=== PATIENT | male | born 1940 | race Caucasian/White ===

== ENCOUNTER 2024-10-28 14:29 | Emergency (ER) | payer MEDICAID, SELFPAY ==
[2024-10-28 14:42] VITALS: BP 154/72; PULSE 58; RESP 18; TEMP 36.4; O2SAT 96; BMI 30.7
--- NOTE | 2024-10-28 14:53 | CRLHL7_ITS ---
For Patients: As a result of the Century Cures Act, medical imaging exams and procedure reports are released immediately into your electronic medical record. You may view this report before your referring provider. If you have questions, please contact your health care provider. Indication: Fall. On Xarelto. Technique: Routine protocol without IV contrast. Comparison: None. Findings: Extra-axial spaces: [id number] diffuse cerebral volume loss. Brain: No intracranial hemorrhage, mass lesion or changes for acute cortical ischemia. Foci of encephalomalacia right parietal lobe and left temporal lobe anteriorly. Multifocal confluent patchy white-matter changes are nonspecific but consistent with small vessel ischemic/degenerative changes. Ventricles: No hydrocephalus. Commensurate with the sulci. Midline: No shift. Normal structures. Posterior fossa: Normal. Orbits: Pseudophakia. Paranasal sinuses: Minor bilateral maxillary sinus mucosal thickening. Mastoid sinuses: Normal. Skull base and calvarium: Normal. Soft tissues: 1.5 millimeter radiopaque soft tissue foreign body right forehead Impression: No acute intracranial abnormalities or hemorrhage. Extensive chronic changes as above. Please note that all CT scans at this facility use dose modulation, iterative reconstruction, and/or weight-based dosing when appropriate to reduce radiation dose to as low as reasonably achievable. Dictated by Kirill Gillis MD @ 10/28/2024 3:32:38 PM (Electronically Signed)
--- NOTE | 2024-10-28 14:57 | CRLHL7_ITS ---
For Patients: As a result of the Century Cures Act, medical imaging exams and procedure reports are released immediately into your electronic medical record. You may view this report before your referring provider. If you have questions, please contact your health care provider. Indication: Fall. On Xarelto. Technique: Routine cervical protocol with sagittal and coronal reformatted images Comparison: None. Findings: Bones: No fractures or lesions. Solidly united C6-7 vertebral bodies and facet joints Disc spaces: Mild multilevel cervical spondylosis. Soft tissues: No significant paravertebral soft tissue swelling. Two right thyroid nodules measuring up to 1.0 centimeter. Lung apices: No acute abnormalities. Visualized skull base: No acute abnormalities. Impression: 1. No acute cervical abnormalities. Please note that all CT scans at this facility use dose modulation, iterative reconstruction, and/or weight-based dosing when appropriate to reduce radiation dose to as low as reasonably achievable. Dictated by Kirill Gillis MD @ 10/28/2024 3:36:56 PM (Electronically Signed)
--- NOTE | 2024-10-28 14:58 | ED_ITS ---
HPI - Fall General Chief Complaint: Fall/Minor Trauma Stated Complaint: Fell and hit his head, on Blood Thinner Time Seen by Provider: 10/28/24 14:39 History of Present Illness HPI Narrative: Patient is a E 84-year-old gentleman who is visiting from [facility]. Patient gets her own with a walker and his was putting his slippers on today when the patient fell landing on the left posterior occiput. He did not lose consciousness. He fell from a standing height onto carpet. He is on Xarelto for history of DVT. He is having no new neurologic symptoms. His ambulation is unchanged. He has no bruising or bleeding. No other issues. Patient is otherwise been feeling fine with no signs of acute infection. No palpitations. The fall was due to a mechanical tripping. Related Data Home Medications ?Medication ?Instructions ?Recorded ?Confirmed rivaroxaban PO DAILY 10/28/24 rivastigmine 4.6 mg/24 hour 4.6 mg transdermal DAILY 10/28/24 10/28/24 transdermal patch (Exelon Patch) Allergies Allergy/AdvReac Type Severity Reaction Status Date / Time No Known Drug Allergies Allergy Verified 10/28/24 14:45 Review of Systems Status of ROS: Reports: 10 or more systems reviewed and unremarkable except as noted in History and below Exam Narrative: Exam Narrative: EXAM GENERAL: Patient appears comfortable and well. EYES: No scleral icterus. LYMPH: No supraclavicular or cervical lymphadenopathy. SKIN: Visible skin seen during exam normal or with benign process only. EXT: No dependent lower extremity pedal edema. HEART: Regular rate and rhythm with no murmurs, rubs, or gallops. LUNGS: Clear to auscultation bilaterally with no crackles or wheezes. ABD: Soft, non tender, non distended. PSYCH: Good eye contact, speech is not pressured. Cranial nerves 2-12 grossly intact no focal defects GCS 15. No obvious signs of trauma. Const: Vital Signs, click to edit/add: Vital Signs - 24 hr 10/28/24 14:42 Temperature 97.6 F Pulse Rate [Pulse Oximeter] 58 L Respiratory Rate 18 Blood Pressure [Ri ght Upper Arm] 154/72 H Pulse Oximetry 96 Oxygen Delivery Me thod Room Air Course Course ED Course: Patient seen and examined. Due to his anticoagulation I did obtain CT head and neck. Vital Signs Vital signs: Initial Vital Signs Temperature 97.6 F 10/28/24 14:42 Temperature Source Temporal Artery Scan 10/28/24 14:42 Pulse Rate 58 L 10/28/24 14:42 Respiratory Rate 18 10/28/24 14:42 Blood Pressure 154/72 H 10/28/24 14:42 Blood Pressure Mean 99 10/28/24 14:42 Blood Pressure Position Sitting 10/28/24 14:42 Pulse Oximetry 96 10/28/24 14:42 Oxygen Delivery Method Room Air 10/28/24 14:42 Vital Signs Temperature 97.6 F 10/28/24 14:42 Pulse Rate 58 L 10/28/24 14:42 Respiratory Rate 18 10/28/24 14:42 Blood Pressure 154/72 H 10/28/24 14:42 Pulse Oximetry 96 10/28/24 14:42 Oxygen Delivery Method Room Air 10/28/24 14:42 Temperature 97.6 F 10/28/24 14:42 Pulse Rate 58 L 10/28/24 14:42 Respiratory Rate 18 10/28/24 14:42 Blood Pressure 154/72 H 10/28/24 14:42 Pulse Oximetry 96 10/28/24 14:42 Oxygen Delivery Method Room Air 10/28/24 14:42 MDM - Fall MDM Narrative Medical decision making narrative: Patient is a 84-year-old gentleman who stumbled putting on his slippers today. He has dementia gets around with a walker. Patient had CT head neck with no acute abnormalities. He is otherwise neurologically intact given his chronic dementia. He has had no fevers no chills no night sweats he move all his extremities and there is no concern about discharged home as his and daughter are present. He is discharged home to continue his current care follow-up with his primary physician as needed. Discharge Plan Discharge Clinical Impression: Contusion Patient Disposition: Home w/ Parent or Adult Condition: Stable Additional Instructions: Continue current care Follow-up with your doctor as scheduled. Activity Level: No Restrictions Discharge Diet: Regular Prescriptions: No Action rivaroxaban [Xarelto] PO DAILY rivastigmine [Exelon Patch] 4.6 mg/24 hour patch 24 hour 4.6 mg transdermal DAILY Follow Up/Referrals: Provider,Not a Local [Primary Care Provider] - Stand Alone Forms: [employer] Info Instructions
--- OUTSIDE RECORDS SUMMARY | 2024-10-28 15:23 | XMS_ITS | Referral Summary ---
Author Organization [facility] Address [address] [place] [id number] Care Team Providers Care Social Media Designer Name Role Phone Iggy Branch MD Primary Care Provider [phone] Allergies Active Allergy Reactions Criticality Noted Date Comments Nafcillin Rash 07/10/2017 Rash reaction covering torso Medications acetaminophen (TYLENOL) 325 mg oral tablet Take 325 mg by mouth every 4 (four) hours as needed. Active ibuprofen (ADVIL;MOTRIN) 200 mg oral tablet Take 200 mg by mouth every 4 (four) hours as needed. Active Clobetasol 0.05 % Top Lotion Apply 1 Application to skin Twice a Day. Active ATORVASTATIN CALCIUM (ATORVASTATIN ORAL) Take by mouth once daily. Dose unknown Active betamethasone, augmented (DIPROLENE AF) 0.05 % Top cream cream Apply to affected area body bid for 1-2 weeks, alternate with mometasone q 1-2 weeks 7 Active triamcinolone acetonide (KENALOG) 0.1% cream APPLY ONE APPLICATION TO AFFECTED AREA TWICE DAILY FOR 14 DAYS 2 7 Active HYDROcodone-ruth taminophen (NORCO) 5-325 mg oral tablet Take 1 tablet by mouth every 12 (twelve) hours as needed for Pain. 45 tablet 7 Active Lisinopril-Hydr ochlorothiazide 20-12.5 mg oral tablet 7 Active Active Problems Problem Noted Date Diagnosed Date Essential hypertension 06/06/2017 Right arm weakness 06/06/2017 Bullous pemphigoid 06/06/2017 Subacute osteomyelitis of lumbar spine 7 Asymptomatic varicose veins 09/14/1996 Hyperlipidemia 09/14/1996 Staphylococcal arthritis of right shoulder Staphylococcus aureus bacteremia without sepsis Immunizations Name Administration Dates Next Due Influenza recombinant (FluBl ok Quadrivalent PF) 08/25/2005,09/06/2004 Influenza split virus quadrivalent 07/19,08/05/2012,08/25/2005,2003 Pneumococcal PCV13 04/04/2016 Td adult absorbed PF (2 Lf) 07/27/1998 Tdap 04/27/2017 Social History Tobacco Use Types Packs/Day Years Used Date Smoking Tobacco: Former Smokeless Tobacco: Former Alcohol Use Standard Drinks/Week Comments No 0 (1 standard drink = 0.6 oz pur e alcohol) Sex and Gender Information Value Date Recorded Sex Assigned at Not on file Legal Sex Male 5:19 AM CDT Gender Identity Not on file Sexual Orientation Not on file Last Filed Vital Signs Vital Sign Reading Time Taken Comments Blood Pressure 160/75 08/08/2020 4:15 AM CDT Pulse 70 08/08/2020 4:15 AM CDT Temperature 36.8 C (98.2 F) 08/08/2020 1:19 AM CDT Respiratory Rate 21 08/08/2020 4:15 AM CDT Oxygen Saturation 98% 08/08/2020 4:15 AM CDT Inhaled Oxygen Concentration - - Weight 80.3 kg (177 lb) 10/27/2017 10:31 AM DEADENER Height 177.8 cm (5' 10) 11/09/2017 9:04 AM DEADENER Body Mass Index 25.4 10/22/2017 1:10 PM DEADENER Plan of Treatment Not on file Procedures Procedure Name Priority Date/Time Associated Diagnosis Comments COLONOSCOPY 06/07/2008 12:00 AM CDT from Last 3 Months or Most Recently Relevant to Health Maintenance Results * COLONOSCOPY (06/07/2008 12:00 AM CDT) Narrative Procedure Note Riley Moya MD - 06/07/2008 12:00 AM CDTDictating Physician:Riley Moya M.D. Primary Care Physician:Iggy Branch M.D. Date of Procedure/Consult: 06/07/2008 SURGEON:Riley Moya M.D. REPORT OF PROCEDURE: PREPROCEDURE DIAGNOSIS: Screening. POSTPROCEDURE DIAGNOSIS: Normal colonoscopy. PROCEDURE PERFORMED: Colonoscopy. Mr. Andre is a pleasant 67-year-old here for screening examination. Heis asymptomatic. Denies constipation, diarrhea, blood or melena perrectum. His weight is stable, his appetite is good. No history for anemia.No family history for inflammatory bowel disease or colon cancerreported. CONSENT: We discussed benefits and risks including bleeding, perforation,infection, allergic reaction to medication, heart or pulmonary problems orrisk of incomplete examination, abdominal discomfort with exam. Discussedalternatives to this procedure with him and answered him questions to hissatisfaction. Written consent was obtained. His will drive him homeafterwards. PREPROCEDURE VITAL SIGNS AND EXAM: Blood pressure 128/79, heart rate 62,respiratory rate 20, O2 sat 97% on room air. NECK:Full range of motion. HEART:Regular rate and rhythm. LUNGS:Clear. ABDOMEN:Bowel sounds present, soft and nontender. MEDICATIONS: 1.Fentanyl 100 mcg IV x one. 2.Versed 2 mg. 3.O2 2 liters per nasal cannula. PROCEDURE: The patient was on his left side. Visual inspection, noexternal hemorrhoids. Digital exam, sphincter tone is present, smooth, nomass. Prostate 1+ without nodularity. After initial IV sedation, the Olympus PCF 160AL video colonoscope wasintroduced into the anus, advanced into the rectum and sigmoid colon. Itwas slowly and carefully advanced to the more proximal portion of thecolon. With repositioning the patient, using external compression andverbal reassurance, the scope reached the cecum. The ileocecal valve andappendiceal orifice were identified. The prep for this examination wasgood. On withdrawal, the entire colon mucosa was normal. There is noevidence for overt colitis, masses, strictures, polyps or telangiectaticdisease. Retroflexed view within the rectum was unremarkable. The colonwas deflated, scope was removed from the patient. Tolerated the procedurewell without complications. ASSESSMENT: Normal exam. RECOMMENDATIONS: Reassurance. Follow up with Dr. Branch as needed. Thanks very much, Iggy. If I can be of further assistance with 's care, please do not hesitate to contact me at any time. RILEY MOYA M.D. 36 - SB Riley Moya MD PROCEDURE ORDERABLE Final Result from Last 3 Months or Most Recently Relevant to Health Maintenance Insurance [facility] MEDICARE ADVANTAGE Member Subscriber Plan / Payer (Ef fective 2007-Present) Name:Jean-Paul Andre Relation to Subscriber:Self Name:Jean-Paul Andre Payer ID:[id number] (NAIC) [id number] Type:Medicare Advantage Address: [address] [address] Advance Directives For more information, please contact: [phone] * Full Code (Latest Code Status on File) Date Activated Date Inactivated Comments 06/05/2017 10:56 PM 06/11/2017 6:06 PM Question Answer Comments How was code status determined? Patient Care Teams Social Media Designer Relationship Specialty [place] [id number] [facility] [address] [place] [address] PCP - General 06/02/08
--- OUTSIDE RECORDS SUMMARY | 2024-10-28 15:23 | XMS_ITS | Clinical Summary ---
Author Organization [facility] Address [address] [place] [address] Care Team Providers Care Residency Program Coordinator Name Role Phone Iggy Branch MD Primary Care Provider [phone] Allergies Active Allergy Reactions Criticality Noted Date [...] absorbed PF (2 Lf) 07/27/1998 Tdap 04/27/2017 Family History Medical History Relation Comments No Known Problems Father No Known Problems Mother Relation Status Comments Father Mother Social History Tobacco Use Types Packs/Day Years [...] 80.3 kg (177 lb) 10/27/2017 10:31 AM FOREST SUPERVISOR Height 177.8 cm (5' 10) 11/09/2017 9:04 AM FOREST SUPERVISOR Body Mass Index 25.4 10/22/2017 1:10 PM FOREST SUPERVISOR Plan of Treatment Health Maintenance Due Date Last Done Comments Depression Assessment (PHQ-2) 1940 Zoster Vaccine (1 of 2) 1989 RSV Vaccines (1 - 1-dose 75+ series) 2014 Yearly Review of HCD 08/11/2018 08/11/2017, 06/05/20 17 Colonoscopy 09/02/2023 09/02/2013, 06/07/2008 COVID-19 Vaccine (3 - 2023-2 5 season) 2024 12/27/2020, 12/07/2020 Influenza Vaccine (#1) 2024 9, 07/16/2018, 08/15/2014, Additional history exists Adult Tetanus Booster 04/27/2027 04/27/2017 , 09/13/2004, 07/27/1998 Pneumococcal 50+ Completed 04/04/2016, , 01/03/2005 Procedures Procedure Name Priority Date/Time Associated Diagnosis [...] Most Recently Relevant to Health Maintenance Insurance [facility] MEDICARE ADVANTAGE Advance Directives For more information, please contact: [phone] * Full Code (Latest Code Status on File) Date Activated Date Inactivated Comments 06/05/2017 10:56 PM 06/11/2017 6:06 PM Question Answer Comments How was code status determined? Patient Care Teams Residency Program Coordinator Relationship Specialty Start [place] [address] [facility] [address] [place] [address] PCP - General 06/02/08
--- OUTSIDE RECORDS SUMMARY | 2024-10-28 15:23 | XMS_ITS | Clinical Summary ---
Author Organization [facility] Address [place], [place] [address] Care Team Providers Care Applied Research Director Name Role Phone Martha Sanchez Primary Care Prov ider Allergies Active Allergy Reactions Criticality Noted Date Comments Nafcillin Rash 07/10/2017 Rash reaction covering torso Medications atorvastatin (LIPITOR) 10 mg tablet atorvastatin 10 mg tablet Active dorzolamide-ti moloL (COSOPT) 2-0.5 % ophthalmic solution INSTILL 1 DROP INTO LEFT EYE TWICE A DAY 0 Active memantine (NAMENDA) 5 mg tablet Take 5 mg by mouth once daily. 9 Active acetaminophen (TYLENOL) 325 mg tablet Take 325 mg by mouth. Active citalopram (CELEXA) 20 mg tablet Take 20 mg by mouth. 2 Active citalopram (CELEXA) 10 mg tablet TAKE 1 TABLET DAILY FOR 1 WEEK THEN 2 TABLETS DAILY THEREAFTER 2 Active Clobetasol Propionate 0.05 % lotion Apply topically to affected area(s). Active dapsone 25 mg tablet dapsone 25 mg tablet Active escitalopram oxalate (LEXAPRO) 10 mg tablet Take 1 tablet daily for 1 week then every other day for 1 week 2 Active ibuprofen (ADVIL; MOTRIN) 200 mg tablet Take 200 mg by mouth. Active lisinopriL (PRINIVIL; ZESTRIL) 5 mg tablet 2 Active OLANzapine (ZYPREXA) 2.5 mg tablet Take 0.5 Tablets by mouth at bedtime. 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 Anxiety 11/27/2021 Hypercholesteremia 11/27/2021 Memory loss 10/31/2021 Osteomyelitis 10/08/2017 Bullous pemphigoid 06/06/2017 Essential hypertension 06/06/2017 Right arm weakness 06/06/2017 Subacute osteomyelitis of lumbar spine 7 Osteoarthritis 03/18/2003 Overview (05/12/2022): DJD Asymptomatic varicose veins 09/14/1996 Social History Tobacco Use Types Packs/Day Years Used Date Smoking Tobacco: Never Smokeless Tobacco: Never Alcohol Use Standard Drinks/Week Comments No 0 (1 standard drink = 0.6 oz pur e alcohol) Sex and Gender Information Value Date Recorded Sex Assigned at Not on file Legal Sex Male 7:04 AM LIBRARY PAGE Gender Identity Not on file Sexual Orientation Not on file Obstetrics History Last Filed Vital Signs Vital Sign Reading Time Taken Comments Blood Pressure 182/84 05/12/2022 4:47 PM CDT Pulse 56 05/12/2022 2:35 PM CDT Temperature 37.2 C (98.9 F) 05/12/2022 2:35 PM CDT Respiratory Rate 18 05/12/2022 4:47 PM CDT Oxygen Saturation 98% 05/12/2022 4:47 PM CDT Inhaled Oxygen Concentration - - Weight 86.2 kg (190 lb) 05/12/2022 2:35 PM CDT Height 177.8 cm (5' 10) 05/12/2022 2:35 PM CDT Body Mass Index 27.26 05/12/2022 2:35 PM CDT Plan of Treatment Health Maintenance Due Date Last Done Comments Tdap 1950 Depression screening for age 12+ 1951 BMI (ht and wt on same day) for age 18+ 1957 Tetanus booster 1959 Pneumococcal series for age 50+ (1 of 1 - PCV) 1989 Zoster (shingles) series for age 50+ (1 of 2) 1989 RSV vaccine for adults or pr egnancy (1 - 1-dose 75+ series) 2014 COVID-19 vaccine series ( season) 2024 10/31/2021, 12/27/2020, 12/07/2020 Influenza for age 65+ 06/12/2024 Insurance [facility] MEDICARE ADVANTAGE MR Advance Directives * Full Code (Latest Code Status on File) Date Activated Date Inactivated Comments 09/02/2013 10:15 AM 09/02/2013 12:59 PM Care Teams Applied Research Director Relationship Specialty Start Date End Date Martha Sanchez Family [address] [place] [address] PCP - General Nurse Practitioner - Family 05/12/22
--- OUTSIDE RECORDS SUMMARY | 2024-10-28 15:24 | XMS_ITS | Encounter Summary ---
Author Organization Formerly [facility] Address [address] [place] [address] Care Team Providers Care Hoop Machine Operator Name Role Phone Balaji Gallegos DO Primary Care Provider Encounter Details Date Type Department Care Team (Latest Contact Info) Description 10/21/2024 1:15 PM REAL ESTATE MANAGER Telemedicine Neurology at [facility] [address] [facility] [place], [place] [id number] Evangelist Wne MD [address] [place], [place] [phone] Alzheimer's disease (HRC) (Primary Dx) Social History Tobacco Use Types Packs/Day Years Used Date Smoking Tobacco: Former Passive Smoke Exposure: Never Smokeless Tobacco: Never Alcohol Use Standard Drinks/Week Comments Not Currently 0 (1 standard drink = 0.6 oz pur e alcohol) [facility] Utilities Answer Date Recorded In the past 12 months has [employer] electric, gas, oil, or water company threatened to shut off services in your home? No 09/09/2024 Humiliation, Afraid, Rape, and Kick questionnair e Answer Date Recorded Within the last year, have y ou been afraid of your partner or ex-partner? No 09/09/2024 Within the last year, have y ou been humiliated or emotionally abused in other ways by your partner or ex-partner? No Within the last year, have y ou been kicked, hit, slapped, or otherwise physically hurt by your partner or ex-partner? No 09/09/2024 Within the last year, have y ou been raped or forced to have any kind of sexual activity by your partner or ex-partner? No 09/09/2024 PHQ-2 Answer Date Recorded PHQ-2 Score 2 04/20/2024 Hunger Vital Sign Answer Date Recorded Within the past 12 months, y ou worried that your food would run out before you got the money to buy more. Never true 09/09/20 24 Within the past 12 months, t he food you bought just didn't last and you didn't have money to get more. Never true 09/09/2024 PRAPARE - Transportation Answer Date Re corded In the past 12 months, has l ack of transportation kept you from medical appointments or from getting medications? No 08/13 In the past 12 months, has l ack of transportation kept you from meetings, work, or from getting things needed for daily living? No 09/09/2024 Housing Stability Vital Sign Answer Sonido e Recorded In the last 12 months, was t here a time when you were not able to pay the mortgage or rent on time? No 09/09/2024 Number of Times Moved in the Last Year Not on fi le 09/09/2024 At any time in the past 12 m [facility], were you homeless or living in a mcc (including now)? No 09/09/2024 Sex and Gender Information Value Date Recorded Sex Assigned at Not on file Gender Identity Not on file Sexual Orientation Not on file documented as of this encounter Progress Notes * Evangelist Wen MD - 10/21/2024 1:15 PM CST DIAGNOSES: 1. 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 3. 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 Other medical problems as noted below RECOMMENDATIONS/PLANS: 1. Continue present therapies 2. Follow up in the office in 6 weeks 3. Care eco systems referral SUMMARY: This 84-year-old male on presentation 01/29/2024 reported a multiyear history of gradually advancing changes in cognition and later function initially manifesting with impairment in episodic memory. Gradually progressive over time, these difficulties were complicated by behavioral changes consistent with a mood disorder with psychosis. On 01/29/2024, at the time of intake assessment, it was felt that initiating therapy with donepezil may be significantly beneficial to his attentional ability and possibly behaviors. At that time the following was recommended: 1. Check 1st tier screening blood tests: Comprehensive metabolic profile remarkable for mildly low total protein and albumin. TSH within normal limits. Vitamin B12 level low at 194 with methylmalonicacid level normal at 0.3 and complete blood count within normal limits 2. Noncontrast head CT: Not performed 3. Occupational therapy assessment : Not performed 4. Begin donepezil 5 mg p.o. q.day times 30 days then increase to 10 mg p.o. q.day thereafter. Givewith breakfast Addendum 02/08/2024: Apparently the patient developed agitated behavior following initiation of donepezil so this medicine was discontinued after several days of use. On 03/16/2024 I spoke with the patient and daughter Amparo regarding options for managing depression beginning with the question as to whether the patient truly is suffering from such a syndrome. Afterdiscussion the following was recommended: 1. 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 OT evaluation : ACL 3.8 3. Return to clinic in 1 month at which time we will consider adjustment in antidepressant therapy and consider the role of environmental support On 04/13/2024 we discussed results of cognitive performance test and treatments moving forward. At that time I believed institution of transdermal rivastigmine would be a good 1st start along with consideration for placement 1. begin transdermal rivastigmine 4.6 mg per 24 hour patch 2. Care Ecosystems consult 3. Continue current therapies with citalopram and olanzapine 4. Follow up by video 1 month On 05/18/2024 I discussed Jean-Paul's case with his Shama and daughters Ricarda and Amparo. As best as could be determined, there was some modest improvement in the patient's agitated behavior following initiation of therapy with transdermal rivastigmine. He did, however, remain somewhat difficult to manage particularly in the evening with more levels of confusion and activation. He continued to en albertina in behavior where he would to pack and impact bags and express the desire to leave the home requiring the spouse to frequently redirect him. Again agitation appeared to be a bit better. Of interest, the spouse notes that the patient has not left home after packing a bag since beginning transdermal rivastigmine. At this time family believes that further pharmacotherapy is warranted and I outlined a number of options including increasing transdermal rivastigmine as well as switching out atypical antipsychotic therapy. The following was recommended: 1. Discontinue therapy with olanzapine 2. Tomorrow begin therapy with risperidone 0.5 mg p.o. b.i.d. 3. Spouse is to discontinue therapy and contact me with any concerns otherwise will follow up by video in 1 month Today the patient was seen on video with his Shama and granddaughter Jayla. Since initiation of therapy with risperidone agitated behavior has for the most part resolved. The patient has attila bit more motorically slow and I do note that he was hospitalized briefly for a fall in August resulting in a fractured left 5th metatarsal. He was also hospitalized for an episode of urosepsis. Currently at home he has been doing well again with less agitation. His mobility is good although family note that he is slowing down to some extent. Today the patient appears to be alert and interactive although he responds only when spoken to. We agreed to continue present therapies and follow up in 6 weeks for in person evaluation. HISTORY OF PRESENT ILLNESS : Jean-Paul Andre is a 84 y.o. male who presents to clinic in follow-up of Behavioral disturbance associated with dementia of the Alzheimer type. Since last seen the patient was hospitalized On 2 occasions once for a foot fracture and on a 2nd occasion for urosepsis. Now at home is doing quite well. Agitated behavior has diminished considerably. The patient is also not as motorically active but he continues to use his walker and cane without difficulty. Today Jean-Paul is alert and I note him to respond promptly to questions that I posed to him by video. He offers no complaints at this time. Past Medical History: Diagnosis Date Alzheimer's dementia with behavioral disturbance ([facility]) 01/29/2024 Anxiety (HR) 11/27/2021 Benign neoplasm of colon 05/12/2022 Bullous pemphigoid 06/06/2017 Closed displaced fracture of fifth metatarsal bone of left foot 08/30/2024 Essential hypertension ([facility]) 06/06/2017 Exudative age-related macular degeneration ([facility]) 05/12/2022 History of malignant melanoma of skin 05/12/2022 Hyperlipidemia ([facility]) 09/14/1996 Melanoma of skin ([facility]) 01/03/2005 LW Onset: 1974 ; Melanoma Skin NOS Osteoarthritis 03/18/2003 DJD Osteomyelitis ([facility]) 10/07/2017 Prediabetes 05/12/2022 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 atorvastatin (LIPITOR) 10 MG tablet Take 1 Tablet (10 mg) by mouth daily. citalopram (CELEXA) 20 MG tablet Take 1 Tablet (20 mg) by mouth daily. Multiple Vitamins-Minerals (PRESERVISION AREDS 2) CAPS Take 1 Capsule by mouth two times a day. risperiDONE (RISPERDAL) 0.5 MG tablet Take 1 Tablet (0.5 mg) by mouth two times a day. rivaroxaban (XARELTO) 20 MG tablet Take 1 Tablet (20 mg) by mouth daily with meal. Take with food. Indications: Venous Thromboembolism Do not start before October 01, 2024. rivastigmine (EXELON) 4.6 MG/24HR patch Apply 1 Patch to skin daily. torsemide (DEMADEX) 10 MG tablet Take 1 Tablet (10 mg) by mouth daily. Indications: Cardiac Failure No facility-administered medications prior to visit. REVIEW OF SYSTEMS : Pertinent items are noted in HPI. OBJECTIVE : eatly groomed casually dressed the patient is seated for evaluation. He is alert and generally interactive. His responses to questions or socially appropriate but devoid of content. No evidence of agitation or irritability noted. No evidence of delusional ideation identified. Laboratory: Imaging: Follow up: Return to clinic in 6 weeks, sooner if problems arise. Total time 30 minutes, counseling time 25 minutes regarding above. ESTATE MANAGER documented in this encounter Plan of Treatment Upcoming Encounters Date Type Department Care Team (Late st Contact Info) Description 12/07/2024 11:15 AM REAL ESTATE MANAGER Appointment Neurology at [facility] [address] [place] [address] Evangelist Wen MD [address] [place], [place] [phone] 12/14/2024 11:00 AM REAL ESTATE MANAGER Appointment [place] [id number] Thrombosis [address] [place] [phone] Maria Ines Caldera, COIN PURSE FRAMER, RVDA MASTER CERTIFIED RV TECHNICIAN [address] [place] [address] documented as of this encounter Visit Diagnoses Diagnosis Alzheimer's disease (HRC)- Primary Alzheimer's disease documented in this encounter Care Teams Hoop Machine Operator Relationship Specialty Start Date End Date Balaji Gallegos DO [address] [place], [place] [phone] PCP - General Family Practice 10/31/21 documented as of this encounter
--- OUTSIDE RECORDS SUMMARY | 2024-10-28 15:24 | XMS_ITS | Clinical Summary ---
Author Organization [facility] Address [address] [place] [address] Care Team Providers Care Clinical Dietetic Technician Name Role Phone Balaji Gallegos DO Primary Care Provider Source Comments You are receiving this document as you are listed as the primary care provider,follow-up provider, or the patient has been referred to you for consultation.This is in compliance with the Medicare and[facility] EHR Incentive Program,which states Providers who transition their patient to another setting of careor provider of care or refers their patient to another provider of care shouldprovide summary care record for each transition of care or referral. [facility] Allergies No known active allergies Medications Medication Sig Dispensed Refills Start Date End Date Status Multiple Vitamins-Minerals (PRESERVISION AREDS 2) CAPS Take 1 Capsule by mouth two times a day. 04/21/20 23 Active rivastigmine (EXELON) 4.6 MG/24HR patchIndications:Al zheimer's dementia with behavioral disturbance (HRC) Apply 1 Patch to skin daily. 90 Patch 3 04/13/20 24 025 Active atorvastatin (LIPITOR) 10 MG tabletIndications:H ypercholesteremia Take 1 Tablet (10 mg) by mouth daily. 90 Tablet 3 04/20/20 24 Active citalopram (CELEXA) 20 MG tabletIndications:A nxiety (HRC) Take 1 Tablet (20 mg) by mouth daily. 90 Tablet 3 04/20/20 24 Active acetaminophen (TYLENOL) 325 MG tablet Take 2 Tablets (650 mg) by mouth every 6 hours. 100 Tablet 11 09/02/20 24 Active risperiDONE (RISPERDAL) 0.5 MG tabletIndications:A lzheimer's dementia with behavioral disturbance (HRC) Take 1 Tablet (0.5 mg) by mouth two times a day. 30 Tablet 09/11/20 24 Active rivaroxaban (XARELTO) 20 MG tabletIndications:V enous Thromboembolism Take 1 Tablet (20 mg) by mouth daily with meal. Take with food. Indications: Venous Thromboembolism Do not start before October 01, 2024. 30 Tablet 10/01/20 24 025 Active torsemide (DEMADEX) 10 MG tabletIndications:H eart Failure Take 1 Tablet (10 mg) by mouth daily. Indications: Cardiac Failure 30 Tablet 09/28/20 24 025 Active rivaroxaban (XARELTO) 15 MG tabletIndications:V enous Thromboembolism Take 1 Tablet (15 mg) by mouth two times a day with meals for 2 days. Take with food. Last dose on 09/30/24. Indications: Venous Thromboembolism 09/28/20 24 024 Discontinued Active Problems Problem Noted Date Diagnosed Date Acute pulmonary embolism 09/09/2024 Closed displaced fracture of fifth metatarsal bone of left foot 08/30/2024 Alzheimer's disease 01/29/2024 Low serum vitamin B12 01/29/2024 Exudative age-related macular degeneration 05/12 Anxiety 11/27/2021 Essential hypertension 06/06/2017 Overweight (BMI 25.0-29.9) 01/03/2005 Overview (05/14/2016): LW Onset: [id number] Melanoma of skin 01/03/2005 Overview (06/03/2017): LW Onset: 1974 ; Melanoma Skin NOS Hyperlipidemia 09/14/1996 Heart failure, unspecified Resolved Problems Problem Noted Date Diagnosed Date Resolved Date Sepsis secondary to UTI 09/09/2024 12/0 12/2023 Acute respiratory distress 09/09/2024 1 11/14/2023 Acute pain of left knee 08/31/202408/13 Fall 08/30/2024 09/05/2024 Cellulitis 05/15/2023 03/20/2024 Chronic renal failure syndrome 05/12/2022 04/20/2024 Benign neoplasm of colon 05/12/2022 History of malignant melanoma of skin 05/12/2022 09/05/2024 Prediabetes 05/12/2022 09/05/2024 Staphylococcal arthritis of right shoulder 05/12/2022 09/05/2024 Memory loss 10/31/2021 04/20/2024 Osteomyelitis 10/07/2017 09/05/2024 Bullous pemphigoid 06/06/2017 Subacute osteomyelitis of lumbar spine 06/05/2017 09/05/2024 Hypertrophy of prostate with out urinary obstruction 01/03/2005 03/24/2006 Overview (06/03/2017): LW Onset: ; BPH w/o Obstruction Osteoarthritis 03/18/2003 09/05/2024 Overview (06/03/2017): DJD Encounters Date Type Department Care Team Description 10/21/2024 1:15 PM SIDE TRIMMER Telemedicine [facility]rology at [facility] [address] [facility] [place] [address] Evangelist Wen MD Alzheimer's disease (HRC) (Primary Dx) 10/21/2024 Telephone [facility] 3850 Internal Medicine [address] [facility] [place] [address] Balaji Gallegos, DO Anticoagulation 10/18/2024 [facility] [address] [facility] [place] [address] Mychart, Generic Provider 10/13/2024 Telephone Home Based Medicine [facility] [address] [place] [address] Unassigned, Provider FYI; Referral (HBM) 10/10/2024 Telephone [facility] 3850 Thrombosis 3850 [place] [address] Maria Ines Caldera APRN, JASMYNE Appt. Needed 10/03/2024 8:40 AM SIDE TRIMMER Telemedicine [place] [address] [place] [address] Maria Ines Caldera APRN, YACHT CAPTAIN Acute pulmonary embolism, unspecified pulmonary embolism type, unspecified whether acute cor pulmonale present (HRC) (Primary Dx); On continuous oral anticoagulation; Heart failure, unspecified HF chronicity, unspecified heart failure type (HRC) 10/03/2024 Notes/Orders [place] [address] [place] [address]. [place] [address] Balaji Gallegos DO Alzheimer's disease, unspecified (HRC) (Primary Dx) 10/01/2024 Lab Requisition [facility] [address] [facility] [place] [address] Rubia Villanueva APRN, JASMYNE Acute kidney failure, unspecified (HRC) 09/28/[address] [place] [address] Rubia Villanueva APRN, YACHT CAPTAIN Discharge From External Facility 09/28/[address] [place] [address] Elise Gaytan MBBS ERRONEOUS ENTRY; ERRONEOUS ENTRY 09/27/2024 Lab Requisition [facility] [address] [facility] [place] [address] Rubia Villanueva APRN, YACHT CAPTAIN Acute kidney failure, unspecified (HRC) 09/26/[address] [place] [address] Rubia Villanueva APRN, YACHT CAPTAIN Follow-up 09/24/2024 [facility] [employer] Consultant [address] [place] [address] Rayne Stewart APRN, DNP COVID Test Results 09/21/2024 [facility] Transitional [address] [place] [address] Elise Gaytan MBBS Initial Assessment 09/20/[address] [place] [address] Rubia Villanueva STOPBOARD ASSEMBLER, YACHT CAPTAIN Follow-up 09/19/2024 8:00 AM SIDE TRIMMER [facility] 3931 Orthopedics [facility] [address] [place] [address] Dk Sands, STOPBOARD ASSEMBLER, YACHT CAPTAIN FOLLOW-UP,FRACTURE 09/19/[address] [place] [address] Rubia Villanueva APRN, YACHT CAPTAIN RESULTS, TEST 09/17/2024 Lab Requisition [facility] [address] [facility] [place] [address] Rubia Villanueva, STOPBOARD ASSEMBLER, YACHT CAPTAIN Chronic kidney disease, stage 3 unspecified (HRC) 09/16/[address] [place] [address] Rubia Villanueva STOPBOARD ASSEMBLER, YACHT CAPTAIN Follow-up 09/15/2024 Lab Requisition [facility] [address] [facility] [place] [address] Rubia Villanueva STOPBOARD ASSEMBLER, YACHT CAPTAIN Urinary tract infection, site not specified 09/15/[address] [place] [address] Rubia Villanueva APRN, YACHT CAPTAIN Initial Assessment 09/08/2024 10:16 PM SIDE TRIMMER - 09/14/2024 2:27 PM SIDE TRIMMER Hospital Encounter [facility] 8W General Med [address] [place] [address] Katiuska Brothers MD Md, Hospital Medicine GjevreJack MD Doda, Lauren B, Phu Barrios MD Acute pulmonary embolism, unspecified pulmonary embolism type, unspecified whether acute cor pulmonale present (HRC) (Primary Dx); Sepsis, due to unspecified organism, unspecified whether acute organ dysfunction present (HRC); Pyelonephritis; Pulmonary embolism, unspecified chronicity, unspecified pulmonary embolism type, unspecified whether acute cor pulmonale present (HRC); Alzheimer's dementia with behavioral disturbance (HRC); Sepsis secondary to UTI (HRC) Discharge Disposition: Transitional Care Unit 09/08/[address] [place] [address] Jennie Lieberman APRN, YACHT CAPTAIN UPDATE 09/07/[address] [place] [address] Elise Gaytan MBBS Initial Assessment 09/05/[address] [place] [address] Rubia Villanueva APRN, YACHT CAPTAIN Initial Assessment 09/03/2024 [facility] [address] [place] [address]. [place] [address] Mychart, Generic Provider 09/02/2024 [facility] [address] [place], [place] [address] [address] 08/30/2024 5:52 PM SIDE TRIMMER - 09/02/2024 4:00 PM SIDE TRIMMER Hospital Encounter [facility] 6E Ortho Med Surg [address] [facility] [place] [address] Zohaib Mcadams DO Gonzalez Bolanos, Maria T, MD Ray, Jonathan R, MD Counters, Jeff T, DO Closed displaced fracture of fifth metatarsal bone of left foot, initial encounter (Primary Dx); Inability to walk Discharge Disposition: Transitional Care Unit 08/07/2024 11:50 AM CDT E-Visit [place] [address] [place] [address]. [place] [address] Balaji Gallegos DO Chief Comp: QUESTIONS, GENERAL 08/04/2024 7:05 PM CDT Ancillary Procedure [facility] [address] [facility] [address] [place] [phone] Edna Rhodes MD Cough, unspecified type 08/04/2024 6:40 PM CDT Office Visit [facility] [address] [facility] [address] [place] [phone] Edna Rhodes MD Cough, unspecified type 08/04/2024 5:30 PM CDT Telemedicine [facility] [address] [facility] [place] [address] Joaquin Montemayor, STOPBOARD ASSEMBLER, YACHT CAPTAIN Acute URI (Primary Dx) 08/04/2024 4:20 PM CDT Lab Visit [facility] [address] [facility] [address] [place] [phone] Cough, unspecified type from Last 3 Months Immunizations Name Administration Dates Next Due Flu Vac (3+ yrs) 07/19/2013,08/05/2012 Flu Vac Preserv Free (3+yrs) 08/25/2005,09/06/20 04 Influenza ([place] Only) (Flul aval Quad 0.5, 3+ yrs) 07/19/2013,08/05/2012,08/25/2005,2003 Influenza IIV3 (Trivalent) F lugilma Highdose, 65+ Yrs (32093) 09/05/2019,07/16/2018 Influenza IIV4 (Quadrivalent ) 0.5mL (86997) 10/31/2021,08/25/2005,09/06/2004 Influenza, Unspecified Formulation 08/25/2005, PCV13 (Prevnar) 04/04/2016 PPSV23 (Pneumovax) 01/03/2005 Pfizer Monovalent 12+ Purple Top 10/31/2021,12/10,12/07/2020 Td 09/13/2004,07/27/1998 Tdap 04/27/2017 Social History Tobacco Use Types Packs/Day Years Used Date Smoking Tobacco: Former Passive Smoke Exposure: Never Smokeless Tobacco: Never Tobacco Cessation:Counseling Given: Not Answered Alcohol Use Standard Drinks/Week Comments Not Currently 0 (1 standard drink = 0.6 oz pur e alcohol) [facility] Utilities Answer Date Recorded In the past 12 months has th e electric, gas, oil, or water company threatened [...] any time in the past 12 m [facility], were you homeless or living in a custodial (including now)? No 09/09/2024 Sex and Gender Information Value Date Recorded Sex Assigned at Not on file Gender Identity Not on file Sexual Orientation Not on file Last Filed Vital Signs Vital Sign Reading Time Taken Comments Blood Pressure 118/61 09/27/2024 4:05 PM SIDE TRIMMER Pulse 76 09/27/2024 4:05 PM SIDE TRIMMER Temperature 36.6 C (97.9 F) 09/27/2024 4:05 PM SIDE TRIMMER Respiratory Rate 17 09/27/2024 4:05 PM SIDE TRIMMER Oxygen Saturation 94% 09/27/2024 4:05 PM SIDE TRIMMER Inhaled Oxygen Concentration - - Weight 97.1 kg (214 lb) 10/03/2024 8:35 AM SIDE TRIMMER p t reported Height 177.8 cm (5' 10) 09/09/2024 4:15 AM SIDE TRIMMER Body Mass Index 30.71 09/09/2024 4:15 AM SIDE TRIMMER Plan of Treatment Upcoming Encounters Date Type Department Care Team (Late st Contact Info) Description 12/07/2024 11:15 AM SIDE TRIMMER Appointment Neurology at [address] [place] [address] Evangelist Wen MD [address] [place], [place] [id number] 12/14/2024 11:00 AM SIDE TRIMMER Appointment [place] [id number] [id number] Maria Ines Caldera, STOPBOARD ASSEMBLER, YACHT CAPTAIN [address] [place], [place] [phone] Health Maintenance Due Date Last Done Comments HepB (1) 1959 Zoster/Shingles (1 of 2) 1989 Colonoscopy 06/14/2005 06/13/2005, 01/30/2005 RSV (1 - 1-dose 75+ series) 2014 COVID-19 Vaccine ( season) 2024 10/31/2021, 12/27/2020, 12/07/2020 Influenza (#1) 2024 10/31/2021, 11/2 02/2019, 07/16/2018, Additional history exists Medicare Annual Wellness Visit 10/12/2024 04/20/2024, 04/15/2023, 06/05/2022 Prediabetes: HGBA1C 04/20/2025 04/20/2024 DTaP/Tdap/Td (2 - Tdap) 04/27/2027 04/27/20 17, 09/13/2004, 07/27/1998 Pneumococcal 65+ Yrs Completed 04/04/2016, 01/04/20 05 HepA Aged Out No longer eligi ble based on patient's age to complete this topic Hib Aged Out No longer eligi ble based on patient's age to complete this topic IPV (Polio) Aged Out No longer eligi ble based on patient's age to complete this topic MCV4 Aged Out No longer eligi ble based on patient's age to complete this topic Procedures Procedure Name Priority Date/Time Associated Diagnosis Comments BASIC METABOLIC PANEL Routine 09/27/2024 9:29 AM SIDE TRIMMER Acute kidney failure, unspecified (HRC) BASIC METABOLIC PANEL Routine 09/19/2024 6:12 AM SIDE TRIMMER Chronic kidney disease, stage 3 unspecified (HRC) COMPLETE BLOOD COUNT-W/DIFF Routine 09/16/2024 8:31 AM SIDE TRIMMER Urinary tract infection, site not specified CBC AND DIFFERENTIAL PANEL Routine 09/16/2024 8:31 AM SIDE TRIMMER Urinary tract infection, site not specified BASIC METABOLIC PANEL Routine 09/16/2024 8:31 AM SIDE TRIMMER Urinary tract infection, site not specified MAGNESIUM Routine 09/13/2024 8:09 AM SIDE TRIMMER COMPLETE BLOOD COUNT-NO DIFF Routine 09/13/2024 8:09 AM SIDE TRIMMER BASIC METABOLIC PANEL Routine 09/13/2024 8:09 AM SIDE TRIMMER BASIC METABOLIC PANEL Routine 09/11/2024 9:08 AM SIDE TRIMMER FREE T4 Add-On 09/10/2024 8:11 AM SIDE TRIMMER TSH, SENSITIVE Routine 09/10/2024 8:11 AM SIDE TRIMMER BASIC METABOLIC PANEL Routine 09/10/2024 8:11 AM SIDE TRIMMER APTT (ACTIVATED PARTIAL THROMBOPLASTIN TIME Routine 09/09/2024 4:21 PM SIDE TRIMMER INR/PROTIME Add-On 09/09/2024 4:21 PM SIDE TRIMMER COMPLETE BLOOD COUNT-NO DIFF Routine 09/09/2024 4:21 PM SIDE TRIMMER ECHOCARDIOGRAM Routine 09/09/2024 8:17 AM SIDE TRIMMER TSH, SENSITIVE Add-On 09/09/2024 5:43 AM SIDE TRIMMER LIVER PANEL(HEPATIC FUNCTION PANEL) Add-On 09/09/2024 5:43 AM SIDE TRIMMER COMPLETE BLOOD COUNT-NO DIFF Routine 09/09/2024 5:43 AM SIDE TRIMMER BASIC METABOLIC PANEL Routine 09/09/2024 5:43 AM SIDE TRIMMER TROPONIN I STAT 09/09/2024 5:43 AM SIDE TRIMMER CREATININE / GFR Add-On 09/09/2024 3:01 AM SIDE TRIMMER TROPONIN I Specified Time 09/09/2024 3:[address] ANGIO CHEST W IV CONT PE STUDY STAT 09/09/2024 2:19 AM SIDE TRIMMER URINE CULTURE STAT 09/09/2024 1:03 AM SIDE TRIMMER UA CONDITIONAL UC STAT 09/09/2024 1:0 3 AM SIDE TRIMMER BLOOD CULTURE Routine 09/09/2024 12:36 AM SIDE TRIMMER BLOOD CULTURE Routine 09/09/2024 12:36 AM SIDE TRIMMER TROPONIN I STAT Add-On 09/09/2024 12:36 AM SIDE TRIMMER LACTATE 2 HOUR Specified Time 09/09/2024 12:36 AM SIDE TRIMMER BLOOD CULTURE Routine 09/08/2024 11:32 PM SIDE TRIMMER BLOOD CULTURE Routine 09/08/2024 11:32 PM SIDE TRIMMER XR CHEST 2 VIEWS STAT 09/08/2024 11:2 6 PM SIDE TRIMMER ECG 12 LEAD INPATIENT STAT 09/08/2024 10:55 PM SIDE TRIMMER RSV, MOLECULAR DETECTION STAT 09/08/2024 10:46 PM SIDE TRIMMER INFLUENZA VIRUS A AND B, MOLECULAR DETECTION STAT 09/08/2024 10:46 PM SIDE TRIMMER 2019 NOVEL CORONAVIRUS STAT 09/08/2024 10:46 PM SIDE TRIMMER COVID/INFLUENZA A&B/RSV STAT 09/08/2024 10:46 PM SIDE TRIMMER BRAIN NATRIURETIC PEPTIDE (BNP) STAT Add-On 09/08/2024 10:43 PM SIDE TRIMMER COMPLETE BLOOD COUNT-W/DIFF STAT Add-On 09/08/2024 10:43 PM SIDE TRIMMER BRAIN NATRIURETIC PEPTIDE (BNP) STAT Add-On 09/08/2024 10:43 PM SIDE TRIMMER PROCALCITONIN STAT Add-On 09/08/2024 10:43 PM SIDE TRIMMER LACTATE REFLEX PANEL STAT Add-On 09/08/2024 10:43 PM SIDE TRIMMER BASIC METABOLIC PANEL STAT Add-On 09/08/2024 10:43 PM SIDE TRIMMER CBC AND DIFFERENTIAL PANEL STAT Add-On 09/08/2024 10:43 PM SIDE TRIMMER EXTRA LIGHT GREEN TOP ON ICE TUBE Routine 09/08/2024 10:43 PM SIDE TRIMMER EXTRA BLUE TOP TUBE STAT 09/08/2024 1 0:43 PM SIDE TRIMMER EXTRA LIGHT GREEN TUBE STAT 09/08/2024 10:43 PM SIDE TRIMMER EXTRA LAVENDER TOP TUBE STAT 09/08/2024 10:43 PM SIDE TRIMMER EXTRA LAVENDER TOP TUBE Routine 09/08/2024 10:43 PM SIDE TRIMMER RAINBOW DRAW AND HOLD STAT 09/08/2024 10:43 PM SIDE TRIMMER XR KNEE LT 2 VIEWS Routine 08/31/2024 5: 05 PM SIDE TRIMMER COMPLETE BLOOD COUNT-NO DIFF Routine 08/31/2024 8:50 AM SIDE TRIMMER BASIC METABOLIC PANEL Routine 08/31/2024 8:50 AM SIDE TRIMMER XR ANKLE LT 3 VIEWS STAT 08/30/2024 6 :47 PM SIDE TRIMMER XR FOOT LT 3+ VIEWS STAT 08/30/2024 6 :46 PM SIDE TRIMMER COMPLETE BLOOD COUNT-W/DIFF STAT 08/30/2024 5:33 PM SIDE TRIMMER CBC AND DIFFERENTIAL PANEL STAT 08/30/2024 5:33 PM SIDE TRIMMER BASIC METABOLIC PANEL STAT 08/30/2024 5:33 PM SIDE TRIMMER 2019 NOVEL CORONAVIRUS Routine 08/04/2024 7:17 PM CDT Cough, unspecified type XR CHEST 2 VIEWS STAT 08/04/2024 7:13 PM CDT Cough, unspecified type COMPLETE BLOOD COUNT-W/DIFF STAT 08/04/2024 7:01 PM CDT Cough, unspecified type CREATININE/GFR, WB POC STAT 08/04/2024 7:01 PM CDT Cough, unspecified type CHEM 4 PANEL POCT STAT 08/04/2024 7:0 1 PM CDT Cough, unspecified type CBC AND DIFFERENTIAL PANEL STAT 08/04/2024 7:01 PM CDT Cough, unspecified type HGB A1C Routine 04/20/2024 1:26 PM CDT Screening for diabetes mellitus ENDOSCOPY, COLON, SCREENING/DIAGNOSTIC Routine 06/13/2005 5:49 PM CDT from Last 3 Months or Most Recently Relevant to Health Maintenance Results * (ABNORMAL) Basic Metabolic Panel (09/27/2024 9:29 AM SIDE TRIMMER) Only the most recent of10 resultswithin the time period is included. Sodium 143 136 - 145 mmol/L 09/27/2024 4:15 PM SIDE TRIMMER [facility] Potassium 4.2 3.5 - 5.1 mmol/L 09/27/2024 4:15 PM SIDE TRIMMER [facility] Chloride 114(H) 98 - 109 mmol/L 09/27/2024 4:15 PM SIDE TRIMMER [facility] CO2 22 20 - 29 mmol/L 09/27/2024 4:15 PM SIDE TRIMMER [facility] Anion Gap 7 6 - 16 mmol/L 09/27/2024 4:15 PM SIDE TRIMMER [facility] Calcium 8.5 8.4 - 10.4 mg/dL 09/27/2024 4:15 PM SIDE TRIMMER [facility] BUN 19 7 - 26 mg/dL 09/27/2024 4:15 PM SIDE TRIMMER [facility] Creatinine 1.06 0.73 - 1.18 mg/dL 09/27/2024 4:15 PM SIDE TRIMMER [facility] Glucose 99 70 - 100 mg/dL 09/27/2024 4:15 PM SIDE TRIMMER [facility] Comment:The given reference range is for the fasting state. Non-fasting reference range for glucose is 70 - 180 mg/dL. GFR, Estimated >60 >60 mL/min/1.7 3m2 09/27/2024 4:15 PM SIDE TRIMMER [facility] Hours Fasting 0.1 8 - 12 Hours 09/27/2024 4:15 PM SIDE TRIMMER [facility] Comment:Lab unable to obtain patient's fasting status at time of specimen collection. Blood Venipuncture / Unknown 09/27/2024 9:29 AM SIDE TRIMMER 09/27/2024 3:11 PM SIDE TRIMMER Rubia Villanueva APRN, CNP LAB_1 [facility] [address] [employer] [address] * (ABNORMAL) Complete Blood Count-W/Diff (09/16/2024 8:31 AM SIDE TRIMMER) Only the most recent of4 resultswithin the time period is included. WBC 10.0 3.5 - 10.5 x10(9)/L 09/16/2024 3:12 PM SIDE TRIMMER [facility] RBC 4.21(L) 4.32 - 5.72 x10(12)/L 09/16/2024 3:12 PM SIDE TRIMMER [facility] Hemoglobin 13.3(L) 13.5 - 17.5 g/dL 09/16/2024 3:12 PM SIDE TRIMMER [facility] HCT 41.4 38.8 - 50.0 % 09/16/2024 3:12 PM SIDE TRIMMER [facility] MCV 98.3 80.0 - 100.0 fL 09/16/2024 3:12 PM SIDE TRIMMER [facility] MCH 31.6 27.6 - 33.3 pg 09/16/2024 3:12 PM SIDE TRIMMER [facility] MCHC 32.1 31.5 - 35.2 g/dL 09/16/2024 3:12 PM SIDE TRIMMER [facility] RDW 12.8 11.9 - 15.5 % 09/16/2024 3:12 PM SIDE TRIMMER [facility] Platelets 271 150 - 450 x10(9)/L 09/16/2024 3:12 PM SIDE TRIMMER [facility] Automated NRBC 0 <=0 /100 WBC 09/16/2024 3:12 PM SIDE TRIMMER [facility] Neutrophil Absolute 7.8(H) 1.7 - 7.0 10(9)/L 09/16/2024 3:12 PM SIDE TRIMMER [facility] Lymphocyte Absolute 1.0 1.0 - 4.8 10(9)/L 09/16/2024 3:12 PM SIDE TRIMMER [facility] Monocyte Absolute 0.7 0.2 - 0.9 10(9)/L 09/16/2024 3:12 PM SIDE TRIMMER [facility] Eosinophil Absolute 0.4 0.0 - 0.5 10(9)/L 09/16/2024 3:12 PM SIDE TRIMMER [facility] Basophil Absolute 0.1 0.0 - 0.3 10(9)/L 09/16/2024 3:12 PM SIDE TRIMMER [facility] Immature Granulocyte % 1.0(H) 0.0 - 0.5 % 09/16/2024 3:12 PM SIDE TRIMMER [facility] Blood Venipuncture / Unknown 09/16/2024 8:31 AM SIDE TRIMMER 09/16/2024 2:34 PM SIDE TRIMMER Rubia Villanueva APRN, CNP LAB_1 Performing Organization Address City/State/[facility] Co de Phone Number [facility] [address] * (ABNORMAL) Complete Blood Count-No Diff (IN AM) (09/13/2024 8:09 AM SIDE TRIMMER) Only the most recent of4 resultswithin the time period is included. WBC 7.9 3.5 - 10.5 x10(9)/L 09/13/2024 8:32 AM SIDE TRIMMER [facility] RBC 3.78(L) 4.32 - 5.72 x10(12)/L 09/13/2024 8:32 AM SIDE TRIMMER [facility] Hemoglobin 11.8(L) 13.5 - 17.5 g/dL 09/13/2024 8:32 AM SIDE TRIMMER [facility] HCT 36.4(L) 38.8 - 50.0 % 09/13/2024 8:32 AM SIDE TRIMMER [facility] MCV 96.3 80.0 - 100.0 fL 09/13/2024 8:32 AM SIDE TRIMMER [facility] MCH 31.2 27.6 - 33.3 pg 09/13/2024 8:32 AM SIDE TRIMMER [facility] MCHC 32.4 31.5 - 35.2 g/dL 09/13/2024 8:32 AM SIDE TRIMMER [facility] RDW 12.2 11.9 - 15.5 % 09/13/2024 8:32 AM SIDE TRIMMER [facility] Platelets 212 150 - 450 x10(9)/L 09/13/2024 8:32 AM SIDE TRIMMER [facility] Automated NRBC 0 <=0 /100 WBC 09/13/2024 8:32 AM SIDE TRIMMER [facility] Blood Venipuncture / Unknown 09/13/2024 8:09 AM SIDE TRIMMER 09/13/2024 8:23 AM SIDE TRIMMER Stephanie Naik DO LAB_1 Performing Organization Address City/[facility] de Phone Number [facility] [address] [place] [address] * Magnesium (IN AM) (09/13/2024 8:09 AM SIDE TRIMMER) Magnesium 2.0 1.6 - 2.6 mg/dL 09/13/2024 9:09 AM SIDE TRIMMER [facility] Blood Venipuncture / Unknown 09/13/2024 8:09 AM SIDE TRIMMER 09/13/2024 8:23 AM SIDE TRIMMER Stephanie Duval Heena ARNOLD LAB_1 Performing Organization Address City/[facility] Co de Phone Number [facility] [address] [place] [address] * (ABNORMAL) TSH (09/10/2024 8:11 AM SIDE TRIMMER) Only the most recent of2 resultswithin the time period is included. TSH, Sensitive 4.57(H) 0.30 - 4.50 uIU/mL 09/10/2024 9:05 AM SIDE TRIMMER [facility] Blood Venipuncture / Unknown 09/10/2024 8:11 AM SIDE TRIMMER 09/10/2024 8:21 AM SIDE TRIMMER Geovanna Corbett MD LAB_1 Performing Organization Address [facility] Phone Number [facility] [address] [place] [address] * Free T4 (09/10/2024 8:11 AM SIDE TRIMMER) T4, Free 0.9 0.7 - 1.5 ng/dL 09/10/2024 12:38 PM SIDE TRIMMER [facility] Blood Venipuncture / Unknown 09/10/2024 8:11 AM SIDE TRIMMER 09/10/2024 8:21 AM SIDE TRIMMER Geovanna Corbett MD LAB_1 Performing Organization Address [facility] Phone Number [facility] [address] [place] [address] * APTT (ACTIVATED PARTIAL THROMBOPLASTIN TIME) (09/09/2024 4:21 PM SIDE TRIMMER) APTT 34.8 22.5 - 36.5 Seconds 09/09/2024 4:39 PM SIDE TRIMMER [facility] Blood Venipuncture / Unknown 09/09/2024 4:21 PM SIDE TRIMMER 09/09/2024 4:25 PM SIDE TRIMMER Jack Vee MD [email or web address] Performing Organization Address [facility] Phone Number [facility] [address] [place] [address] * (ABNORMAL) INR/Protime (09/09/2024 4:21 PM SIDE TRIMMER) Protime 15.0(H) 11.8 - 14.6 Seconds 09/09/2024 4:39 PM SIDE TRIMMER [facility] INR 1.2(H) 0.9 - 1.1 09/09/2024 4:39 PM SIDE TRIMMER [facility] Blood Venipuncture / Unknown 09/09/2024 4:21 PM SIDE TRIMMER 09/09/2024 4:25 PM SIDE TRIMMER Narrative [facility] - 09/09/2024 4:39 PM SIDE TRIMMER If you take an anticoagulant medicine called warfarin, your doctor or clinician may establish a normal range for you that is different from the baseline range shown. Jack Vee MD LAB_1 [facility] [address] * Echocardiogram (09/09/2024 8:17 AM SIDE TRIMMER) 09/09/2024 8:17 AM SIDE TRIMMER Narrative PN ECHO - 09/09/2024 10:20 AM SIDE TRIMMER Procedure type: ECHOCARDIOGRAM Procedure 09/09/2024 8:17 AM date/time: [facility] SUMMARY: Left ventricular ejection fraction is visually estimated at 50%. Normal right ventricle size; hypokinetic RV apex. Normal function of all valves. Compared with the previous study dated 05/2023, RV hypokinesis is new, LV EF slightly reduced. FINDINGS LEFT VENTRICLE: Left ventricular ejection fraction is visually estimated at 50%. Normal left ventricular size and regional function. Mild (1.1-1.3 cm) concentric wall thickening consistent with left ventricular hypertrophy is present. Indeterminate left ventricular diastolic function. RIGHT VENTRICLE: Normal right ventricle size; hypokinetic RV apex. LEFT ATRIUM: Left atrial volume index is 39 mL/m^2. (Mildly abnormal 35- 41mL/m^2). RIGHT ATRIUM: Normal right atrium. MITRAL VALVE: Normal mitral valve structure and function. TRICUSPID VALVE: Normal tricuspid valve structure and function. Trace to mild tricuspid insufficiency noted. (Physiologic) Estimated pulmonary artery systolic pressure is 25 mm Hg plus right atrial pressure. (normal) AORTIC VALVE: The aortic valve is tricuspid. Trace aortic regurgitation. No aortic stenosis. AORTA/GREAT VESSELS: The visualized segments of the thoracic aorta are normal in diameter. The ascending aorta measures 3.4 cm ( <= 4.0 cm is generally considered normal for adults over the age of 40). The inferior vena cava is not well visualized. PULMONARY VALVE: The pulmonic valve is not well visualized, but trace pulmonic regurgitation is noted. PERICARDIUM & PLEURA: There is no pericardial effusion. LVOT LVOT diameter: 2 cm LVOT Area: 3.1 cm^2 AORTA Sinus of Valsalva: 3.82 cm Sinus of Valsalva Index: 2.15 cm/m Ascending Ao (prox): 3.4 cm Aortic Arch: 3.4 cm Asc Ao (prox) Index: 1.91 cm/m MITRAL VALVE Peak E-wave: 78.4 cm/s Peak A-wave: 74.1 cm/s E/A ratio: 1.06 Deceleration time: 250 ms TRICUSPID VALVE TR velocity: 2.5 m/s TR gradient: 25 mmHg LEFT ATRIUM LA dimension (2D): 4.3 cm LA Area (A4C): 26.1 cm^2 LA Volume (BP): 84.9 ml LA Volume (BP) Index: 39.4 ml/m^2 LA Volume (A2C): 81 ml LA Volume (A4C): 85.8 ml LA Volume (A2C) Index: 37.5 ml/m^2 LA Volume (A4C) Index: 39.7 ml/m^2 LEFT VENTRICLE LVIDd (2D): 3.9 cm LVIDs (2D): 2.8 cm Septum diastolic (2D): 1.3 cm Post wall diastolic (2D): 1.3 cm Rel wall thickness: 0.7 LV mass (ASE): 176.4 g LV mass (ASE) Index: 81.8 g/m^2 FS: 27 % LV length: 8.8 cm LV Ejection Fraction - Yan LVEDV (A4C): 128 ml LVESV (A4C): 70 ml LVEDVI (A4C): 59.3 ml/m^2 LVESVI (A4C): 32.5 ml/m^2 LVEDV (A2C): 118 ml LVESV (A2C): 60.3 ml LVEDVI (A2C): 54.7 ml/m^2 LVESVI (A2C): 28 ml/m^2 EF (A4C): 45.3 % EF (A2C): 48.9 % LVEDV (Biplane): 125 ml LVESV (Biplane): 65.4 ml EF (Biplane): 47.7 % LV DIASTOLIC FUNCTION E' septal velocity: 4.8 cm/s E' lateral velocity: 7.2 cm/s A' septal velocity: 8.5 cm/s A' lateral velocity: 10.2 cm/s E/E' Septal: 16.4 E/E' Lateral: 10.9 E/E' Average: 13.6 LEFT VENTRICLE: M-MODE LVEDV (Teich): 63.9 ml LVESV (Teich): 29.6 ml EF (Teichholz): 54 % EF Estimated: 45 % RIGHT VENTRICLE RVOT (PLAx): 4.1 cm RV/LV Diast ratio: 1.05 TAPSE: 1.4 cm RV S' velocity: 9.3 cm/s IVC IVC inspiration: 1.5 cm IVC expiration: 2.6 cm INDICATIONS Pulmonary embolus. PROCEDURE 2-D Quality: Good quality 2-dimensional echo was performed and interpreted. Doppler Quality: Good quality pulse, continuous wave, and color Doppler was performed and interpreted. Contrast medium: Lumason Amount (ml): 4 Height: 70 in. Weight: 216 lb. Blood pressure: 124 / 64 mmHg BSA: 2.2 m^2 BMI: 31 kg/m^2 Rhythm: Sinus Procedure notes: *IV: Previously placed by ER. *Suboptimal study; Echo dropout of the anterior, lateral, apical, septal and inferior wall/s. 6 of 6 segments in standard apical 4, 3 and 2 chamber view/s are not visualized on study. An image enhancer was used due to suboptimal endocardial definition. With the use of an image enhancer, the segments of the left ventricle were reasonably visualized. DEMOGRAPHICS Patient name: BENJIE Moraes Date of : 1940 Age: 84 year(s) Gender: Male Procedure Staff Interpreting Geovanna Narayan MD Radial Saw Operator: Rail Setter: AMY MOREAU Ordering Provider: PHU HOANG MD Attending Physician: Katiuska Brothers MD Procedure Note Geovanna Narayan MD - 09/09/2024 Procedure type: ECHOCARDIOGRAM Procedure 09/09/2024 8:17 AM date/time: [facility] SUMMARY: Left ventricular ejection fraction is visually estimated at 50%. Normal right ventricle size; hypokinetic RV apex. Normal function of all valves. Compared with the previous study dated 05/2023, RV hypokinesis is new, LV EF slightly reduced. FINDINGS LEFT VENTRICLE: Left ventricular ejection fraction is visually estimated at 50%. Normal left ventricular size and regional function. Mild (1.1-1.3 cm) concentric wall thickening consistent with left ventricular hypertrophy is present. Indeterminate left ventricular diastolic function. RIGHT VENTRICLE: Normal right ventricle size; hypokinetic RV apex. LEFT ATRIUM: Left atrial volume index is 39 mL/m^2. (Mildly abnormal 35- 41mL/m^2). RIGHT ATRIUM: Normal right atrium. MITRAL VALVE: Normal mitral valve structure and function. TRICUSPID VALVE: Normal tricuspid valve structure and function. Trace to mild tricuspid insufficiency noted. (Physiologic) Estimated pulmonary artery systolic pressure is 25 mm Hg plus right atrial pressure. (normal) AORTIC VALVE: The aortic valve is tricuspid. Trace aortic regurgitation. No aortic stenosis. AORTA/GREAT VESSELS: The visualized segments of the thoracic aorta are normal in diameter. The ascending aorta measures 3.4 cm ( <= 4.0 cm is generally considered normal for adults over the age of 40). The inferior vena cava is not well visualized. PULMONARY VALVE: The pulmonic valve is not well visualized, but trace pulmonic regurgitation is noted. PERICARDIUM & PLEURA: There is no pericardial effusion. LVOT LVOT diameter: 2 cm LVOT Area: 3.1 cm^2 AORTA Sinus of Valsalva: 3.82 cm Sinus of Valsalva Index: 2.15 cm/m Ascending Ao (prox): 3.4 cm Aortic Arch: 3.4 cm Asc Ao (prox) Index: 1.91 cm/m MITRAL VALVE Peak E-wave: 78.4 cm/s Peak A-wave: 74.1 cm/s E/A ratio: 1.06 Deceleration time: 250 ms TRICUSPID VALVE TR velocity: 2.5 m/s TR gradient: 25 mmHg LEFT ATRIUM LA dimension (2D): 4.3 cm LA Area (A4C): 26.1 cm^2 LA Volume (BP): 84.9 ml LA Volume (BP) Index: 39.4 ml/m^2 LA Volume (A2C): 81 ml LA Volume (A4C): 85.8 ml LA Volume (A2C) Index: 37.5 ml/m^2 LA Volume (A4C) Index: 39.7 ml/m^2 LEFT VENTRICLE LVIDd (2D): 3.9 cm LVIDs (2D): 2.8 cm Septum diastolic (2D): 1.3 cm Post wall diastolic (2D): 1.3 cm Rel wall thickness: 0.7 LV mass (ASE): 176.4 g LV mass (ASE) Index: 81.8 g/m^2 FS: 27 % LV length: 8.8 cm LV Ejection Fraction - Yan LVEDV (A4C): 128 ml LVESV (A4C): 70 ml LVEDVI (A4C): 59.3 ml/m^2 LVESVI (A4C): 32.5 ml/m^2 LVEDV (A2C): 118 ml LVESV (A2C): 60.3 ml LVEDVI (A2C): 54.7 ml/m^2 LVESVI (A2C): 28 ml/m^2 EF (A4C): 45.3 % EF (A2C): 48.9 % LVEDV (Biplane): 125 ml LVESV (Biplane): 65.4 ml EF (Biplane): 47.7 % LV DIASTOLIC FUNCTION E' septal velocity: 4.8 cm/s E' lateral velocity: 7.2 cm/s A' septal velocity: 8.5 cm/s A' lateral velocity: 10.2 cm/s E/E' Septal: 16.4 E/E' Lateral: 10.9 E/E' Average: 13.6 LEFT VENTRICLE: M-MODE LVEDV (Teich): 63.9 ml LVESV (Teich): 29.6 ml EF (Teichholz): 54 % EF Estimated: 45 % RIGHT VENTRICLE RVOT (PLAx): 4.1 cm RV/LV Diast ratio: 1.05 TAPSE: 1.4 cm RV S' velocity: 9.3 cm/s IVC IVC inspiration: 1.5 cm IVC expiration: 2.6 cm INDICATIONS Pulmonary embolus. PROCEDURE 2-D Quality: Good quality 2-dimensional echo was performed and interpreted. Doppler Quality: Good quality pulse, continuous wave, and color Doppler was performed and interpreted. Contrast medium: Lumason Amount (ml): 4 Height: 70 in. Weight: 216 lb. Blood pressure: 124 / 64 mmHg BSA: 2.2 m^2 BMI: 31 kg/m^2 Rhythm: Sinus Procedure notes: *IV: Previously placed by ER. *Suboptimal study; Echo dropout of the anterior, lateral, apical, septal and inferior wall/s. 6 of 6 segments in standard apical 4, 3 and 2 chamber view/s are not visualized on study. An image enhancer was used due to suboptimal endocardial definition. With the use of an image enhancer, the segments of the left ventricle were reasonably visualized. DEMOGRAPHICS Patient name: BENJIE Moraes Date of : 1940 Age: 84 year(s) Gender: Male Procedure Staff Interpreting Geovanna Narayan MD Radial Saw Operator: Rail Setter: AMY MOREAU Ordering Provider: PHU HOANG MD Attending Physician: Katiuska Brothers MD Phu Hoang MD ET ECHO ORDERABLES PN ECHO * (ABNORMAL) Hepatic Function Panel (09/09/2024 5:43 AM SIDE TRIMMER) Alkaline Phosphatase 126 40 - 150 U/L 09/09/2024 4:31 PM SIDE TRIMMER [facility] Bilirubin, Total 0.3 0.2 - 1.2 mg/dL 09/09/2024 4:31 PM SIDE TRIMMER [facility] Bilirubin, Direct 0.1 0.0 - 0.5 mg/dL 09/09/2024 4:31 PM SIDE TRIMMER [facility] AST (SGOT) 29 10 - 40 U/L 09/09/2024 4:31 PM SIDE TRIMMER [facility] ALT (SGPT) 28 <=55 U/L 09/09/2024 4:31 PM SIDE TRIMMER [facility] Protein, Total 5.1(L) 6.4 - 8.3 g/dL 09/09/2024 4:31 PM SIDE TRIMMER [facility] Albumin 2.2(L) 3.5 - 5.0 g/dL 09/09/2024 4:31 PM SIDE TRIMMER [facility] Blood Venipuncture / Unknown 09/09/2024 5:43 AM SIDE TRIMMER 09/09/2024 5:50 AM SIDE TRIMMER Jack Vee MD LAB_1 Performing Organization Address [facility] Phone Number [facility] [address] * (ABNORMAL) Troponin I (09/09/2024 5:43 AM SIDE TRIMMER) Only the most recent of3 resultswithin the time period is included. Troponin I 0.27(H) 0.00 - 0.03 ng/mL 09/09/2024 6:18 AM SIDE TRIMMER [facility] Blood Venipuncture / Unknown 09/09/2024 5:43 AM SIDE TRIMMER 09/09/2024 5:50 AM SIDE TRIMMER Phu Hoang MD LAB_1 Performing Organization Address [facility] Phone Number [facility] [address] * (ABNORMAL) CREATININE / GFR (09/09/2024 3:01 AM SIDE TRIMMER) Creatinine 1.20(H) 0.73 - 1.18 mg/dL 09/09/2024 4:30 PM SIDE TRIMMER [facility] GFR, Estimated 59(L) >60 mL/min/1.7 3m2 09/09/2024 4:30 PM SIDE TRIMMER [facility] Blood Venipuncture / Unknown 09/09/2024 3:01 AM SIDE TRIMMER 09/09/2024 3:06 AM SIDE TRIMMER Narrative [facility] - 09/09/2024 4:30 PM SIDE TRIMMER The National Kidney Disease Education Program suggests measuring Cystatin C in patients with eGFRcrea of 45 to 59 ml/min/1.73^2 who do not have other markers of kidney damage (i.e. elevated urine Albumin/Creatinine Ratio or a prior Cystatin C confirming the presence of chronic kidney disease). Jack Vee MD LAB_1 Performing Organization Address [facility] de Phone Number [facility] [address] [place], [place] [address] * CT Angio Chest W IV Cont PE Study (09/09/2024 2:19 AM SIDE TRIMMER) Anatomical Region Laterality Modality Chest, Lung, Vascular Computed T omography 09/09/2024 2:19 AM SIDE TRIMMER Narrative 09/09/2024 2:56 AM SIDE TRIMMER EXAM: CT ANGIO CHEST W IV CONT PE STUDY LOCATION: [facility] DATE: 09/09/2024 INDICATION: Fever, tachypnea, foot in boot. Eval for clot, PNA. COMPARISON: None. TECHNIQUE: CT chest pulmonary angiogram during arterial phase injection of IV contrast. Multiplanar reformats and MIP reconstructions were performed. Dose reduction techniques were used. CONTRAST: IOHEXOL-350 MG/ML IV SOLN 70 mL. FINDINGS: ANGIOGRAM CHEST: Pulmonary arteries are normal caliber. Moderate amount of thrombus distal left main pulmonary artery with extension into segmental branches of the upper and lower lobe. Respiratory motion. Difficult to exclude thrombus in distal segmental or subsegmental branches on the right. Particularly in the lung base. Thoracic aorta is not well opacified and is indeterminate for dissection. Elevated RV-LV ratio suggesting right heart strain. LUNGS AND PLEURA: Respiratory motion. No infiltrate or pleural effusion. MEDIASTINUM/AXILLAE: Atherosclerotic aorta. No adenopathy or significant pericardial effusion. CORONARY ARTERY CALCIFICATION: Mild to moderate. UPPER ABDOMEN: Sludge and cholelithiasis within gallbladder. MUSCULOSKELETAL: Degenerative change osseous structures. IMPRESSION: 1. Left pulmonary emboli. Respiratory motion reduces evaluation for peripheral emboli on the right. 2. Elevated RV-LV ratio suggesting right heart strain. 3. Cholelithiasis. Critical Result: Finding was identified on 09/09/2024 2:30 AM SIDE TRIMMER. 1. Dr Brothers was contacted by me on 09/09/2024 2:37 AM SIDE TRIMMER and verbalized understanding of the critical result. Procedure Note Ca Erwin MD - 09/09/2024 EXAM: CT ANGIO CHEST W IV CONT PE STUDY LOCATION: [facility] DATE: 09/09/2024 INDICATION: Fever, tachypnea, foot in boot. Eval for clot, PNA. COMPARISON: None. TECHNIQUE: CT chest pulmonary angiogram during arterial phase injection ofIV contrast. Multiplanar reformats and MIP reconstructions were performed.Dose reduction techniques were used. CONTRAST: IOHEXOL-350 MG/ML IV SOLN 70 mL. FINDINGS: ANGIOGRAM CHEST: Pulmonary arteries are normal caliber. Moderate amount ofthrombus distal left main pulmonary artery with extension into segmentalbranches of the upper and lower lobe. Respiratory motion. Difficult toexclude thrombus in distal segmental or subsegmental branches on theright. Particularly in the lung base. Thoracic aorta is not well opacifiedand is indeterminate for dissection. Elevated RV-LV ratio suggestingright heart strain. LUNGS AND PLEURA: Respiratory motion. No infiltrate or pleural effusion. MEDIASTINUM/AXILLAE: Atherosclerotic aorta. No adenopathy or significantpericardial effusion. CORONARY ARTERY CALCIFICATION: Mild to moderate. UPPER ABDOMEN: Sludge and cholelithiasis within gallbladder. MUSCULOSKELETAL: Degenerative change osseous structures. IMPRESSION: 1. Left pulmonary emboli. Respiratory motion reduces evaluation forperipheral emboli on the right. 2. Elevated RV-LV ratio suggesting right heart strain. 3. Cholelithiasis. Critical Result: Finding was identified on 09/09/2024 2:30 AM SIDE TRIMMER. 1. Dr Brothers was contacted by me on 09/09/2024 2:37 AM SIDE TRIMMER and verbalizedunderstanding of the critical result. Phu Hoang MD RAD CT * (ABNORMAL) Urine Culture (09/09/2024 1:03 AM SIDE TRIMMER) Urine Culture Growth(A) 09/11/2024 7:25 AM SIDE TRIMMER [facility] Urine Culture >100,000 CFU/mL Escherichia coli 09/11/2024 7:25 AM SIDE TRIMMER [facility] Comment:This is an edited re sult. Previous organism was Gram Negative Bacilli on 09/09/2024 at 2216 SIDE TRIMMER. Urine URINE SPECIMEN COLLECTION, CLEAN CATCH / Unknown Non-blood Collection / Unknown 09/09/2024 1:03 AM SIDE TRIMMER 09/09/2024 1:18 AM SIDE TRIMMER Narrative Organism Antibiotic Method Susceptibility Escherichia coli Ampicillin/Sulbactam 2 mcg/mL: Susceptible Escherichia coli Piperacillin/Tazobactam <=2 mcg/mL: Susceptible Escherichia coli Cefazolin <=1 mcg/mL: Susceptible Escherichia coli Cefazolin (Urine) Susceptible Comment:Predicts stephanie eptibility to most oral cephalosporins for treatment of infections from a urine source. Escherichia coli Ceftriaxone <=1 mcg/mL: Susceptible Escherichia coli Cefepime <=1 mcg/mL: Susceptible Escherichia coli Ciprofloxacin <=0.25 mcg/mL: Susceptible Escherichia coli Levofloxacin <=0.5 mcg/mL: Susceptible Escherichia coli Ertapenem <=0.25 mcg/mL: Susceptible Escherichia coli Meropenem <=0.5 mcg/mL: Susceptible Escherichia coli Tobramycin <=2 mcg/mL: Susceptible Escherichia coli Trimethoprim/Sulfamethoxazole <=0.5 mcg/mL: Susceptible Escherichia coli Nitrofurantoin <=16 mcg/mL: Susceptible Escherichia coli Cefoxitin <=4 mcg/mL: Susceptible Escherichia coli Gentamicin <=2 mcg/mL: Susceptible Escherichia coli Cefotetan Escherichia coli Cefuroxime <=4 mcg/mL: Susceptible Escherichia coli Minocycline Katiuska Brothers MD LAB_1 Performing Organization Address [facility] Co de Phone Number [address] * (ABNORMAL) UA Conditional UC: Clean Catch (09/09/2024 1:03 AM SIDE TRIMMER) Urine Culture Comment 09/09/2024 1:18 AM SIDE TRIMMER [facility] Urine Color Yellow 09/09/2024 1:18 AM SIDE TRIMMER [facility] Urine Clarity Turbid(A) Clear 09/09/2024 1:18 AM SIDE TRIMMER [facility] Specific [place], Urine 1.021 <1.030 09/09/2024 1:18 AM SIDE TRIMMER [facility] PH Urine 5.5 5.0 - 8.0 09/09/2024 1:18 AM SIDE TRIMMER [facility] Protein, Urine Qual (mg/dL) 30(A) Negative, 10 , 20 09/09/2024 1:18 AM SIDE TRIMMER [facility] Glucose Urine Qual (mg/dL) Normal (Negative) Normal (Negative), 30 , 50 09/09/2024 1:18 AM SIDE TRIMMER [facility] Ketones, Urine (mg/dL) Negative Negative, Trace 09/09/2024 1:18 AM SIDE TRIMMER [facility] Urobilinogen, Urine (EU/dL) Normal (Negative) Normal (Negative) 09/09/2024 1:18 AM SIDE TRIMMER [facility] Bilirubin Urine (mg/dL) Negative Negative 09/09/2024 1:18 AM SIDE TRIMMER [facility] Blood, Urine (mg/dL) 1.0 (Large)(A) Negative, 0.03 (Trace) 09/09/2024 1:18 AM SIDE TRIMMER [facility] Nitrite Urine 2+ (Positive)(A ) Negative 09/09/2024 1:18 AM SIDE TRIMMER [facility] Leukocyte Esterase, Urine (Oracio/uL) 500 (Large)(A) Negative, 25 (Trace) 09/09/2024 1:18 AM SIDE TRIMMER [facility] Red Blood Cells >180(H) 0 - 3 /HPF 09/09/2024 1:18 AM SIDE TRIMMER [facility] White Blood Cells 158(H) 0 - 5 /HPF 09/09/2024 1:18 AM SIDE TRIMMER [facility] Bacteria Many(A) None Seen /HPF 09/09/2024 1:18 AM SIDE TRIMMER [facility] White Blood Cell Clumps Present(A) None Seen /HPF 09/09/2024 1:18 AM SIDE TRIMMER [facility] Source Clean Catch 09/09/2024 1:18 AM SIDE TRIMMER [facility] Urine URINE SPECIMEN COLLECTION, CLEAN CATCH / Unknown Non-blood Collection / Unknown 09/09/2024 1:03 AM SIDE TRIMMER 09/09/2024 1:05 AM SIDE TRIMMER Narrative [facility] - 09/09/2024 1:18 AM SIDE TRIMMER The qualitative interpretive guidance provided (e.g., small, moderate, large) is intended to aid in quantitative result interpretation. It is not itself an FDA-cleared test result. Katiuska Brothers MD LAB_1 [facility] [address] [place] [address], [facility] * Lactate 2 Hour (09/09/2024 12:36 AM SIDE TRIMMER) Lactate, 2 Hour 1.3 0.5 - 2.0 mmol/L 09/09/2024 1:00 AM SIDE TRIMMER [facility] Blood Venipuncture / Unknown 09/09/2024 12:36 AM SIDE TRIMMER 09/09/2024 12:39 AM SIDE TRIMMER Narrative [facility] - 09/09/2024 1:00 AM SIDE TRIMMER Reference range for healthy individuals when sepsis is not suspected is 0.5-2.2 mmol/L Katiuska Brothers MD LAB_1 Performing Organization Address [facility]/ZIP Co de Phone Number [facility] [address] [place] [id number] * Blood Culture (09/09/2024 12:36 AM SIDE TRIMMER) Only the most recent of2 resultswithin the time period is included. Blood Culture No Growth at 5 Days RH LAB ETEST METHOD 09/14/2024 5:00 AM SIDE TRIMMER [facility] Blood (Arm, left) Venipuncture / Unknown 09/09/2024 12:36 AM SIDE TRIMMER 09/09/2024 12:39 AM SIDE TRIMMER Katiuska Brothers MD LAB_1 Performing Organization Address [facility] Co de Phone Number [address] * XR Chest 2 Views (09/08/2024 11:26 PM SIDE TRIMMER) Only the most recent of2 resultswithin the time period is included. Anatomical Region Laterality Modality Chest, Lung Digital Radiogra phy 09/08/2024 11:2 6 PM SIDE TRIMMER Narrative 09/09/2024 12:42 AM SIDE TRIMMER EXAM: XR CHEST 2 VIEWS LOCATION: [facility] DATE: 09/08/2024 INDICATION: Shortness of breath. COMPARISON: 08/04/2024. IMPRESSION: Shallow inspiration. Stable cardiomediastinal silhouette. Basilar atelectasis. Atherosclerotic aorta. Degenerative change osseous structures. Procedure Note Ca Erwin MD - 09/09/2024 EXAM: XR CHEST 2 VIEWS LOCATION: [facility] DATE: 09/08/2024 INDICATION: Shortness of breath. COMPARISON: 08/04/2024. IMPRESSION: Shallow inspiration. Stable cardiomediastinal silhouette.Basilar atelectasis. Atherosclerotic aorta. Degenerative change osseousstructures. Cy Perez MD RAD [facility] * ECG 12 Lead Inpatient (09/08/2024 10:55 PM SIDE TRIMMER) Ventricular Rate 107 BPM [facility] Atrial Rate 107 BPM [facility] P-R Interval 256 ms [facility] QRS Duration 90 ms [facility] QT 334 ms [facility] QTC 445 ms [facility] P [place] 39 degrees [facility]USE [facility] R [place] -27 degrees [facility] T [place] 30 degrees [facility] 09/08/2024 10:5 5 PM SIDE TRIMMER Narrative [facility] - 10/25/2024 1:19 AM SIDE TRIMMER Sinus tachycardia with 1st degree A-V block Otherwise normal ECG No previous ECGs available Confirmed by Katiuska Brothers ([id number]) on 10/25/2024 1:19:02 AM Procedure Note Katiuska Brothers MD - 10/25/2024 Sinus tachycardia with 1st degree A-V block Otherwise normal ECG No previous ECGs available Confirmed by Katiuska Brothers ([id number]) on 10/25/2024 1:19:02 AM Cy Perez MD PN ECG ORDERABLES Performing Organization Address City/[facility]/ZIP Co de Phone Number [facility] [address] [place] [address] * RSV RNA, Molecular Detection (09/08/2024 10:46 PM SIDE TRIMMER) Pathologist [facility] RSV by PCR Not Detected Not Detected 09/08/2024 11:28 PM SIDE TRIMMER [facility] Swab (Source Required) (Nasopharyngeal swab) Non-blood Collection / Unknown 09/08/2024 10:46 PM SIDE TRIMMER 09/08/2024 10:48 PM SIDE TRIMMER Narrative [facility] - 09/08/2024 11:28 PM SIDE TRIMMER Method: Qualitative real-time PCR assay to detect RSV Viral RNA. Cy Perez MD LAB_1 [facility] [address] [place], [place] [address] * Influenza A and B by PCR (09/08/2024 10:46 PM SIDE TRIMMER) [facility] INFLUENZA A MOLECULAR Not Detected Not Detected 09/08/2024 11:28 PM SIDE TRIMMER [facility] INFLUENZA B MOLECULAR Not Detected Not Detected 09/08/2024 11:28 PM SIDE TRIMMER [facility] Swab (Source Required) (Nasopharyngeal swab) Non-blood Collection / Unknown 09/08/2024 10:46 PM SIDE TRIMMER 09/08/2024 10:48 PM SIDE TRIMMER Narrative [facility] - 09/08/2024 11:28 PM SIDE TRIMMER Methodology: Qualitative real-time PCR assay to detect the Influenza type A and type B viral RNA Cy Perez MD LAB_1 Performing Organization Address [facility] Phone Number [facility] [address] [place] [address] * 2019 Novel Coronavirus (COVID-19) (09/08/2024 10:46 PM SIDE TRIMMER) Only the most recent of2 resultswithin the time period is included. [facility] COVID-19 Interpretation Not Detected Not Detected 09/08/2024 11:28 PM SIDE TRIMMER [facility] Source Nasopharyngeal swab 09/08/2024 11:28 PM SIDE TRIMMER [facility] Swab (Source Required) (Nasopharyngeal swab) Non-blood Collection / Unknown 09/08/2024 10:46 PM SIDE TRIMMER 09/08/2024 10:48 PM SIDE TRIMMER [facility] - 09/08/2024 11:28 PM SIDE TRIMMER Test performed by real-time PCR. This test has been authorized by the FDA under an Emergency Use Authorization (EUA) for use by authorized laboratories. Cy Perez MD LAB_1 Performing Organization Address [facility] Phone Number [facility] [address] [place] [address] * Extra Lavender top tube (09/08/2024 10:43 PM SIDE TRIMMER) Only the most recent of2 resultswithin the time period is included. [facility] Extra Lavender Top Drawn Specimen will be held for 3 days 09/09/2024 12:00 AM SIDE TRIMMER [facility] Blood Venipuncture / Unknown 09/08/2024 10:43 PM SIDE TRIMMER 09/08/2024 10:48 PM SIDE TRIMMER Cy Perez MD LAB_1 Performing Organization Address [facility] Co de Phone Number [facility] [address] * Extra Blue top tube (09/08/2024 10:43 PM SIDE TRIMMER) Extra Blue Top Drawn Specimen will be held for 24 hours 09/09/2024 12:00 AM SIDE TRIMMER [facility] Blood Venipuncture / Unknown 09/08/2024 10:43 PM SIDE TRIMMER 09/08/2024 10:48 PM SIDE TRIMMER Cy Perez MD LAB_1 Performing Organization Address [facility] Phone Number [facility] [address] * (ABNORMAL) Lactate Reflex Panel (09/08/2024 10:43 PM SIDE TRIMMER) Pathologist [facility] Lactate 2.1(H) 0.5 - 2.0 mmol/L 09/08/2024 11:32 PM SIDE TRIMMER [facility] Blood Venipuncture / Unknown 09/08/2024 10:43 PM SIDE TRIMMER 09/08/2024 10:48 PM SIDE TRIMMER Narrative [facility] - 09/08/2024 11:32 PM SIDE TRIMMER Reference range for healthy individuals when sepsis is not suspected is 0.5-2.2 mmol/L Katiuska Brothers MD LAB_1 Performing Organization Address [facility] Co de Phone Number [facility] [address] * Extra Light Green Tube (09/08/2024 10:43 PM SIDE TRIMMER) Extra Light Green Tube Drawn Specimen will be held for 5 days 09/09/2024 12:00 AM SIDE TRIMMER [facility] Blood Venipuncture / Unknown 09/08/2024 10:43 PM SIDE TRIMMER 09/08/2024 10:48 PM SIDE TRIMMER Cy Perez MD LAB_1 Performing Organization Address [facility] Phone Number [facility] [address] * Extra Light Green On Ice Tube (09/08/2024 10:43 PM SIDE TRIMMER) Extra Light Green On Ice Tube Drawn Specimen will be held for 5 days 09/09/2024 12:00 AM SIDE TRIMMER [facility] Blood Venipuncture / Unknown 09/08/2024 10:43 PM SIDE TRIMMER 09/08/2024 10:47 PM SIDE TRIMMER Cy Perez MD LAB_1 Performing Organization Address [facility] Phone Number [facility] [address] [place] [address] * (ABNORMAL) Procalcitonin (09/08/2024 10:43 PM SIDE TRIMMER) Procalcitonin 17.10(H) <=0.24 ng/mL 09/08/2024 11:47 PM SIDE TRIMMER [facility] Blood Venipuncture / Unknown 09/08/2024 10:43 PM SIDE TRIMMER 09/08/2024 10:48 PM SIDE TRIMMER Narrative [facility] - 09/08/2024 11:47 PM SIDE TRIMMER Suspected Lower Respiratory Tract Infection (Positive imaging and respiratory symptoms present): < 0.24: Suggests non-bacterial infection. 0.25-0.49: Bacterial infection possible. Consider causes of false elevations such as CKD. >= 0.50: Suggestive of bacterial infection. Consider causes of false elevations. Clinicians should use these results in conjunction with other laboratory findings and clinical signs. Katiuska Brothers MD LAB_1 Performing Organization Address [facility] Phone Number [facility] [address] [place] [address] * B-Type Natriuretic Peptide (09/08/2024 10:43 PM SIDE TRIMMER) Only the most recent of2 resultswithin the time period is included. B Type Natr. Peptide 39 <=99 pg/mL 09/09/2024 3:14 AM SIDE TRIMMER [facility] Blood Venipuncture / Unknown 09/08/2024 10:43 PM SIDE TRIMMER 09/08/2024 10:48 PM SIDE TRIMMER Phu Hoang MD LAB_1 [facility] [address] [address] * XR Knee Lt 2 Views (08/31/2024 5:05 PM SIDE TRIMMER) Anatomical Region Laterality Modality Lower Extremity, Knee Digital Ra diography 08/31/2024 4:45 PM SIDE TRIMMER Narrative 08/31/2024 5:11 PM SIDE TRIMMER COMPARISON: None. FINDINGS: Bony demineralization. There is an effusion. Severe loss of the medial joint space with near [id number] apposition. Mild spurring of the medial tibial plateau and medial femoral condyle. Dorsal patellar spurring. No fracture appreciated. Procedure Note Shad Velazco MD - 08/31/2024 COMPARISON: None. FINDINGS: Bony demineralization. There is an effusion. Severe loss of themedial joint space with near [id number]-ydnp apposition. Mild spurring of themedial tibial plateau and medial femoral condyle. Dorsal patellarspurring. No fracture appreciated. Haydee Conway STOPBOARD ASSEMBLER, YACHT CAPTAIN RAD [facility] * XR Ankle Lt 3 Views (08/30/2024 6:47 PM SIDE TRIMMER) Anatomical Region Laterality Modality Lower Extremity, Ankle, Foot & Ankle Computed Radiography 08/30/2024 6:41 PM SIDE TRIMMER Narrative 08/30/2024 6:51 PM SIDE TRIMMER COMPARISON: None. FINDINGS: 3 views left ankle. Bones are demineralized. There is a transverse oblique fracture at the fifth metatarsal base with a 2 mm gap between the proximal and distal fracture fragments. No other potential acute osseous abnormality. Moderate plantar calcaneal enthesophyte. Diffuse soft tissue swelling. Scattered atherosclerotic calcification. Procedure Note Yossi Knowles MD - 08/30/2024 COMPARISON: None. FINDINGS: 3 views left ankle. Bones are demineralized. There is atransverse oblique fracture at the fifth metatarsal base with a 2 mm gapbetween the proximal and distal fracture fragments. No other potentialacute osseous abnormality. Moderate plantar calcaneal enthesophyte.Diffuse soft tissue swelling. Scattered atherosclerotic calcification. Zohaib Mcadams DO RAD GD * XR Foot Lt 3+ Views (08/30/2024 6:46 PM SIDE TRIMMER) Anatomical Region Laterality Modality Lower Extremity, Foot Computed R adiography 08/30/2024 6:34 PM SIDE TRIMMER Narrative 08/30/2024 6:50 PM SIDE TRIMMER COMPARISON: None. FINDINGS: 3 views of the left foot. Bones are demineralized. There is a transverse oblique fracture at the fifth metatarsal base with a 2 mm gap between the proximal and distal fracture fragments. Moderate plantar calcaneal enthesophyte. Suboptimal visualization of the subtalar joint likely related to projection, less likely reflecting a coalition. Procedure Note Yossi Knowles MD - 08/30/2024 COMPARISON: None. FINDINGS: 3 views of the left foot. Bones are demineralized. There is atransverse oblique fracture at the fifth metatarsal base with a 2 mm gapbetween the proximal and distal fracture fragments. Moderate plantarcalcaneal enthesophyte. Suboptimal visualization of the subtalar jointlikely related to projection, less likely reflecting a coalition. Zohaib MAYS GD * POC Chem 4 Panel, Urgent Care Only (08/04/2024 7:01 PM CDT) Sodium, WB 140 136 - 145 mmol/L 08/04/2024 7:11 PM T [facility] Potassium, Whole Blood 3.9 3.5 - 5.1 mmol/L 08/04/2024 7:11 PM T [facility] Chloride, Whole Blood 104 98 - 109 mmol/L 08/04/2024 7:11 PM CDT [facility] Carbon Dioxide, Whole Blood 23 22 - 31 mmol/L 08/04/2024 7:11 PM CDT [facility] Anion Gap 13 6 - 16 mmol/L 08/04/2024 7:11 PM CDT [facility] Performing Location LAB PY 08/04/2024 7:11 PM CDT [facility] Blood Venipuncture / Unknown 08/04/2024 7:01 PM CDT 08/04/2024 7:01 PM CDT Edna Rhodes MD LAB_1 Performing Organization Address City/[facility]/ZIP Co de Phone Number [address] * Creatinine/GFR, WB POC (08/04/2024 7:01 PM CDT) Creatinine, Whole Blood 1.0 0.7 - 1.2 mg/dL 08/04/2024 7:11 PM CDT [facility] Performing Location LAB PY 08/04/2024 7:11 PM CDT [facility] GFR, Estimated >60 >60 mL/min/1.7 3m2 08/04/2024 7:11 PM CDT [facility] Blood Venipuncture / Unknown 08/04/2024 7:01 PM CDT 08/04/2024 7:01 PM CDT Edna Rhodes MD LAB_1 Performing Organization Address [facility]/ZIP Co de Phone Number [address] * (ABNORMAL) Hgb A1C (04/20/2024 1:26 PM CDT) Hemoglobin A1C 6.5(H) <=5.6 % 04/20/2024 5:12 PM CDT [facility] Estimated Average Glucose (Calc) 140 < 117 mg/dL 04/20/2024 5:12 PM CDT [facility] Comment:Estimated average gl ucose (eAG) converts A1c into glucose units (mg/dL) and estimates average glucose over the past approximately 3 months. The eAG reference interval (<117 mg/dL) corresponds to an A1c of <5.7%. Blood Venipuncture / Unknown 04/20/2024 1:26 PM CDT 04/20/2024 1:26 PM CDT Narrative [facility] - 04/20/2024 5:12 PM CDT For patients not previously diagnosed with diabetes: 5.7-6.4%: Increased risk for diabetes 6.5% and greater: Diagnostic for diabetes For patients diagnosed with diabetes: <8.0%: Goal of therapy for ages 18-75 Clinicians may recommend a higher or lower goal for specific individuals. Balaji Gallegos DO LAB_1 [facility] [address] [address], [facility] * Endoscopy, colon, diagnostic (06/13/2005 5:49 PM CDT) Anatomical Region Laterality Modality Other User Conversion ET GI PROCEDURE ERNA INMAN from Last 3 Months or Most Recently Relevant to Health Maintenance Advance Directives Documents on File Type Date Recorded Patient Curing Room Worker Lexi ROBERSON 09/05/2024 09/05/2024 * Full Code (Latest Code Status on File) Date Activated Date Inactivated Comments 09/09/2024 2:42 AM 09/14/2024 4:33 PM * Full Code Date Activated Date Inactivated Comments 08/30/2024 9:10 PM 09/02/2024 6:54 PM * Full Code Date Activated Date Inactivated Comments 05/15/2023 8:27 PM 05/17/2023 4:29 PM Care Teams Clinical Dietetic Technician Relationship Specialty Start Date End Date Balaji Gallegos DO [address] [place] [address] PCP - General Family Practice 10/31/21
--- OUTSIDE RECORDS SUMMARY | 2024-10-28 15:24 | XMS_ITS | Encounter Summary ---
Author Organization [facility] Address [address] [place] [address] Care Team Providers Care Market Research Executive Name Role Phone Balaji Gallegos DO Primary Care Provider Encounter Details Date Type Department Care Team (Late st Contact Info) Description 10/18/2024 [facility] [address] [facility]. [place], [place] [phone] [place] [address] Social History Tobacco Use Types Packs/Day Years Used Date Smoking Tobacco: Former Passive Smoke Exposure: Never Smokeless Tobacco: Never Alcohol Use Standard Drinks/Week Comments Not Currently 0 (1 standard drink = 0.6 oz pur e alcohol) [facility] Utilities Answer Date Recorded In the past 12 months has e [employer], gas, oil, or water [employer] threatened to shut off services in your [...] any time in the past 12 m [facility], were you homeless or living in a group home (including now)? No 09/09/2024 Sex and Gender Information Value Date Recorded Sex Assigned at Not on file Gender Identity Not on file Sexual Orientation Not on file documented as of this encounter Plan of Treatment Upcoming Encounters Date Type Department Care Team (Late st Contact Info) Description 12/07/2024 11:15 AM PRE ALGEBRA TEACHER Appointment Neurology at [address] [place], [place] [id number] Evangelist Wen MD [address] [place], [place] [phone] 12/14/2024 11:00 AM PRE ALGEBRA TEACHER Appointment [facility] 38[address] [facility] [address] [place], [place] [phone] Maria Ines Caldera, PARTNERSHIP MARKETING MANAGER, BOAT FINISHER [address] [place] [address] documented as of this encounter Visit Diagnoses Not on filedocumented in this encounter Care Teams Market Research Executive Relationship Specialty Start Date End Date Balaji Gallegos DO [address] [place] [address] PCP - General Family Practice 10/31/21 documented as of this encounter
--- OUTSIDE RECORDS SUMMARY | 2024-10-28 15:25 | XMS_ITS | Encounter Summary ---
Author Organization [facility] Address [address] [place] [address] Care Team Providers Care Baccarat Manager Name Role Phone Balaji Gallegos DO Primary Care Provider Encounter Details Date Type Department Care Team (Late st Contact Info) Description 10/03/2024 Notes/Orders [facility] 385 Family Medicine [address] [facility] [place] [address] Balaji Gallegso DO [address] [place], [place] [id number] Alzheimer's disease, unspecified (HRC) (Primary Dx) Social History Tobacco Use Types Packs/Day Years Used Date Smoking Tobacco: Former Passive Smoke Exposure: Never Smokeless Tobacco: Never Alcohol Use Standard Drinks/Week Comments Not Currently 0 (1 standard drink = 0.6 oz pur e alcohol) [facility] Utilities Answer Date Recorded In the past 12 months has e electric, gas, oil, or water company [...] money to buy more. Never true 09/09/20 Within the past 12 months, t he [...] any time in the past 12 m [facility], were you homeless or living in a alf (including now)? No 09/09/2024 Sex and Gender Information Value Date Recorded Sex Assigned at Not on file Gender Identity Not on file Sexual Orientation Not on file documented as of this encounter Progress Notes * Kandis Galvin - 10/03/2024 11:59 PM CST Home Health Care or Hospice Certification Covering dates of service from 10/03/24 to 12/01/24. Date of Video or Office Visit: 10/19/24 Frontline Action: Pend Home Health Certification (G0180) order* and associate to diagnosis listed on [facility] form. *If this is for Hospice, do not pend an order. Route encounter to clinician and place paper form in inbox. Clinician Action: Review patient status, careplan, and Home Health Certification and Plan of Care Form ([facility] 485). Locate and sign paper form and place in outbox (for scanning). Sign pended order in Epic. (If hospice certification, there will not be an order to sign) Leave encounter open. STED LIVING HOUSEKEEPER * Garima Castillo - 10/03/2024 11:59 PM CST Balaji Gallegos DO reviewed patient status, careplan, and completed the Home Health Certificationand Plan of Care Form ([facility] 485). Form faxed to [phone] on 10/14/2024. A copy of the form has also been scanned into this patient's record. Garima Castillo STED LIVING HOUSEKEEPER documented in this encounter Plan of Treatment Upcoming Encounters Date Type Department Care Team (Late st Contact Info) Description 12/07/2024 11:15 AM ASSISTED LIVING HOUSEKEEPER Appointment Neurology at [facility] [address] [facility] [place], [place] [phone] Evangelist Wen MD [address] [place], [place] [phone] 12/14/2024 11:00 AM ASSISTED LIVING HOUSEKEEPER Appointment [place] [phone] Thrombosis [address] [place] [address] Maria Ines Caldera, SUPPORT TEAM ASSOC, MEAT STRINGER [address] [place] [address] documented as of this encounter Visit Diagnoses Diagnosis Alzheimer's disease, unspecified (HRC)- Primary documented in this encounter Care Teams Baccarat Manager Relationship Specialty Start Date End Date Balaji Gallegos DO [address] [place] [address] PCP - General Family Practice 10/31/21 documented as of this encounter
--- OUTSIDE RECORDS SUMMARY | 2024-10-28 15:25 | XMS_ITS | Encounter Summary ---
Author Organization [employer] Address [address] [place] [address] Care Team Providers Care Egg Packer Name Role Phone Balaji Gallegos DO Primary Care Provider Reason for Visit * Reason Comments Appt. Needed Encounter Details Date Type Department Care Team (Late st Contact Info) Description 10/10/2024 Telephone [facility] 3850 [facility] [address] [place] [address] Maria Ines Caldera, APPLICATIONS ANALYST, THERMAL SURFACING MACHINE OPERATOR [address] [place] [address] Appt. Needed Social History Tobacco Use Types Packs/Day Years Used Date Smoking Tobacco: Former Passive Smoke Exposure: Never Smokeless Tobacco: Never Alcohol Use Standard Drinks/Week Comments Not Currently 0 (1 standard drink = 0.6 oz pur e alcohol) [facility] Utilities Answer Date Recorded In the [...] any time in the past [address] [facility], were you homeless or living in a halfway (including now)? No 09/09/2024 Sex and Gender Information Value Date Recorded Sex Assigned at Not on file Gender Identity Not on file Sexual Orientation Not on file documented as of this encounter Nursing Notes * Esthela Meehan - 10/10/2024 11:59 AM CST Lvm x2 and mailed letter to schedule follow up appointment with Maria Ines jiang December 2024. YLENE GAS COMPRESSOR * Esthela Meehan - 10/10/2024 11:59 AM CST ----- Message from Kenna Fatima sent at 10/03/2024 9:28 AM ACETYLENE GAS COMPRESSOR ----- Please call patient and schedule F/U with Maria Ines in early December 2024. Thank you. YLENE GAS COMPRESSOR documented in this encounter Plan of Treatment Upcoming Encounters Date Type Department Care Team (Late st Contact Info) Description 12/07/2024 11:15 AM ACETYLENE GAS COMPRESSOR Appointment Neurology at [address] [place] [address] Evangelist Wen MD [address] [place], [place] [phone] 12/14/2024 11:00 AM ACETYLENE GAS COMPRESSOR Appointment [place] [phone] [place] [address] Maria Ines Caldera, APPLICATIONS ANALYST, THERMAL SURFACING MACHINE OPERATOR [address] [place], [place] [address] documented as of this encounter Visit Diagnoses Not on filedocumented in this encounter Care Teams Egg Packer Relationship Specialty [place] [address] [place] [id number] PCP - General Family Practice 10/31/21 documented as of this encounter
--- OUTSIDE RECORDS SUMMARY | 2024-10-28 15:25 | XMS_ITS | Encounter Summary ---
Author Organization [employer] Address [address] [place] [address] Care Team Providers Care Stock Preparation Supervisor Name Role Phone Balaji Gallegos DO Primary Care Provider Encounter Details Date Type Department Care Team (Late st Contact Info) Description 10/01/2024 Lab Requisition [facility] [address] [facility] [place] [address] Rubia Villanueva, PROGRESSIVE CARE UNIT REGISTERED NURSE, METER REPAIR SHOP SUPERVISOR [address] [place] [address] Acute kidney failure, unspecified (HRC) Social History Tobacco Use Types Packs/Day Years Used Date Smoking Tobacco: Former Passive Smoke Exposure: Never Smokeless Tobacco: Never Alcohol Use Standard Drinks/Week Comments Not Currently 0 (1 standard drink = 0.6 oz pur e alcohol) [facility] Utilities Answer Date Recorded In the past 12 months has [employer] electric, gas, oil, or water company threatened [...] any time in the past 12 m [facility], were you homeless or living in a [place] [facility] [place] facility (including now)? No 09/09/2024 Sex and Gender Information Value Date Recorded Sex Assigned at Not on file Gender Identity Not on file Sexual Orientation Not on file documented as of this encounter Plan of Treatment Upcoming Encounters Date Type Department Care Team (Late st Contact Info) Description 12/07/2024 11:15 AM SWING MANAGER Appointment Neurology at [address] [place] [address] Evangelist Wen MD [address] [place] [address] 12/14/2024 11:00 AM SWING MANAGER Appointment [place] [address] [place] [address] Maria Ines Caldera, PROGRESSIVE CARE UNIT REGISTERED NURSE, METER REPAIR SHOP SUPERVISOR [address] [place] [address] Scheduled Orders Name Type Priority Associated Diagnoses Orde r Schedule Basic Metabolic Panel Lab Routine Acute kidney failure, unspecified (HRC) Ordered: 10/01/2024 documented as of this encounter Visit Diagnoses Diagnosis Acute kidney failure, unspecified (HRC) Acute kidney failure, unspecified documented in this encounter Care Teams Stock Preparation Supervisor Relationship Specialty Start Date End Date Balaji Gallegos DO [address] [place] [address] PCP - General Family Practice 10/31/21 documented as of this encounter
--- OUTSIDE RECORDS SUMMARY | 2024-10-28 15:26 | XMS_ITS | Encounter Summary ---
Author Organization [facility] Address [address] [place] [address] Care Team Providers Care Fbi Profiler Name Role Phone Balaji Gallegos DO Primary Care Provider Reason for Referral * Consult/Transfer Care (Routine) - Closed Specialty Diagnoses / Procedures Referred By Contac t Referred To Contact Alf Diagnoses Acute on chronic diastolic HF (heart failure) (HRC) Acute pulmonary embolism, unspecified pulmonary embolism type, unspecified whether acute cor pulmonale present (HRC) COVID-19 Acute kidney injury (HRC) Closed displaced fracture of fifth metatarsal bone of left foot with routine healing, subsequent encounter E. coli UTI Alzheimer's dementia with behavioral disturbance (HRC) Impaired mobility and activities of daily living Rubia Villanueva, DUPLICATING MACHINE OPERATOR, ULTRASOUND SPEC [address] [place] [address] [place] [address] Referral ID Status Reason Start Date Expiration Date Visits Re quested Visits Authorized [id number] Closed 09/28/2024 12/28/2025 1 1 Scheduling Instructions Your clinician has recommended a home visit with a nurse practitioner or physician from our [facility] team. You may call [phone] ([facility]) to arrange your visit. To prepare for your first visit, we ask that you do the following: If there are any pets in your home/location, please ensure they are put away and secured when the staff arrive. Please have all your current medications out and available for the team to review. Please ensure that any weapons in the home are secured in a locked weapon storage container or with a gun safety lock attached and kept out of site during the visit. If you have a home care nurse, please let them know when your appointment is scheduled. If you have to cancel for any reason, please call [phone]. Question Answer Appointment Urgency? Non-Urgent Reason for home based care (Be Specific) Transitioning to relative's house in [facility]. Discharge from [facility] on 10/01 with new PE/CHF/left foot fracture/COVID-19 on 09/24 and underlying dementia. Person to Contact: Spouse Name of person to contact (family member, guardian, POA,etc) M SERVICE TECHNICIAN * Home Health (Routine) - New Request Specialty Diagnoses / Procedures Referred By Logan t Referred To Contact Diagnoses Acute on chronic diastolic HF (heart failure) (HRC) Acute pulmonary embolism, unspecified pulmonary embolism type, unspecified whether acute cor pulmonale present (HRC) COVID-19 Acute kidney injury (HRC) Closed displaced fracture of fifth metatarsal bone of left foot with routine healing, subsequent encounter E. coli UTI Alzheimer's dementia with behavioral disturbance (HRC) Impaired mobility and activities of daily living Rubia Villanueva APRN, ULTRASOUND SPEC [address] [place] [address] Referral ID Status Reason Start Date Expiration Date V isits Requested Visits Authorized [id number] New Request 09/28/2024 03/27/2025 999 999 Scheduling Instructions This order is your clinician's recommendation for a service and is not an insurance referral which authorizes payment. The recommended service and/or location may not be covered by your insurance plan. Please call the number on your insurance card to find out your specific benefits and coverage for the recommended services and/or location. If you need help scheduling the recommended services, please ask your clinician's staff to assist you. Question Answer Appointment Urgency? 1-2 DAYS Order Type? Start of Care Primary Services Needed Home Care Nurse, Physical Therapy Eval & Treat Additional Services Needed (can only be ordered with one of the primary services above) Home Health Aide, Occupational Therapy Eval & Treat Comments Face to Face Attestation Encounter for Home Health Care Patient name: Jean-Paul Andre MR#: [id number] I certify that this patient is under my care. A physician, nurse practitioner, certified nurse-retail field representative, clinical nurse specialist or physician outpatient physical therapist assistant had a [id number] encounter that meets the requirements with this patient on: 09/28/2024 The encounter with the patient was in whole, or in part, for the following medical condition(s), which is the primary reason for home health care: See attached order diagnosis. My clinical findings support the need for the above services because: - observation and assessment for changes in condition - symptom management - weakness and debilitation, falls risk - inability to self manage care - educate regarding new medications and/or medication changes - home safety assessment - lab draws with medication management; BMP on 10/06 for CHF with PAMELLA - multiple co-morbidities including PE, CHF, left foot fracture, and dementia - cognitive deficits - therapy related to safety and DME, fall prevention - assistance with bathing Further, I certify that my clinical findings support that this patient is homebound (i.e. absences from home require considerable and taxing effort and are for medical reasons or church services OR infrequently or of short duration when for other reasons) because: -Leaving home is a considerable effort requiring an assistive device, a walker with assistance or a wheelchair, because of impaired mobility with left foot fracture. -Assistance of another person is required to safely leave home due to severe cognitive impairment due to underlying dementia. -Physician has advised patient not to leave the home because of confirmed COVID- 19 diagnosis. Name of community Physician who will continue orders and certifications: Balaji Gallegos DO M SERVICE TECHNICIAN Reason for Visit * Reason Comments Discharge From External Facility Encounter Details Date Type Department Care Team (Late st Contact Info) Description 09/28/2024 Geriatrics [facility] Transitional Care [address] [place] [address] Rubia Villanueva APRN, ULTRASOUND SPEC [address] [place] [address] Discharge From External Facility Social History Tobacco Use Types Packs/Day Years Used Date Smoking Tobacco: Former Passive Smoke Exposure: Never Smokeless Tobacco: Never Alcohol Use Standard Drinks/Week Comments Not Currently 0 (1 standard drink = 0.6 oz pur e alcohol) [facility] Utilities Answer Date Recorded In the [...] time in the past 12 m [facility], were you homeless or living in a half-way (including now)? No 09/09/2024 Sex and Gender Information Value Date Recorded Sex Assigned at Not on file Gender Identity Not on file Sexual Orientation Not on file documented as of this encounter Last Filed Vital Signs Vital Sign Reading Time Taken Comments Blood Pressure 118/61 09/27/2024 4:05 PM ALARM SERVICE TECHNICIAN Pulse 76 09/27/2024 4:05 PM ALARM SERVICE TECHNICIAN Temperature 36.6 C (97.9 F) 09/27/2024 4:05 PM ALARM SERVICE TECHNICIAN Respiratory Rate 17 09/27/2024 4:05 PM ALARM SERVICE TECHNICIAN Oxygen Saturation 94% 09/27/2024 4:05 PM ALARM SERVICE TECHNICIAN Inhaled Oxygen Concentration - - Weight 97.1 kg (214 lb) 09/27/2024 4:05 PM ALARM SERVICE TECHNICIAN Height - - Body Mass Index 30.71 09/09/2024 4:15 AM ALARM SERVICE TECHNICIAN documented in this encounter Patient Instructions * Patient Instructions* Rubia Villanueva APRN, JASMYNE - 09/28/2024 11:59 PM ALARM SERVICE TECHNICIAN DISCHARGE ORDERS Name: Jean-Paul Andre : 1940 Planned Discharge Date: 10/01/24 Discharge To: Home Discharge Diagnosis: PE, CHF, Left foot fracture, COVID-19, and dementia Allergies: has No Known Allergies. DISCHARGE MEDICATIONS: An order for a 30-day supply of medications, Xarelto 20 mg tablets and torsemide has been sent electronically to the patient's pharmacy, [facility] in [facility] at [address] [id number] . Current Outpatient Medications Medication Sig Dispense Refill acetaminophen (TYLENOL) 325 MG tablet Take 2 Tablets (650 mg) by mouth every 6 hours. 100 Tablet 11 atorvastatin (LIPITOR) 10 MG tablet Take 1 Tablet (10 mg) by mouth daily. 90 Tablet 3 citalopram (CELEXA) 20 MG tablet Take 1 Tablet (20 mg) by mouth daily. 90 Tablet 3 Multiple Vitamins-Minerals (PRESERVISION AREDS 2) CAPS Take 1 Capsule by mouth two times a day. risperiDONE (RISPERDAL) 0.5 MG tablet Take 1 Tablet (0.5 mg) by mouth two times a day. 30 Tablet 0 rivaroxaban (XARELTO) 15 MG tablet Take 1 Tablet (15 mg) by mouth two times a day with meals for 2 days. Take with food. Last dose on 09/30/24. Indications: Venous Thromboembolism [START ON 10/01/2024] rivaroxaban (XARELTO) 20 MG tablet Take 1 Tablet (20 mg) by mouth daily with meal. Take with food. Indications: Venous Thromboembolism Do not start before October 01, 2024. 30 Tablet 0 rivastigmine (EXELON) 4.6 MG/24HR patch Apply 1 Patch to skin daily. 90 Patch 3 torsemide (DEMADEX) 10 MG tablet Take 1 Tablet (10 mg) by mouth daily. Indications: Cardiac [id number] Tablet 0 No current facility-administered medications for this visit. MEDICAL FOLLOW UP AND SERVICES: Future Appointments Provider Department Center 10/03/2024 8:40 AM Maria Ines Caldera APRN, ULTRASOUND SPEC [place] [address] [place] [id number] 10/19/2024 11:00 AM Balaji Gallegos DO [place] [address] Family Medicine PN [id number] 10/21/2024 1:15 PM Evangelist Wen MD Neurology at [facility] [address] Make an appointment to see your primary provider, Balaji Gallegos DO, in 1-2 weeks. Equipment: Manual wheelchair Home care services have been arranged for you through this agency: [facility] Services include: nursing, home health aide, physical therapy, and occupational therapy ADDITIONAL INSTRUCTIONS: Weight bearing restriction: Weight bearing as tolerated in hard soled shoe to left leg Continue to follow your diet: No added salt Weigh yourself daily in the morning and keep a record. Call your primary clinic: a) if you are moreshort of breath, or b) if your weight changes more than 3 pounds in one day or more than 5 pounds in one week. 24-hour supervision is recommended for safety. Labs recommended: BMP on 10/06/24. Your clinician has recommended a home visit with a nurse practitioner or physician from our [facility] team. You may call [phone] ([facility]) to arrange your visit. To prepare for your first visit, we ask that you do the following: If there are any pets in your home/location, please ensure they are put away and secured when the staff arrive. Please have all your current medications out and available for the team to review. Please ensure that any weapons in the home are secured in a locked weapon storage container or witha gun safety lock attached and kept out of site during the visit. If you have a home care nurse, please let them know when your appointment is scheduled. If you have to cancel for any reason, please call [phone]. Signed by: Rubia Villanueva APRN, CNP This document was electronically signed on 09/28/2024 [facility] M SERVICE TECHNICIAN documented in this encounter Progress Notes * Rubia Villanueva APRN, CNP - 09/28/2024 11:59 PM CST [facility] Face to face for DME visit Transitional Care Discharge Summary Patient's Name: Jean-Paul Andre, date of 1940 Transitional Care Facility: [facility] Date of Service: 09/28/2024 Date of Admission: 09/14/2024 Date of Discharge: 10/01/2024 Discharged to: Grand daughters home in [facility] Transitional Care Physician: Elise Gaytan MD Transitional Care Nurse Practitioner: Rubia Villanueva CNP Primary Care Provider: Balaji Gallegos DO Social History Social History Narrative Not on file Discharge Diagnoses: 1. Acute on chronic diastolic HF (heart failure) (HRC) 2. Acute pulmonary embolism, unspecified pulmonary embolism type, unspecified whether acute cor pulmonale present (HRC) 3. COVID-19 4. Acute kidney injury (HRC) 5. Closed displaced fracture of fifth metatarsal bone of left foot with routine healing, subsequentencounter 6. E. coli UTI 7. Alzheimer's dementia with behavioral disturbance (HRC) 8. Impaired mobility and activities of daily living History of Present Illness: 84 y.o. old male with past medical history of essential hypertension, anxiety, Alzheimer's dementialiving with his at home, obesity with BMI 31, and lumbar osteomyelitis in [address] [facility] on 08/30/2024 for a fall with subsequent 5th metatarsal fracture base of left foot. Per [facility] discharge summary on 09/02/2024: Fall Closed displaced fracture of fifth metatarsal bone of left foot Acute pain of left knee Ortho consulted. In boot. Activity currently weight bearing as tolerated. Stable for discharge to TCU with outpatient ortho follow-up. Essential hypertension Not currently on medications. Some intermittent high readings. Saw mention of heart failure but last echo normal LVEF and normal diastolic function. Will not plan to schedule antihypertensives. Should follow-up outpatient with primary care. Hyperlipidemia On lipid lowering therapy with atorvastatin 10 mg daily. Depression / Anxiety On citalopram 20 mg daily and risperidone. Alzheimer's dementia with behavioral disturbance On rivastigmine patch daily. He subsequently developed shortness of breath, increased lower extremity edema, and confusion on 09/08/24 at [facility] TCU and was transferred to [facility] and subsequently found to have a pulmonary embolism and urinary tract infection. Per [facility] discharge summary on 09/14/2024: # Sepsis secondary to UTI (HRC)-resolved #UTI-completed treatment -Met criteria for sepsis with fever to 100.6?? F, tachycardia, elevated procalcitonin, elevated lactate, urinary source w/abnormal UA. Ucx + for E.coli susceptible to Rocephin. -was initiated on Rocephin on 09/08. Completed 4 days of IV therapy; plan to complete course with cefuroxime PO for additional 3 days at ri. - white blood cell count: 7.9 down from 15.5 (09/09/24) - completed: azithromycin 500 mg po (09/09/24 - 09/10/24) s/p 1 L of fluid in the ED. vital signs stabilized. Lactate normalized. NGTD # Acute respiratory distress-resolved # Acute pulmonary embolism (HRC) respiratory distress secondary to acute PE; presented with risk from recent L foot fracture in boot, decreased mobility. -CT angiogram + for PE w/RV strain. - sPESI score: 3 (09/12/24) -seen and evaluated by Cards; Echo reviewed; EF 50%, RV hypokinesis, LVEF slightly reduced. -trop also mildly elevated, thought to be due to PE. -placed on lovenox, transitioned to Xarelto 09/09. -is stable on room air, not requiring supplemental oxygen as prior on admit. - currently on: rivaroxaban 15 mg po BID; start rivaroxaban 20 mg po daily (due 10/01/24) anticipate patient to continue for at least 3 months. - Patient now on oral Lasix 20 mg daily -Cardiology also added losartan to support LV and RV function. T4 returned normal. - No anginal symptoms, no regionality to reduced ejection fraction follow metabolic panel while on oral Lasix # Alzheimer's dementia with behavioral disturbance (HRC)-stable - continue home rivastigmine 4.6 mg patch transdermal daily -Continue risperidone, celexa # Closed displaced fracture of fifth metatarsal bone of left foot-stable Continue walking boot. Will need ongoing physical and occupational therapy. -follow up with ortho as directed in the outpatient setting. -pain controlled. # Anemia: acute on chronic no evidence for bleeding; monitor. - hemoglobin: 11.8 up from 10.6 (09/09/24) - mean corpuscular volume: 98 (09/09/24) normocytic. - est. baseline hemoglobin: 13.1 g/dL #Deconditioning Continue PT OT # Congestive heart failure: acute on chronic, diastolic - currently on: furosemide 20 mg po daily-continue - currently on: losartan 25 mg po daily-continue - BNP: 39 down from 48 (09/08/24); anticipate falsely low in setting of his obesity. -echo reviewed as above; EF 50%; consider changes in setting of PE. # Thrombocytopenia-resolved -anticipate low in setting of acute illness, uti and PE. - currently on: rivaroxaban 15 mg po BID - platelets: 212 up from 126 (09/12/24) -continue to monitor. # Hypertension-stable -started on losartan 25mg 09/10 to support his mild LV systolic dysfunction per cards. -BP stable. # Obesity, class I - complicated by heart failure and hypertension ::: Stable/Chronic/Resolved ::: # History of CVA # Depression and Anxiety # Subclinical Hypothyroidism Primary care/TCU recommendations for follow up, including significant medication changes, medications being held, or recommended imaging or labs: Patient initiated on blood thinner in the setting of PE, follow up outpatient thrombosis clinic. Continue PT OT and follow up with ortho as directed. Transferred to this transitional care facility on 09/14/2024 for rehabilitation and clinical monitoring. Summary of Transitional Care Stay Course of Admitting Diagnosis: Jean-Paul participated in physical and occupational therapy and is now able to ambulate up to 30 feet with a walker with stand-by assistance; a manual wheelchair was obtained for his use on discharge. He continues to need assistance with dressing, bathing, and tolieting.Cognitive screening shows significant cognitive impairment with SLUMS 01/08. He was seen by orthopedic outreach on 09/19 with okay to bear weight to his left leg with a hard soled shoe instead of a CAMboot. He continues to minimal to no pain to his left foot with weightbearing in a shoe. He continues with rivaroxaban 15 mg BID until 09/30 then plan to decrease to 20 mg daily on 10/01 with rivaroxaban 20 mg tablets sent to his outpatient pharmacy. He has a consult with the thrombosis clinic by video visit now on 10/03. He continues to not need supplemental oxygen. He was started on furosemide 20 mg daily and losartan 25 mg daily inpatient given RV strain and RV hypokinesis and EF 50% on echocardiogram. Unfortunately his creatinine peaked at 1.97 on 09/16 with his furosemide and losartan stopped. Creatinine previously 1.06 on 09/13 with baseline creatinine 1- 1.3. His creatinine gradually improved to 1.6 on 09/19 and follow-up creatinine ordered on 09/21 was not drawn until 09/27 which showed creatinine improved to 1.06. He has had increased lower extremity edema however, now 2+ bilaterally, with daily weights not completed as ordered, and will start torsemide 10 mg daily given appears hypervolemic and repeat BMP on 10/06 which was ordered through home care. Thrombocytosis resolved, last 271 on 09/16. His hemoglobin was improved at 13.3 on 09/16. He has been afebrile with no leukocytosis, WBC last 10 on 09/16. He has completed treatment for his UTI and was not noted to have urinary retention. He was found to test positive for COVID-19 on 09/24 with mild symptoms including cough and nasal congestion during a facility wide COVID-19 outbreak. He was not treated with Paxlovid given concern for significant drug- drug reactions. New Problems/Medications: Torsemide 10 mg daily, Xarelto 15 mg BID then change to 20 mg daily on 10/01, Acetaminophen scheduled for pain management Changes in Chronic Problems/Medications: Completed course of cefuroxime, Stopped furosemide 20 mg due to PAMELLA, Stopped losartan 25 mg daily due to PAMELLA Criteria for Manual Wheelchair Based on my assessment, the patient will benefit from a manual wheelchair. The patient's mobility limitation is: Dementia and recent left foot fracture with need for assistance with ambulation. This impairs the ability to accomplish mobility related activities of daily living entirely safely and within a reasonable timeframe. The patient's mobility limitation cannot be resolved by use of a fittedcane or walker because of need for assistance of another person to safely ambulate short distances.The patient's functional mobility deficit can be sufficiently resolved by the use of a manual wheelchair. The patient's home provides adequate access between rooms, maneuvering space, and surfaces for the use of a manual wheelchair. The patient is willing to use a manual wheelchair in the home. Thepatient can self propel the manual wheelchair and/or the patient's caregiver can safely use a manual wheelchair. Functional Status at Discharge Mobility: STS 2 x 5 in room from recliner with cues for hand and foot placement but Supervision only. Short distance. Ambulation in room x 15ft, 2 x 30ft with FWW, small shuffled steps but improved WB noted on LLE ADLs: Upper Extremity Dressing: maximum assistance Lower Extremity Dressing: maximum assistance Toileting: maximum assistance Hygiene and Grooming: moderate assistance Cognition: Brief Interview of Mental Status (BIMS) 12/24 (13-15 within normal limits) [facility] Mental Status (UMS) 01/08 (27-30 within normal limits) Physical Examination BP 118/61 Pulse 76 Temp 36.6 ??C (97.9 ??F) Resp 17 Wt 97.1 kg (214 lb) SpO2 94% BMI 30.71 kg/m?? Wt Readings from Last 3 Encounters: 09/27/24 97.1 kg (214 lb) 09/27/24 97.1 kg (214 lb) 09/26/24 97.1 kg (214 lb) Constitutional: alert, in no acute distress, engages in conversation, and sitting in wheelchair Respiratory: clear to auscultation bilaterally and rare non-productive cough Cardiovascular: normal rate, regular rhythm, 1-2+ bilateral pedal edema, and S1, S2 normal Musculoskeletal: extremities without gross deformity and moves all extremities spontaneously; no pain with AROM of left foot Gastrointestinal: abdomen soft, non-tender, and active bowel sounds are present Integumentary: no rash Neurological: alert , articulate speech, and cranial nerves grossly intact Psychiatric: not depressed, agitated or anxious, cooperative, and memory impaired Pertinent Diagnostic/Laboratory Tests: Lab Results Component Value Date WBC 10.0 09/16/2024 RBC 4.21 (L) 09/16/2024 Hemoglobin 13.3 (L) 09/16/2024 HCT 41.4 09/16/2024 MCV 98.3 09/16/2024 RDW 12.8 09/16/2024 Platelets 271 09/16/2024 Lab Results Component Value Date Creatinine 1.60 (H) 09/19/2024 Glucose 96 09/19/2024 Bedside Blood Glucose Test N/A 08/25/2002 Bedside Blood Glucose Test N/A 08/25/2002 CO2 20 09/19/2024 Chloride 116 (H) 09/19/2024 Potassium 4.7 09/19/2024 Sodium 144 09/19/2024 BUN 44 (H) 09/19/2024 Calcium 8.6 09/19/2024 GFR, Estimated 42 (L) 09/19/2024 Lab Results Component Value Date WBC 10.0 09/16/2024 WBC 7.9 09/13/2024 WBC 10.2 09/09/2024 Lab Results Component Value Date Creatinine 1.06 09/27/2024 Creatinine 1.60 (H) 09/19/2024 Creatinine 1.97 (H) 09/16/2024 Discharge Medications Current Outpatient Medications Medication Sig Dispense Refill acetaminophen (TYLENOL) 325 MG tablet Take 2 Tablets (650 mg) by mouth every 6 hours. 100 Tablet 11 atorvastatin (LIPITOR) 10 MG tablet Take 1 Tablet (10 mg) by mouth daily. 90 Tablet 3 citalopram (CELEXA) 20 MG tablet Take 1 Tablet (20 mg) by mouth daily. 90 Tablet 3 guaiFENesin (ROBITUSSIN) 100 MG/5ML liquid Take 10 mL (200 mg) by mouth three times a day as neededfor Cough or Congestion. Multiple Vitamins-Minerals (PRESERVISION AREDS 2) CAPS Take 1 Capsule by mouth two times a day. risperiDONE (RISPERDAL) 0.5 MG tablet Take 1 Tablet (0.5 mg) by mouth two times a day. 30 Tablet 0 rivaroxaban (XARELTO) 15 MG tablet Take 1 Tablet (15 mg) by mouth two times a day with meals for 38doses. Take with food. Indications: Venous Thromboembolism 38 Tablet 0 [START ON 10/01/2024] rivaroxaban (XARELTO) 20 MG tablet Take 1 Tablet (20 mg) by mouth daily with meal. Take with food. Indications: Venous Thromboembolism Do not start before October 01, 2024. 90 Tablet 3 rivastigmine (EXELON) 4.6 MG/24HR patch Apply 1 Patch to skin daily. 90 Patch 3 No current facility-administered medications for this visit. Advance Directives: Full Code (full attempts at resuscitation including intubation); POLST completed on 09/05/24 Follow-Up Care Details Future Appointments Provider Department Center 10/03/2024 8:40 AM Maria Ines Caldera APRN, CNP [facility] [address] [place] [id number] 10/21/2024 1:15 PM Evangelist Wen MD Neurology at [facility] [address] Follow up with Balaji Gallegos DO in 1-2 weeks. Home Care Agency: [facility] Discharge Services Arranged: Home care nursing, Home health aide, Home care physical therapy, and Home care occupational therapy Home Based Medicine Consult: yes. Indication for Anticoagulation: pulmonary embolism Duration of Anticoagulation: To be determined by thrombosis clinic Medication: rivaroxaban Recommendations for Primary Care Provider Consult with thrombosis clinic on 10/03 Fluid management with torsemide 10 mg daily Renal functioning with recent PAMELLA and furosemide 20 mg daily and losartan 25 mg daily stopped with last creatinine 1.06 on 09/27 Ability to meet needs at home with family support and home health care Total time >30 minutes Signed by: Rubia Villanueva APRN, CNP Pager: Voicemail: M SERVICE TECHNICIAN documented in this encounter Plan of Treatment Upcoming Encounters Date Type Department Care Team (Late st Contact Info) Description 12/07/2024 11:15 AM ALARM SERVICE TECHNICIAN Appointment Neurology at [facility] [address] [place] [address] Evangelist Wen MD [address] [place] [address] 12/14/2024 11:00 AM ALARM SERVICE TECHNICIAN Appointment [facility] [address] [place] [address] Maria Ines Caldera, DUPLICATING MACHINE OPERATOR, ULTRASOUND SPEC [address] [place], [place] [id number] Scheduled Orders Name Type Priority Associated Diagnoses Orde r Schedule Basic Metabolic Panel Lab Routine Acute on chronic diastolic HF (heart failure) (HRC) Acute kidney injury (HRC) Expected: 10/06/2024, Expires: 01/04/2025 Scheduled Referrals Name Type Priority Associated Diagnoses Orde r Schedule Home Care Referral Routine Acute on chronic diastolic HF (heart failure) (HRC) Acute pulmonary embolism, unspecified pulmonary embolism type, unspecified whether acute cor pulmonale present (HRC) COVID-19 Acute kidney injury (HRC) Closed displaced fracture of fifth metatarsal bone of left foot with routine healing, subsequent encounter E. coli UTI Alzheimer's dementia with behavioral disturbance (HRC) Impaired mobility and activities of daily living Ordered: 09/28/2024 Home Based Medicine Consult-Adult(POWER TRUCK DRIVER/MD Home Visit) Referral Routine Acute on chronic diastolic HF (heart failure) (HRC) Acute pulmonary embolism, unspecified pulmonary embolism type, unspecified whether acute cor pulmonale present (HRC) COVID-19 Acute kidney injury (HRC) Closed displaced fracture of fifth metatarsal bone of left foot with routine healing, subsequent encounter E. coli UTI Alzheimer's dementia with behavioral disturbance (HRC) Impaired mobility and activities of daily living Ordered: 09/28/2024 documented as of this encounter Visit Diagnoses Diagnosis Acute on chronic diastolic HF (heart failure) (HRC)- Primary Acute on chronic diastolic heart failure Acute pulmonary embolism, unspecified pulmonary embolism type, unspecified whether acute cor pulmonale present (HRC) COVID-19 Acute kidney injury (HRC) Acute kidney failure, unspecified Closed displaced fracture of fifth metatarsal bone of left foot with routine healing, subsequent encounter E. coli UTI Urinary tract infection, site not specified Alzheimer's dementia with behavioral disturbance (HRC) Alzheimer's disease Impaired mobility and activities of daily living Mechanical problems with limbs documented in this encounter Care Teams Fbi Profiler Relationship Specialty Start Date End Date Balaji Gallegos DO [address] [place] [address] PCP - General Family Practice 10/31/21 documented as of this encounter
--- OUTSIDE RECORDS SUMMARY | 2024-10-28 15:26 | XMS_ITS | Encounter Summary ---
Author Organization [facility] Address [address] [place] [address] Care Team Providers Care Mud Temperer Name Role Phone Balaji Gallegos DO Primary Care Provider Reason for Referral * Consult/Transfer Care (Routine) - New Request Specialty Diagnoses / Procedures Referred By Logan vanegas Referred To Contact Cardiology Diagnoses Heart failure, unspecified HF chronicity, unspecified heart failure type (HRC) Maria Ines Caldera APRN, CNP [address] [place] [address] Referral ID Status Reason Start Date Expiration Date V isits Requested Visits Authorized [id number] New Request 10/03/2024 01/02/2026 1 1 Scheduling Instructions Your clinician has recommended an appointment with [facility]. You can quickly schedule your appointment by signing in to your online account at [email or web address] or through the text message you may have received. You can also make an appointment by calling [phone]. We also suggest you call your health insurance provider about your benefits and coverage for this appointment. Question Answer Appointment Urgency? Non-Urgent Reason for visit? Patient seen in the hospital by cardiology for heart failure; now discharged from a TCU with increasing leg swelling. RAL OFFICE DISPATCHER Reason for Visit * Reason Comments Anticoagulation * Consult/Transfer Care (Routine) - New Request Specialty Diagnoses / Procedures Referred By Contac t Referred To Contact Diagnoses Acute pulmonary embolism, unspecified pulmonary embolism type, unspecified whether acute cor pulmonale present (HRC) Jack Vee MD [address] [place] [address] Referral ID Status Reason Start Date Expiration Date V isits Requested Visits Authorized [id number] New Request 09/09/2024 12/09/2025 1 1 Encounter Details Date Type Department Care Team (Late st Contact Info) Description 10/03/2024 8:40 AM GENERAL OFFICE DISPATCHER Telemedicine [facility] [address] [place] [address] Maria Ines Caldera APRN, CNP [address] [place] [address] Acute pulmonary embolism, unspecified pulmonary embolism type, unspecified whether acute cor pulmonale present (HRC) (Primary Dx); On continuous oral anticoagulation; Heart failure, unspecified HF chronicity, unspecified heart failure type (HRC) Social History Tobacco Use Types Packs/Day Years Used Date Smoking Tobacco: Former Passive Smoke Exposure: Never Smokeless Tobacco: Never Alcohol Use Standard Drinks/Week Comments Not Currently 0 (1 standard drink = 0.6 oz pur e alcohol) [facility] Utilities Answer Date Recorded In the past 12 months has [employer], oil, or water [employer] threatened to shut off services in your [...] any time in the past 12 m [facility], were you homeless or living in a group home (including now)? No 09/09/2024 Sex and Gender Information Value Date Recorded Sex Assigned at Not on file Gender Identity Not on file Sexual Orientation Not on file documented as of this encounter Last Filed Vital Signs Vital Sign Reading Time Taken Comments Blood Pressure - - Pulse - - Temperature - - Respiratory Rate - - Oxygen Saturation - - Inhaled Oxygen Concentration - - Weight 97.1 kg (214 lb) 10/03/2024 8:35 AM GENERAL OFFICE DISPATCHER p t reported Height - - Body Mass Index 30.71 09/09/2024 4:15 AM GENERAL OFFICE DISPATCHER documented in this encounter Patient Instructions * Patient Instructions* Maria Ines Caldera, VALET RUNNER, SCIENTIFIC MANAGER - 10/03/2024 8:40 AM GENERAL OFFICE DISPATCHER Continue Xarelto as directed. Keep in mind the signs and symptoms of bleeding. We will check an ultrasound of the legs to serve as a baseline and I will contact you with result. I put in a referral to cardiology to help manage fluid volume related to heart failure. Follow up with me in early December. Call with questions. Thank you. RAL OFFICE DISPATCHER documented in this encounter Progress Notes * Maria Ines Caldera APRN, CNP - 10/03/2024 8:40 AM CST SUBJECTIVE: I'm seeing this 84 y.o. male patient at the request of Dr. Vee for evaluation and treatment recommendation for anticoagulation. Jean-Paul Andre is a pleasant 84-year-old male with history of hypertension, heart failure, age-related macular degeneration, Alzheimer's dementia, and anxiety. He was hospitalized September 08 through September 14 shortly after being discharged from the hospital to a TCU on September 02 for a displaced 5th metatarsal fracture of his left foot. He then presented to the emergency department with shortness of breath, cough, leg swelling and confusion. Patient met criteria for sepsis with a fever,tachycardia, elevated procalcitonin and elevated lactate. Urine cultures positive for E coli. He was initiated on antibiotic therapy. CT angiogram of his chest showed left pulmonary emboli. Specifically he had a moderate amount of thrombus in the distal left main pulmonary artery with extension into the segmental branches of the upper and lower lobe. There was respiratory motion which made it difficult to exclude thrombus in the distal segmental or subsegmental branches of the right lung. He was started on anticoagulation in the form of Lovenox and then switched to Xarelto. Echocardiogram showed left ventricular hypertrophy and ejection fraction of 50%. RV size appeared normal however the RV apex was hypokinetic. There was no ultrasound of the legs done. He was also treated for acute diast olic heart failure and diuresed. He went to a transitional care unit and then was discharged from there on the . I am meeting with him, his and daughter today by video. Patient himself has dementia and his daughter offers most of his history and answers most questions. Overall he seems to be doing okay. Heis not complaining of any chest pain or shortness of breath. Of concern however is that he is againretaining fluid. His daughter states he is probably about as swollen in the legs as he was at the ti me of hospitalization and may have a little bit of an increased abdominal girth as well. They have not been weighing him at home. He was taken off diuretic therapy altogether due to rising creatinine. Denies any bleeding or bruising complications with the Xarelto. He does not have a personal or family history of DVT or PE that he is aware of. He did have the recent hospitalization and immobility related to a foot fracture and wearing a boot. Also was septic. Patient Active Problem List Diagnosis Overweight (BMI 25.0-29.9) (HRC) Melanoma of skin (HRC) Hyperlipidemia (HRC) Anxiety (HRC) Essential hypertension (HRC) Exudative age-related macular degeneration (HRC) Alzheimer's dementia with behavioral disturbance (HRC) Low serum vitamin B12 (HRC) Heart failure, unspecified (HRC) Closed displaced fracture of fifth metatarsal bone of left foot Acute pulmonary embolism (HRC) Medications: Outpatient Medications Prior to Visit Medication Sig [...] mouth two times a day. rivaroxaban (XARELTO) 15 MG tablet Take 1 Tablet (15 mg) by mouth two times a day with meals for 2 days. Take with food. Last dose on 09/30/24. Indications: Venous Thromboembolism rivaroxaban (XARELTO) 20 MG tablet Take 1 Tablet (20 mg) by mouth daily with meal. Take with food. Indications: Venous Thromboembolism Do not start before October 01, 2024. rivastigmine (EXELON) 4.6 MG/24HR patch Apply 1 Patch to skin daily. torsemide (DEMADEX) 10 MG tablet Take 1 Tablet (10 mg) by mouth daily. Indications: Cardiac Failure No facility-administered medications prior to visit. Adverse Drug Reactions: Patient has no known allergies. Social History: Social History Socioeconomic History Marital status: Spouse name: Not on file Number of children: Not on file Years of education: Not on file Highest education level: Not on file Occupational History Not on file Tobacco Use Smoking status: Former Passive exposure: Never Smokeless tobacco: Never Vaping Use Vaping status: Never Used Substance and Sexual Activity Alcohol use: Not Currently Drug use: Not Currently Sexual activity: Not on file Other Topics Concern Not on file Social History Narrative Not on file Social Determinants of Health Financial Resource Strain: Not on file Food Insecurity: No Food Insecurity (09/09/2024) Hunger Vital Sign Worried About Running Out of Food in the Last Year: Never true Ran Out of Food in the Last Year: Never true Transportation Needs: No Transportation Needs (09/09/2024) PRAPARE - Transportation Lack of Transportation (Medical): No Lack of Transportation (Non-Medical): No Physical Activity: Not on file Stress: Not on file Social Connections: Not on file Intimate Partner Violence: Not At Risk (09/09/2024) Humiliation, Afraid, Rape, and Kick questionnaire Fear of Current or Ex-Partner: No Emotionally Abused: No Physically Abused: No Sexually Abused: No Housing Stability: Unknown (09/09/2024) Housing Stability Vital Sign Unable to Pay for Housing in the Last Year: No Number of Times Moved in the Last Year: Not on file Homeless in the Last Year: No Family History: No family history on file. Review of Systems: Pertinent items are noted in HPI. OBJECTIVE: Vital Signs: There were no vitals taken for this visit. General: Well-appearing male who appears his stated age. He is cooperative Neuro: Alert. Minimally conversational. Labs: On September 09 AST was 29 and ALT 28 On September 16 hemoglobin was 13.3 and platelets [id number]. On September 27 creatinine was 1.06 Ultrasound/CT results: Exam: CT Angio Chest W IV Cont PE Study Completed: 09/09/2024 2:19 AM Signs & Symptoms: fever, tachypnea, foot in boot. Eval for clot, pna Comments: EXAM: CT ANGIO CHEST W IV CONT PE STUDY LOCATION: [facility] DATE: 09/09/2024 INDICATION: Fever, tachypnea, foot in boot. Eval for clot, PNA. COMPARISON: None. TECHNIQUE: CT chest pulmonary angiogram during arterial phase injection of IV contrast. Multiplanarreformats and MIP reconstructions were performed. Dose reduction [...] not well opacified and is indeterminate for dissection.Elevated RV-LV ratio suggesting right heart strain. LUNGS [...] ratio suggesting right heart strain. 3. Cholelithiasis. ASSESSMENT: Provoked pulmonary embolism On anticoagulation Diastolic heart failure PLAN: Jean-Paul has been started on anticoagulation in the form of Xarelto. He has completed the first 21 days of 15 mg twice daily and is now taking 20 mg once daily. He knows to take it with food. They havebeen cautioned on the signs and symptoms of bleeding. I would like to get an ultrasound of the legsto serve as a baseline. I will contact them with those results. They were to have a home care visitnext week but they are not sure if they be able to keep it due to insurance issues. I did encouragethem to try to get Jean-Paul in to see either his primary care provider or a home care team assistant soon due to the issue with fluid volume overload. Likewise would consider follow up with Cardiology to help manage symptoms of diastolic heart failure. His daughter is a cardiac nurse and plans to help with facilitating this. Plan for follow-up with me in 3 months. They are aware if there are questions or concerns they can contact our office. Thank you for allowing me to be part of this patient's care. Maria Ines Caldera APRN, CNP RAL OFFICE DISPATCHER documented in this encounter Plan of Treatment Upcoming Encounters Date Type Department Care Team (Late st Contact Info) Description 12/07/2024 11:15 AM GENERAL OFFICE DISPATCHER Appointment Neurology at [facility] [address] [place] [address] Evangelist Wen MD [address] [place] [address] 12/14/2024 11:00 AM GENERAL OFFICE DISPATCHER Appointment [facility] [address] [place] [address] Maria Ines Caldera, VALET RUNNER, SCIENTIFIC MANAGER [address] [place] [address] Scheduled Referrals Name Type Priority Associated Diagnoses Orde r Schedule Cardiology Consult-Adults Referral Routine Heart failure, unspecified HF chronicity, unspecified heart failure type (HRC) Ordered: 10/03/2024 documented as of this encounter Visit Diagnoses Diagnosis Acute pulmonary embolism, unspecified pulmonary embolism type, unspecified whether acute cor pulmonale present (HRC)- Primary On continuous oral anticoagulation Heart failure, unspecified HF chronicity, unspecified heart failure type (HRC) documented in this encounter Care Teams Mud Temperer Relationship Specialty Start Date End Date Balaji Gallegos DO [address] [place] [address] PCP - General Family Practice 10/31/21 documented as of this encounter
--- OUTSIDE RECORDS SUMMARY | 2024-10-28 15:27 | XMS_ITS | Encounter Summary ---
Author Organization [address] [address] Address [address] [place] [address] Care Team Providers Care Audio Visual Engineer Name Role Phone Balaji Gallegos DO Primary Care Provider Encounter Details Date Type Department Care Team (Late st Contact Info) Description 09/27/2024 Lab Requisition [facility] [address] [facility] [place] [address] Rubia Villanueva, CANT GANG SAWYER, CUSTOMER CARE COORDINATOR [address] [place] [address] Acute kidney failure, unspecified (HRC) Social History Tobacco Use Types Packs/Day Years Used Date Smoking Tobacco: Former Passive Smoke Exposure: Never Smokeless Tobacco: Never Alcohol Use Standard Drinks/Week Comments Not Currently 0 (1 standard drink = 0.6 oz pur e alcohol) [facility] Utilities Answer Date Recorded In the past 12 months has [employer] electric, gas, oil, or water company threatened [...] time in the past 12 m [facility], were you homeless or living in a half-way (including now)? No 09/09/2024 Sex and Gender Information Value Date Recorded Sex Assigned at Not on file Gender Identity Not on file Sexual Orientation Not on file documented as of this encounter Plan of Treatment Upcoming Encounters Date Type Department Care Team (Late st Contact Info) Description 12/07/2024 11:15 AM FLAVOR EXTRACTOR Appointment Neurology at [address] [place] [address] Evangelist Wen MD [address] [place] [address] 12/14/2024 11:00 AM FLAVOR EXTRACTOR Appointment [place] [address] [place] [address] Maria Ines Caldera, CANT GANG SAWYER, CUSTOMER CARE COORDINATOR [address] [place] [address] documented as of this encounter Procedures Procedure Name Priority Date/Time Associated Diagnosis Comments BASIC METABOLIC PANEL Routine 09/27/2024 9:29 AM FLAVOR EXTRACTOR Acute kidney failure, unspecified (HRC) documented in this encounter Results * (ABNORMAL) Basic Metabolic Panel (09/27/2024 9:29 AM FLAVOR EXTRACTOR) Sodium 143 136 - 145 mmol/L 09/27/2024 4:15 PM FLAVOR EXTRACTOR [facility] Potassium 4.2 3.5 - 5.1 mmol/L 09/27/2024 4:15 PM FLAVOR EXTRACTOR [facility] Chloride 114(H) 98 - 109 mmol/L 09/27/2024 4:15 PM FLAVOR EXTRACTOR [facility] CO2 22 20 - 29 mmol/L 09/27/2024 4:15 PM FLAVOR EXTRACTOR [facility] Anion Gap 7 6 - 16 mmol/L 09/27/2024 4:15 PM FLAVOR EXTRACTOR [facility] Calcium 8.5 8.4 - 10.4 mg/dL 09/27/2024 4:15 PM FLAVOR EXTRACTOR [facility] BUN 19 7 - 26 mg/dL 09/27/2024 4:15 PM FLAVOR EXTRACTOR [facility] Creatinine 1.06 0.73 - 1.18 mg/dL 09/27/2024 4:15 PM FLAVOR EXTRACTOR [facility] Glucose 99 70 - 100 mg/dL 09/27/2024 4:15 PM FLAVOR EXTRACTOR [facility] Comment:The given reference range is for the fasting state. Non-fasting reference range for glucose is 70 - 180 mg/dL. GFR, Estimated >60 >60 mL/min/1.7 3m2 09/27/2024 4:15 PM FLAVOR EXTRACTOR [facility] Hours Fasting 0.1 8 - 12 Hours 09/27/2024 4:15 PM FLAVOR EXTRACTOR [facility] Comment:Lab unable to obtain patient's fasting status at time of specimen collection. Blood Venipuncture / Unknown 09/27/2024 9:29 AM FLAVOR EXTRACTOR 09/27/2024 3:11 PM FLAVOR EXTRACTOR Rubia Luz Kay CANT GANG SAWYER, CUSTOMER CARE COORDINATOR LAB_1 [facility] [address] [place], [place] [address] documented in this encounter Visit Diagnoses Diagnosis Acute kidney failure, unspecified (HRC) Acute kidney failure, unspecified documented in this encounter Care Teams Audio Visual Engineer Relationship Specialty Start Date End Date Balaji Gallegos DO [address] [place] [address] PCP - General Family Practice 10/31/21 documented as of this encounter
--- OUTSIDE RECORDS SUMMARY | 2024-10-28 15:27 | XMS_ITS | Encounter Summary ---
Author Organization [employer] Address [address] [place] [address] Care Team Providers Care Contact Worker Lithography Name Role Phone Balaji Gallegos DO Primary Care Provider Reason for Visit * Reason Onset Date Comments ERRONEOUS ENTRY ERRONEOUS ENTRY 09/27/2024 Encounter Details Date Type Department Care Team (Late st Contact Info) Description 09/28/2024 Geriatrics [facility] Transitional Care [address] [facility] [place] [address] Elise Gaytan MBBS [address] [place], [place] [id number] ERRONEOUS ENTRY; ERRONEOUS ENTRY Social History Tobacco Use Types Packs/Day Years Used Date Smoking Tobacco: Former Passive Smoke Exposure: Never Smokeless Tobacco: Never Alcohol Use Standard Drinks/Week Comments Not Currently 0 (1 standard drink = 0.6 oz pur e alcohol) [facility] Utilities Answer Date Recorded In the past [...] time in the past 12 m [facility], were you homeless or living in a nursing home (including now)? No 09/09/2024 Sex and Gender Information Value Date Recorded Sex Assigned at Not on file Gender Identity Not on file Sexual Orientation Not on file documented as of this encounter Last Filed Vital Signs Vital Sign Reading Time Taken Comments Blood Pressure 133/70 09/27/2024 12:55 PM INSTRUMENT TECHNICIAN HELPER Pulse 64 09/27/2024 12:55 PM INSTRUMENT TECHNICIAN HELPER Temperature 36.5 C (97.7 F) 09/27/2024 12:55 PM INSTRUMENT TECHNICIAN HELPER Respiratory Rate 18 09/27/2024 12:55 PM INSTRUMENT TECHNICIAN HELPER Oxygen Saturation 96% 09/27/2024 12:55 PM INSTRUMENT TECHNICIAN HELPER Inhaled Oxygen Concentration - - Weight 97.1 kg (214 lb) 09/27/2024 12:55 PM INSTRUMENT TECHNICIAN HELPER Height - - Body Mass Index 30.71 09/09/2024 4:15 AM INSTRUMENT TECHNICIAN HELPER documented in this encounter Progress Notes * Jeanne Arrington LPN - 09/28/2024 11:59 PM CST . This encounter was created in error - please disregard. RUMENT TECHNICIAN HELPER documented in this encounter Plan of Treatment Upcoming Encounters Date Type Department Care Team (Late st Contact Info) Description 12/07/2024 11:15 AM INSTRUMENT TECHNICIAN HELPER Appointment Neurology at [address] [id number] Evangelist Wen MD [address] [place], [place] [id number] 12/14/2024 11:00 AM INSTRUMENT TECHNICIAN HELPER Appointment [place] [address] [facility] [address] [place], [place] [address] Maria Ines Caldera, INTERNET WEBMASTER, BUSINESS ACCOUNT LEADER [address] [place], [place] [address] documented as of this encounter Visit Diagnoses Diagnosis Encounters for administrative purpose- Primary Encounters for unspecified administrative purpose documented in this encounter Care Teams Contact Worker Lithography Relationship Specialty Start Date End Date Balaji Gallegos DO [address] [place], [place] [id number] PCP - General Family Practice 10/31/21 documented as of this encounter
--- OUTSIDE RECORDS SUMMARY | 2024-10-28 15:27 | XMS_ITS | Encounter Summary ---
Author Organization [employer] Address [address] [place] [address] Care Team Providers Care Can Conveyor Feeder Name Role Phone Balaji Gallegos DO Primary Care Provider Reason for Visit * Reason Comments Follow-up Encounter Details Date Type Department Care Team (Late st Contact Info) Description 09/26/2024 Geriatrics [facility] Transitional Care [address] [facility]. [place], [place] [phone] Rubia Villanueva, BENEFITS MANAGER, CHEMICAL PREPARER [address] [place], [place] [phone] Follow-up Social History Tobacco Use Types Packs/Day Years Used Date Smoking Tobacco: Former Passive Smoke Exposure: Never Smokeless Tobacco: Never Alcohol Use Standard Drinks/Week Comments Not Currently 0 (1 standard drink = 0.6 oz pur e alcohol) [facility] Utilities Answer Date Recorded In [...] time in the past 12 m [facility], were you homeless or living in a retirement (including now)? No 09/09/2024 Sex and Gender Information Value Date Recorded Sex Assigned at Not on file Gender Identity Not on file Sexual Orientation Not on file documented as of this encounter Last Filed Vital Signs Vital Sign Reading Time Taken Comments Blood Pressure 132/61 09/26/2024 9:52 AM MODERATE NEEDS TEACHER Pulse 87 09/26/2024 9:52 AM MODERATE NEEDS TEACHER Temperature 36.9 C (98.4 F) 09/26/2024 9:52 AM MODERATE NEEDS TEACHER Respiratory Rate 18 09/26/2024 9:52 AM MODERATE NEEDS TEACHER Oxygen Saturation 93% 09/26/2024 9:52 AM MODERATE NEEDS TEACHER Inhaled Oxygen Concentration - - Weight 97.1 kg (214 lb) 09/26/2024 9:52 AM MODERATE NEEDS TEACHER Height - - Body Mass Index 30.71 09/09/2024 4:15 AM MODERATE NEEDS TEACHER documented in this encounter Progress Notes * Rubia Villanueva, BENEFITS MANAGER, CHEMICAL PREPARER - 09/26/2024 9:51 AM CST [facility] Transitional Care [facility] Visit [facility] Jean-Paul Andre is a 84 y.o. old male, date of 1940, currently in the transitional careunit at [facility]. This follow-up visit is conducted at the care facility on09/26/2024. I reviewed the plan of care including medications and treatments. History of Present Illness: 84 y.o. old male with past medical history of essential hypertension, anxiety, Alzheimer's dementialiving with his at home, obesity with BMI 31, and lumbar osteomyelitis in 2017 admitted to [facility] on 08/30/2024 for a fall with subsequent 5th metatarsal fracture base of left foot. Per [facility] discharge summary on 09/02/2024: Fall Closed displaced [...] extremity edema, and confusion on 09/08/24 at [facility] TCU and was transferred to [facility] and subsequently found to have a pulmonary embolism and urinary tract infection. Per [facility] discharge summary on 09/14/2024: # Sepsis secondary to UTI (HRC)-resolved #UTI-completed treatment -Met criteria for sepsis with fever to 100.6?? F, tachycardia, elevated procalcitonin, elevated lactate, urinary source w/abnormal UA. Ucx + for E.coli susceptible to Rocephin. -was initiated on Rocephin on 11/28. Completed 4 days of IV therapy; plan to complete course with cefuroxime PO for additional 3 days at [facility]. - white blood cell count: 7.9 down from 15.5 (09/09/24) - completed: azithromycin 500 mg po (09/09/24 - 09/10/24) s/p 1 L of fluid in the ED. vital signs stabilized. Lactate normalized. BC NGTD # Acute respiratory distress-resolved # Acute [...] on 09/14/2024 for rehabilitation and clinical monitoring. Assessment and Plan 1. COVID-19 Found to have COVID-19 on 09/24 after facility wide testing due to facility COVID-19 outbreak. Symptoms remain mild including nasal congestion. Not treated with Paxlovid due to significant drug interactions. 2. Acute pulmonary embolism, unspecified pulmonary embolism type, unspecified whether acute cor pulmonale present (HRC) 3. Acute on chronic diastolic HF (heart failure) (HRC) 4. Acute kidney injury (HRC) Continues on rivaroxaban 15 mg BID until 09/30 then decrease to 20 mg daily on 10/01. Plan for thrombosis clinic consult on 09/28 by video. PE with RV strain and RV hypokinesis and EF 50% on echocardiogram. Continues to not require oxygen. Plan to treat as provoked PE for at least 3 months with anticoagulation. Started on furosemide 20 mg daily and losartan 25 mg daily though stopped on 09/16 as creatinine peaked to 1.97 and previously 1.06 on 09/13 with baseline creatinine 1-1.3. Repeat BMP improved to 1.6 on 09/19. Repeat BMP ordered on 09/21 though not completed as ordered and reordered STAT for today. 5. Closed displaced fracture of fifth metatarsal bone of left foot with routine healing, subsequentencounter Seen by orthopedic outreach on 09/19 with WBAT to LLE changed okay to ambulate in hard soled shoe instead of a CAM boot. Continues to not have pain with weightbearing to his left foot in a shoe. 6. Impaired mobility and activities of daily living Continues with physical and occupational therapy. 1. COVID-19 2. Acute pulmonary embolism, unspecified pulmonary embolism type, unspecified whether acute cor pulmonale present (HRC) 3. Acute on chronic diastolic HF (heart failure) (HRC) 4. Acute kidney injury (HRC) 5. Closed displaced fracture of fifth metatarsal bone of left foot with routine healing, subsequentencounter 6. Impaired mobility and activities of daily living Since last visit: Jean-Paul was sitting in his room chair and appears to have eaten all of this breakfast. He states he is feeling okay with no shortness of breath or cough. He appears to have some nasal congestion though is not coughing. He states he has not been having foot pain. Blood pressures have been 120-130/60-70s with heart rates 70-80s. He has been afebrile. Weights have been stable 214 to 215 pounds. Current Outpatient Medications Medication Sig Dispense Refill [...] No current facility-administered medications for this visit. Pertinent Diagnostic/Laboratory Tests: Lab Results Component Value [...] 09/09/2024 Lab Results Component Value Date Creatinine 1.60 (H) 09/19/2024 Creatinine 1.97 (H) 09/16/2024 Creatinine 1.06 09/13/2024 Physical Examination BP 132/61 Pulse 87 Temp 36.9 ??C (98.4 ??F) Resp 18 Wt 97.1 kg (214 lb) SpO2 93% BMI 30.71 kg/m?? Wt Readings from Last 3 Encounters: 09/26/24 97.1 kg (214 lb) 09/20/24 97.6 kg (215 lb 3.2 oz) 09/20/24 97.6 kg (215 lb 3.2 oz) Constitutional: alert, in no acute distress, engages in conversation, and sitting in wheelchair Head/Ears/Nose/Mouth/Throat: Nose - nasal congestion Respiratory: clear to auscultation bilaterally and respirations regular and non- labored no cough noted Cardiovascular: normal rate, regular rhythm, and S1, S2 normal; trace bilateral pedal edema Musculoskeletal: extremities without gross deformity and moves all extremities spontaneously Gastrointestinal: abdomen soft, non-tender, and active bowel sounds are present Integumentary: no rash Neurological: alert , articulate speech, and cranial nerves grossly intact Psychiatric: not depressed, agitated or anxious, cooperative, and memory impaired I personally spent 50 minutes on the calendar day of the encounter, including pre and post visit work. Signed by: Rubia Villanueva APRN, CNP Pager: Voicemail: RATE NEEDS TEACHER documented in this encounter Plan of Treatment Upcoming Encounters Date Type Department Care Team (Late st Contact Info) Description 12/07/2024 11:15 AM MODERATE NEEDS TEACHER Appointment Neurology at [facility] [address] [place], [place] [phone] Evangelist Wen MD [address] [place], [place] [phone] 12/14/2024 11:00 AM MODERATE NEEDS TEACHER Appointment [place] [id number] Thrombosis [address] [place] [address] Maria Ines Caldera APRN, JASMYNE [address] [place], [place] [phone] documented as of this encounter Visit Diagnoses Diagnosis COVID-19- Primary Acute pulmonary embolism, unspecified pulmonary embolism type, unspecified whether acute cor pulmonale present (HRC) Acute on chronic diastolic HF (heart failure) (HRC) Acute on chronic diastolic heart failure Acute kidney injury (HRC) Acute kidney failure, unspecified Closed displaced fracture of fifth metatarsal bone of left foot with routine healing, subsequent encounter Impaired mobility and activities of daily living Mechanical problems with limbs documented in this encounter Care Teams Can Conveyor Feeder Relationship Specialty Start Date End Date Balaji Gallegos DO [address] [place] [address] PCP - General Family Practice 10/31/21 documented as of this encounter
--- OUTSIDE RECORDS SUMMARY | 2024-10-28 15:27 | XMS_ITS | Encounter Summary ---
Author Organization [employer] Address [address] [place] [address] Care Team Providers Care Second Language Tutor Name Role Phone Balaji Gallegos DO Primary Care Provider Reason for Visit * Reason Comments Follow-up Encounter Details Date Type Department Care Team (Late st Contact Info) Description 09/20/2024 Geriatrics [facility] Transitional Care [address] [facility]. [place], [place] [phone] Rubia Villanueva, MARINE STEAM FITTER HELPER, CHIEF ENVIRONMENTAL COMMITMENT OFFICER [address] [place], [place] [phone] Follow-up Social History Tobacco Use Types Packs/Day Years Used Date Smoking Tobacco: Former Passive Smoke Exposure: Never Smokeless Tobacco: Never Alcohol Use Standard Drinks/Week Comments Not Currently 0 (1 standard drink = 0.6 oz pur e alcohol) [facility] Utilities Answer Date Recorded In [...] any time in the past 12 m [facility], were you homeless or living in a skilled nursing (including now)? No 09/09/2024 Sex and Gender Information Value Date Recorded Sex Assigned at Not on file Gender Identity Not on file Sexual Orientation Not on file documented as of this encounter Last Filed Vital Signs Vital Sign Reading Time Taken Comments Blood Pressure 144/80 09/20/2024 10:02 AM NEIGHBORHOOD AIDE Pulse 78 09/20/2024 10:02 AM NEIGHBORHOOD AIDE Temperature 36.8 C (98.2 F) 09/20/2024 10:02 AM NEIGHBORHOOD AIDE Respiratory Rate 16 09/20/2024 10:02 AM NEIGHBORHOOD AIDE Oxygen Saturation 95% 09/20/2024 10:02 AM NEIGHBORHOOD AIDE Inhaled Oxygen Concentration - - Weight 97.6 kg (215 lb 3.2 oz) 09/20/2024 10:02 AM NEIGHBORHOOD AIDE Height - - Body Mass Index 30.88 09/09/2024 4:15 AM NEIGHBORHOOD AIDE documented in this encounter Progress Notes * Rubia Villanueva, DENEEN, CHIEF ENVIRONMENTAL COMMITMENT OFFICER - 09/20/2024 10:01 AM CST [facility] Transitional Care Follow-up Visit [facility] Jean-Paul Andre is a 84 y.o. old male, date of 1940, currently in the transitional careunit at [facility]. This follow-up visit is conducted at the care facility on09/20/2024. I reviewed the plan of care including medications and treatments. History of Present Illness: 84 y.o. old male with past medical history of essential hypertension, anxiety, Alzheimer's dementialiving with his at home, obesity with BMI 31, and lumbar osteomyelitis in 2017 admitted to [facility] on 08/30/2024 for a fall with subsequent 5th metatarsal fracture base of left foot. Per [facility] discharge summary on 09/02/2024: Fall Closed [...] extremity edema, and confusion on 09/08/24 at [facility] TCU and was transferred to [facility] and subsequently found to have a pulmonary embolism and urinary tract infection. Per [facility] discharge summary on 09/14/2024: # Sepsis secondary to UTI (HRC)-resolved #UTI-completed treatment -Met criteria for sepsis with fever to 100.6?? F, tachycardia, elevated procalcitonin, elevated lactate, urinary source w/abnormal UA. Ucx + for E.coli susceptible to Rocephin. -was initiated on Rocephin on 09/08. Completed 4 days of IV therapy; plan to complete course with cefuroxime PO for additional 3 days at tx. - white blood cell count: 7.9 down [...] and clinical monitoring. Assessment and Plan 1. Acute pulmonary embolism, unspecified pulmonary embolism type, unspecified whether acute cor pulmonale present (HRC) 2. Acute on chronic diastolic HF (heart failure) (HRC) 3. Acute kidney injury (HRC) Continues on rivaroxaban 15 mg BID until 09/30 then decrease to 20 mg daily on 10/01. Plan for thrombosis clinic consult on 09/23. PE with RV strain and RV hypokinesis and EF 50% on echocardiogram. Continues to not require oxygen. Plan to treat as provoked PE for at least 3 months with anticoagulation. Started on furosemide 20 mg daily and losartan 25 mg daily though stopped on 09/16 as creatininepeaked to 1.97 and previously 1.06 on 09/13 with baseline creatinine 1- 1.3. Repeat BMP improved to 1.6 on 09/19. Repeat BMP ordered on 09/21. 4. Closed displaced fracture of fifth metatarsal bone of left foot with routine healing, subsequentencounter Seen by orthopedic outreach on 09/19 with WBAT to LLE changed okay to ambulate in hard soled shoe instead of a CAM boot. 5. Impaired mobility and activities of daily living Continues with physical and occupational therapy. 1. Acute pulmonary embolism, unspecified pulmonary embolism type, unspecified whether acute cor pulmonale present (HRC) 2. Acute on chronic diastolic HF (heart failure) (HRC) 3. Acute kidney injury (HRC) 4. Closed displaced fracture of fifth metatarsal bone of left foot with routine healing, subsequentencounter 5. Impaired mobility and activities of daily living Since last visit: Jean-Paul states he is not having any pain to his left foot and is able to ambulate without pain with a hard soled shoe. He does not appear to have shortness of breath or cough. He states he is not having difficulty breathing. He does not have any increased lower extremity edema with weights 214-215 pounds recently and blood pressures typically 110-140/60-70s. He does not have any pain with urination nor abdominal pain. Current Outpatient Medications Medication Sig Dispense Refill [...] Diagnostic/Laboratory Tests: Lab Results Component Value Date Creatinine 1.60 [...] 271 09/16/2024 Lab Results Component Value Date WBC 10.0 09/16/2024 WBC 7.9 09/13/2024 WBC 10.2 09/09/2024 Lab Results Component Value Date Creatinine 1.60 (H) 09/19/2024 Creatinine 1.97 (H) 09/16/2024 Creatinine 1.06 09/13/2024 Physical Examination BP (!) 144/80 Pulse 78 Temp 36.8 ??C (98.2 ??F) Resp 16 Wt 97.6 kg (215 lb 3.2 oz) SpO2 95% BMI 30.88 kg/m?? Wt Readings from Last 3 Encounters: 09/20/24 97.6 kg (215 lb 3.2 oz) 09/17/24 97.2 kg (214 lb 3.2 oz) 09/15/24 97.4 kg (214 lb 12.8 oz) Constitutional: alert, in no acute distress, engages in conversation, sitting in wheelchair, and ambulates with a walker and assistance without visible signs of pain Respiratory: clear to auscultation bilaterally and respirations regular and non- labored with no cough Cardiovascular: normal rate, regular rhythm, trace bilateral pedal edema, and S1, S2 normal Musculoskeletal: extremities without gross deformity and motor intact to bilateral lower extremities Gastrointestinal: abdomen soft, non-tender, and active bowel sounds are present Integumentary: no rash Neurological: alert, articulate speech, and cranial nerves grossly intact Psychiatric: not depressed, agitated or anxious and cooperative Total time 50 minutes of which greater than 50% spent in counseling and care coordination. Counseling involved: discussion of the care plan with patient and by phone regarding management of PAMELLA,foot fracture, and PE. Care coordination efforts included: review of facility EMR, reconciling medications, and discussion with facility staff. Signed by: Rubia Villanueva APRN, CNP Pager: Voicemail: HBORHOOD AIDE documented in this encounter Plan of Treatment Upcoming Encounters Date Type Department Care Team (Late st Contact Info) Description 12/07/2024 11:15 AM NEIGHBORHOOD AIDE Appointment Neurology at [facility] [address] [facility]. [place], [place] [phone] Evangelist Wen MD [address] [place], [place] [phone] 12/14/2024 11:00 AM NEIGHBORHOOD AIDE Appointment [place] [phone] Thrombosis [address] [place] [address] Maria Ines Caldera APRN, CNP [address] [place], [place] [address] documented as of this encounter Visit Diagnoses Diagnosis Acute pulmonary embolism, unspecified pulmonary embolism type, unspecified whether acute cor pulmonale present (HRC)- Primary Acute on chronic diastolic HF (heart failure) (HRC) Acute on chronic diastolic heart failure Acute kidney injury (HRC) Acute kidney failure, unspecified Closed displaced fracture of fifth metatarsal bone of left foot with routine healing, subsequent encounter Impaired mobility and activities of daily living Mechanical problems with limbs documented in this encounter Care Teams Second Language Tutor Relationship Specialty [place] [address] [place] [id number] PCP - General Family Practice 10/31/21 documented as of this encounter
--- OUTSIDE RECORDS SUMMARY | 2024-10-28 15:27 | XMS_ITS | Encounter Summary ---
Author Organization [employer] Address [address] [place] [address] Care Team Providers Care Customer Service Clerk Name Role Phone Balaji Gallegos DO Primary Care Provider Reason for Visit * Reason Comments COVID Test Results Encounter Details Date Type Department Care Team (Late st Contact Info) Description 09/24/2024 Telephone [facility] [address] [facility] [place] [address] Rayne Stewart APRN, [facility] [address] [place] [address] COVID Test Results Social History Tobacco Use Types Packs/Day Years Used Date Smoking Tobacco: Former Passive Smoke Exposure: Never Smokeless Tobacco: Never Alcohol Use Standard Drinks/Week Comments Not Currently 0 (1 standard drink = 0.6 oz pur e alcohol) [facility] Utilities Answer Date Recorded In [...] any time in the past 12 m [facility], were you homeless or living in a half-way (including now)? No 09/09/2024 Sex and Gender Information Value Date Recorded Sex Assigned at Not on file Gender Identity Not on file Sexual Orientation Not on file documented as of this encounter Patient Instructions * Patient Instructions* Rayne Stewart APRN, KAYLA - 09/24/2024 4:17 PM ENVELOPE SEALER OPERATOR Provider Orders Martha Alex [facility] Patient Name: Jean-Paul Andre Date of : 1940 Date: 09/24/24 Facility: [facility] TCU Orders Robitussin 100 mg/5 ml liquid - take 10 ml (200 mg) PO TID PRN Dx: cough/congestion Electronically signed by Rayne Stewart APRN, DNP 09/24/24 4:17 PM LOPE SEALER OPERATOR documented in this encounter Nursing Notes * Rayne Stewart APRN, DNP - 09/24/2024 4:03 PM CST Telephone Call Note [facility] Telephone Call: Patient: Jean-Paul Andre Date of : 1940 [facility] has tested positive for COVID-19 as of this afternoon, with current symptoms including cough and congestion. Patient remains afebrile, tolerating room air without noted difficulty, with vital signs stable. Plan: On review of prescribed medications, patient is not a candidate for Paxlovid therapy due to potential for significant drug interaction with prescribed Risperdal and Lipitor. Tylenol order currently in place, with order for Robitussin faxed to facility. Nursing to complete COVID-19 assessment every shift per facility protocol and to notify provider with any changes in patient's condition. Signed by: Rayne Stewart APRN, DNP 09/24/24 4:06 PM LOPE SEALER OPERATOR documented in this encounter Plan of Treatment Upcoming Encounters Date Type Department Care Team (Late st Contact Info) Description 12/07/2024 11:15 AM ENVELOPE SEALER OPERATOR Appointment Neurology at [address] [place] [address] Evangelist Wen MD [address] [place] [address] 12/14/2024 11:00 AM ENVELOPE SEALER OPERATOR Appointment [facility] [address] [facility] [address] [place] [address] Maria Ines Caldera APRN, INTEGRITY DIRECTOR [address] [place] [address] documented as of this encounter Visit Diagnoses Not on filedocumented in this encounter Care Teams Customer Service Clerk Relationship Specialty Start Date End Date Balaji Gallegos DO [address] [place] [address] PCP - General Family Practice 10/31/21 documented as of this encounter
--- OUTSIDE RECORDS SUMMARY | 2024-10-28 15:27 | XMS_ITS | Encounter Summary ---
Author Organization [employer] Address [address] [place] [address] Care Team Providers Care Demurrage Man Name Role Phone Balaji Gallegos DO Primary Care Provider Reason for Visit * Reason Comments Initial Assessment Encounter Details Date Type Department Care Team (Late st Contact Info) Description 09/21/[address] [facility] [address] [facility]. [place], [place] [address] Elise Gaytan MBBS [address] [place], [place] [id number] Initial Assessment Social History Tobacco Use Types Packs/Day Years Used Date Smoking Tobacco: Former Passive Smoke Exposure: Never Smokeless Tobacco: Never Alcohol Use Standard Drinks/Week Comments Not Currently 0 (1 standard drink = 0.6 oz pur e alcohol) [facility] Utilities Answer Date Recorded In the past 12 months has [email or web address] electric, gas, oil, or water company threatened [...] any time in the past 12 m [facility], were you homeless or living in a residential (including now)? No 09/09/2024 Sex and Gender Information Value Date Recorded Sex Assigned at Not on file Gender Identity Not on file Sexual Orientation Not on file documented as of this encounter Last Filed Vital Signs Vital Sign Reading Time Taken Comments Blood Pressure 144/80 09/20/2024 1:12 PM ALUMINUM FABRICATION SUPERVISOR Pulse 78 09/20/2024 1:12 PM ALUMINUM FABRICATION SUPERVISOR Temperature 36.8 C (98.2 F) 09/20/2024 1:12 PM ALUMINUM FABRICATION SUPERVISOR Respiratory Rate 16 09/20/2024 1:12 PM ALUMINUM FABRICATION SUPERVISOR Oxygen Saturation 95% 09/20/2024 1:12 PM ALUMINUM FABRICATION SUPERVISOR Inhaled Oxygen Concentration - - Weight 97.6 kg (215 lb 3.2 oz) 09/20/2024 1:12 P M ALUMINUM FABRICATION SUPERVISOR Height - - Body Mass Index 30.88 09/09/2024 4:15 AM ALUMINUM FABRICATION SUPERVISOR documented in this encounter Progress Notes * Elise Gaytan MBBS - 09/21/2024 11:59 PM CST Sil Valdivia [facility] Transitional Care Unit HISTORY AND PHYSICAL Date of Service: 09/21/2024 Primary provider: Balaji Gallegos DO HISTORY: 84-year-old patient with history of dementia, anxiety, hypertension, heart failure (EF 50 worsened with RV hypokinesis), HLD was initially admitted to [facility] from 08/30/2024 to 09/02/2024for 5th metatarsal fracture base of left foot after unwitnessed fall. Patient managed conservatively with Cam boot and WBAT. Patient continued on DRIER AND GRINDER TENDER atorvastatin, citalopram, risperidone and rivastigmine patch.was subsequently readmitted to [facility] from 09/08/2024 to 09/14/2024 for shortness a breath, cough, leg swelling and confusion. Patient diagnosed with sepsis secondary to UTI, managed with IV Rocephin for 4 days and discharged on cefuroxime for 3 days. Patient also diagnosed with provoked DVT leading to acute PE with RV strain. Patient started on Xarelto 15 mg b.i.d and will start 20 mg daily on 10/01/2024 for at least 3 months. Patient was also started on losartan as well as Lasix for acute on chronic diastolic congestive heart failure.. Continued on DRIER AND GRINDER TENDER rivastigmine patch along with risperidone and Celexa. Transferred to this transitional care facility for ongoing clinical monitoring and rehabilitation. From hospital discharge summary: From the HPI of Dr. Hoang: Jean-Paul Andre is a 84 y.o. male with a history of Alzheimer's dementia, anxiety, hypertension, who was recently hospitalized and discharged on 09/02 to a TCU for displaced 5th metatarsal fracture of his left foot who presents to the emergency department with shortness a breath, cough, leg swelling and confusion. HPI is limited given patient's dementia. Patient's is at bedside. Patient denies shaking chills. No chest pains. The remainder of the ROS is otherwise unobtainable. Please see the admission history and physical for full details. Hospital Course, by problem: Jean-Paul Andre is a 84 y.o. male who was admitted on 09/08/2024 for shortness of breath, cough andleg swelling. He was found to have a PE. He also met sepsis criteria and source of infection was found to be the urine. Of note, he was just discharged from [facility], to TCU, on 09/02 after he sustained a 5th metatarsal fracture of his left foot. It was noted healing could take 8 weeks and that there is still possibility that fracture wouldn't heal, and patient could require surgery. # Sepsis secondary to UTI (HRC)-resolved #UTI-completed treatment -Met criteria for sepsis with fever to 100.6?? F, tachycardia, elevated procalcitonin, elevated lactate, urinary source w/abnormal UA. Ucx + for E.coli susceptible to Rocephin. -was initiated on Rocephin on 09/08. Completed 4 days of IV therapy; plan to complete course with cefuroxime PO for additional 3 days at dc. - white blood cell count: 7.9 down [...] and follow up with ortho as directed. - Pending Labs: None Subsequent history: Jean-Paul today reports he overall has been feeling well. Denies any ongoing urinary symptoms, no cardiopulmonary concerns, does have persistent edema. Denies any respiratory symptoms, currently on room air. Good p.o. intake, nursing staff reports no significant behavioral concerns. Patient reported he was able to sleep well last night, continues to be pleasantly confused. Past Medical & Surgical History: Past Medical History: Diagnosis Date Alzheimer's dementia with behavioral disturbance ([facility]) 01/29/2024 Anxiety ([facility]) 11/27/2021 Benign neoplasm of colon 05/12/2022 Bullous pemphigoid 06/06/2017 Closed displaced fracture of fifth metatarsal bone of left foot 08/30/2024 Essential hypertension ([facility]) 06/06/2017 Exudative age-related macular degeneration ([facility]) 05/12/2022 History of malignant melanoma of skin 05/12/2022 Hyperlipidemia ([facility]) 09/14/1996 Melanoma of skin ([facility]) 01/03/2005 LW Onset: 1974 ; Melanoma Skin NOS Osteoarthritis 03/18/2003 DJD Osteomyelitis ([facility]) 10/07/2017 Prediabetes 05/12/2022 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[facility]) 05/12/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 Unreliable historian given underlying dementia. OBJECTIVE: Blood pressure (!) 144/80, pulse 78, temperature 36.8 ??C (98.2 ??F), resp. rate 16, weight 97.6 kg(215 lb 3.2 oz), SpO2 95%. Constitutional: alert, in no acute distress, sitting in recliner and engages in conversation Respiratory: clear to auscultation bilaterally, nonlabored Cardiovascular: normal rate, trace bilateral pedal edema Musculoskeletal: ROM intact; regular shoes in both feet Gastrointestinal: abdomen soft, non-tender Integumentary: No obvious skin breakdown Neurological: alert and articulate speech Psychiatric: Pleasantly confused, not depressed, agitated or anxious Pertinent recent labs: Lab Results Component Value Date WBC 10.0 [...] (L) 09/19/2024 Lab Results Component Value Date Creatinine 1.60 (H) 09/19/2024 Creatinine 1.97 (H) 09/16/2024 Creatinine 1.06 09/13/2024 Pertinent recent radiology findings: ASSESSMENT: ICD-10-CM 1. Acute pulmonary embolism, unspecified pulmonary embolism type, unspecified whether acute cor pulmonale present ([facility]) I26.99 2. Acute on chronic diastolic HF (heart failure) ([facility]) I50.33 3. Acute kidney injury ([facility]) N17.9 4. Impaired mobility and activities of daily living Z74.09 Z78.9 5. E. coli UTI N39.0 B96.20 6. Closed displaced fracture of fifth metatarsal bone of left foot with routine healing, [facility] S92.352D 7. Alzheimer's dementia with behavioral disturbance ([facility]) G30.9 F02.818 8. Impaired mobility and ADLs Z74.09 Z78.9 9. Essential hypertension ([facility]) I10 10. Anxiety ([facility]) F41.9 PLAN: - admitted for respiratory distress secondary to acute provoked PE in the setting of recent left foot fracture and decreased mobility, now on Xarelto 15 mg b.i.d. and this will change to Xarelto 20 mg daily for at least 2 weeks, patient will need to follow-up with anticoagulation clinic following discharge. - UTI with E coli treated with Rocephin followed by cefuroxime, no ongoing urinary symptoms, encouraged adequate fluid intake, continue to monitor. - acute on chronic diastolic CHF, last echo with EF 50%, RV hypokinesis, patient discharged on furosemide 20 mg along with losartan 25 mg daily but patient developed significant creatinine bump, no significant cardiopulmonary symptoms and patient clinically euvolemic, weights have been stable between 214-215; furosemide and losartan were discontinued, we will continue to monitor closely, daily weights. - 5th metatarsal fracture of left foot, treated conservatively, continue Cam boot advised nurse to make sure, pain adequately controlled - blood pressure is currently within acceptable range, may consider low-dose beta blockers if needed - stable anxiety symptoms, continue citalopram 20 mg daily Reviewed outside records where indicated Reviewed lab and pertinent radiology records in the EMR and group home records Consult Occupational Therapy for evaluation and treatment Check cognitive scores Consult Physical therapy for evaluation and treatment Gait strengthening balance to be addressed by therapy Pain modalities as needed Follow labs as needed Fall precautions Nursing care as per protocol Follow vitals, weights and pain scores update MD/TAVERN KEEPER as required Medication reconciliation/clarification completed with nursing staff Monitor for signs of infection or bleeding Consult Dietitian weight loss, calorie counts, nutritional supplements etc. No orders of the defined types were placed in this encounter. There are no discontinued medications. MD Martha Griffin Extensive time spent discussing details of the above dx and treatment plans as well as next steps and prognosis with pt/ family. Additional time spent coordinating care and confirming plans with TAVERN KEEPER partner, and nursing staff. 50minutes total time, including reviewing chart, documentation, coordination and counseling. INUM FABRICATION SUPERVISOR documented in this encounter Plan of Treatment Upcoming Encounters Date Type Department Care Team (Late st Contact Info) Description 12/07/2024 11:15 AM ALUMINUM FABRICATION SUPERVISOR Appointment Neurology at [address] [place] [address] Evangelist Wen MD [address] [place] [address] 12/14/2024 11:00 AM ALUMINUM FABRICATION SUPERVISOR Appointment [facility] [address] [place], [place] [phone] Maria Ines Caldera, MAID SUPERVISOR, TERRITORY BUSINESS MANAGER [address] [place] [address] documented as of this encounter Visit Diagnoses Diagnosis Acute pulmonary embolism, unspecified pulmonary embolism type, unspecified whether acute cor pulmonale present (HRC)- Primary Acute on chronic diastolic HF (heart failure) (HRC) Acute on chronic diastolic heart failure Acute kidney injury (HRC) Acute kidney failure, unspecified Impaired mobility and activities of daily living Mechanical problems with limbs E. coli UTI Urinary tract infection, site not specified Closed displaced fracture of fifth metatarsal bone of left foot with routine healing, subsequent encounter Alzheimer's dementia with behavioral disturbance (HRC) Alzheimer's disease Impaired mobility and ADLs Mechanical problems with limbs Essential hypertension (HRC) Unspecified essential hypertension Anxiety (HRC) Anxiety state, unspecified documented in this encounter Care Teams Demurrage Man Relationship Specialty Start Date End Date Balaji Gallegos DO [address] [place] [address] PCP - General Family Practice 10/31/21 documented as of this encounter
--- OUTSIDE RECORDS SUMMARY | 2024-10-28 15:28 | XMS_ITS | Encounter Summary ---
Author Organization [employer] Address [address] [place] [address] Care Team Providers Care Acquisition Associate Name Role Phone Balaji Gallegos DO Primary Care Provider Reason for Visit * Reason Comments FOLLOW-UP,FRACTURE * Consult/Transfer Care (Routine) - New Request Specialty Diagnoses / Procedures Referred By Contac t Referred To Contact Diagnoses Closed displaced fracture of fifth metatarsal bone of left foot, initial encounter Haydee Conway APRN, INTELLIGENCE OPERATIONS [address] [place] [address] Referral ID Status Reason Start Date Expiration Date V isits Requested Visits Authorized [id number] New Request 08/31/2024 11/30/2025 1 1 Encounter Details Date Type Department Care Team (Late st Contact Info) Description 09/19/2024 8:00 AM [facility] [address] Orthopedics Geriatric Outreach [address] [place] [address] Dk Sands APRN, INTELLIGENCE OPERATIONS [address] [place] [address] FOLLOW-UP,FRACTURE Social History Tobacco Use Types Packs/Day Years Used Date Smoking Tobacco: Former Passive Smoke Exposure: Never Smokeless Tobacco: Never Alcohol Use Standard Drinks/Week Comments Not Currently 0 (1 standard drink = 0.6 oz pur e alcohol) [facility] Utilities Answer Date Recorded In the [...] any time in the past 12 m [facility], were you homeless or living in a assisted (including now)? No 09/09/2024 Sex and Gender Information Value Date Recorded Sex Assigned at Not on file Gender Identity Not on file Sexual Orientation Not on file documented as of this encounter Progress Notes * Dk Sands, COMPUTER EQUIPMENT REPAIRER, INTELLIGENCE OPERATIONS - 09/19/2024 8:00 AM CST Images from the original note were not included. [facility] Out[facility] Visit Date of Service: 09/19/2024 Patient location: [facility] TCU Visit type: Onsite Location of provider: Onsite DOI: 08/30/24 Injury: Left 5th metatarsal fracture CHIEF COMPLAINT: Fracture follow up SUBJECTIVE: Jean-Paul Andre is a 84 y.o. year old male seen today for follow up left 5th metatarsalfracture. He is now about 3 weeks out from the injury. Chart reviewed and discussion with therapy staff took place. Patient Activity: WBAT. Patient reports having minimal pain in his left foot today.Per PT, the CAM boot is clunky and patient can be unsteady at times with the boot. He is mobilizing about 12 feet with therapy. Prior to his most recent hospitalization, he was mobilizing over 100 feet with therapy. PMH alzheimer's dementia with behavioral disturbance, pulmonary embolism (upcoming appointment on 09/[address] Bar), heart failure, anxiety. OBJECTIVE: Seen in room, pleasant, interactive, follows directions. Left foot: Skin intact. Skin is warm and well perfused. Sensation intact to light touch. Good DF/PF, no pain with ROM. Very mild ecchymosis noted lateral foot. Mild TTP noted 5th MT area. Remainder of the foot is NTTP. Palpable DP pulse. XRAY: X-rays were taken on 08/30/2024: FINDINGS: 3 views left ankle. Bones are demineralized. Thereis a transverse oblique fracture at the fifth metatarsal base with a 2 mm gap between the proximal and distal fracture fragments. No other potential acute osseous abnormality. Moderate plantar calcaneal enthesophyte. Diffuse soft tissue swelling. Scattered atherosclerotic calcification. Left foot x-rays were taken on 08/30/2024: FINDINGS: 3 views of the left foot. Bones are demineralized. There is a transverse oblique fracture at the fifth metatarsal base with a 2 mm gap between theproximal and distal fracture fragments. Moderate plantar calcaneal enthesophyte. Suboptimal visualization of the subtalar joint likely related to projection, less likely reflecting a coalition. [place] x-rays were taken on 09/15/2024, findings and impression per radiology: ASSESSMENT/PLAN: Left foot 5th metatarsal fracture. Jean-Paul Andre is almost 3 weeks status post above injury. Films and plan of care discussed with Dr. Funes. Patient is 84 years old and lives with Alzheimer's dementia. Pain appears tolerable for patient. We agreed it would most likely be safer for patient to WBAT LLE in a hard soled shoe instead of CAM boot. PT also feels patient is unsteady with the CAM boot. CAM boot was discontinued today. I called patient's , Shama. She will bringhis hard soled shoe over to the TCU today. I updated PT on plan of care. They were in agreement with plan and had no further questions. No further x-rays needed unless patient is having problems withhis foot. Even if this fracture does not heal, surgical intervention is not appropriate due to age and Alzheimer's dementia. OK for PRN follow up with ortho outreach. I left the [facility] appointment phone number for Shama should she have any future questions or concerns. Billing based on: Time Total time for the visit was 25 minutes including, but not limited to, non-face-to face time spent reviewing records, counseling, and coordination of care. Electronically signed by Dk Sands APRN, CNP SORTER documented in this encounter Plan of Treatment Upcoming Encounters Date Type Department Care Team (Late st Contact Info) Description 12/07/2024 11:15 AM BEND SORTER Appointment Neurology at [facility] [address] [facility] [address] Evangelist Wen MD [address] [place] [address] 12/14/2024 11:00 AM BEND SORTER Appointment [facility] [address] [facility] [address] [place] [address] Maria Ines Caldera APRN, INTELLIGENCE OPERATIONS [address] [place] [address] Scheduled Referrals Name Type Priority Associated Diagnoses Orde r Schedule Orthopedic Geriatric Outreach Program Referral Routine Closed displaced fracture of fifth metatarsal bone of left foot, initial encounter Ordered: 08/31/2024 documented as of this encounter Visit Diagnoses Diagnosis Closed displaced fracture of fifth metatarsal bone of left foot with routine healing, subsequent encounter- Primary documented in this encounter Care Teams Acquisition Associate Relationship Specialty Start Date End Date Balaji Gallegos DO [address] [place] [address] PCP - General Family Practice 10/31/21 documented as of this encounter
--- OUTSIDE RECORDS SUMMARY | 2024-10-28 15:28 | XMS_ITS | Encounter Summary ---
Author Organization [facility] Address [address] [place] [address] Care Team Providers Care Japanese Tutor Name Role Phone Balaji Gallegos DO Primary Care Provider Encounter Details Date Type Department Care Team (Late st Contact Info) Description 09/17/2024 Lab [facility] [address] [facility] [place] [address] Rubia Villanueva, DRY CAN TENDER, MUTUAL FUND SALES AGENT [address] [place] [address] Chronic kidney disease, stage 3 unspecified (HRC) Social History Tobacco Use Types Packs/Day Years Used Date Smoking Tobacco: Former Passive Smoke Exposure: Never Smokeless Tobacco: Never Alcohol Use Standard Drinks/Week Comments Not Currently 0 (1 standard drink = 0.6 oz pur e alcohol) [facility] Utilities Answer Date Recorded In the past 12 months has e electric, gas, oil, or water [employer] threatened to shut off services in your [...] in the past 12 m [facility], were you homeless or living in a long term (including now)? No 09/09/2024 Sex and Gender Information Value Date Recorded Sex Assigned at Not on file Gender Identity Not on file Sexual Orientation Not on file documented as of this encounter Plan of Treatment Upcoming Encounters Date Type Department Care Team (Late st Contact Info) Description 12/07/2024 11:15 AM WATCH MECHANIC Appointment Neurology at [address] [place], [place] [id number] Evangelist Wen MD [address] [place] [address] 12/14/2024 11:00 AM WATCH MECHANIC Appointment [place] [phone] [place] [phone] [place] [address] Maria Ines Caldera, DRY CAN TENDER, MUTUAL FUND SALES AGENT [address] [place] [address] documented as of this encounter Procedures Procedure Name Priority Date/Time Associated Diagnosis Comments BASIC METABOLIC PANEL Routine 09/19/2024 6:12 AM WATCH MECHANIC Chronic kidney disease, stage 3 unspecified (HRC) documented in this encounter Results * (ABNORMAL) Basic Metabolic Panel (09/19/2024 6:12 AM WATCH MECHANIC) Sodium 144 136 - 145 mmol/L 09/19/2024 5:02 PM WATCH MECHANIC [facility] Potassium 4.7 3.5 - 5.1 mmol/L 09/19/2024 5:02 PM WATCH MECHANIC [facility] Chloride 116(H) 98 - 109 mmol/L 09/19/2024 5:02 PM WATCH MECHANIC [facility] CO2 20 20 - 29 mmol/L 09/19/2024 5:02 PM WATCH MECHANIC [facility] Anion Gap 8 6 - 16 mmol/L 09/19/2024 5:02 PM WATCH MECHANIC [facility] Calcium 8.6 8.4 - 10.4 mg/dL 09/19/2024 5:02 PM WATCH MECHANIC [facility] BUN 44(H) 7 - 26 mg/dL 09/19/2024 5:02 PM WATCH MECHANIC [facility] Creatinine 1.60(H) 0.73 - 1.18 mg/dL 09/19/2024 5:02 PM WATCH MECHANIC [facility] Glucose 96 70 - 100 mg/dL 09/19/2024 5:02 PM WATCH MECHANIC [facility] Comment:The given reference range is for the fasting state. Non-fasting reference range for glucose is 70 - 180 mg/dL. GFR, Estimated 42(L) >60 mL/min/1.7 3m2 09/19/2024 5:02 PM WATCH MECHANIC [facility] Hours Fasting 0.1 8 - 12 Hours 09/19/2024 5:02 PM WATCH MECHANIC [facility] Comment:Lab unable to obtain patient's fasting status at time of specimen collection. Blood Venipuncture / Unknown 09/19/2024 6:12 AM WATCH MECHANIC 09/19/2024 4:20 PM WATCH MECHANIC Rubia Villanueva APRN, CNP LAB_1 [facility] [address] [place], [place] [address] documented in this encounter Visit Diagnoses Diagnosis Chronic kidney disease, stage 3 unspecified (HRC) documented in this encounter Care Teams Japanese Tutor Relationship Specialty Start Date End Date Balaji Gallegos DO [address] [place] [address] PCP - General Family Practice 10/31/21 documented as of this encounter
--- OUTSIDE RECORDS SUMMARY | 2024-10-28 15:28 | XMS_ITS | Encounter Summary ---
Author Organization [employer] Address [address] [place] [address] Care Team Providers Care Beef Breaker Name Role Phone Balaji Gallegos DO Primary Care Provider Reason for Visit * Reason Comments RESULTS, TEST Encounter Details Date Type Department Care Team (Late st Contact Info) Description 09/19/2024 Telephone [facility] Transitional Care [address] [facility] [place] [address] Rubia Villanueva, TEXTILE CONVERTER, BLOCKER POLISHING [address] [place] [address] RESULTS, TEST Social History Tobacco Use Types Packs/Day Years Used Date Smoking Tobacco: Former Passive Smoke Exposure: Never Smokeless Tobacco: Never Alcohol Use Standard Drinks/Week Comments Not Currently 0 (1 standard drink = 0.6 oz pur e alcohol) [facility] Utilities Answer Date Recorded In the [...] any time in the past 12 m [facility], were you homeless or living in a senior care (including now)? No 09/09/2024 Sex and Gender Information Value Date Recorded Sex Assigned at Not on file Gender Identity Not on file Sexual Orientation Not on file documented as of this encounter Patient Instructions * Patient Instructions* Rubia Villanueva APRN, CNP - 09/19/2024 5:09 PM CANVASS MANAGER Provider Orders [facility] Patient Name: Jean-Paul Andre Date of : 1940 Date: 09/19/24 Facility: [facility] TC Orders Repeat BMP on 09/21. Dx: PAMELLA Electronically signed by Rubia Villanueva APRN, CNP ASS MANAGER documented in this encounter Nursing Notes * Rubia Villanueva APRN, CNP - 09/19/2024 5:07 PM CST Lab Results Component Value Date Creatinine 1.60 [...] Creatinine 1.97 (H) 09/16/2024 Creatinine 1.06 09/13/2024 Creatinine improving with discontinuation of losartan and furosemide. Plan: Repeat BMP on 09/21. Dx: PAMELLA ASS MANAGER documented in this encounter Plan of Treatment Upcoming Encounters Date Type Department Care Team (Late st Contact Info) Description 12/07/2024 11:15 AM CANVASS MANAGER Appointment Neurology at [address] [place] [address] Evangelist Wen MD [address] [place] [address] 12/14/2024 11:00 AM CANVASS MANAGER Appointment [place] [address] Thrombosis [address] [place], [place] [address] Maria Ines Caldera APRN, CNP [address] [place] [address] documented as of this encounter Visit Diagnoses Not on filedocumented in this encounter Care Teams Beef Breaker Relationship Specialty Start Date End Date Balaji Gallegos DO [address] [place] [address] PCP - General Family Practice 10/31/21 documented as of this encounter
--- OUTSIDE RECORDS SUMMARY | 2024-10-28 15:29 | XMS_ITS | Encounter Summary ---
Author Organization [employer] Address [address] [place] [address] Care Team Providers Care Elect Equip Maint Eng Name Role Phone Balaji Gallegos DO Primary Care Provider Encounter Details Date Type Department Care Team (Late st Contact Info) Description 09/15/2024 Lab Requisition [facility] [address] [facility] [place] [address] Rubia Villanueva, EROSION CONTROL SPECIALIST, FIREWOOD CUTTER [address] [place] [address] Urinary tract infection, site not specified Social History Tobacco Use Types Packs/Day Years Used Date Smoking Tobacco: Former Passive Smoke Exposure: Never Smokeless Tobacco: Never Alcohol Use Standard Drinks/Week Comments Not Currently 0 (1 standard drink = 0.6 oz pur e alcohol) [facility] Utilities Answer Date Recorded In the past 12 months has [employer], gas, oil, or water company threatened [...] time in the past 12 m [facility], were you homeless or living in a fdc (including now)? No 09/09/2024 Sex and Gender Information Value Date Recorded Sex Assigned at Not on file Gender Identity Not on file Sexual Orientation Not on file documented as of this encounter Plan of Treatment Upcoming Encounters Date Type Department Care Team (Late st Contact Info) Description 12/07/2024 11:15 AM COKE CRANE OPERATOR Appointment Neurology at [address] [place] [address] Evangelist Wen MD [address] [facility] [id number] 12/14/2024 11:00 AM COKE CRANE OPERATOR Appointment [place] [id number] Thrombosis [facility] [place] [address] Maria Ines Caldera, EROSION CONTROL SPECIALIST, FIREWOOD CUTTER [address] [place] [address] documented as of this encounter Procedures Procedure Name Priority Date/Time Associated Diagnosis Comments CBC AND DIFFERENTIAL PANEL Routine 09/16/2024 8:31 AM COKE CRANE OPERATOR Urinary tract infection, site not specified COMPLETE BLOOD COUNT-W/DIFF Routine 09/16/2024 8:31 AM COKE CRANE OPERATOR Urinary tract infection, site not specified BASIC METABOLIC PANEL Routine 09/16/2024 8:31 AM COKE CRANE OPERATOR Urinary tract infection, site not specified documented in this encounter Results * (ABNORMAL) Complete Blood Count-W/Diff (09/16/2024 8:31 AM COKE CRANE OPERATOR) WBC 10.0 3.5 - 10.5 x10(9)/L 09/16/2024 3:12 PM COKE CRANE OPERATOR [facility] RBC 4.21(L) 4.32 - 5.72 x10(12)/L 09/16/2024 3:12 PM COKE CRANE OPERATOR [facility] Hemoglobin 13.3(L) 13.5 - 17.5 g/dL 09/16/2024 3:12 PM COKE CRANE OPERATOR [facility] HCT 41.4 38.8 - 50.0 % 09/16/2024 3:12 PM COKE CRANE OPERATOR [facility] MCV 98.3 80.0 - 100.0 fL 09/16/2024 3:12 PM COKE CRANE OPERATOR [facility] MCH 31.6 27.6 - 33.3 pg 09/16/2024 3:12 PM COKE CRANE OPERATOR [facility] MCHC 32.1 31.5 - 35.2 g/dL 09/16/2024 3:12 PM COKE CRANE OPERATOR [facility] RDW 12.8 11.9 - 15.5 % 09/16/2024 3:12 PM COKE CRANE OPERATOR [facility] Platelets 271 150 - 450 x10(9)/L 09/16/2024 3:12 PM COKE CRANE OPERATOR [facility] Automated NRBC 0 <=0 /100 WBC 09/16/2024 3:12 PM COKE CRANE OPERATOR [facility] Neutrophil Absolute 7.8(H) 1.7 - 7.0 10(9)/L 09/16/2024 3:12 PM COKE CRANE OPERATOR [facility] Lymphocyte Absolute 1.0 1.0 - 4.8 10(9)/L 09/16/2024 3:12 PM COKE CRANE OPERATOR [facility] Monocyte Absolute 0.7 0.2 - 0.9 10(9)/L 09/16/2024 3:12 PM COKE CRANE OPERATOR [facility] Eosinophil Absolute 0.4 0.0 - 0.5 10(9)/L 09/16/2024 3:12 PM COKE CRANE OPERATOR [facility] Basophil Absolute 0.1 0.0 - 0.3 10(9)/L 09/16/2024 3:12 PM COKE CRANE OPERATOR [facility] Immature Granulocyte % 1.0(H) 0.0 - 0.5 % 09/16/2024 3:12 PM COKE CRANE OPERATOR [facility] Blood Venipuncture / Unknown 09/16/2024 8:31 AM COKE CRANE OPERATOR 09/16/2024 2:34 PM COKE CRANE OPERATOR Rubia Villanueva APRN, FIREWOOD CUTTER LAB_1 [facility] [address] * (ABNORMAL) Basic Metabolic Panel (09/16/2024 8:31 AM COKE CRANE OPERATOR) Sodium 142 136 - 145 mmol/L 09/16/2024 3:52 PM COKE CRANE OPERATOR [facility] Potassium 4.7 3.5 - 5.1 mmol/L 09/16/2024 3:52 PM COKE CRANE OPERATOR [facility] Comment:Specimen slightly he molyzed. Hemolysis may affect result. Chloride 112(H) 98 - 109 mmol/L 09/16/2024 3:52 PM COKE CRANE OPERATOR [facility] CO2 17(L) 20 - 29 mmol/L 09/16/2024 3:52 PM COKE CRANE OPERATOR [facility] Anion Gap 13 6 - 16 mmol/L 09/16/2024 3:52 PM COKE CRANE OPERATOR [facility] Calcium 8.9 8.4 - 10.4 mg/dL 09/16/2024 3:52 PM COKE CRANE OPERATOR [facility] BUN 32(H) 7 - 26 mg/dL 09/16/2024 3:52 PM COKE CRANE OPERATOR [facility] Creatinine 1.97(H) 0.73 - 1.18 mg/dL 09/16/2024 3:52 PM COKE CRANE OPERATOR [facility] Glucose 85 70 - 100 mg/dL 09/16/2024 3:52 PM COKE CRANE OPERATOR [facility] Comment:The given reference range is for the fasting state. Non-fasting reference range for glucose is 70 - 180 mg/dL. GFR, Estimated 33(L) >60 mL/min/1.7 3m2 09/16/2024 3:52 PM COKE CRANE OPERATOR [facility] Hours Fasting 0.1 8 - 12 Hours 09/16/2024 3:52 PM COKE CRANE OPERATOR [facility] Comment:Lab unable to obtain patient's fasting status at time of specimen collection. Blood Venipuncture / Unknown 09/16/2024 8:31 AM COKE CRANE OPERATOR 09/16/2024 2:35 PM COKE CRANE OPERATOR Rubia Villanueva APRN, [facility] LAB_1 Performing Organization Address City/State/[facility] Co de Phone Number [facility] [address] [place], [place] [phone] [place] [address] documented in this encounter Visit Diagnoses Diagnosis Urinary tract infection, site not specified documented in this encounter Care Teams Elect Equip Maint Eng Relationship Specialty Start Date End Date Balaji Gallegos DO [address] [place] [address] PCP - General Family Practice 10/31/21 documented as of this encounter
--- OUTSIDE RECORDS SUMMARY | 2024-10-28 15:29 | XMS_ITS | Encounter Summary ---
Author Organization [employer] Address [address] [place] [address] Care Team Providers Care Tool And Die Maker Level Five Name Role Phone Balaji Gallegos DO Primary Care Provider Reason for Referral * Consult/Transfer Care (Routine) - Closed Specialty Diagnoses / Procedures Referred By Contac t Referred To Contact Diagnoses Acute pulmonary embolism, unspecified pulmonary embolism type, unspecified whether acute cor pulmonale present (HRC) Alzheimer's dementia with behavioral disturbance (HRC) Sepsis secondary to UTI (HRC) Pierre Kong MD [address] [place] [address] Referral ID Status Reason Start Date Expiration Date Visits Re quested Visits Authorized [id number] Closed 09/11/2024 12/10/2024 1 1 Scheduling Instructions Your provider has recommended an appointment with [facility]. You can quickly make your appointment online at [employer]/schedule. You can also call [phone] for help scheduling your appointment. We suggest you call your health insurance company about your coverage and benefits for this appointment. Question Answer What type of follow up? IP Discharge Appointment Urgency? Non-Urgent Comments Primary Care Provider: Balaji Gallegos DO INE SHOP WORKER * (Routine) - New Request Specialty Diagnoses / Procedures Referred By Contac t Referred To Contact Procedures Physical Therapy Eval and Treat Pierre Kong MD [address] [place] [address] Referral ID Status Reason Start Date Expiration Date V isits Requested Visits Authorized [id number] New Request 09/10/2024 12/10/2025 1 1 INE SHOP WORKER * Consult/Transfer Care (Routine) - New Request Specialty Diagnoses / Procedures Referred By Contac t Referred To Contact Diagnoses Acute pulmonary embolism, unspecified pulmonary embolism type, unspecified whether acute cor pulmonale present (HRC) Pierre Kong MD [address] [place] [address] Referral ID Status Reason Start Date Expiration Date V isits Requested Visits Authorized [id number] New Request 09/09/2024 12/09/2025 1 1 Scheduling Instructions Your clinician has recommended an appointment with [facility]. You can quickly make your appointment online at [employer]/schedule. You can also call [phone] for help scheduling your appointment. We suggest you call your health insurance company about your coverage and benefits for this appointment. Question Answer Appointment Urgency? Non-Urgent Reason for visit? pulmonary embolism Outpatient Appt Need? Hospital Follow up INE SHOP WORKER * Consult/Transfer Care (Routine) - New Request Specialty Diagnoses / Procedures Referred By Contac t Referred To Contact Diagnoses Acute pulmonary embolism, unspecified pulmonary embolism type, unspecified whether acute cor pulmonale present (HR) Pierre Kong MD [address] [place] [address] Referral ID Status Reason Start Date Expiration Date V isits Requested Visits Authorized [id number] New Request 09/09/2024 12/08/2024 1 1 Scheduling Instructions Your provider has recommended an appointment with [facility]. You can quickly make your appointment online at [employer]/schedule. You can also call [phone] for help scheduling your appointment. We suggest you call your health insurance company about your coverage and benefits for this appointment. Question Answer What type of follow up? IP Discharge Appointment Urgency? Within 1 Week (Urgent) Outpatient Appt Need? Hospital Follow up Comments Primary Care Provider: Balaji Gallegos DO INE SHOP WORKER * Consult/Transfer Care (Routine) - Closed Specialty Diagnoses / Procedures Referred By Contac t Referred To Contact Diagnoses Sepsis, due to unspecified organism, unspecified whether acute organ dysfunction present (HRC) Pulmonary embolism, unspecified chronicity, unspecified pulmonary embolism type, unspecified whether acute cor pulmonale present (HRC) Pierre Kong MD [address] [place] [address] Referral ID Status Reason Start Date Expiration Date Visits Re quested Visits Authorized [id number] Closed 09/09/2024 12/08/2024 1 1 Scheduling Instructions Your provider has recommended an appointment with [facility]. You can quickly make your appointment online at [employer]/schedule. You can also call [phone] for help scheduling your appointment. We suggest you call your health insurance company about your coverage and benefits for this appointment. Question Answer What type of follow up? SNF Discharge Appointment Urgency? Non-Urgent Comments Primary Care Provider: Balaji Gallegos DO -Please schedule with your provider within 1 week of discharge from TCU/ upon your return to home. INE SHOP WORKER * Procedure/Equipment (Routine) - New Request Specialty Diagnoses / Procedures Referred By Contac t Referred To Contact Procedures Echocardiogram Phu Hoang MD [address] [place] [address] Referral ID Status Reason Start Date Expiration Date V isits Requested Visits Authorized [id number] New Request 09/09/2024 12/09/2025 1 1 INE SHOP WORKER * Procedure/Equipment (Routine) - Incomplete Specialty Diagnoses / Procedures Referred By Contac t Referred To Contact Procedures CT Angio Chest W IV Cont PE Study Katiuska Brothers MD [address] [place] [address] Referral ID Status Reason Start Date Expiration Date V isits Requested Visits Authorized [id number] Incomplete 09/09/2024 12/09/2025 1 1 INE SHOP WORKER * (Routine) - Incomplete Specialty Diagnoses / Procedures Referred By Contac t Referred To Contact Procedures ECG 12 Lead Inpatient Cy Perez MD [address] [place] [address] Referral ID Status Reason Start Date Expiration Date V isits Requested Visits Authorized [id number] Incomplete 09/08/2024 12/08/2025 1 1 INE SHOP WORKER * Procedure/Equipment (Routine) - Incomplete Specialty Diagnoses / Procedures Referred By Contac t Referred To Contact Procedures XR Chest 2 Views Cy Perez MD [address] [place] [id number] Referral ID Status Reason Start Date Expiration Date V isits Requested Visits Authorized [id number] Incomplete 09/08/2024 12/08/2025 1 1 INE SHOP WORKER Reason for Visit * Reason Comments SOB (SHORTNESS OF BREATH) * Auth/Cert Specialty Diagnoses / Procedures Referred By Contac t Referred To Contact Diagnoses Pyelonephritis Sepsis, due to unspecified organism, unspecified whether acute organ dysfunction present (HRC) Pulmonary embolism, unspecified chronicity, unspecified pulmonary embolism type, unspecified whether acute cor pulmonale present (HRC) Sepsis, due to unspecified organism, unspecified whether acute organ dysfunction present (HRC) Pyelonephritis Pulmonary embolism, unspecified chronicity, unspecified pulmonary embolism type, unspecified whether acute cor pulmonale present (HRC) Referral ID Status Reason Start Date Expiration Date Visits Re quested Visits Authorized [id number] 1 1 Encounter Details Date Type Department Care Team (Late st Contact Info) Description 09/08/2024 10:16 PM MACHINE SHOP WORKER - 09/14/2024 2:27 PM MACHINE SHOP WORKER Hospital Encounter [facility] General Med [address] [place] [address]. [place], [place] [address] Katiuska Brothers MD [address] [place] [id number] , [facility] Medicine [address] [place] [address] [phone] Pierre Kong MD [address] [place] [address] [phone] [place] [address] [place] [address] [phone] [place] [address] [place] [address] [phone] Acute pulmonary embolism, unspecified pulmonary embolism type, unspecified whether acute cor pulmonale present (HRC) (Primary Dx); Sepsis, due to unspecified organism, unspecified whether acute organ dysfunction present (HRC); Pyelonephritis; Pulmonary embolism, unspecified chronicity, unspecified pulmonary embolism type, unspecified whether acute cor pulmonale present (HRC); Alzheimer's dementia with behavioral disturbance (HRC); Sepsis secondary to UTI (HRC) Discharge Disposition: Transitional Care Unit Social History Tobacco Use Types Packs/Day Years Used Date Smoking Tobacco: Former Passive Smoke Exposure: Never Smokeless Tobacco: Never Alcohol Use Standard Drinks/Week Comments Not Currently 0 (1 standard drink = 0.6 oz pur e alcohol) [facility] Utilities Answer Date Recorded In the past 12 months has [employer], gas, oil, or water [employer] threatened to shut off services in your [...] any time in the past 12 m [facility], were you homeless or living in a senior living (including now)? No 09/09/2024 Sex and Gender Information Value Date Recorded Sex Assigned at Not on file Gender Identity Not on file Sexual Orientation Not on file documented as of this encounter Last Filed Vital Signs Vital Sign Reading Time Taken Comments Blood Pressure 119/60 09/14/2024 10:45 AM MACHINE SHOP WORKER Pulse 62 09/14/2024 10:45 AM MACHINE SHOP WORKER Temperature 36.6 C (97.8 F) 09/14/2024 7:48 AM MACHINE SHOP WORKER Respiratory Rate 18 09/14/2024 7:48 AM MACHINE SHOP WORKER Oxygen Saturation 95% 09/14/2024 7:48 AM MACHINE SHOP WORKER Inhaled Oxygen Concentration - - Weight - - Height 177.8 cm (5' 10) 09/09/2024 4:15 AM MACHINE SHOP WORKER Body Mass Index - - documented in this encounter Discharge Summaries * Stephanie Naik, - 09/14/2024 12:23 PM CST Images from the original note were not included. [facility] Medicine Discharge Summary Patient ID: Colt Waldrop [id number] 84 y.o. 1940 Admit date: 09/08/2024 Discharge date: 09/14/2024 Final Discharge Diagnoses: Primary problem: Sepsis secondary to UTI (HRC) Alzheimer's dementia with behavioral disturbance (HRC) Closed displaced fracture of fifth metatarsal bone of left foot Acute pulmonary embolism (HRC) Acute respiratory distress Brief HPI Summary: From the HPI of Dr. Hoang: Colt Waldrop is a 84 y.o. male with a [...] for full details. Hospital Course, by problem: Colt Waldrop is a 84 y.o. male who was admitted on 09/08/2024 for shortness of breath, cough andleg swelling. He was found to have a PE. He also met sepsis criteria and source of infection was found to be the urine. Of note, [facility], on 09/02 after he sustained [...] ortho as directed. - Pending Labs: None Discharge Medications: Done while pt still in hospital bed Medication List START taking these medications cefuroxime 500 MG tablet Commonly known as: CEFTIN Take 0.5 Tablets (250 mg) by mouth two times a day. furosemide 20 MG tablet Commonly known as: LASIX Take 1 Tablet (20 mg) by mouth daily for 30 doses. losartan 25 MG tablet Commonly known as: COZAAR Take 1 Tablet (25 mg) by mouth daily for 90 doses. * rivaroxaban 15 MG tablet Commonly known as: XARELTO Take 1 Tablet (15 mg) by mouth two times a day with meals for 38 doses. Take with food. Indications: Venous Thromboembolism * rivaroxaban 20 MG tablet Commonly known as: XARELTO Take 1 Tablet (20 mg) by mouth daily with meal. Take with food. Indications: Venous ThromboembolismDo not start before October 01, 2024. Start taking on: October 01, 2024 * This list has 2 medication(s) that are the same as other medications prescribed for you. Read thedirections carefully, and ask your doctor or other care provider to review them with you. CONTINUE taking these medications acetaminophen 325 MG tablet Commonly known as: TYLENOL Take 2 Tablets (650 mg) by mouth every 6 hours. atorvastatin 10 MG tablet Commonly known as: LIPITOR Take 1 Tablet (10 mg) by mouth daily. citalopram 20 MG tablet Commonly known as: CeleXA Take 1 Tablet (20 mg) by mouth daily. PreserVision AREDS 2 Caps risperiDONE 0.5 MG tablet Commonly known as: RisperDAL Take 1 Tablet (0.5 mg) by mouth two times a day. rivastigmine 4.6 MG/24HR patch Commonly known as: EXELON Apply 1 Patch to skin daily. Where to Get Your Medications These medications were sent to [place] [id number] [place] [facility] [place] [id number] [facility] [address] [facility] [id number] cefuroxime 500 MG tablet furosemide 20 MG tablet losartan 25 MG tablet rivaroxaban 15 MG tablet rivaroxaban 20 MG tablet You can get these medications from any pharmacy Bring a paper prescription for each of these medications risperiDONE 0.5 MG tablet - Consults: cardiology - Procedures and Surgeries: None Discharge Exam: BP 119/60 Pulse 62 Temp 36.6 ??C (97.8 ??F) (Oral) Resp 18 Ht 1.778 m (5' 10) SpO2 95% BMI 31.05 kg/m?? General appearance: alert, cooperative, no distress, appears stated age HEENT: Sclera anicteric, no conjunctival injection. EOMI. SRINIVAS. MMM, OP clear w/o exudates. Lungs: clear to auscultation bilaterally, room air. Heart: regular rate and rhythm, S1, S2 normal, no murmur, click, rub or gallop Abdomen: soft, non-tender; bowel sounds normal; no masses, no organomegaly Extremities: extremities normal, atraumatic, no cyanosis or edema. LLE in boot. Moves toes bilaterally, appropriately. Pulses: 2+ and symmetric Skin: Skin color, texture, turgor normal. No rashes or lesions Neurologic: Grossly normal, a&o x3. Disposition: transitional care unit Code Status: Full Code Follow up: Referrals (From admission, onward) Primary Care Follow-Up Routine Primary Care Follow-Up Routine Primary Care Follow-Up Routine THROMBOSIS CLINIC CONSULT (AMB) Routine Future Appointments Provider Department Center 09/19/2024 8:00 AM Dk Sands APRN, [facility] [facility]opedics [facility] [id number] 09/19/2024 1:00 PM Lisa Villafana APRN, CNP Orthopedics at [facility] Orthopedics at [address] [id number] 10/21/2024 1:15 PM Evangelist Wen MD Neurology at [facility] [address] Significant Diagnostic Studies (imaging, labs, micro, etc), see EMR for full details: Imaging: Per radiologist's reading CT Angio Chest W IV Cont PE Study 09/09/24: IMPRESSION: 1. Left pulmonary emboli. Respiratory motion reduces evaluation for peripheral emboli on the right. 2. Elevated RV-LV ratio suggesting right heart strain. 3. Cholelithiasis. Critical Result: Finding was identified on 09/09/2024 2:30 AM MACHINE SHOP WORKER. 1. Dr Brothers was contacted by me on 09/09/2024 2:37 AM MACHINE SHOP WORKER and verbalized understanding of the critical result. XR Chest 2 views 09/08/24: IMPRESSION: Shallow inspiration. Stable cardiomediastinal silhouette. Basilar atelectasis. Atherosclerotic aorta. Degenerative change osseous structures. Billing based on time: Total time for the visit was 35 minutes including, but not limited to, [id number] time spent reviewing records, counseling, and coordination of care. Stephanie Naik DO [facility] medicine silver recovery operator INE SHOP WORKER documented in this encounter Discharge Instructions * Discharge Instr - Anticoagulation* Luzmaria Weeks, [facility] - 09/09/2024 8:13 AM MACHINE SHOP WORKER ANTICOAGULATION DISCHARGE SUMMARY NOTE AND TRANSFER ORDERS Anticoagulation Indication: pulmonary embolism You are prescribed: Rivaroxaban (Xarelto) 15 mg tablets - 1 tablet twice a day with breakfast and the evening meal for 21 days. Then on 10/01/2024 start taking rivaroxaban (Xarelto) 20 mg tablets - 1tablet once a day - to be taken with the evening meal. You have been given a dose of rivaroxaban this morning in the hospital - Your next dose of rivaroxaban is due to be taken tonight with your evening meal. Do not miss a dose of rivaroxaban - if you do miss a dose follow the instructions in the rivaroxaban guidebook given to you during this hospital admission. Avoid taking non-steroidal anti-inflammatory drugs, such as aspirin, ibuprofen (Advil; Motrin), or naproxen (Naprosyn; Aleve) while taking rivaroxaban as this may increase your risk of bleeding. Acetaminophen (Tylenol) may be used as an alternative if needed. Staff at [facility] : Please alert the primary care physicians office # [phone] Dr Beaulieu this patient is discharged from your care to home so that anticoagulation can continue to be managed safely. Monitor yourself for any signs or symptoms of bleeding. If you are bleeding go to the emergency department right away. Refer to the rivaroxaban guidebook to learn when you should seek immediate medical attention in the emergency department. You will have follow up at the [facility] - their office will call you to schedule the appointment. This consult may take place in person or over the telephone or via a video link. You can call them if needed at [phone]. Ensure you have a prescription for rivaroxaban 20 mg tablets to fill before you finish the 15 mg x 21 day therapy Karen Weeks RPh, [facility]arm([facility]),CACP; Anticoagulation Stewardship Pharmacist. 09/13/2024 1:26 PM INE SHOP WORKER documented in this encounter Medications at Time of Discharge Medication Sig Dispensed Refills Start Date End Date acetaminophen (TYLENOL) 325 MG tablet Take 2 Tablets (650 mg) by mouth every 6 hours. 100 Tablet 11 09/02/2024 atorvastatin (LIPITOR) 10 MG tabletIndications:Hype rcholesteremia Take 1 Tablet (10 mg) by mouth daily. 90 Tablet 3 04/20/2024 citalopram (CELEXA) 20 MG tabletIndications:Anxi ety (HRC) Take 1 Tablet (20 mg) by mouth daily. 90 Tablet 3 04/20/2024 Multiple Vitamins-Minerals (PRESERVISION AREDS 2) CAPS Take 1 Capsule by mouth two times a day. 04/21/2023 risperiDONE (RISPERDAL) 0.5 MG tabletIndications:Alzh eimer's dementia with behavioral disturbance (HRC) Take 1 Tablet (0.5 mg) by mouth two times a day. 30 Tablet 09/11/2024 rivastigmine (EXELON) 4.6 MG/24HR patchIndications:Alzhe taiwo's dementia with behavioral disturbance (HRC) Apply 1 Patch to skin daily. 90 Patch 3 04/13/2024 04/13/2025 cefuroxime (CEFTIN) 500 MG tablet Take 0.5 Tablets (250 mg) by mouth two times a day. 6 Tablet 09/11/2024 09/20/2024 furosemide (LASIX) 20 MG tablet Take 1 Tablet (20 mg) by mouth daily for 30 doses. 30 Tablet 09/12/2024 09/17/2024 losartan (COZAAR) 25 MG tablet Take 1 Tablet (25 mg) by mouth daily for 90 doses. 90 Tablet 09/12/2024 09/17/2024 rivaroxaban (XARELTO) 15 MG tabletIndications:Veno us Thromboembolism Take 1 Tablet (15 mg) by mouth two times a day with meals for 38 doses. Take with food. Indications: Venous Thromboembolism 38 Tablet 09/11/2024 09/28/2024 rivaroxaban (XARELTO) 20 MG tabletIndications:Veno us Thromboembolism Take 1 Tablet (20 mg) by mouth daily with meal. Take with food. Indications: Venous Thromboembolism Do not start before October 01, 2024. 90 Tablet 3 10/01/2024 09/28/2024 documented as of this encounter Progress Notes * Tianna Awan RN - 09/14/2024 2:10 PM CST DISCHARGE O: Patient safely discharged to TCU. D: Patient is alert and oriented to: person. Pt transfers with assist of 1 . Discharge criteria met. Vaccines addressed prior to discharge. A: Discharge instructions and medications reviewed and given to patient. Prescriptions sent with patient. Belongings checklist reviewed with patient and belongings sent. Care plan issues addressed and education record updated. R: Patient verbalizes understanding and teaches back discharge instructions. Patient discharged by:wheelchair with transport service. INE SHOP WORKER * Stephanie Naik, DO - 09/13/2024 2:33 PM CST [facility] Medicine Progress Note Subjective: Colt is sitting up in bed in no acute distress. Denies any complaints. He is medically ready for discharge. He is tolerating therapies with OT and PT. He denies any pain. No issues withrespiratory status. Independent historian: patient, D/w nurse Objective: BP (!) 174/63 (BP Cuff Size: Regular) Pulse (!) 59 Temp 36.8 ??C (98.2 ??F) (Oral) Resp 16 Ht 1.778 m (5' 10) SpO2 98% BMI 31.05 kg/m?? Oxygen Therapy Device (Oxygen Therapy): room air Flow (L/min): 0 Oxygen Concentration (%): 0 Exam: General appearance: alert, cooperative, no distress, appears stated age HEENT: Sclera anicteric, no conjunctival injection. EOMI. SRINIVAS. MMM, OP clear w/o exudates. Lungs: clear to auscultation bilaterally, room air. Heart: regular rate and rhythm, S1, S2 normal, no murmur, click, rub or gallop Abdomen: soft, non-tender; bowel sounds normal; no masses, no organomegaly Extremities: extremities normal, atraumatic, no cyanosis or edema. LLE in boot. Moves toes bilaterally, appropriately. Pulses: 2+ and symmetric Skin: Skin color, texture, turgor normal. No rashes or lesions Neurologic: Grossly normal, a&o x3. Results reviewed in [facility] and pertinent results are as follows: Labs: A1C - 3 Results in last 6 Months : Recent Labs 04/20/24 1326 HGBA1C 6.5* Imaging: Per radiologist's reading CT Angio Chest W IV Cont PE Study 09/09/24: IMPRESSION: 1. Left pulmonary emboli. Respiratory motion reduces evaluation for peripheral emboli on the right. 2. Elevated RV-LV ratio suggesting right heart strain. 3. Cholelithiasis. Critical Result: Finding was identified on 09/09/2024 2:30 AM MACHINE SHOP WORKER. 1. Dr Brothers was contacted by me on 09/09/2024 2:37 AM MACHINE SHOP WORKER and verbalized understanding of the critical result. XR Chest 2 views 09/08/24: IMPRESSION: Shallow inspiration. Stable cardiomediastinal silhouette. Basilar atelectasis. Atherosclerotic aorta. Degenerative change osseous structures. Assessment and Plan: Colt Waldrop is a 84 y.o. male who was admitted on 09/08/2024 for shortness of breath, cough andleg swelling. He was found to have a PE. He also met sepsis criteria and source of infection was found to be the urine. Of note, he was just discharged from [facility], to TCU, on 09/02 after he sustained [...] cefuroxime [facility] - white blood cell count: 7.9 down [...] -placed on lovenox, transitioned to Xarelto 09/09. Will continue for at least 3 months. -is stable on room air, not requiring supplemental oxygen as prior on admit. - currently on: rivaroxaban 15 mg po BID; start rivaroxaban 20 mg po daily (due 10/01/24) anticipate patient to continue for at least 3 months. - Patient now on oral Lasix 20 mg daily -Cardiology also added losartan to support LV and RV function. T4 returned normal. - No anginal symptoms no regionality to reduced ejection fraction follow metabolic panel while on oral Lasix # Alzheimer's dementia with behavioral disturbance (HRC)-stable - continue home: rivastigmine 4.6 mg patch transdermal daily -Continue risperidone, celexa # Closed displaced fracture of fifth metatarsal bone of left foot-stable Continue walking boot. Will need ongoing physical and occupational therapy. -follow up with ortho as directed in the outpatient setting. # Anemia: acute on chronic no evidence for bleeding; monitor. - hemoglobin: 11.8 up from 10.6 (09/09/24) - mean corpuscular volume: 98 (09/09/24) normocytic. - est. baseline hemoglobin: 13.1 g/dL Deconditioning Continue PT OT # Congestive heart failure: acute on chronic, diastolic - currently on: furosemide 20 mg po daily - currently on: losartan 25 mg po daily - BNP: 39 down from 48 (09/08/24); [...] # Depression and Anxiety # Subclinical Hypothyroidism Social Determinants of Health adding to complexity of care Dementia Consults/Care Discussions Clinicians: cardiology, ED, and primary care Notes Reviewed cardiology, ED clinician, nurse, primary care, PT/OT/PICKER MACHINE OPERATOR , and social work Diet: Orders Placed This Encounter Regular Diet IVF: None DVT Prophylaxis: Pharmacologic: Other: Xarelto Code Status: Full Code Communication with pt. spokesperson: patient's at bedside. Expected date of discharge: 09/13/24 Criteria for discharge: Patient is medically ready for discharge. Discharge orders are in however he was unable to get transport set up prior to facilities ability to accept him, thus he will have toremain in the hospital until transport can take him tomorrow 09/14. Billing based on: Time Total time for the visit was 50 minutes including, but not limited to, [id number] time spent reviewing records, counseling, and coordination of care. Stephanie Naik DO [facility] Medicine Mixer Driver INE SHOP WORKER * Dileep Maldonado, PT - 09/13/2024 12:50 PM CST Physical Therapy Per chart review, pt will be discharging to TCU today. Will not plan to see for PT session. If pt does not discharge today will plan to resume POC tomorrow as appropriate. Dileep Maldonado, PT 12:50 PM 09/13/2024 INE SHOP WORKER * Jacinto Hodge, [facility] - 09/13/2024 11:26 AM CST [facility] Care Management Discharge Note Discharge Disposition: Transitional Care Unit Selected Continued Care - Admitted Since 09/08/2024 Destination Coordination complete. Service Provider Selected Services Address Phone Fax [facility] Transitional Care Unit [address] [id number] Confirmed physical address of discharge location with patient/caregiver/receiving facility: Yes, confirmed with [facility] - Admissions Other contacts needed: Please fax orders to facility at number listed above. Please also inform facility at admissions at number listed above, and patient spouse at number listed below of ride time once set. Thanks! Earliest date available for transport: 09/13/24 Earliest time facility/home will accept patient: 1200 Latest time facility/home will accept patient: 1600 CARBON FURNACE OPERATOR to set up ride? Yes Transportation mode: Wheelchair Patient/family agrees to potential transport cost: Pt/fam agrees to wheelchair medical transportation despite potential private pay expense. Transportation provider: [employer] [facility]: [phone] Specific patient transport needs: Wheelchair (w/ leg extension), Other (comment) (Standard Wheelchair) Caregiver communication: Yes - notify caregiver of discharge date/time Caregiver name: Shama - Spouse Caregiver phone: [phone] Interventions: Interventions (A-H): Home Care referral/resumed (Discussed home w/ HC, patient/ family elected return to previous TCU.) Interventions (I-Z): TCU placement/referral ([facility] - return.) Home Care referral/resumed: Declined (Discussed home w/ HC, patient/ family elected return to previous TCU.) TCU placement/referral: Accepted ([facility] - return.) SHANKAR Ortiz 11:27 AM 09/13/2024 INE SHOP WORKER * Jacinto Hodge LGSW - 09/13/2024 8:26 AM CST [facility] Care Management Inpatient Note Plan: Expected Discharge Date: 09/13/24 Anticipated Discharge Plan: Return to TCU ([facility]). Transportation: Confirmed: Medical Transport - Wheelchair Barriers to Discharge: Medical Stability, TCU placement coordination, and Patient/ family determinations Prior Living Situation: Transitional Care Unit - [facility] Advanced Directive on File: On File Additional Comments: Facility Specialist is familiar with patient from end of last week. Patient admitted from/ and recently discharged to [facility], and is hopeful to return there at time of DC despite not having bed-hold at this time (due to cost). See previous [facility] progress notes for full course of DC planning details..Will plan to connect with patient family, and TCU to confirm DC plan and patient ability to return at time of DC. See below for specific details. MD confirms patient likely medically stable for DC today. Facility Specialist confirmed and will finalize as appropriate. Spoke with patient spouse, who confirms patient plan for TCU return today, and also reports that she would feel best if patient received medical transportation. Discussed transportation options with spouse Shama , who requests that medical transport be arranged. Explained that medical transportati on is not typically covered by the patient???s insurance and would be a private pay expense. She confirms understanding of process, and is accepting of patient cost reporting that for patient safety this is likely most appropriate option. She has no further questions at this time, and was appreciative of assistance. Continued Care and Services - Admitted Since 09/08/2024 Destination Service Provider Request Status [facility] Patient admitted from this facility. Due to cost of bed-hold, family elected to not hold bed, but facility agreeable to considering patient as new referral pending their availability. Spoke with [facility] in admissions yesterday and they confirm that they would have availability to accommodate patient return, and are indeed accepting. Sent updated message this morning to confirm patient admission/ facility preference on time. They report that bed available for patient anytime between 12-4pm today. Appreciative of their assistance, and agreed to have facility contacted with ride time once set. Accepted PCP follow-up order placed in preparation for eventual patient DC. Will finalize DC note. Patient/Spokesperson Updated: Yes; Spoke with patient spouse Shama by phone today. See above for specific details. Care Management will remain available to assist with DC planning/ provide updates as appropriate. Will finalize DC note. SHANKAR Ortiz 11:28 AM 09/13/2024 Addendum - Informed by unit staff that DC delayed as could only get ride coordinated at 5:30 pm which is beyond facility requested rime arrival. Will include avoidable nights due to transportation delay. DC note remains relevant if DC is delayed until AM. SHANKAR Ortiz 12:44 PM 09/13/2024 INE SHOP WORKER * Stephanie Naik, - 09/12/2024 7:25 PM CST [facility] Medicine Progress Note Subjective: Colt is new to pattern chart writer today. He is seen at bedside, sitting up in a chair. His and her friend are also present. Colt has no complaints. Denies pain, no dyspnea, no fevers or chills. Has worked with OT but is waiting for PT. reports he has been ambulating. Left foot in boot, but patient denies pain. Independent historian: patient, D/w nurse Objective: BP 125/70 (BP Cuff Size: Regular) Pulse 73 Temp 36.6 ??C (97.9 ??F) (Oral) Resp 18 Ht 1.778m (5' 10) SpO2 96% BMI 31.05 kg/m?? Oxygen Therapy Device (Oxygen Therapy): room air Flow (L/min): 0 Oxygen Concentration (%): 0 Exam: General appearance: alert, cooperative, no distress, appears stated age HEENT: Sclera anicteric, no conjunctival injection. EOMI. SRINIVAS. MMM, OP clear w/o exudates. Lungs: clear to auscultation bilaterally, room air. Heart: regular rate and rhythm, S1, S2 normal, no murmur, click, rub or gallop Abdomen: soft, non-tender; bowel sounds normal; no masses, no organomegaly Extremities: extremities normal, atraumatic, no cyanosis or edema. LLE in boot. Moves toes bilaterally, appropriately. Pulses: 2+ and symmetric Skin: Skin color, texture, turgor normal. No rashes or lesions Neurologic: Grossly normal, a&o x3. Results reviewed in [facility] and pertinent results are as follows: Labs: A1C - 3 Results in last 6 Months : Recent Labs 04/20/24 1326 HGBA1C 6.5* Imaging: Per radiologist's reading CT Angio Chest W IV Cont PE Study 09/09/24: IMPRESSION: 1. Left pulmonary emboli. Respiratory motion reduces evaluation for peripheral emboli on the right. 2. Elevated RV-LV ratio suggesting right heart strain. 3. Cholelithiasis. Critical Result: Finding was identified on 09/09/2024 2:30 AM MACHINE SHOP WORKER. 1. Dr Brothers was contacted by me on 09/09/2024 2:37 AM MACHINE SHOP WORKER and verbalized understanding of the critical result. XR Chest 2 views 09/08/24: IMPRESSION: Shallow inspiration. Stable cardiomediastinal silhouette. Basilar atelectasis. Atherosclerotic aorta. Degenerative change osseous structures. Assessment and Plan: Colt Waldrop is a 84 y.o. male who was admitted on 09/08/2024 for shortness of breath, cough andleg swelling. He was found to have a PE. He also met sepsis criteria and source of infection was found to be the urine. Of note, he was just discharged from [facility], to TCU, on 09/02 after he sustained a 5th metatarsal fracture of his left foot. It was noted healing could take 8 weeks and that there is still possibility that fracture wouldn't heal, and patient could require surgery. Cotl Waldrop is a 84 y.o. male admitted on 09/08/2024 for: 84 y.o. male with a history of Alzheimer's dementia, anxiety, hypertension, who was recently hospitalized and discharged on 09/02 to a TCU for displaced 5th metatarsal fracture of his left foot who presents to the emergency department with shortness a breath, cough, leg swelling and confusion # Sepsis secondary to UTI (HRC)-resolved #UTI -Met criteria for sepsis with fever to 100.6?? F, tachycardia, elevated procalcitonin, elevated lactate, urinary source w/abnormal UA. Ucx + for E.coli susceptible to Rocephin. -was initiated on Rocephin on 09/08, continues. - white blood cell count: 10.2 down from 15.5 (09/09/24) - completed: azithromycin 500 mg po (09/09/24 - 09/10/24) - currently on: ceftriaxone 2 g iv q24h (09/09/24 - current) s/p 1 L of fluid in the ED. vital signs stabilized. Lactate normalized. BC NGTD UC growing E coli: pansusceptible---can convert to cefuroxime on DC # Acute respiratory distress-resolved # Acute pulmonary [...] -placed on lovenox, transitioned to Xarelto 09/09. Will continue for at least 3 months. -is stable on room air, not requiring supplemental oxygen as prior on admit. - currently on: rivaroxaban 15 mg po BID; start rivaroxaban 20 mg po daily (due 10/01/24) anticipate patient to continue for at least 3 months. - Patient now on oral Lasix 20 mg daily -Cardiology also added losartan to support LV and RV function. T4 returned normal. - No anginal symptoms no regionality to reduced ejection fraction follow metabolic panel while on oral Lasix # Alzheimer's dementia with behavioral disturbance (HRC) - continue home: rivastigmine 4.6 mg patch transdermal daily -Continue risperidone, celexa # Closed displaced fracture of fifth metatarsal bone of left foot Continue walking boot. Will need ongoing physical and occupational therapy. # Anemia: acute on chronic no evidence for bleeding; monitor. - hemoglobin: 11.8 up from 10.6 (09/09/24) - mean corpuscular volume: 98 (09/09/24) normocytic. - est. baseline hemoglobin: 13.1 g/dL Deconditioning Starting therapies # Congestive heart failure: acute on chronic, diastolic - currently on: furosemide 20 mg po daily - currently on: losartan 25 mg po daily - BNP: 39 down from 48 (09/08/24); anticipate falsely low in setting of his obesity. -echo reviewed as above; EF 50%; consider changes in setting of PE. # Thrombocytopenia -anticipate low in setting of acute illness, uti and PE. - currently on: rivaroxaban 15 mg po BID - platelets: 126 down from 135 (09/09/24) -continue to monitor. # Hypertension -started on losartan 25mg 09/10 to support his mild LV systolic dysfunction per cards. -BP stable. # Obesity, class I - complicated by heart failure and hypertension ::: Stable/Chronic/Resolved ::: # History of CVA # Depression and Anxiety # Subclinical Hypothyroidism Social Determinants of Health adding to complexity of care Dementia Consults/Care Discussions Clinicians: cardiology, ED, and primary care Notes Reviewed cardiology, ED clinician, nurse, primary care, PT/OT/PICKER MACHINE OPERATOR , and social work Diet: Orders Placed This Encounter Regular Diet IVF: None DVT Prophylaxis: Pharmacologic: Other: Xarelto Code Status: Full Code Communication with pt. spokesperson: patient's at bedside. Expected date of discharge: 09/13/24 Criteria for discharge: pt/ot recs, safe dc plan to TCU, med management plan Billing based on: Time Total time for the visit was 50 minutes including, but not limited to, cba-vvdh-dj-face time spent reviewing records, counseling, and coordination of care. [facility]er [facility] INE SHOP WORKER * Jacinto Hodge, FURNITURE UPHOLSTERER APPRENTICE - 09/12/2024 12:50 PM CST [facility] Care Management Inpatient Note Plan: Expected Discharge Date: 09/13/24 Anticipated Discharge Plan: Return to TCU ([facility]). Transportation: TBD - pending date of DC and DC location Barriers to Discharge: Medical Stability, TCU placement coordination, and Patient/ family determinations Prior Living Situation: Transitional Care Unit - [facility] Advanced Directive on File: On File Additional Comments: Facility Specialist is familiar with patient from end of last week. [facility] and is hopeful to return there at time of DC despite not having bed-hold at this time (due to cost). See previous [facility] progress notes for full course of DC planning details..Will plan to connect with patient family, and TCU to confirm DC plan and patient ability to return at time of DC. See below for specific details. Spoke with attending MD at rounds this morning, who reports/ confirms that patient likely medicallystable for DC tomorrow. We agreed to finalize as appropriate/ plan for DC tomorrow. Spoke with patient spouse Shama by phone this morning, who recalls this pattern chart writer from our previous conversation. Informed of the below discussion with facility, and Shama is happy to hear this. They remain agreeable to patient return to TCU below tomorrow. She is currently unsure regarding transportation options, and is hopeful to avoid potential cost of medical transport. As such, we agreed toconnect again tomorrow morning, pending patient work with therapies today and finalize patient potential transportation options in AM. Continued Care and Services - Admitted Since 09/08/2024 Destination Service Provider Request Status [facility] Patient admitted from this facility. Due to cost of bed-hold, family elected to not hold bed, but facility agreeable to considering patient as new referral pending their availability. Spoke with [facility] in admissions this morning, and informed of likely DC tomorrow for patient. They confirm that they would have availability to accommodate patient return, and are indeed accepting. We agreed to connect tomorrow to formalize/ finalize patient return. Appreciative of their assistance. Accepted PCP follow-up order placed in preparation for eventual patient DC. Will finalize patient DC in AM pending patient family determination on transportation options. Patient/Spokesperson Updated: Yes; Spoke with patient spouse Shama by phone today. See above for specific details. Care Management will remain available to assist with DC planning/ provide updates as appropriate. Will finalize patient DC in AM pending patient family determination on transportation options. SHANKAR Ortiz 1:01 PM 09/12/2024 INE SHOP WORKER * Vita Flores, OTR/L - 09/12/2024 8:10 AM CST Occupational Therapy ADL Progress Note Age: 84 y.o. Sex: male Admit date: 09/08/2024 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 Closed displaced fracture of fifth metatarsal bone of left foot 08/30/2024 Essential hypertension ([facility]) 06/06/2017 Exudative age-related macular degeneration ([facility]) 05/12/2022 History of malignant melanoma of skin 05/12/2022 Hyperlipidemia ([facility]) 09/14/1996 Melanoma of skin ([facility]) 01/03/2005 LW Onset: 1974 ; Melanoma Skin NOS Osteoarthritis 03/18/2003 DJD Osteomyelitis ([facility]) 10/07/2017 Prediabetes 05/12/2022 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[facility]) 06/05/2017 Subjective/General Information Reason for admit/therapy consult: Sepsis secondary to UTI; recently hospitalized and discharged on 09/02 to a TCU for displaced 5th metatarsal fracture of his left foot Living Arrangements: Transitional Care Unit (Admitted from TCU, but lives in home with spouse) Home Accessibility: (unknown) Prior equipment mobility: Cane, standard, Walker, 2 wheeled Prior equipment ADL: Unknown Prior level of function details: Patient unable to provide accurate subjective/PLOF information Education Level: Patient Self Report: Agreeable to OT to get to recliner Pain: Patient reports no pain Tolerance/Cooperation: good Objective Location of treatment: bedside, room 833 - scheduled at department but switched to bedside due to bathroom needs Left Lower Extremity (Weight-bearing Status): weight-bearing as tolerated (WBAT) (with CAM boot) Special Equipment: IV, purewick Communication: Verbal, appropriate, pleasant Orientation: Oriented to person, rest not tested AM-PAC Activities of Daily Living (ADLs) AM-PAC Functional Task Assist Needed Prior to Admission Assist Needed Current Putting on and taking off regular lower body clothing 3-->A little (sup/min A) 2-->A lot (max/mod A) Bathing (including washing, rinsing, drying) 3-->A little (sup/min A) 2-->A lot (max/mod A) Toileting, which includes using toilet, bedpan or urinal 3-->A little (sup/min A) 2-->A lot (max/mod A) Putting on and taking off regular upper body clothing 3-->A little (sup/min A) 3-->A little (sup/min A) Taking care of personal grooming such as brushing teeth 4-->None (independent) 3-->A little (sup/min A) Eating meals 4-->None (independent) 4-->None (independent) Raw Score (6-24, higher is more independent) 20 16 Percent Impaired 38.32% impaired 53.32% impaired Instrumental Activities of Daily Living (IADLs) Functional Task Assist Needed Prior to Admission Assist Needed Current Meal Preparation Defers to another Defers to another Household Management/Laundry Defers to another Defers to another Medication Management Defers to another Defers to another Money Management Defers to another Defers to another Driving Relies on family/friends N/A, does not drive Working Retired Treatment Today/Patient Education Gait/Mobility/AE: Min A a couple steps from bed to recliner with FWW ADL's/IADL's: To further assess pt.'s functional mobility, activity tolerance, and safety with ADLs/IADLs pt. participated in the following: Feeding: Independent able to eat breakfast Lower Body Dressing: with maximum assistance - socks and CAM boot Recliner transfer: with contact guard assistance and with minimal assistance Bed mobility: with minimal assistance - supine to sit with raised HOB Gait/Mobility: with minimal assistance with FWW -a couple steps from EOB to recliner Falls Prevention Steps Implemented: Pt placed in chair with curtis sitter/lap belt alarm set. The patient's bedside table, call light, and phone placed within patient's reach. OT instructed the patient to call for the nurse/aide for assistance with getting out of the chair. UE Function: WFL for ADLs Cognition: Oriented to above, follows commands, answers questions appropriately -MOCA in 2021 Vision: Not assessed Timed Code Treatment Minutes: 15 - went bedside 15 minutes into appointment Total Treatment Minutes: 15 Interdisciplinary Communication: RNNARESH Status of functional goals: Patient will demonstrate lower body dressing (with adaptive equipment as needed) with contact guardassist in 1-3 days. - Max A 12/2 Patient will demonstrate bed transfer/bed mobility (with adaptive equipment as needed) with contactguard assist in 1-3 days. Min A 12/2 Patient will demonstrate safe chair/recliner transfer with contact guard assist in 1-3 days. CGA/Min A 12/2 Patient will demonstrate toileting/toilet transfer (with adaptive equipment as needed) with contactguard assist in 1-3 days. Patient will demonstrate walk-in/tub shower transfers (with adaptive equipment as needed) with contact guard assist in 1-3 days. Patient will demonstrate kitchen mobility/household mobility with contact guard assist in 1-3 days. Patient to improve activity tolerance for safe ADL performance. Assessment and Plan Assessment: Pt making slow progress towards OT goals, but continues to present with weakness, decreased activity tolerance and increased need for assist with ADLs, impacting ADL independence. Recommend TCU at this time. Continue OT POC. Discharge Recommendations: (OT) Discharge Recommendations: Anticipate patient will need increased assistance at discharge per current AM-PAC (OT) Discharge Readiness: No need to wait for therapy if medically ready for discharge (OT) Rehab Potential: Good potential, to return to prior level of function with self cares (OT) Post-Acute Care Therapy Recommendations: 5-7 days/week (OT) Anticipated Equipment Needs at Discharge: Defer to next facility (OT) Discharge Recommendations Discussion: (not discussed) IP Frequency: every other day Plan for next session: Bedside scheduled - See next 09/14, commode vs toilet, recliner, bed, dressing, increase mobility. Therapist signature: WALLY Madden/Alexei 9:18 AM 09/12/2024 INE SHOP WORKER * Lyndsey Perry OTR/Alexei - 09/11/2024 10:43 AM CST Occupational Therapy Evaluation Date of admit: 09/08/2024 Reason for admit/therapy consult: Sepsis secondary to UTI; recently hospitalized and discharged on 09/02 to a TCU for displaced 5th metatarsal fracture of his left foot Past medical history: 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 Closed displaced fracture of fifth metatarsal bone of left foot 08/30/2024 Essential hypertension ([facility]) 06/06/2017 Exudative age-related macular degeneration ([facility]) 05/12/2022 History of malignant melanoma of skin 05/12/2022 Hyperlipidemia ([facility]) 09/14/1996 Melanoma of skin ([facility]) 01/03/2005 LW Onset: 1974 ; Melanoma Skin NOS Osteoarthritis 03/18/2003 DJD Osteomyelitis ([facility]) 10/07/2017 Prediabetes 05/12/2022 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[facility]) 06/05/2017 MD order: Eval and Treat: Weakness General Information: Living Arrangements: Transitional Care Unit (Admitted from TCU, but lives in home with spouse) Home Accessibility: (unknown) Mobility Equipment Used at Baseline: Cane, standard, Walker, 2 wheeled ADL Equipment Used at Baseline: Unknown Available Equipment: Unknown Prior Level of Function Details: Patient unable to provide accurate subjective/PLOF information Special Equipment: None Communication: verbal, VIEJAS Location of treatment: OT department: Other services: Physical Therapy Objective information: Previous UE limitations: none noted Hand dominance: Right Current UE function: current ROM: WFL strength: WFL bilateral upper extremities Prior Visual Functioning: wears glasses Current Visual Functioning: reports no acute changes Prior Cognitive Functioning: Hx of Alzheimer's dementia per chart review MOCA in 2021 Current Cognitive Functioning: Unsure of date, estimates year as 2018. States I've been on the road, not sure where I'm going, but I'm heading there. AM-PAC Activities of Daily Living (ADLs) AM-PAC Functional Task Assist Needed Prior to Admission Assist Needed Current Putting on and taking off regular lower body clothing 3-->A little (sup/min A) Bathing (including washing, rinsing, drying) 3-->A little (sup/min A) Toileting, which includes using toilet, bedpan or urinal 3-->A little (sup/min A) Putting on and taking off regular upper body clothing 3-->A little (sup/min A) Taking care of personal grooming such as brushing teeth 4-->None (independent) Eating meals 4-->None (independent) Raw Score (6-24, higher is more independent) 20 Percent Impaired 38.32% impaired Instrumental Activities of Daily Living (IADLs) Functional Task Assist Needed Prior to Admission Assist Needed Current Meal Preparation Defers to another Defers to another Household Management/Laundry Defers to another Defers to another Medication Management Defers to another Defers to another Money Management Defers to another Defers to another Driving Relies on family/friends N/A, does not drive Working Retired Current ADL performance/additional information: Lower Body Dressing: with moderate assistance. Patient unable to complete donning/doffing of sock using figure 4 technique. Therapist provided with education regarding use of center mgr to doff and sockaid to don sock. Patient able to complete with Min A following demonstration. WC: Attempted sit to stand from WC. Patient unable to complete with Mod A and 3 attempts. Gait/Mobility: not safe to assess due to current functional level Treatment/Education provided today: Instructed in role of OT and progression of care. Subjective: Endurance/activity tolerance: limited activity tolerance Cooperation: good Pain scale 0 to 10 (low to high): Patient reports no pain Impairments: Patient's impairments are: Impaired balance, Decreased endurance/activity tolerance, Generalized weakness Functional Limitations/Rehab Diagnosis: Above listed impairments limit patient's performance completing ADLs/IADLs safely and independently. Occupational Therapy Interventions: Patient's Occupational Therapy interventions are: Functional mobility Safety Strengthening Transfers Endurance Plan/ Outcomes: The following goals have been established: Patient and family goals: To get stronger Functional outcome goals: Patient will demonstrate lower body dressing (with adaptive equipment as needed) with contact guardassist in 1-3 days. Patient will demonstrate bed transfer/bed mobility (with adaptive equipment as needed) with contactguard assist in 1-3 days. Patient will demonstrate safe chair/recliner transfer with contact guard assist in 1-3 days. Patient will demonstrate toileting/toilet transfer (with adaptive equipment as needed) with contactguard assist in 1-3 days. Patient will demonstrate walk-in/tub shower transfers (with adaptive equipment as needed) with contact guard assist in 1-3 days. Patient will demonstrate kitchen mobility/household mobility with contact guard assist in 1-3 days. Patient to improve activity tolerance for safe ADL performance. termite renewal inspector goal: Patient will maximize independence and safety with ADL/IADLs Treatment Frequency/Duration: daily / every other day 1-3 day(s) Treatment plan/goals reviewed with patient/family. Patient consents to treatment: Yes Potential Barriers to Goal Achievement/Learning: Dementia/memory Evaluation Complexity Rating: Occupational profile and history: moderate complexity (expanded review of medical and or therapy records and additional review of physical, cognitive or psychosocial history related to current functional performance ) Examination/Assessment: moderate: 3-5 performance deficits Please see function and assessment sections. Clinical decision making: moderate: several treatment options, co-morbidities may be present, minimal to moderate modifications Overall complexity: moderate Timed Code Treatment Minutes: 0 Total Treatment Minutes: 26 Plan for next session: OT department. See next 12/2 functional transfers (quick move?), functional mobility as able, UE endurance Assessment: Patient demonstrating significant limitations in activity tolerance and ADL independence. Discharge Recommendations: (OT) Discharge Recommendations: Anticipate patient will need increased assistance at discharge per current AM-PAC (OT) Discharge Readiness: No need to wait for therapy if medically ready for discharge (OT) Rehab Potential: Fair potential, to return to prior level of function with self cares (OT) Post-Acute Care Therapy Recommendations: 5-7 days/week (OT) Anticipated Equipment Needs at Discharge: Defer to next facility (OT) Discharge Recommendations Discussion: Discussed with, patient, patient agrees with recommendations Signature: Lyndsey Perry OTR/L 2:54 PM 09/11/2024 NOTE: The clinician's signature certifies medical necessity for the treatment plan above. [employer]E [employer] WORKER * Kian Gonzalez, PT - 09/11/2024 10:28 AM CST Physical Therapy Inpatient Initial Evaluation Date of Admit: 09/08/2024 Reason for Admit/Therapy Consult: Sepsis secondary to UTI; recently hospitalized and discharged on 09/02 to a TCU for displaced 5th metatarsal fracture of his left foot Rehab Diagnosis: Decreased range of motion, Weakness, Deconditioning, Impaired mobility, Decreased balance, and Risk of falls Past Medical History: 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 Closed displaced fracture of fifth metatarsal bone of left foot 08/30/2024 Essential hypertension ([facility]) 06/06/2017 Exudative age-related macular degeneration ([facility]) 05/12/2022 History of malignant melanoma of skin 05/12/2022 Hyperlipidemia ([facility]) 09/14/1996 Melanoma of skin ([facility]) 01/03/2005 LW Onset: 1974 ; Melanoma Skin NOS Osteoarthritis 03/18/2003 DJD Osteomyelitis ([facility]) 10/07/2017 Prediabetes 05/12/2022 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[facility]) 06/05/2017 Order: Eval and Treat: Falls/Balance impairment, Orthopedic, and Weakness SUBJECTIVE Mood: pleasant and confused Patient reports: Agreeable to PT, confused throughout was unsure of date but knew he was in a hospital; hard to obtain PLOF/subjective due to hx of cognitive deficits. Patient needing to have BM mid session and had BM over bed, gown, floor, commode and walking boot. ok'd PT to start today. Pain: Denies pain and In no apparent distress Patient PT Goals: no goal reported by patient Living Arrangements: Transitional Care Unit Mobility Equipment Used at Baseline: Unknown ADL Equipment Used at Baseline: Unknown Available Equipment: Unknown Home Accessibility: (unknown) OBJECTIVE Treatment Location: Bedside, [phone] Special Equipment: purewick, walking boot L Precautions: Falls risk and walking boot on the L, PE Orientation: Oriented to name and that he is in a hospital Cooperation: Limited due to fatigue -- Range of Motion: WFL in BLE other than L foot limited in walking boot -- Strength: B knees and hips 4/5 grossly -- Sensation: intact to light touch bilateral lower extremities and patient denies numbness and tingling -- Endurance: inadequate for household mobility -- Balance: -- sitting balance: Fair -- standing balance: Fair (-) with BUE on 2ww Gait: Equipment: front wheeled walker Assistance: minimal assist Distance: 3 feet from bed>commode>chair Gait Pattern: shuffling, antalgic LLE Instruction provided: pacing self, turning completely with 2ww Transfers: Supine to Sit: minimal assist Sit to/from Stand: moderate assist Stand/pivot: moderate assist with cues for safe hand placement, turning all the way around with their back to the chair prior to initiating sitting, scooting to edge of the chair prior to standing up, increasing forward weight shifting, and having staff assist with transfers for safety Treatment: Patient performed x 3 transfers, sat EOB for ~7 minutes during session. Patient stated he needed to have BM mid transfer and then transferred back to EOB waiting commode bucket from nursing patient ended up having small BM on edge of bed. Able to transfer patient to commode and mid transfer patient had another larger BM. Lots of time spent cleaning patient, room and changing gown. Patient transferred to the room recliner where he was left with BLE elevated, call light in reach and RN in room with patient Education/Handouts: PT POC DC recommendations Call for assistance to prevent falls in the hospital - do not get up and ambulate without assistance due to medical status and lines/drains Multidisciplinary Communication: nurse, nursing unit clerk, and MD via secure chat Patient History: High Complexity: 3 or more personal factors and/or comorbidities that impact plan of care: from Tcu, cog deficits, falls risk Clinical Examination: High Complexity: Addressed 4 or more elements from body structures and functions (see above), and/or functional limitations as noted below. PT Clinical Presentation: Moderate Complexity: Evolving Clinical Presentation with changing clinical characteristics Clinical Decision Making: Moderate Complexity Eval Timed codes: Therapeutic activities x 9 minutes Total timed minutes: 9 Total treatment time: 35 (10 minutes spent cleaning patient/room) Prior Level of Function Details: Patient unable to provide accurate subjective/PLOF information AM-PAC Mobility AM-PAC Functional Task Assist Needed Prior to Admission Assist Needed Current Turning in bed 3-->A little (sup/min A) 2-->A lot (max/mod A) Lying to Sitting at edge of bed 3-->A little (sup/min A) 2-->A lot (max/mod A) Bed to chair transfer 3-->A little (sup/min A) 2-->A lot (max/mod A) Standing up from chair 3-->A little (sup/min A) 2-->A lot (max/mod A) Walk in hospital room 3-->A little (sup/min A) 2-->A lot (max/mod A) Distance walked (ft) Household ambulator ~50 feet) 3 Climbing 3-5 stair with railing 1-->Total (total or can't do) 1-->Total (total or can't do) Assistive Device used Unknown walker, 2 wheeled Raw Score (6-24, higher is more independent) 16 11 Percent Impaired 47.12% impaired 66.76% impaired ASSESSMENT Colt Waldrop needing Min/Mod A for all mobility currently. Patient with generalized BLE weaknessand at increased risk of falling. Recommend he return to TCU at [place] for further therapies as he is at a high risk of falling+injury if he were to [place] home. Pt will continue to see while admitted to address his below impairments. Discharge Recommendations: (PT) Discharge Recommendations: Anticipate patient will need increased assistance at discharge per current AM-PAC (return to TCU) (PT) Discharge Readiness: No need to wait for therapy if medically ready for discharge (PT) Rehab Potential: Fair potential, to return to prior level of function with mobility (PT) Post-Acute Care Therapy Recommendations: 5-7 days/week (PT) Anticipated Equipment Needs at Discharge: Unknown (PT) Discharge Recommendations Discussion: Unable to discuss due to, lethargy, cognition Patient's impairments: Decreased balance Decreased strength in bilateral lower extremities Decreased ROM in left lower extremity Decreased activity tolerance Functional limitations: Patient unable to perform bed mobility independently Patient unable to transfer independently Patient unable to ambulate independently Increased risk of falls Barriers to Learning and Goal Achievement: Cognition and Dementia/memory Goals/Functional Outcomes: Patient will perform supine to/from sit transfer with standby assist in 14 days. Patient will perform sit to/from stand transfer with contact guard assist in 14 days. Patient will ambulate 10 feet with contact guard assist using front wheeled walker in 14 days. Patient will perform stand/pivot transfer with contact guard assist in 14 days. Rehab Potential: Fair PLAN Planned intervention/education: Evaluation, Therapeutic Exercise, Therapeutic Activity, Gait Training, Neuromuscular re-education, Patient/family education, Self care/Home management training, Home exercise program instruction, and Wheelchair management Frequency: Every other day (for 3-4 times/week) Duration: 14 days Goals and Plan of Care discussed with patient/family; patient consents to treatment: Yes Plan for Next Treatment: Bedside: 09/13 bed mobility/log rolling, supine to/from sit, sit to/from stand, stand/pivot training, ambulate with front wheeled walker, and LE strengthening NOTE: The clinician's signature certifies medical necessity for the treatment plan above. [employer] WORKER * Pierre Kong MD - 09/11/2024 10:26 AM CST [facility]ESS[facility]/PLAN: Colt Waldrop is a 84 y.o. male admitted on 09/08/2024 for: 84 y.o. male with a history of Alzheimer's dementia, anxiety, hypertension, who was recently hospitalized and discharged on 09/02 to a TCU for displaced 5th metatarsal fracture of his left foot who presents to the emergency department with shortness a breath, cough, leg swelling and confusion Sepsis secondary to UTI ([facility]) Meets criteria for sepsis with fever to 100.6?? F, tachycardia, elevated procalcitonin, elevated lactate, urinary source and concern for pulmonary source. Continue ceftriaxone + azithromycin 1 L of fluid was given in the ED. vital signs of stabilized. Lactate normalized. BC NGTD UC growing E coli: pansusceptible---can convert to cefuroxime on DC Acute respiratory distress Acute pulmonary embolism ([facility]) Recent left foot fracture in a walking boot, decreased mobility, increased swelling at the left calf conjunction with tachycardia and respiratory distress CT pulmonary angiogram notable for PE with right heart strain. Echo does show some RV hypokinesis, thus cardiology was consulted. . Transitioned from lovenox to xarelto 09/09. Troponin elevation Latest Reference Range & Units 09/09/24 00:36 09/09/24 03:01 09/09/24 05:43 Troponin I 0.00 - 0.03 ng/mL 0.19 (H) 0.24 (H) 0.27 (H) Likely due to PE. Appears flat TTE notable for new RV hypokiinesis, EF around 50% Appreciate cardiology input. Patient now on oral Lasix 20 mg daily Cardiology also added losartan to support LV and RV function. T4 returned normal. . No anginal symptoms no regionality to reduced ejection fraction follow metabolic panel while on oral Lasix Alzheimer's dementia with behavioral disturbance ([facility]) Continue risperidone, celexa Closed displaced fracture of fifth metatarsal bone of left foot Continue walking boot. Will need ongoing physical and occupational therapy. Hold off on therapies for now given sepsis and PE. Deconditioning Starting therapies Diet: Regular IVF: none DVT Prophylaxis: xarelto Code Status: Full Code Dispo: can likely dc back to TCU in AM, orders, shared summary prepped Communication:patient, RN Notes Reviewed: cardiology, RN, PT OT Billing based on time 50 minutes 09/11/24 This note may contain typographical errors due to use of voice recognition software. PIERRE KONG MD HOSPITALIST SUBJECTIVE: Pleasant, nad. No longer requiring O2 Cardiology started losartan yesterday and are keeping him on lasix. BMP stable. OBJECTIVE: BP (!) 163/67 (BP Cuff Size: Regular) Pulse 74 Temp 36.4 ??C (97.6 ??F) (Oral) Resp 18 Ht 1.778 m (5' 10) SpO2 (!) 91% BMI 31.05 kg/m?? CONSTITUTIONAL: Pleasantly demented HEENT: No facial asymmetry, EOMI RESPIRATORY: improved aeration bilaterally CARDIOVASCULAR: RRR S1 S2 no murmurs GI: Abdomen soft nt nd +BS SKIN: no jaundice NEURO: No gross focal deficits Labs and Imaging reviewed in [facility] and pertinent positives are as follows: Imaging: No new imaging in last 24 hours Labs: All labs from last 24 hours personally reviewed: Hospital Encounter on 09/08/24 (from the past 24 hour(s)) BMP - Basic Metabolic Panel Result Value Ref Range Sodium 139 136 - 145 mmol/L Potassium 4.3 3.5 - 5.1 mmol/L Chloride 109 98 - 109 mmol/L CO2 27 20 - 29 mmol/L Anion Gap 3 (L) 6 - 16 mmol/L Calcium 8.4 8.4 - 10.4 mg/dL BUN 18 7 - 26 mg/dL Creatinine 1.14 0.73 - 1.18 mg/dL Glucose 104 (H) 70 - 100 mg/dL GFR, Estimated >60 >60 mL/min/1.73m2 [employer] WORKER * Geovanna Ramos MD - 09/10/2024 12:00 PM CST Cardiology Progress Note 09/10/2024 Colt Waldrop [id number] SUBJECTIVE: The patient is more awake and conversant today. He states he feels better. Has a 1L NC of O2 in place. Has diuresed very well. Labs have improved. OBJECTIVE: BP (!) 167/66 Pulse 66 Temp 97.4 ??F (36.3 ??C) (Oral) Resp 18 Ht 5' 10 (177.8 cm) SpO2 100% BMI 31.05 kg/m?? Current weight: Admit weight: I & O over last 24 hours: Intake/Output Summary (Last 24 hours) at 09/10/2024 1200 Last data filed at 09/10/2024 0540 Gross per 24 hour Intake 240 ml Output 2900 ml Net -2660 ml General Appearance: Alert, no respiratory distress Neck: JVP 10 cm H2O Lungs: Decreased breath sounds at the bases Heart: Abdomen: Regular rate and rhythm, S1 and S2 normal, no murmur, rub or gallop Soft, +BS, NTND Extremities: Warm and without edema ECG/Telemetry: Normal sinus rhythm in the 60's. Labs: Lab Results Component Value Date Creatinine 1.08 09/10/2024 84 y.o. man with Alzheimer's s/p recent left foot fracture readmitted with a pulmonary embolus, urosepsis and acute diastolic heart failure all contributing to a slight but flat troponin rise. Diuresed very well. Continue Lasix 20 mg PO daily. The PE is likely contributing to the mild RV systolic dysfunction. The LVEF was also mildly depressed but there was no regionality seen and there were no ischemic changes on the ECG. The patient does not endorse any angina symptoms. There was no significant valve pathology seen. The thoracic aorta is normal in size. There was no pericardial effusion. Bj have a first degree AV block on his ECG. Will avoid Metoprolol succinate. Will start Losartan 25 mg PO daily to support his LV and RV function. Na+ 138, K+ 4.2, creatinine 1.08 and glucose 98. WBC 10.2, hemoglobin 11.8 and platelets 126,000. INR 1.2. TSH 4.57. Will check free T4. Will recheckbasic metabolic panel in AM. Will sign off. Please call with any additional cardiac questions or concerns. Geovanna Ramos MD, [facility] Department of Cardiology Billing based on complexity. INE [employer]OP WORKER * Pierre Kong MD - 09/10/2024 9:53 AM CST [facility]ESS[facility]/PLAN: Colt Waldrop is a 84 y.o. male admitted on 09/08/2024 for: 84 y.o. male with a history of Alzheimer's dementia, anxiety, hypertension, who was recently hospitalized and discharged on 09/02 to a TCU for displaced 5th metatarsal fracture of his left foot who presents to the emergency department with shortness a breath, cough, leg swelling and confusion Sepsis secondary to UTI ([facility]) Meets criteria for sepsis with fever to 100.6?? F, tachycardia, elevated procalcitonin, elevated lactate, urinary source and concern for pulmonary source. Continue ceftriaxone + azihtromycin 1 L of fluid was given in the ED. vital signs of stabilized. Lactate normalized. BC NGTD UC growing E coli: awaiting sensitivities Acute respiratory distress Acute pulmonary embolism ([facility]) Recent left foot fracture in a walking boot, decreased mobility, increased swelling at the left calf conjunction with tachycardia and respiratory distress CT pulmonary angiogram notable for PE with right heart strain. Echo does show some RV hypokinesis, thus cardiology was consulted. . Transitioned from lovenox to xarelto 09/09. Troponin elevation Latest Reference Range & Units 09/09/24 00:36 09/09/24 03:01 09/09/24 05:43 Troponin I 0.00 - 0.03 ng/mL 0.19 (H) 0.24 (H) 0.27 (H) Likely due to PE. Appears flat TTE notable for new RV hypokiinesis, EF around 50% Appreciate cardiology input. Patient now on oral Lasix 20 mg daily Cardiology also added losartan to support LV and RV function. T4 ordered. No anginal symptoms no regionality to reduced ejection fraction follow metabolic panel while on oral Lasix Alzheimer's dementia with behavioral disturbance ([facility]) Continue risperidone, celexa Closed displaced fracture of fifth metatarsal bone of left foot Continue walking boot. Will need ongoing physical and occupational therapy. Hold off on therapies for now given sepsis and PE. Deconditioning Therapies initially held due to PE Can start therapies now Diet: Regular IVF: none DVT Prophylaxis: Pharmacologic: Lovenox sq therapeutic dosing Code Status: Full Code Dispo: can likely dc back to TCU in 1-2 days Communication:patient, daughter. RN Notes Reviewed: cardiology Billing based on time 50 min 09/10/24 This note may contain typographical errors due to use of voice recognition software. PIERRE KONG MD HOSPITALIST SUBJECTIVE: Feels better overall today. Poor historian, due to dementia. Oxygenation status improving. Afebrile. Leukocytosis has resolved Renal function back to normal. Updated daughter by telephone OBJECTIVE: BP (!) 167/66 Pulse 66 Temp 36.3 ??C (97.4 ??F) (Oral) Resp 18 Ht 1.778 m (5' 10) SpO2 100% BMI 31.05 kg/m?? CONSTITUTIONAL:nad HEENT: No facial asymmetry, EOMI RESPIRATORY: improved air movement. CARDIOVASCULAR: regular rate and rhythm GI: Abdomen soft nt nd +BS SKIN: no jaundice NEURO: No focal deficits Labs and Imaging reviewed in Epic and pertinent positives are as follows: Imaging: No new imaging in last 24 hours Labs: All labs from last 24 hours personally reviewed: Hospital Encounter on 09/08/24 (from the past 24 hour(s)) Complete Blood Count-No Diff Result Value Ref Range WBC 10.2 3.5 - 10.5 x10(9)/L RBC 3.67 (L) 4.32 - 5.72 x10(12)/L Hemoglobin 11.8 (L) 13.5 - 17.5 g/dL HCT 35.9 (L) 38.8 - 50.0 % MCV 97.8 80.0 - 100.0 fL MCH 32.2 27.6 - 33.3 pg MCHC 32.9 31.5 - 35.2 g/dL RDW 12.5 11.9 - 15.5 % Platelets 126 (L) 150 - 450 x10(9)/L Automated NRBC 0 <=0 /100 WBC INR/Protime Result Value Ref Range Protime 15.0 (H) 11.8 - 14.6 Seconds INR 1.2 (H) 0.9 - 1.1 Narrative If you take an anticoagulant medicine called warfarin, your doctor or clinician may establish a normal range for you that is different from the baseline range shown. APTT (ACTIVATED PARTIAL THROMBOPLASTIN TIME) Result Value Ref Range APTT 34.8 22.5 - 36.5 Seconds BMP - Basic Metabolic Panel Result Value Ref Range Sodium 138 136 - 145 mmol/L Potassium 4.2 3.5 - 5.1 mmol/L Chloride 108 98 - 109 mmol/L CO2 26 20 - 29 mmol/L Anion Gap 4 (L) 6 - 16 mmol/L Calcium 8.3 (L) 8.4 - 10.4 mg/dL BUN 19 7 - 26 mg/dL Creatinine 1.08 0.73 - 1.18 mg/dL Glucose 98 70 - 100 mg/dL GFR, Estimated >60 >60 mL/min/1.73m2 TSH Result Value Ref Range TSH, Sensitive 4.57 (H) 0.30 - 4.50 uIU/mL INE [employer] WORKER * Ryann Lindsey [facility] - 09/09/2024 8:19 AM CST In anticipation of discharge if anticoagulation is needed OP Rx insurance check processed through [employer]: Apixaban: DVT/PE Treatment: Apixaban (Eliquis) 5mg tablets - 10mg by mouth twice a day for 7 days then 5mg bymouth twice a day #74 tablets for 30 days, patient co-pay would be $35 . Rivaroxaban: DVT/PE Treatment: - Rivaroxaban (Xarelto) 15mg tablets - 15mg by mouth twice a day #42 tablets for 21 days, patient co-pay would be $24.57 . - Followed by Rivaroxaban (Xarelto) 20mg tablets - 20mg by mouth once a day thereafter #30 tablets for 30 days, patient co-pay would be $35 . Enoxaparin: Enoxaparin (GENERIC) 100mg/1ml syringes. Inject 100mg (1ml) subcutaneous every 12 hours #60 syringes, patient co-pay would be $100 . No recommendation is made between therapy or dosing - choice should be based on renal function and bleed risk. Call Pharmacy at [phone] with questions. Ryann Lindsey [place], 8:19 AM 09/09/2024 INE SHOP WORKER * Pierre Kong MD - 09/09/2024 7:52 AM CST [facility]/PLAN: 84 y.o. male with a history of Alzheimer's dementia, anxiety, hypertension, who was recently hospitalized and discharged on 09/02 to a TCU for displaced 5th metatarsal fracture of his left foot who presents to the emergency department with shortness a breath, cough, leg swelling and confusion Sepsis secondary to UTI ([facility]) Meets criteria for sepsis with fever to 100.6?? F, tachycardia, elevated procalcitonin, elevated lactate, urinary source and concern for pulmonary source. Continue ceftriaxone + azihtromycin 1 L of fluid was given in the ED. vital signs of stabilized. Lactate normalized. Follow cultures. Acute respiratory distress Acute pulmonary embolism ([facility]) Recent left foot fracture in a walking boot, decreased mobility, increased swelling at the left calf conjunction with tachycardia and respiratory distress CT pulmonary angiogram notable for PE with right heart strain. Echo does show some RV hypokinesis. Transition from lovenox to xarelto. Troponin elevation Latest Reference Range & Units 09/09/24 00:36 09/09/24 03:01 09/09/24 05:43 Troponin I 0.00 - 0.03 ng/mL 0.19 (H) 0.24 (H) 0.27 (H) Likely due to PE. Appears flat TTE notable for new RV hypokiinesis, EF around 50% Will consult cardiology to evaluate. Alzheimer's dementia with behavioral disturbance (HRC) Continue risperidone, celexa Closed displaced fracture of fifth metatarsal bone of left foot Continue walking boot. Will need ongoing physical and occupational therapy. Hold off on therapies for now given sepsis and PE. Diet: Regular IVF: Bolus DVT Prophylaxis: Pharmacologic: Lovenox sq therapeutic dosing Code Status: Full Code Communication: patient, RN, SW, voicemail left for spouse, Notes Reviewed: manager clinic SW Medical decision making: moderate Billing based on complexity level 2 09/09/24 This note may contain typographical errors due to use of voice recognition software. PIERRE KONG MD HOSPITALIST SUBJECTIVE: Feels ok this AM. Didn't get great sleep. Remembers having Echo this AM. Thinks breahting is ok OBJECTIVE: BP 124/64 (BP Cuff Size: Regular) Pulse 87 Temp 36.3 ??C (97.4 ??F) (Oral) Resp (!) 22 Ht 1.778 m (5' 10) SpO2 94% BMI 31.05 kg/m?? CONSTITUTIONAL:nad HEENT: No facial asymmetry, EOMI RESPIRATORY: decreased at bases CARDIOVASCULAR: regular rate and rhythm GI: Abdomen soft nt nd +BS SKIN: no jaundice NEURO: grossly nonfocal. Labs and Imaging reviewed in [facility] and pertinent positives are as follows: Imaging: CT Angio Chest W IV Cont PE Study [[id number]] Collected: 09/09/24218 Order Status: Completed Updated: 09/09/24257 Narrative: EXAM: CT ANGIO CHEST W IV CONT PE STUDY LOCATION: [facility] DATE: 09/09/2024 INDICATION: Fever, tachypnea, foot in [...] Finding was identified on 09/09/2024 2:30 AM MACHINE SHOP WORKER. 1. Dr Brothers was contacted by me on 09/09/2024 2:37 AM MACHINE SHOP WORKER and verbalized understanding of the critical result. XR Chest 2 Views [[id number]] Collected: 09/08/242325 Order Status: Completed Updated: 09/09/2443 Narrative: EXAM: XR CHEST 2 VIEWS LOCATION: [facility] DATE: 09/08/2024 INDICATION: Shortness of breath. COMPARISON: 08/04/2024. IMPRESSION: Shallow inspiration. Stable cardiomediastinal silhouette. Basilar atelectasis. Atherosclerotic aorta. Degenerative change osseous structures. Labs: All labs from last 24 hours personally reviewed: Hospital Encounter on 09/08/24 (from the past 24 hour(s)) Emergency Center Draw And Hold Narrative The following orders were created for panel order Emergency Center Draw And Hold. Procedure Abnormality Status --------- ------ Extra Lavender top tube[[id number]] Final result Extra Light Green Tube[[id number]] Final result Extra Blue top tube[[id number]] Final result Please view results for these tests on the individual orders. Extra Lavender top tube Result Value Ref Range Extra Lavender Top Drawn Specimen will be held for 3 days Extra Lavender top tube Result Value Ref Range Extra Lavender Top Drawn Specimen will be held for 3 days Extra Light Green Tube Result Value Ref Range Extra Light Green Tube Drawn Specimen will be held for 5 days Extra Blue top tube Result Value Ref Range Extra Blue Top Drawn Specimen will be held for 24 hours Extra Light Green On Ice Tube Result Value Ref Range Extra Light Green On Ice Tube Drawn Specimen will be held for 5 days Complete Blood Count-W/Diff Narrative The following orders were created for panel order Complete Blood Count-W/Diff. Procedure Abnormality Status --------- ------ Complete Blood Count-W/...[[id number]] Abnormal Final result Please view results for these tests on the individual orders. Basic Metabolic Panel Result Value Ref Range Sodium 138 136 - 145 mmol/L Potassium 4.5 3.5 - 5.1 mmol/L Chloride 107 98 - 109 mmol/L CO2 20 20 - 29 mmol/L Anion Gap 11 6 - 16 mmol/L Calcium 8.7 8.4 - 10.4 mg/dL BUN 26 7 - 26 mg/dL Creatinine 1.33 (H) 0.73 - 1.18 mg/dL Glucose 141 (H) 70 - 100 mg/dL GFR, Estimated 52 (L) >60 mL/min/1.73m2 Lactate Reflex Panel Result Value Ref Range Lactate 2.1 (H) 0.5 - 2.0 mmol/L Narrative Reference range for healthy individuals when sepsis is not suspected is 0.5-2.2 mmol/L Procalcitonin Result Value Ref Range Procalcitonin 17.10 (H) <=0.24 ng/mL Narrative Suspected Lower Respiratory Tract Infection (Positive imaging and respiratory symptoms present): < 0.24: Suggests non-bacterial infection. 0.25-0.49: Bacterial infection possible. Consider causes of false elevations such as CKD. >= 0.50: Suggestive of bacterial infection. Consider causes of false elevations. Clinicians should use these results in conjunction with other laboratory findings and clinical signs. B-Type Natriuretic Peptide Result Value Ref Range B Type Natr. Peptide 48 <=99 pg/mL Complete Blood Count-W/Diff Result Value Ref Range WBC 5.5 3.5 - 10.5 x10(9)/L RBC 4.09 (L) 4.32 - 5.72 x10(12)/L Hemoglobin 13.0 (L) 13.5 - 17.5 g/dL HCT 39.2 38.8 - 50.0 % MCV 95.8 80.0 - 100.0 fL MCH 31.8 27.6 - 33.3 pg MCHC 33.2 31.5 - 35.2 g/dL RDW 12.1 11.9 - 15.5 % Platelets 163 150 - 450 x10(9)/L Automated NRBC 0 <=0 /100 WBC Neutrophil Absolute 5.2 1.7 - 7.0 10(9)/L Lymphocyte Absolute 0.2 (L) 1.0 - 4.8 10(9)/L Monocyte Absolute 0.0 (L) 0.2 - 0.9 10(9)/L Eosinophil Absolute 0.0 0.0 - 0.5 10(9)/L Basophil Absolute 0.0 0.0 - 0.3 10(9)/L Immature Granulocyte % 0.4 0.0 - 0.5 % B-Type Natriuretic Peptide Result Value Ref Range B Type Natr. Peptide 39 <=99 pg/mL COVID/Influenza A&B/RSV Narrative The following orders were created for panel order COVID/Influenza A&B/RSV. Procedure Abnormality Status --------- ------ 2019 Novel Coronavirus ...[[id number]] Final result Influenza A and B by PCR[[id number]] Normal Final result RSV RNA, Molecular Dete...[[id number]] Normal Final result Please view results for these tests on the individual orders. 2019 Novel Coronavirus (COVID-19) Result Value Ref Range COVID-19 Interpretation Not Detected Not Detected Source Nasopharyngeal swab Narrative Test performed by real-time PCR. This test has been authorized by the FDA under an Emergency Use Authorization (EUA) for use by authorized laboratories. Influenza A and B by PCR Result Value Ref Range INFLUENZA A MOLECULAR Not Detected Not Detected INFLUENZA B MOLECULAR Not Detected Not Detected Narrative Methodology: Qualitative real-time PCR assay to detect the Influenza type A and type B viral RNA RSV RNA, Molecular Detection Result Value Ref Range RSV by PCR Not Detected Not Detected Narrative Method: Qualitative real-time PCR assay to detect RSV Viral RNA. Blood Culture Narrative The following orders were created for panel order Blood Culture. Procedure Abnormality Status --------- ------ Blood Culture[[id number]] In process Please view results for these tests on the individual orders. Blood Culture Narrative The following orders were created for panel order Blood Culture. Procedure Abnormality Status --------- ------ Blood Culture[[id number]] In process Please view results for these tests on the individual orders. Lactate 2 Hour Result Value Ref Range Lactate, 2 Hour 1.3 0.5 - 2.0 mmol/L Narrative Reference range for healthy individuals when sepsis is not suspected is 0.5-2.2 mmol/L Troponin I Result Value Ref Range Troponin I 0.19 (H) 0.00 - 0.03 ng/mL UA Conditional UC: Clean Catch Specimen: Clean Catch; Urine Result Value Ref Range Urine Culture Comment Urine Color Yellow Urine Clarity Turbid (A) Clear Specific [place], Urine 1.021 <1.030 PH Urine 5.5 5.0 - 8.0 Protein, Urine Qual (mg/dL) 30 (A) Negative, 10 , 20 Glucose Urine Qual (mg/dL) Normal (Negative) Normal (Negative), 30 , 50 Ketones, Urine (mg/dL) Negative Negative, Trace Urobilinogen, Urine (EU/dL) Normal (Negative) Normal (Negative) Bilirubin Urine (mg/dL) Negative Negative Blood, Urine (mg/dL) 1.0 (Large) (A) Negative, 0.03 (Trace) Nitrite Urine 2+ (Positive) (A) Negative Leukocyte Esterase, Urine (Oracio/uL) 500 (Large) (A) Negative, 25 (Trace) Red Blood Cells >180 (H) 0 - 3 /HPF White Blood Cells 158 (H) 0 - 5 /HPF Bacteria Many (A) None Seen /HPF White Blood Cell Clumps Present (A) None Seen /HPF Source Clean Catch Narrative The qualitative interpretive guidance provided (e.g., small, moderate, large) is intended to aid inquantitative result interpretation. It is not itself an FDA- cleared test result. Troponin-I Result Value Ref Range Troponin I 0.24 (H) 0.00 - 0.03 ng/mL Troponin I Result Value Ref Range Troponin I 0.27 (H) 0.00 - 0.03 ng/mL Basic Metabolic Panel Result Value Ref Range Sodium 136 136 - 145 mmol/L Potassium 4.3 3.5 - 5.1 mmol/L Chloride 110 (H) 98 - 109 mmol/L CO2 21 20 - 29 mmol/L Anion Gap 5 (L) 6 - 16 mmol/L Calcium 8.0 (L) 8.4 - 10.4 mg/dL BUN 23 7 - 26 mg/dL Creatinine 1.31 (H) 0.73 - 1.18 mg/dL Glucose 152 (H) 70 - 100 mg/dL GFR, Estimated 53 (L) >60 mL/min/1.73m2 Complete Blood Count-No Diff Result Value Ref Range WBC 15.5 (H) 3.5 - 10.5 x10(9)/L RBC 3.39 (L) 4.32 - 5.72 x10(12)/L Hemoglobin 10.6 (L) 13.5 - 17.5 g/dL HCT 32.5 (L) 38.8 - 50.0 % MCV 95.9 80.0 - 100.0 fL MCH 31.3 27.6 - 33.3 pg MCHC 32.6 31.5 - 35.2 g/dL RDW 12.2 11.9 - 15.5 % Platelets 135 (L) 150 - 450 x10(9)/L Automated NRBC 0 <=0 /100 WBC INE SHOP WORKER * Daiana Velez RN - 09/09/2024 3:49 AM CST ADMIT O: Admitted patient via cart from EC to bed # [id number]. D: Patient is alert and confused; significant other present. See Admission Assessments. A: Discussed plan of care. See education record for admission education. Oriented to room. Call light in reach. Bed alarm: on R: Patient status: sleepy, slightly diaphoretic. Will monitor. Blood pressure 124/64, pulse 87, temperature 36.3 ??C (97.4 ??F), temperature source Oral, resp. rate 22, SpO2 94%. INE SHOP WORKER documented in this encounter Consult Notes * Jacinto Hodge, [facility] - 09/09/2024 9:05 AM CSTAssociated Order(s): CARE MANAGEMENT CONSULT - [facility] Care Management Inpatient Note Plan: Expected Discharge Date: TBD Anticipated Discharge Plan: Return to TCU ([facility]) vs Alternative Plan Transportation: TBD - pending date of DC and DC location Barriers to Discharge: Medical Stability, On-going assessment/ recommendations, TCU placement coordination, and Patient/ family determinations Prior Living Situation: Transitional Care Unit Advanced Directive on File: On File Additional Comments: Facility Specialist is new to patient as of today, and received consult for discharge planning assistance. Per chart review, patient admitted from/ and recently discharged to [facility]. As such, will plan to connect with patient family, and TCU to confirm DC plan and patient ability to return at time of DC. See below for specific details. Spoke with patient spouse Shama by phone this morning. Introduced self and role, and outlined potential plan for TCU return at time of DC. She confirms hope is for patient to return to [facility]. However, she has not yet called them to hold bed, as she is concerned about the $500 per day bed-hold charge. Ultimately, she is unsure if they will be able to accommodate such a cost. Facility Specialist outlined typical process, and that cost is also typical regardless of location. Explained that it is ultimately their decision, but that if at the time of [facility], and they did not hold bed, then we would have to seek alternative TCU placement. Shama co nfirms her understanding, and also confirms plans to not hold bed at this time due to cost. Facility Specialist agreed to connect with facility and inquire on their availability, and potential to accept patient back as a new referral. We agreed to remain in contact pending patient progress, and formalize his plan/ discuss alternative options as appropriate. She was appreciative of assistance. Continued Care and Services - Admitted Since 09/08/2024 Destination Service Provider Request Status [facility] Sent updated referral to inquire on patient ability to return at time of DC, and informed of patient spouse determination above. They confirm they will lift bed-hold, but are indeed willing to accept patient as new referral once medically cleared for DC. They do anticipate bed availability in coming days. We agreed that HCM would provide furtherupdates as patient care progresses, and discuss potential DC once DC date has been confirmed. They will watch for now and await further updates. Appreciative of their assistance. Pending - Request Sent PCP follow-up order placed in preparation for eventual patient DC. Patient/Spokesperson Updated: Yes; Spoke with patient spouse Shama by phone today. See above for specific details. Care Management will remain available to assist with DC planning/ provide updates as appropriate. Hospital Care Management (HCM) will not review chart or see patient over the weekend. If discharge isto occur earlier than anticipated or urgent/same day discharge planning needs arise, please Epic Secure [email or web address] ([phone] [facility] staff assigned in treatment team. If the need is non- urgent, or outside of business hours, please place a new Care Management consult. SHANKAR Ortiz 3:34 PM 09/09/2024 INE SHOP WORKER * Geovanna Ramos MD - 09/09/2024 12:00 AM CST NAME: COLT WALDROP CSN: [id number] HOSPITAL CONSULTATION INPATIENT CARDIOLOGY CONSULTATION DATE OF CONSULTATION: 09/09/2024 : 1940 HISTORY OF PRESENT ILLNESS: I am asked to see Colt Waldrop in Cardiology consultation by the written request of Dr. Pierre Kong given the patient's presentation with troponin elevation and shortness of breath. Colt Waldrop is an 84-year-old man with moderate Alzheimer's dementia with some behavioral disturbance. Earlier this month, he went walking outside without his 's knowledge. He sustained a closed displaced fracture of the 5th metatarsal bone of the left foot. He was in the hospitalfor 3 days. He discharged to a facility about a week ago. The patient was brought to the emergencyroom by his family earlier this morning for further evaluation of shortness of breath. He comes from the rehabilitation unit where he went after his left foot fracture. The staff reported to EMS thatthe patient had a nonproductive cough for the past two days in addition to bilateral leg swelling and some abdominal distention. The patient does not use supplemental oxygen at baseline. He is currently on 1 L nasal cannula of oxygen. The patient did have rhinorrhea and rhonchi on examination. He was given a nebulizer treatment as he was being transported to the hospital. When he presented, he was afebrile with a temperature of 98.1 degrees Fahrenheit, his blood pressure was 141/73 mmHg, and his pulse was 109 beats per minute. He did get a DuoNeb treatment in the emergency room. He was also started on IV ceftriaxone and IV azithromycin. Lab work showed a sodium of 136, potassium 4.3, and creatinine was 1.31 with a GFR of 53 mL/minute.His glucose was 152. He had a white count of 15.5, hemoglobin 10.6, and platelets 135,000. Two blood cultures were sent. There is no growth thus far. His urine culture is in progress. He does have turbid appearing urine with proteinuria and some hematuria. The urine was positive for nitrite and leukocyte esterase. His troponin was 0.19, followed by 0.24, and then 0.27. He did get a CT angiogram of the chest. There was a left pulmonary embolus. Respiratory motion reduced evaluation for peripheral emboli on the right. There was an elevated RV/LV ratio suggesting RV heart strain. Cholelithiasis was noted. His 12-lead ECG from 10:55 p.m. last night showed sinus tachycardia at 107 beats per minute. There was a 1st degree AV block with a VA interval of 256 milliseconds. There were no dynamic ST-T changesto suggest ischemia. He did have a leftward axis. He did get an echocardiogram, which I personally reviewed. It showed normal left ventricular size. There was mild concentric left ventricular hypertrophy. The estimated ejection fraction was 50%, which was mildly depressed. The right ventricle was normal in size with mild RV apex hypokinesis. There was mild left atrial enlargement. The right atrium was normal in size. The mitral and tricuspid valves appeared normal with trace to mild tricuspid re gurgitation. The pulmonary artery systolic pressure estimate was 25 mmHg plus the right atrial pressure. The inferior vena cava was not well visualized. Therefore, an estimate of the right atrial pressure could not be made. The thoracic aortic dimensions were normal. There was no pericardial effusion. PAST MEDICAL HISTORY: 1. Alzheimer's dementia. 2. Closed displaced fracture of the 5th metatarsal bone in the left foot. 3. Sepsis secondary to UTI. 4. Acute pulmonary embolus. 5. Melanoma. 6. Dyslipidemia. 7. Anxiety. 8. Essential hypertension. 9. Macular degeneration. 10. Diastolic heart failure. SOCIAL HISTORY: The patient is accompanied by his daughter, Ricarda, who is one of our ECG techs. ALLERGIES: NO KNOWN DRUG ALLERGIES. MEDICATIONS: Reviewed. Current cardiac medicines are Lipitor 10 mg daily. As mentioned above, he isreceiving ceftriaxone 2 g IV q.24 hours and azithromycin 500 mg IV q.24 hours. It does not look as though the patient was on any diuretic therapy at home. PHYSICAL EXAMINATION: GENERAL: This is a pleasant gentleman, resting comfortably, somewhat difficult to awaken. His daughter supplies most of the history. VITAL SIGNS: Temperature is 97.6 degrees Fahrenheit, blood pressure 105/61 mmHg, pulse is 72 beats per minute and regular, and respiratory rate is 20. He is saturating at 98% on 1 L nasal cannula oxygen. HEENT: Extraocular movements are intact. NECK: Supple. Jugular venous pressure is difficult to assess, but looks elevated. LUNGS: Decreased breath sounds at the bases. HEART: Normal S1 and S2. Regular rhythm with slight tachycardia. ABDOMEN: Soft with good bowel sounds in all 4 quadrants. Nontender. He is slightly distended. Thereis hepatojugular reflux. EXTREMITIES: Reveal 2+ bilateral lower extremity edema. SKIN: There are some excoriations in the pretibial area bilaterally. PSYCH: Mood and affect are as described. NEURO: The patient seems only oriented to self. He is sleeping comfortably. LABORATORY DATA: From October 31, 2021, his total cholesterol was 166, triglycerides 160, HDL 39, and LDL 95. The patient's procalcitonin was 17.10. His last TSH was from January 29, 2024. It was 4.32. ASSESSMENT/PLAN: Colt Waldrop is an 84 y.o. man with Alzheimer's dementia who had a recent left foot fracture. The patient was readmitted with dyspnea, lower extremity edema, and a slight troponin rise. I suspect this is from demand given his infection, pulmonary embolus, and acute diastolic heartfailure. I will give Lasix 20 mg IV x 1 now and then tomorrow, Lasix at a dose of 20 mg p.o. daily w ill be started. There is evidence for RV strain on his echocardiogram likely from his pulmonary embolus. As the pulmonary embolus is treated, his right ventricular systolic function should improve. Iwill check a TSH to make sure that hypothyroidism is not contributing to his lower extremity edema.His BNP was 48, but I believe this was falsely low given his elevated BMI. I think his creatinine will improve with diuresis. At that point, I would like add a low dose of an ACEI or ARB to support is mild LV systolic dysfunction. I would not put him on a beta carlene given his significantly prolonged VA interval. Thank you for the opportunity to see this very nice patient in Cardiology consultation today. Total time was 60 minutes. GEOVANNA RAMOS MD EAB/AQS /[id number] INE SHOP WORKER documented in this encounter OR Notes * H&P - Phu Hoang MD - 09/09/2024 2:44 AM CST [facility] History and Physical COLT WALDROP1940 SOB (SHORTNESS OF BREATH) PCP: Balaji Gallegos, DO Subjective: Colt Waldrop is a 84 y.o. male with a [...] remainder of the ROS is otherwise unobtainable. 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 Closed displaced fracture of fifth metatarsal bone of left foot 08/30/2024 Essential hypertension ([facility]) 06/06/2017 Exudative age-related macular degeneration ([facility]) 05/12/2022 History of malignant melanoma of skin 05/12/2022 Hyperlipidemia ([facility]) 09/14/1996 Melanoma of skin ([facility]) 01/03/2005 LW Onset: 1974 ; Melanoma Skin NOS Osteoarthritis 03/18/2003 DJD Osteomyelitis ([facility]) 10/07/2017 Prediabetes 05/12/2022 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 180 Tablet 3 rivastigmine (EXELON) 4.6 MG/24HR patch Apply 1 Patch to skin daily. 90 Patch 3 No Known Allergies Social History Tobacco Use Smoking status: Former Passive exposure: Never Smokeless tobacco: Never Substance Use Topics Alcohol use: Not Currently No family history on file. Review of Systems Pertinent items are noted in HPI. Objective: BP 126/64 Pulse 88 Temp (!) 38.1 ??C (100.6 ??F) (Oral) Resp (!) 26 SpO2 95% GENERAL: Pleasant, elderly, mild increased work of breathing, mild distress, cooperative but moderately confused HEENT: No significant abnormalities noted CHEST: Mild increased work of breathing, minimally tachypneic. HEART: Regular rate and rhythm, no murmurs rubs or gallops. ABDOMEN: Soft, nontender, nondistended, positive bowel sounds, no HSM or masses. EXTREMITIES: Left foot in boot. Increased edema that the catheterization. SKIN: No clinically significant abnormalities NEURO: Nonfocal LABS: Independently reviewed Last BMP: Recent Labs 09/08/242242 CREATININE 1.33* GLUCOSE 141* BICARB 20 CHLORIDE 107 K 4.5 SODIUM 138 BUN 26 CA 8.7 GFR 52* Last CBC: Recent Labs 09/08/242242 WBC 5.5 RBC 4.09* HGB 13.0* HCT 39.2 MCV 95.8 RDW 12.1 PLTS 163 Last Lactate: Recent Labs 09/09/24 0036 LACT 1.3 Last Procalcitonin: Recent Labs 09/08/242242 PCT 17.10* Last UA: Recent Labs 09/09/24 0103 URAP Turbid* LEUKU 500 (Large)* UWBC 158* UWC Present* UBACT Many* Last BNP: Recent Labs 09/08/242242 BNP 48 Last COVID: Recent Labs 09/08/242245 CORONAV Not Detected Imaging: Independently reviewed and agree with below XR chest two views: IMPRESSION: Shallow inspiration. Stable cardiomediastinal silhouette. Basilar atelectasis. Atherosclerotic aorta. Degenerative change osseous structures. CT angio chest W IV contrast PE study: IMPRESSION: 1. Left pulmonary emboli. Respiratory motion reduces evaluation for peripheral emboli on the right. 2. Elevated RV-LV ratio suggesting right heart strain. 3. Cholelithiasis. ECG: Independently reviewed and agree with below Sinus tachycardia with 1st degree A-V block Otherwise normal ECG No previous ECGs available Assessment / Plan: 84 y.o. male with a history of Alzheimer's dementia, anxiety, hypertension, who was recently hospitalized and discharged on 09/02 to a TCU for displaced 5th metatarsal fracture of his left foot who presents to the emergency department with shortness a breath, cough, leg swelling and confusion Sepsis secondary to UTI ([facility]) Meets criteria for sepsis with fever to 100.6?? F, tachycardia, elevated procalcitonin, elevated lactate, urinary source and concern for pulmonary source. Was started on Rocephin. Due to respiratory symptoms and elevated procalcitonin was also covered with azithromycin. 1 L of fluid was given in the ED. vital signs of stabilized. Lactate normalized. Await cultures. Acute respiratory distress Acute pulmonary embolism ([facility]) Recent left foot fracture in a walking boot, decreased mobility, increased swelling at the left calf conjunction with tachycardia and respiratory distress CT pulmonary angiogram was obtained. This does show a left pulmonary emboli. Signs of right strain. Currently patient is quite stable, vital signs have now normalized. Is requiring low-dose oxygen. Will add a BNP and a troponin. Will check an echocardiogram. Consider pulmonary consult if respiratory status worsens for consideration of thrombectomy or thrombolysis. Alzheimer's dementia with behavioral disturbance (HRC) Continue home medications Closed displaced fracture of fifth metatarsal bone of left foot Continue walking boot. Will need ongoing physical and occupational therapy. I did not order currently given acute illness. Diet: Regular IVF: Bolus DVT Prophylaxis: Pharmacologic: Lovenox sq therapeutic dosing Code Status: Full Code Code Status Information Source: Not discussed, recent hospitalization confirmed full code Med Rec Status: Unable to complete due to patient's status Discussed management and test interpretation with ER provider as well as reviewed and discussed decision regarding hospitalization. Multiple electronic medical record notes reviewed. Care everywhere notes from outside of our system reviewed. I anticipate that the patient's hospitalization will span at least the next two midnights, and theyshould be admitted as an inpatient because of a higher risk of an adverse outcome due to sepsis, PEwith heart strain. I estimate the length of stay to be greater than 2 nights. Billing based on: Complexity This note was dictated using voice recognition software which may contain typographical and voice interpretation errors. INE SHOP WORKER documented in this encounter ED Notes * Katiuska Brothers MD - 09/08/2024 11:04 PM CST Emergency Center Note History of Present Illness Chief Complaint Shortness of Breath HPI Colt Waldrop is a 84 y.o. male with history of Alzheimer's dementia with behavioral disturbance,hyperlipidemia, and heart failure who presents to the ED via EMS for further evaluation of shortness of breath. The patient comes from a rehabilitation unit for his left broken foot and was brought in by EMS today for shortness of breath. Staff report to EMS that the patient had a non-producitve cough for the past two days with leg swelling and was short of breath today. The patient does not use oxygen supplementation at baseline. EMS noted the patient to have rhinorrhea and rhonchi as well andthe patient was given a nebulizer treatment en route. Independent Historian and EMS as detailed above. Review of External Notes Reviewed Discharge Summary from 09/02/24: Patient had a three day admission for treatment of fall injuries, specifically a 5th metatarsal fracture at the base of the left foot Past Medical History Medical History and Problem List Overweight (BMI 25.0-29.9) Melanoma of skin Hyperlipidemia Anxiety Essential hypertension Exudative age-related macular degeneration Alzheimer's dementia with behavioral disturbance Low serum vitamin B12 Heart failure, unspecified Closed displaced fracture of fifth metatarsal bone of left foot Medications acetaminophen (TYLENOL) 325 MG tablet atorvastatin (LIPITOR) 10 MG tablet citalopram (CELEXA) 20 MG tablet Multiple Vitamins-Minerals (PRESERVISION AREDS 2) CAPS risperiDONE (RISPERDAL) 0.5 MG tablet rivastigmine (EXELON) 4.6 MG/24HR patch Surgical History Melonoma Physical Exam Triage Vitals [09/08/242228] Temp (!) 38.1 ??C (100.6 ??F) Temp src Oral Pulse (!) 109 Resp 18 BP (!) 141/73 SpO2 97 % Physical Exam Appears unwell; slightly diaphoretic. Breathing rapidly and heavily Lungs with some wheezing right. Tachypneic. Appears sob Left leg in short boot. No calf swelling. Vitals Trending Patient Vitals for the past 24 hrs: BP Temp Temp src Pulse Resp SpO2 09/09/24 0130 110/61 -- -- 97 (!) 31 95 % 09/09/24 0122 -- -- -- (!) 109 (!) 25 (!) 90 % 09/09/24 0119 -- -- -- 100 (!) 25 96 % 09/09/24 0115 -- -- -- (!) 101 (!) 27 92 % 09/09/24 0100 122/68 -- -- 98 (!) 26 92 % 09/09/24 0045 133/71 -- -- (!) 109 (!) 35 94 % 09/09/24 0030 129/68 -- -- (!) 108 16 94 % 09/09/24 0000 (!) 145/61 -- -- (!) 108 (!) 29 94 % 09/08/24 2330 (!) 142/62 -- -- (!) 114 (!) 33 93 % 09/08/24 2300 (!) 155/68 -- -- (!) 110 (!) 39 99 % 09/08/240 130/67 -- -- (!) 109 (!) 23 97 % 09/08/249 (!) 141/73 (!) 38.1 ??C (100.6 ??F) Oral (!) 109 18 97 % Diagnostics Lab Results Results for orders placed or performed during the hospital encounter of 09/08/24 Extra Lavender top tube Result Value Ref Range Extra Lavender Top Drawn Specimen will be held for 3 days Extra Lavender top tube Result Value Ref Range Extra Lavender Top Drawn Specimen will be held for 3 days Extra Light Green Tube Result Value Ref Range Extra Light Green Tube Drawn Specimen will be held for 5 days Extra Blue top tube Result Value Ref Range Extra Blue Top Drawn Specimen will be held for 24 hours Extra Light Green On Ice Tube Result Value Ref Range Extra Light Green On Ice Tube Drawn Specimen will be held for 5 days Basic Metabolic Panel Result Value Ref Range Sodium 138 136 - 145 mmol/L Potassium 4.5 3.5 - 5.1 mmol/L Chloride 107 98 - 109 mmol/L CO2 20 20 - 29 mmol/L Anion Gap 11 6 - 16 mmol/L Calcium 8.7 8.4 - 10.4 mg/dL BUN 26 7 - 26 mg/dL Creatinine 1.33 (H) 0.73 - 1.18 mg/dL Glucose 141 (H) 70 - 100 mg/dL GFR, Estimated 52 (L) >60 mL/min/1.73m2 Lactate Reflex Panel Result Value Ref Range Lactate 2.1 (H) 0.5 - 2.0 mmol/L Procalcitonin Result Value Ref Range Procalcitonin 17.10 (H) <=0.24 ng/mL B-Type Natriuretic Peptide Result Value Ref Range B Type Natr. Peptide 48 <=99 pg/mL Complete Blood Count-W/Diff Result Value Ref Range WBC 5.5 3.5 - 10.5 x10(9)/L RBC 4.09 (L) 4.32 - 5.72 x10(12)/L Hemoglobin 13.0 (L) 13.5 - 17.5 g/dL HCT 39.2 38.8 - 50.0 % MCV 95.8 80.0 - 100.0 fL MCH 31.8 27.6 - 33.3 pg MCHC 33.2 31.5 - 35.2 g/dL RDW 12.1 11.9 - 15.5 % Platelets 163 150 - 450 x10(9)/L Automated NRBC 0 <=0 /100 WBC Neutrophil Absolute 5.2 1.7 - 7.0 10(9)/L Lymphocyte Absolute 0.2 (L) 1.0 - 4.8 10(9)/L Monocyte Absolute 0.0 (L) 0.2 - 0.9 10(9)/L Eosinophil Absolute 0.0 0.0 - 0.5 10(9)/L Basophil Absolute 0.0 0.0 - 0.3 10(9)/L Immature Granulocyte % 0.4 0.0 - 0.5 % Lactate 2 Hour Result Value Ref Range Lactate, 2 Hour 1.3 0.5 - 2.0 mmol/L UA Conditional UC: Clean Catch Specimen: Clean Catch; Urine Result Value Ref Range Urine Culture Comment Urine Color Yellow Urine Clarity Turbid (A) Clear Specific [place], Urine 1.021 <1.030 PH Urine 5.5 5.0 - 8.0 Protein, Urine Qual (mg/dL) 30 (A) Negative, 10 , 20 Glucose Urine Qual (mg/dL) Normal (Negative) Normal (Negative), 30 , 50 Ketones, Urine (mg/dL) Negative Negative, Trace Urobilinogen, Urine (EU/dL) Normal (Negative) Normal (Negative) Bilirubin Urine (mg/dL) Negative Negative Blood, Urine (mg/dL) 1.0 (Large) (A) Negative, 0.03 (Trace) Nitrite Urine 2+ (Positive) (A) Negative Leukocyte Esterase, Urine ([place]/uL) 500 (Large) (A) Negative, 25 (Trace) Red Blood Cells >180 (H) 0 - 3 /HPF White Blood Cells 158 (H) 0 - 5 /HPF Bacteria Many (A) None Seen /HPF White Blood Cell Clumps Present (A) None Seen /HPF Source Clean Catch 2019 Novel Coronavirus (COVID-19) Result Value Ref Range COVID-19 Interpretation Not Detected Not Detected Source Nasopharyngeal swab Influenza A and B by PCR Result Value Ref Range INFLUENZA A MOLECULAR Not Detected Not Detected INFLUENZA B MOLECULAR Not Detected Not Detected RSV RNA, Molecular Detection Result Value Ref Range RSV by PCR Not Detected Not Detected ECG 12 Lead Inpatient Result Value Ref Range Ventricular Rate 107 BPM Atrial Rate 107 BPM P-R Interval 256 ms QRS Duration 90 ms QT 334 ms QTc 445 ms P [place] 39 degrees R [place] -27 degrees T [place] 30 degrees Imaging XR Chest 2 Views Final Result EXAM: XR CHEST 2 VIEWS LOCATION: [facility] DATE: 09/08/2024 INDICATION: Shortness of breath. COMPARISON: 08/04/2024. IMPRESSION: Shallow inspiration. Stable cardiomediastinal silhouette. Basilar atelectasis. Atherosclerotic aorta. Degenerative change osseous structures. CT Angio Chest W IV Cont PE Study (Results Pending) EKG ECG Results ECG 12 Lead Inpatient (Preliminary result) Collection Time Result Time Ventricular Rate Atrial Rate P-R Interval QRS Duration QT QTc P [place] R [place] T [place] 09/08/24 22:55:12 09/08/24 22:58:00 107 107 256 90 334 445 39 -27 30 Preliminary result Narrative: Sinus tachycardia with 1st degree A-V block Otherwise normal ECG No previous ECGs available Independent Interpretation CXR: No infiltrate. ED Course Medications Administered Medications As of 09/09/24 0219 ipratropium-albuterol (DUONEB) 0.5-2.5 (3) mg/3ml nebulizer solution 3 mL (mL) Total volume: 3 mL Dosing weight: 98.2 Date/Time Rate/Dose/Volume Action Route Admin User 09/08/24 9115 3 mL Given Inhalation Venessa Gardner, RN sodium chloride 0.9% bolus 1,000 mL (mL) Total volume: 1,000 mL Dosing weight: 98.2 Date/Time Rate/Dose/Volume Action Route Admin User 09/08/24 2335 1,000 mL (over 60 min) New Bag Intravenous Venessa Gardner RN cefTRIAXone (ROCEPHIN) 2 g in sterile water for injection 20 mL premade IV syringe (mL/hr) Total volume: Not documented* Dosing weight: 98.2 *Total volume has not been documented. View each administration to see the amount administered. Date/Time Rate/Dose/Volume Action Route Admin User 09/09/24 0043 2 g - 240 mL/hr (over 5 min) Given Intravenous Venessa Gardner RN azithromycin (ZITHROMAX) tablet 500 mg (mg) Total dose: 500 mg Dosing weight: 98.2 Date/Time Rate/Dose/Volume Action Route Admin User 09/09/24 0040 500 mg Given Oral Venessa Gardner RN Procedures None Discussion of Management Admitting Hospitalist, Dr. Hoang ED Course Clinical Impressions as of 09/09/24 0239 Sepsis, due to unspecified organism, unspecified whether acute organ dysfunction present (HRC) Pyelonephritis Pulmonary embolism, unspecified chronicity, unspecified pulmonary embolism type, unspecified whether acute cor pulmonale present (HRC) Additional Documentation Sepsis Metrics Documentation Severity Definitions Patient found to be in sepsis based on suspected infection and 2+ SIRS criteria including: Temp >38 C (100.4 F) or < 36 C (96.8 F) and Heart Rate > 90 . Severe Sepsis: signs of end organ damage Lactate 2.1 - 3.9. Septic Shock: not present. Medical Decision Making / Diagnosis MIPS None [facility] Colt Waldrop is a 84 y.o. male presents to emergency room today for evaluation of cough, tachypnea, fever, and tachycardia. On arrival, patient appears somewhat unwell, diaphoretic, alert but mildly confused, tachycardic, tachypneic, and febrile to 100.6. Lung sounds are fairly clear with perhaps some wheezing on the right. His left foot is noted to be in a walking boot. Patient does meet sepsis criteria and so he was initially started on a L bolus and labs were obtained as above. Ultimately initial lab work was notable for a procalcitonin of 17.1 and a lactate of 2.1, consistent with severe sepsis without hypotension. Patient's chest x-ray did not show a clear source of infection, and so a urine was obtained which did show signs of pyelonephritis. I suspect thisis the most likely source of infection. Patient was initially started on ceftriaxone and azithromycin with concern for the pneumonia. Giventhat his foot is in a walking boot, I will obtain a CTA of the chest to rule out PE given the degree of tachycardia and tachypnea. He will be admitted to the [facility]. Disposition Admitted to hospitalist. Diagnosis Final diagnoses: [A41.9] Sepsis, due to unspecified organism, unspecified whether acute organ dysfunction present (HRC) [N12] Pyelonephritis I, Emmie Oviedo, am serving as a scribe to document services personally performed by Katiuska Brothers MD, based on my observations and the provider's statements to me. 09/08/2024 [facility] Portions of this medical record were completed by a scribe. UPON MY REVIEW AND AUTHENTICATION BY ELECTRONIC SIGNATURE, this confirms (a) I performed the applicable clinical services, and (b) the record is accurate. Katiuska Brothers MD 09/09/24 0219 INE SHOP WORKER documented in this encounter Plan of Treatment Upcoming Encounters Date Type Department Care Team (Late st Contact Info) Description 12/07/2024 11:15 AM MACHINE SHOP WORKER Appointment Neurology at [address] [place] [address] Evangelist Wen MD [address] [place] [address] 12/14/2024 11:00 AM MACHINE SHOP WORKER Appointment [facility] [address] [place], [place] [id number] Maria Ines Caldera, FRAUD EXAMINER, STORY READER [address] [place] [address] Scheduled Referrals Name Type Priority Associated Diagnoses Orde r Schedule Primary Care Follow-Up Referral Routine Sepsis, due to unspecified organism, unspecified whether acute organ dysfunction present (HRC) Pulmonary embolism, unspecified chronicity, unspecified pulmonary embolism type, unspecified whether acute cor pulmonale present (HRC) Ordered: 09/09/2024 Primary Care Follow-Up Referral Routine Acute pulmonary embolism, unspecified pulmonary embolism type, unspecified whether acute cor pulmonale present (HRC) Ordered: 09/09/2024 THROMBOSIS CLINIC CONSULT (AMB) Referral Routine Acute pulmonary embolism, unspecified pulmonary embolism type, unspecified whether acute cor pulmonale present (HRC) Ordered: 09/09/2024 Primary Care Follow-Up Referral Routine Acute pulmonary embolism, unspecified pulmonary embolism type, unspecified whether acute cor pulmonale present (HRC) Alzheimer's dementia with behavioral disturbance (HRC) Sepsis secondary to UTI (HRC) Ordered: 09/11/2024 documented as of this encounter Procedures Procedure Name Priority Date/Time Associated Diagnosis Comments BASIC METABOLIC PANEL Routine 09/13/2024 8:09 AM MACHINE SHOP WORKER COMPLETE BLOOD COUNT-NO DIFF Routine 09/13/2024 8:09 AM MACHINE SHOP WORKER MAGNESIUM Routine 09/13/2024 8:09 AM MACHINE SHOP WORKER BASIC METABOLIC PANEL Routine 09/11/2024 9:08 AM MACHINE SHOP WORKER TSH, SENSITIVE Routine 09/10/2024 8:11 AM MACHINE SHOP WORKER BASIC METABOLIC PANEL Routine 09/10/2024 8:11 AM MACHINE SHOP WORKER FREE T4 Add-On 09/10/2024 8:11 AM MACHINE SHOP WORKER APTT (ACTIVATED PARTIAL THROMBOPLASTIN TIME Routine 09/09/2024 4:21 PM MACHINE SHOP WORKER COMPLETE BLOOD COUNT-NO DIFF Routine 09/09/2024 4:21 PM MACHINE SHOP WORKER INR/PROTIME Add-On 09/09/2024 4:21 PM MACHINE SHOP WORKER ECHOCARDIOGRAM Routine 09/09/2024 8:17 AM MACHINE SHOP WORKER LIVER PANEL(HEPATIC FUNCTION PANEL) Add-On 09/09/2024 5:43 AM MACHINE SHOP WORKER TSH, SENSITIVE Add-On 09/09/2024 5:43 AM MACHINE SHOP WORKER BASIC METABOLIC PANEL Routine 09/09/2024 5:43 AM MACHINE SHOP WORKER TROPONIN I STAT 09/09/2024 5:43 AM MACHINE SHOP WORKER COMPLETE BLOOD COUNT-NO DIFF Routine 09/09/2024 5:43 AM MACHINE SHOP WORKER CREATININE / GFR Add-On 09/09/2024 3:01 AM MACHINE SHOP WORKER TROPONIN I Specified Time 09/09/2024 3:[address] ANGIO CHEST W IV CONT PE STUDY STAT 09/09/2024 2:19 AM MACHINE SHOP WORKER URINE CULTURE STAT 09/09/2024 1:03 AM MACHINE SHOP WORKER UA CONDITIONAL UC STAT 09/09/2024 1:0 3 AM MACHINE SHOP WORKER LACTATE 2 HOUR Specified Time 09/09/2024 12:36 AM MACHINE SHOP WORKER BLOOD CULTURE Routine 09/09/2024 12:36 AM MACHINE SHOP WORKER BLOOD CULTURE Routine 09/09/2024 12:36 AM MACHINE SHOP WORKER TROPONIN I STAT Add-On 09/09/2024 12:36 AM MACHINE SHOP WORKER BLOOD CULTURE Routine 09/08/2024 11:32 PM MACHINE SHOP WORKER BLOOD CULTURE Routine 09/08/2024 11:32 PM MACHINE SHOP WORKER XR CHEST 2 VIEWS STAT 09/08/2024 11:2 6 PM MACHINE SHOP WORKER ECG 12 LEAD INPATIENT STAT 09/08/2024 10:55 PM MACHINE SHOP WORKER RSV, MOLECULAR DETECTION STAT 09/08/2024 10:46 PM MACHINE SHOP WORKER INFLUENZA VIRUS A AND B, MOLECULAR DETECTION STAT 09/08/2024 10:46 PM MACHINE SHOP WORKER 2019 NOVEL CORONAVIRUS STAT 09/08/2024 10:46 PM MACHINE SHOP WORKER COVID/INFLUENZA A&B/RSV STAT 09/08/2024 10:46 PM MACHINE SHOP WORKER EXTRA LAVENDER TOP TUBE STAT 09/08/2024 10:43 PM MACHINE SHOP WORKER EXTRA LAVENDER TOP TUBE Routine 09/08/2024 10:43 PM MACHINE SHOP WORKER EXTRA BLUE TOP TUBE STAT 09/08/2024 1 0:43 PM MACHINE SHOP WORKER LACTATE REFLEX PANEL STAT Add-On 09/08/2024 10:43 PM MACHINE SHOP WORKER CBC AND DIFFERENTIAL PANEL STAT Add-On 09/08/2024 10:43 PM MACHINE SHOP WORKER RAINBOW DRAW AND HOLD STAT 09/08/2024 10:43 PM MACHINE SHOP WORKER EXTRA LIGHT GREEN TUBE STAT 09/08/2024 10:43 PM MACHINE SHOP WORKER EXTRA LIGHT GREEN TOP ON ICE TUBE Routine 09/08/2024 10:43 PM MACHINE SHOP WORKER PROCALCITONIN STAT Add-On 09/08/2024 10:43 PM MACHINE SHOP WORKER BRAIN NATRIURETIC PEPTIDE (BNP) STAT Add-On 09/08/2024 10:43 PM MACHINE SHOP WORKER BRAIN NATRIURETIC PEPTIDE (BNP) STAT Add-On 09/08/2024 10:43 PM MACHINE SHOP WORKER COMPLETE BLOOD COUNT-W/DIFF STAT Add-On 09/08/2024 10:43 PM MACHINE SHOP WORKER BASIC METABOLIC PANEL STAT Add-On 09/08/2024 10:43 PM MACHINE SHOP WORKER documented in this encounter Results * Magnesium (IN AM) (09/13/2024 8:09 AM MACHINE SHOP WORKER) Pathologist [facility] Magnesium 2.0 1.6 - 2.6 mg/dL 09/13/2024 9:09 AM MACHINE SHOP WORKER [facility] Blood Venipuncture / Unknown 09/13/2024 8:09 AM MACHINE SHOP WORKER 09/13/2024 8:23 AM MACHINE SHOP WORKER Stephanie Naik DO LAB_1 [facility] [address] [employer] [address] * (ABNORMAL) Complete Blood Count-No Diff (IN AM) (09/13/2024 8:09 AM MACHINE SHOP WORKER) Pathologist [facility] WBC 7.9 3.5 - 10.5 x10(9)/L 09/13/2024 8:32 AM MACHINE SHOP WORKER [facility] RBC 3.78(L) 4.32 - 5.72 x10(12)/L 09/13/2024 8:32 AM MACHINE SHOP WORKER [facility] Hemoglobin 11.8(L) 13.5 - 17.5 g/dL 09/13/2024 8:32 AM MACHINE SHOP WORKER [facility] HCT 36.4(L) 38.8 - 50.0 % 09/13/2024 8:32 AM MACHINE SHOP WORKER [facility] MCV 96.3 80.0 - 100.0 fL 09/13/2024 8:32 AM MACHINE SHOP WORKER [facility] MCH 31.2 27.6 - 33.3 pg 09/13/2024 8:32 AM MACHINE SHOP WORKER [facility] MCHC 32.4 31.5 - 35.2 g/dL 09/13/2024 8:32 AM MACHINE SHOP WORKER [facility] RDW 12.2 11.9 - 15.5 % 09/13/2024 8:32 AM MACHINE SHOP WORKER [facility] Platelets 212 150 - 450 x10(9)/L 09/13/2024 8:32 AM MACHINE SHOP WORKER [facility] Automated NRBC 0 <=0 /100 WBC 09/13/2024 8:32 AM MACHINE SHOP WORKER [facility] Blood Venipuncture / Unknown 09/13/2024 8:09 AM MACHINE SHOP WORKER 09/13/2024 8:23 AM MACHINE SHOP WORKER Stephanie Naik DO LAB_1 Performing Organization Address City/[facility]/ZIP Co de Phone Number [facility] [address] [place] [address], [facility] * (ABNORMAL) Basic Metabolic Panel (IN AM) (09/13/2024 8:09 AM MACHINE SHOP WORKER) Pathologist [facility] Sodium 139 136 - 145 mmol/L 09/13/2024 9:09 AM MACHINE SHOP WORKER [facility] Potassium 4.4 3.5 - 5.1 mmol/L 09/13/2024 9:09 AM MACHINE SHOP WORKER [facility] Comment:Specimen slightly he molyzed. Hemolysis may affect result. Chloride 108 98 - 109 mmol/L 09/13/2024 9:09 AM MACHINE SHOP WORKER [facility] CO2 22 20 - 29 mmol/L 09/13/2024 9:09 AM MACHINE SHOP WORKER [facility] Anion Gap 9 6 - 16 mmol/L 09/13/2024 9:09 AM MACHINE SHOP WORKER [facility] Calcium 8.5 8.4 - 10.4 mg/dL 09/13/2024 9:09 AM MACHINE SHOP WORKER [facility] BUN 20 7 - 26 mg/dL 09/13/2024 9:09 AM MACHINE SHOP WORKER [facility] Creatinine 1.06 0.73 - 1.18 mg/dL 09/13/2024 9:09 AM MACHINE SHOP WORKER [facility] Glucose 113(H) 70 - 100 mg/dL 09/13/2024 9:09 AM MACHINE SHOP WORKER [facility] Comment:The given reference range is for the fasting state. Non-fasting reference range for glucose is 70 - 180 mg/dL. GFR, Estimated >60 >60 mL/min/1.7 3m2 09/13/2024 9:09 AM MACHINE SHOP WORKER [facility] Blood Venipuncture / Unknown 09/13/2024 8:09 AM MACHINE SHOP WORKER 09/13/2024 8:23 AM MACHINE SHOP WORKER Stephanie Naik DO LAB_1 Performing Organization Address City/[facility]/ZIP Co de Phone Number [facility] [address] * (ABNORMAL) BMP - Basic Metabolic Panel (09/11/2024 9:08 AM MACHINE SHOP WORKER) Sodium 139 136 - 145 mmol/L 09/11/2024 9:51 AM MACHINE SHOP WORKER [facility] Potassium 4.3 3.5 - 5.1 mmol/L 09/11/2024 9:51 AM MACHINE SHOP WORKER [facility] Chloride 109 98 - 109 mmol/L 09/11/2024 9:51 AM MACHINE SHOP WORKER [facility] CO2 27 20 - 29 mmol/L 09/11/2024 9:51 AM MACHINE SHOP WORKER [facility] Anion Gap 3(L) 6 - 16 mmol/L 09/11/2024 9:51 AM MACHINE SHOP WORKER [facility] Calcium 8.4 8.4 - 10.4 mg/dL 09/11/2024 9:51 AM MACHINE SHOP WORKER [facility] BUN 18 7 - 26 mg/dL 09/11/2024 9:51 AM MACHINE SHOP WORKER [facility] Creatinine 1.14 0.73 - 1.18 mg/dL 09/11/2024 9:51 AM MACHINE SHOP WORKER [facility] Glucose 104(H) 70 - 100 mg/dL 09/11/2024 9:51 AM MACHINE SHOP WORKER [facility] Comment:The given reference range is for the fasting state. Non-fasting reference range for glucose is 70 - 180 mg/dL. GFR, Estimated >60 >60 mL/min/1.7 3m2 09/11/2024 9:51 AM MACHINE SHOP WORKER [facility] Blood Venipuncture / Unknown 09/11/2024 9:08 AM MACHINE SHOP WORKER 09/11/2024 9:18 AM MACHINE SHOP WORKER Geovanna Ramos MD LAB_1 [facility] [address] * Free T4 (09/10/2024 8:11 AM MACHINE SHOP WORKER) T4, Free 0.9 0.7 - 1.5 ng/dL 09/10/2024 12:38 PM MACHINE SHOP WORKER [facility] Blood Venipuncture / Unknown 09/10/2024 8:11 AM MACHINE SHOP WORKER 09/10/2024 8:21 AM MACHINE SHOP WORKER Geovanna Ramos MD LAB_1 Performing Organization Address [facility] de Phone Number [facility] [address] * (ABNORMAL) TSH (09/10/2024 8:11 AM MACHINE SHOP WORKER) TSH, Sensitive 4.57(H) 0.30 - 4.50 uIU/mL 09/10/2024 9:05 AM MACHINE SHOP WORKER [facility] Blood Venipuncture / Unknown 09/10/2024 8:11 AM MACHINE SHOP WORKER 09/10/2024 8:21 AM MACHINE SHOP WORKER Geovanna Ramos MD LAB_1 Performing Organization Address [facility] Phone Number [facility] [address] * (ABNORMAL) BMP - Basic Metabolic Panel (09/10/2024 8:11 AM MACHINE SHOP WORKER) Sodium 138 136 - 145 mmol/L 09/10/2024 8:45 AM MACHINE SHOP WORKER [facility] Potassium 4.2 3.5 - 5.1 mmol/L 09/10/2024 8:45 AM MACHINE SHOP WORKER [facility] Chloride 108 98 - 109 mmol/L 09/10/2024 8:45 AM MACHINE SHOP WORKER [facility] CO2 26 20 - 29 mmol/L 09/10/2024 8:45 AM MACHINE SHOP WORKER [facility] Anion Gap 4(L) 6 - 16 mmol/L 09/10/2024 8:45 AM MACHINE SHOP WORKER [facility] Calcium 8.3(L) 8.4 - 10.4 mg/dL 09/10/2024 8:45 AM MACHINE SHOP WORKER [facility] BUN 19 7 - 26 mg/dL 09/10/2024 8:45 AM MACHINE SHOP WORKER [facility] Creatinine 1.08 0.73 - 1.18 mg/dL 09/10/2024 8:45 AM MACHINE SHOP WORKER [facility] Glucose 98 70 - 100 mg/dL 09/10/2024 8:45 AM MACHINE SHOP WORKER [facility] Comment:The given reference range is for the fasting state. Non-fasting reference range for glucose is 70 - 180 mg/dL. GFR, Estimated >60 >60 mL/min/1.7 3m2 09/10/2024 8:45 AM MACHINE SHOP WORKER [facility] Blood Venipuncture / Unknown 09/10/2024 8:11 AM MACHINE SHOP WORKER 09/10/2024 8:21 AM MACHINE SHOP WORKER Geovanna Ramos MD LAB_1 Performing Organization Address [facility] Phone Number [facility] [address] * APTT (ACTIVATED PARTIAL THROMBOPLASTIN TIME) (09/09/2024 4:21 PM MACHINE SHOP WORKER) APTT 34.8 22.5 - 36.5 Seconds 09/09/2024 4:39 PM MACHINE SHOP WORKER [facility] Blood Venipuncture / Unknown 09/09/2024 4:21 PM MACHINE SHOP WORKER 09/09/2024 4:25 PM MACHINE SHOP WORKER Pierre Kong MD LAB_1 Performing Organization Address [place] Phone Number [facility] [address] * (ABNORMAL) INR/Protime (09/09/2024 4:21 PM MACHINE SHOP WORKER) Protime 15.0(H) 11.8 - 14.6 Seconds 09/09/2024 4:39 PM MACHINE SHOP WORKER [facility] INR 1.2(H) 0.9 - 1.1 09/09/2024 4:39 PM MACHINE SHOP WORKER [facility] Blood Venipuncture / Unknown 09/09/2024 4:21 PM MACHINE SHOP WORKER 09/09/2024 4:25 PM MACHINE SHOP WORKER Narrative [facility] - 09/09/2024 4:39 PM MACHINE SHOP WORKER If you take an anticoagulant medicine called warfarin, your doctor or clinician may establish a normal range for you that is different from the baseline range shown. Pierre Kong MD LAB_1 Performing Organization Address [facility] Phone Number [facility] [employer] [address] * (ABNORMAL) Complete Blood Count-No Diff (09/09/2024 4:21 PM MACHINE SHOP WORKER) WBC 10.2 3.5 - 10.5 x10(9)/L 09/09/2024 4:29 PM MACHINE SHOP WORKER [facility] RBC 3.67(L) 4.32 - 5.72 x10(12)/L 09/09/2024 4:29 PM MACHINE SHOP WORKER [facility] Hemoglobin 11.8(L) 13.5 - 17.5 g/dL 09/09/2024 4:29 PM MACHINE SHOP WORKER [facility] HCT 35.9(L) 38.8 - 50.0 % 09/09/2024 4:29 PM MACHINE SHOP WORKER [facility] MCV 97.8 80.0 - 100.0 fL 09/09/2024 4:29 PM MACHINE SHOP WORKER [facility] MCH 32.2 27.6 - 33.3 pg 09/09/2024 4:29 PM MACHINE SHOP WORKER [facility] MCHC 32.9 31.5 - 35.2 g/dL 09/09/2024 4:29 PM MACHINE SHOP WORKER [facility] RDW 12.5 11.9 - 15.5 % 09/09/2024 4:29 PM MACHINE SHOP WORKER [facility] Platelets 126(L) 150 - 450 x10(9)/L 09/09/2024 4:29 PM MACHINE SHOP WORKER [facility] Automated NRBC 0 <=0 /100 WBC 09/09/2024 4:29 PM MACHINE SHOP WORKER [facility] Blood Venipuncture / Unknown 09/09/2024 4:21 PM MACHINE SHOP WORKER 09/09/2024 4:25 PM MACHINE SHOP WORKER Pierre Kong MD LAB_1 [facility] [address] * Echocardiogram (09/09/2024 8:17 AM MACHINE SHOP WORKER) 09/09/2024 8:17 AM MACHINE SHOP WORKER Narrative PN ECHO - 09/09/2024 10:20 AM MACHINE SHOP WORKER Procedure type: ECHOCARDIOGRAM Procedure 09/09/2024 8:17 AM [...] Male Procedure Staff Interpreting Geovanna Narayan MD Consultant Education: Structural Engineering Drafting Officer: AMY MOREAU Ordering Provider: PHU HOANG MD [...] Male Procedure Staff Interpreting Geovanna Narayan MD Consultant Education: Structural Engineering Drafting Officer: AMY MOREAU Ordering Provider: PHU HOANG MD Attending Physician: Katiuska Brothers MD Phu Hoang MD ET ECHO ORDERABLES PN ECHO * TSH (09/09/2024 5:43 AM MACHINE SHOP WORKER) Pathologist [facility] TSH, Sensitive 2.82 0.30 - 4.50 uIU/mL 09/09/2024 6:00 PM MACHINE SHOP WORKER [facility] Blood Venipuncture / Unknown 09/09/2024 5:43 AM MACHINE SHOP WORKER 09/09/2024 5:50 AM MACHINE SHOP WORKER Geovanna Ramos MD LAB_1 Performing Organization Address City/[facility]/ZIP Co de Phone Number [facility] [address] [place] [address] * (ABNORMAL) Hepatic Function Panel (09/09/2024 5:43 AM MACHINE SHOP WORKER) Pathologist [facility] Alkaline Phosphatase 126 40 - 150 U/L 09/09/2024 4:31 PM MACHINE SHOP WORKER [facility] Bilirubin, Total 0.3 0.2 - 1.2 mg/dL 09/09/2024 4:31 PM MACHINE SHOP WORKER [facility] Bilirubin, Direct 0.1 0.0 - 0.5 mg/dL 09/09/2024 4:31 PM MACHINE SHOP WORKER [facility] AST (SGOT) 29 10 - 40 U/L 09/09/2024 4:31 PM MACHINE SHOP WORKER [facility] ALT (SGPT) 28 <=55 U/L 09/09/2024 4:31 PM MACHINE SHOP WORKER [facility] Protein, Total 5.1(L) 6.4 - 8.3 g/dL 09/09/2024 4:31 PM MACHINE SHOP WORKER [facility] Albumin 2.2(L) 3.5 - 5.0 g/dL 09/09/2024 4:31 PM MACHINE SHOP WORKER [facility] Blood Venipuncture / Unknown 09/09/2024 5:43 AM MACHINE SHOP WORKER 09/09/2024 5:50 AM MACHINE SHOP WORKER Pierre Kong MD LAB_1 Performing Organization Address City/[facility]/ZIP Co de Phone Number [facility] [address] * (ABNORMAL) Troponin I (09/09/2024 5:43 AM MACHINE SHOP WORKER) Pathologist [facility] Troponin I 0.27(H) 0.00 - 0.03 ng/mL 09/09/2024 6:18 AM MACHINE SHOP WORKER [facility] Blood Venipuncture / Unknown 09/09/2024 5:43 AM MACHINE SHOP WORKER 09/09/2024 5:50 AM MACHINE SHOP WORKER Phu Hoang MD LAB_1 Performing Organization Address [facility] Co de Phone Number [facility] [address] * (ABNORMAL) Complete Blood Count-No Diff (09/09/2024 5:43 AM MACHINE SHOP WORKER) Pathologist [facility] WBC 15.5(H) 3.5 - 10.5 x10(9)/L 09/09/2024 5:59 AM MACHINE SHOP WORKER [facility] RBC 3.39(L) 4.32 - 5.72 x10(12)/L 09/09/2024 5:59 AM MACHINE SHOP WORKER [facility] Hemoglobin 10.6(L) 13.5 - 17.5 g/dL 09/09/2024 5:59 AM MACHINE SHOP WORKER [facility] HCT 32.5(L) 38.8 - 50.0 % 09/09/2024 5:59 AM MACHINE SHOP WORKER [facility] MCV 95.9 80.0 - 100.0 fL 09/09/2024 5:59 AM MACHINE SHOP WORKER [facility] MCH 31.3 27.6 - 33.3 pg 09/09/2024 5:59 AM MACHINE SHOP WORKER [facility] MCHC 32.6 31.5 - 35.2 g/dL 09/09/2024 5:59 AM MACHINE SHOP WORKER [facility] RDW 12.2 11.9 - 15.5 % 09/09/2024 5:59 AM MACHINE SHOP WORKER [facility] Platelets 135(L) 150 - 450 x10(9)/L 09/09/2024 5:59 AM MACHINE SHOP WORKER [facility] Automated NRBC 0 <=0 /100 WBC 09/09/2024 5:59 AM MACHINE SHOP WORKER [facility] Blood Venipuncture / Unknown 09/09/2024 5:43 AM MACHINE SHOP WORKER 09/09/2024 5:50 AM MACHINE SHOP WORKER Phu Hoang MD LAB_1 [facility] [address] [employer] [address] * (ABNORMAL) Basic Metabolic Panel (09/09/2024 5:43 AM MACHINE SHOP WORKER) Sodium 136 136 - 145 mmol/L 09/09/2024 6:13 AM MACHINE SHOP WORKER [facility] Potassium 4.3 3.5 - 5.1 mmol/L 09/09/2024 6:13 AM MACHINE SHOP WORKER [facility] Chloride 110(H) 98 - 109 mmol/L 09/09/2024 6:13 AM MACHINE SHOP WORKER [facility] CO2 21 20 - 29 mmol/L 09/09/2024 6:13 AM MACHINE SHOP WORKER [facility] Anion Gap 5(L) 6 - 16 mmol/L 09/09/2024 6:13 AM MACHINE SHOP WORKER [facility] Calcium 8.0(L) 8.4 - 10.4 mg/dL 09/09/2024 6:13 AM MACHINE SHOP WORKER [facility] BUN 23 7 - 26 mg/dL 09/09/2024 6:13 AM MACHINE SHOP WORKER [facility] Creatinine 1.31(H) 0.73 - 1.18 mg/dL 09/09/2024 6:13 AM MACHINE SHOP WORKER [facility] Glucose 152(H) 70 - 100 mg/dL 09/09/2024 6:13 AM MACHINE SHOP WORKER [facility] Comment:The given reference range is for the fasting state. Non-fasting reference range for glucose is 70 - 180 mg/dL. GFR, Estimated 53(L) >60 mL/min/1.7 3m2 09/09/2024 6:13 AM MACHINE SHOP WORKER [facility] Comment:>60 Blood Venipuncture / Unknown 09/09/2024 5:43 AM MACHINE SHOP WORKER 09/09/2024 5:50 AM MACHINE SHOP WORKER Phu Hoang MD LAB_1 Performing Organization Address [facility] Co de Phone Number [facility] [address] * (ABNORMAL) CREATININE / GFR (09/09/2024 3:01 AM MACHINE SHOP WORKER) Creatinine 1.20(H) 0.73 - 1.18 mg/dL 09/09/2024 4:30 PM MACHINE SHOP WORKER [facility] GFR, Estimated 59(L) >60 mL/min/1.7 3m2 09/09/2024 4:30 PM MACHINE SHOP WORKER [facility] Blood Venipuncture / Unknown 09/09/2024 3:01 AM MACHINE SHOP WORKER 09/09/2024 3:06 AM MACHINE SHOP WORKER Narrative [facility] - 09/09/2024 4:30 PM MACHINE SHOP WORKER The National Kidney Disease Education Program suggests measuring Cystatin C in patients with eGFRcrea of 45 to 59 ml/min/1.73^2 who do not have other markers of kidney damage (i.e. elevated urine Albumin/Creatinine Ratio or a prior Cystatin C confirming the presence of chronic kidney disease). Pierre Kong MD LAB_1 Performing Organization Address [facility] de Phone Number [facility] [address] * (ABNORMAL) Troponin-I (09/09/2024 3:01 AM MACHINE SHOP WORKER) Troponin I 0.24(H) 0.00 - 0.03 ng/mL 09/09/2024 3:36 AM MACHINE SHOP WORKER [facility] Blood Venipuncture / Unknown 09/09/2024 3:01 AM MACHINE SHOP WORKER 09/09/2024 3:06 AM MACHINE SHOP WORKER Katiuska Brothers MD LAB_1 Performing Organization Address [facility] Co de Phone Number [facility] [address] * CT Angio Chest W IV Cont PE Study (09/09/2024 2:19 AM MACHINE SHOP WORKER) Anatomical Region Laterality Modality Chest, Lung, Vascular Computed T omography 09/09/2024 2:19 AM MACHINE SHOP WORKER Narrative 09/09/2024 2:56 AM MACHINE SHOP WORKER EXAM: CT ANGIO CHEST W IV CONT PE STUDY LOCATION: [facility] DATE: 09/09/2024 INDICATION: Fever, tachypnea, foot in [...] Finding was identified on 09/09/2024 2:30 AM MACHINE SHOP WORKER. 1. Dr Brothers was contacted by me on 09/09/2024 2:37 AM MACHINE SHOP WORKER and verbalized understanding of the critical result. Procedure Note Ca Erwin MD - 09/09/2024 EXAM: CT ANGIO CHEST W IV CONT PE STUDY LOCATION: [facility] DATE: 09/09/2024 INDICATION: Fever, tachypnea, foot in [...] Finding was identified on 09/09/2024 2:30 AM MACHINE SHOP WORKER. 1. Dr Brothers was contacted by me on 09/09/2024 2:37 AM MACHINE SHOP WORKER and verbalizedunderstanding of the critical result. Phu Hoang MD RAD CT * (ABNORMAL) Urine Culture (09/09/2024 1:03 AM MACHINE SHOP WORKER) Urine Culture Growth(A) 09/11/2024 7:25 AM MACHINE SHOP WORKER [facility] Urine Culture >100,000 CFU/mL Escherichia coli 09/11/2024 7:25 AM MACHINE SHOP WORKER [facility] Comment:This is an edited re sult. Previous organism was Gram Negative Bacilli on 09/09/2024 at 2216 MACHINE SHOP WORKER. Urine URINE SPECIMEN COLLECTION, CLEAN CATCH / Unknown Non-blood Collection / Unknown 09/09/2024 1:03 AM MACHINE SHOP WORKER 09/09/2024 1:18 AM MACHINE SHOP WORKER Narrative Organism Antibiotic Method Susceptibility Escherichia coli [...] Katiuska Brothers MD LAB_1 Performing Organization Address City/State/[facility] Co de Phone Number [address] [address], [facility] * (ABNORMAL) UA Conditional UC: Clean Catch (09/09/2024 1:03 AM MACHINE SHOP WORKER) Urine Culture Comment 09/09/2024 1:18 AM MACHINE SHOP WORKER [facility] Urine Color Yellow 09/09/2024 1:18 AM MACHINE SHOP WORKER [facility] Urine Clarity Turbid(A) Clear 09/09/2024 1:18 AM MACHINE SHOP WORKER [facility] Specific [place], Urine 1.021 <1.030 09/09/2024 1:18 AM MACHINE SHOP WORKER [facility] PH Urine 5.5 5.0 - 8.0 09/09/2024 1:18 AM MACHINE SHOP WORKER [facility] Protein, Urine Qual (mg/dL) 30(A) Negative, 10 , 20 09/09/2024 1:18 AM MACHINE SHOP WORKER [facility] Glucose Urine Qual (mg/dL) Normal (Negative) Normal (Negative), 30 , 50 09/09/2024 1:18 AM MACHINE SHOP WORKER [facility] Ketones, Urine (mg/dL) Negative Negative, Trace 09/09/2024 1:18 AM MACHINE SHOP WORKER [facility] Urobilinogen, Urine (EU/dL) Normal (Negative) Normal (Negative) 09/09/2024 1:18 AM MACHINE SHOP WORKER [facility] Bilirubin Urine (mg/dL) Negative Negative 09/09/2024 1:18 AM MACHINE SHOP WORKER [facility] Blood, Urine (mg/dL) 1.0 (Large)(A) Negative, 0.03 (Trace) 09/09/2024 1:18 AM MACHINE SHOP WORKER [facility] Nitrite Urine 2+ (Positive)(A ) Negative 09/09/2024 1:18 AM MACHINE SHOP WORKER [facility] Leukocyte Esterase, Urine (Oracio/uL) 500 (Large)(A) Negative, 25 (Trace) 09/09/2024 1:18 AM MACHINE SHOP WORKER [facility] Red Blood Cells >180(H) 0 - 3 /HPF 09/09/2024 1:18 AM MACHINE SHOP WORKER [facility] White Blood Cells 158(H) 0 - 5 /HPF 09/09/2024 1:18 AM MACHINE SHOP WORKER [facility] Bacteria Many(A) None Seen /HPF 09/09/2024 1:18 AM MACHINE SHOP WORKER [facility] White Blood Cell Clumps Present(A) None Seen /HPF 09/09/2024 1:18 AM MACHINE SHOP WORKER [facility] Source Clean Catch 09/09/2024 1:18 AM MACHINE SHOP WORKER [facility] Urine URINE SPECIMEN COLLECTION, CLEAN CATCH / Unknown Non-blood Collection / Unknown 09/09/2024 1:03 AM MACHINE SHOP WORKER 09/09/2024 1:05 AM MACHINE SHOP WORKER Narrative [facility] - 09/09/2024 1:18 AM MACHINE SHOP WORKER The qualitative interpretive guidance provided (e.g., small, moderate, large) is intended to aid in quantitative result interpretation. It is not itself an FDA-cleared test result. Katiuska Brothers MD LAB_1 Performing Organization Address City/[facility]/ZIP Co de Phone Number [facility] [address] [place] [address] * (ABNORMAL) Troponin I (09/09/2024 12:36 AM MACHINE SHOP WORKER) Troponin I 0.19(H) 0.00 - 0.03 ng/mL 09/09/2024 3:12 AM MACHINE SHOP WORKER [facility] Blood Venipuncture / Unknown 09/09/2024 12:36 AM MACHINE SHOP WORKER 09/09/2024 12:39 AM MACHINE SHOP WORKER Phu Hoang MD LAB_1 [facility] [address] [place] [address], [facility] * Lactate 2 Hour (09/09/2024 12:36 AM MACHINE SHOP WORKER) Lactate, 2 Hour 1.3 0.5 - 2.0 mmol/L 09/09/2024 1:00 AM MACHINE SHOP WORKER [facility] Blood Venipuncture / Unknown 09/09/2024 12:36 AM MACHINE SHOP WORKER 09/09/2024 12:39 AM MACHINE SHOP WORKER Narrative [facility] - 09/09/2024 1:00 AM MACHINE SHOP WORKER Reference range for healthy individuals when sepsis is not suspected is 0.5-2.2 mmol/L Katiuska Brothers MD LAB_1 Performing Organization Address [facility] Co de Phone Number [facility] [place] [address], [facility] * Blood Culture (09/09/2024 12:36 AM MACHINE SHOP WORKER) Blood Culture No Growth at 5 Days RH LAB ETEST METHOD 09/14/2024 5:00 AM MACHINE SHOP WORKER [facility] Blood (Arm, left) Venipuncture / Unknown 09/09/2024 12:36 AM MACHINE SHOP WORKER 09/09/2024 12:39 AM MACHINE SHOP WORKER Katiuska Brothers MD LAB_1 Performing Organization Address [facility] Co de Phone Number [address] [address], [facility] * Blood Culture (09/08/2024 11:32 PM MACHINE SHOP WORKER) Blood Culture No Growth at 5 Days RH LAB ETEST METHOD 09/14/2024 5:00 AM MACHINE SHOP WORKER [facility] Blood (Arm, right) Venipuncture / Unknown 09/08/2024 11:32 PM MACHINE SHOP WORKER 09/08/2024 11:38 PM MACHINE SHOP WORKER Katiuska Brothers MD LAB_1 Performing Organization Address [facility]/ZIP Co de Phone Number [address] [address], [facility] * XR Chest 2 Views (09/08/2024 11:26 PM MACHINE SHOP WORKER) Anatomical Region Laterality Modality Chest, Lung Digital Radiogra phy 09/08/2024 11:2 6 PM MACHINE SHOP WORKER Narrative 09/09/2024 12:42 AM MACHINE SHOP WORKER EXAM: XR CHEST 2 VIEWS LOCATION: [facility] DATE: 09/08/2024 INDICATION: Shortness of breath. COMPARISON: 08/04/2024. IMPRESSION: Shallow inspiration. Stable cardiomediastinal silhouette. Basilar atelectasis. Atherosclerotic aorta. Degenerative change osseous structures. Procedure Note Ca Erwin MD - 09/09/2024 EXAM: XR CHEST 2 VIEWS LOCATION: [facility] DATE: 09/08/2024 INDICATION: Shortness of breath. COMPARISON: 08/04/2024. IMPRESSION: Shallow inspiration. Stable cardiomediastinal silhouette.Basilar atelectasis. Atherosclerotic aorta. Degenerative change osseousstructures. Cy Perez MD RAD GD * ECG 12 Lead Inpatient (09/08/2024 10:55 PM MACHINE SHOP WORKER) Ventricular Rate 107 BPM [facility] Atrial Rate 107 BPM [facility] P-R Interval 256 ms [facility] QRS Duration 90 ms [facility] QT 334 ms [facility] QTC 445 ms [facility] P [place] 39 degrees [facility] R [place] -27 degrees [facility] T [place] 30 degrees [facility] 09/08/2024 10:5 5 PM MACHINE SHOP WORKER Narrative [facility] - 10/25/2024 1:19 AM MACHINE SHOP WORKER Sinus tachycardia with 1st degree A-V block Otherwise normal ECG No previous ECGs available Confirmed by Katiuska Brothers ([id number]) on 10/25/2024 1:19:02 AM Procedure Note Katiuska Brothers MD - 10/25/2024 Sinus tachycardia with 1st degree A-V block Otherwise normal ECG No previous ECGs available Confirmed by Katiuska Brothers ([id number]) on 10/25/2024 1:19:02 AM Cy Perez MD PN ECG ORDERABLES Performing Organization Address City/State/[facility] Co de Phone Number [facility] [address] [place] [address] * RSV RNA, Molecular Detection (09/08/2024 10:46 PM MACHINE SHOP WORKER) [facility] RSV by PCR Not Detected Not Detected 09/08/2024 11:28 PM MACHINE SHOP WORKER [facility] Swab (Source Required) (Nasopharyngeal swab) Non-blood Collection / Unknown 09/08/2024 10:46 PM MACHINE SHOP WORKER 09/08/2024 10:48 PM MACHINE SHOP WORKER Narrative [facility] - 09/08/2024 11:28 PM MACHINE SHOP WORKER Method: Qualitative real-time PCR assay to detect RSV Viral RNA. Cy Perez MD LAB_1 Performing Organization Address [facility] de Phone Number [facility] [address] * Influenza A and B by PCR (09/08/2024 10:46 PM MACHINE SHOP WORKER) [facility] INFLUENZA A MOLECULAR Not Detected Not Detected 09/08/2024 11:28 PM MACHINE SHOP WORKER [facility] INFLUENZA B MOLECULAR Not Detected Not Detected 09/08/2024 11:28 PM MACHINE SHOP WORKER [facility] Swab (Source Required) (Nasopharyngeal swab) Non-blood Collection / Unknown 09/08/2024 10:46 PM MACHINE SHOP WORKER 09/08/2024 10:48 PM MACHINE SHOP WORKER Narrative [facility] - 09/08/2024 11:28 PM MACHINE SHOP WORKER Methodology: Qualitative real-time PCR assay to detect the Influenza type A and type B viral RNA Cy Perez MD LAB_1 Performing Organization Address [facility] de Phone Number [facility] [address] * 2019 Novel Coronavirus (COVID-19) (09/08/2024 10:46 PM MACHINE SHOP WORKER) [facility] COVID-19 Interpretation Not Detected Not Detected 09/08/2024 11:28 PM MACHINE SHOP WORKER [facility] Source Nasopharyngeal swab 09/08/2024 11:28 PM MACHINE SHOP WORKER [facility] Swab (Source Required) (Nasopharyngeal swab) Non-blood Collection / Unknown 09/08/2024 10:46 PM MACHINE SHOP WORKER 09/08/2024 10:48 PM MACHINE SHOP WORKER Narrative [facility] - 09/08/2024 11:28 PM MACHINE SHOP WORKER Test performed by real-time PCR. This test has been authorized by the FDA under an Emergency Use Authorization (EUA) for use by authorized laboratories. Cy Perez MD LAB_1 Performing Organization Address City/[facility]/ZIP Co de Phone Number [facility] [address] [place] [address] * B-Type Natriuretic Peptide (09/08/2024 10:43 PM MACHINE SHOP WORKER) [facility] B Type Natr. Peptide 39 <=99 pg/mL 09/09/2024 3:14 AM MACHINE SHOP WORKER [facility] Blood Venipuncture / Unknown 09/08/2024 10:43 PM MACHINE SHOP WORKER 09/08/2024 10:48 PM MACHINE SHOP WORKER Phu Hoang MD LAB_1 Performing Organization Address [facility] de Phone Number [facility] [address] [place] [address] * (ABNORMAL) Complete Blood Count-W/Diff (09/08/2024 10:43 PM MACHINE SHOP WORKER) [facility] WBC 5.5 3.5 - 10.5 x10(9)/L 09/08/2024 11:20 PM MACHINE SHOP WORKER [facility] RBC 4.09(L) 4.32 - 5.72 x10(12)/L 09/08/2024 11:20 PM MACHINE SHOP WORKER [facility] Hemoglobin 13.0(L) 13.5 - 17.5 g/dL 09/08/2024 11:20 PM MACHINE SHOP WORKER [facility] HCT 39.2 38.8 - 50.0 % 09/08/2024 11:20 PM MACHINE SHOP WORKER [facility] MCV 95.8 80.0 - 100.0 fL 09/08/2024 11:20 PM MACHINE SHOP WORKER [facility] MCH 31.8 27.6 - 33.3 pg 09/08/2024 11:20 PM MACHINE SHOP WORKER [facility] MCHC 33.2 31.5 - 35.2 g/dL 09/08/2024 11:20 PM MACHINE SHOP WORKER [facility] RDW 12.1 11.9 - 15.5 % 09/08/2024 11:20 PM MACHINE SHOP WORKER [facility] Platelets 163 150 - 450 x10(9)/L 09/08/2024 11:20 PM MACHINE SHOP WORKER [facility] Automated NRBC 0 <=0 /100 WBC 09/08/2024 11:20 PM MACHINE SHOP WORKER [facility] Neutrophil Absolute 5.2 1.7 - 7.0 10(9)/L 09/08/2024 11:20 PM MACHINE SHOP WORKER [facility] Lymphocyte Absolute 0.2(L) 1.0 - 4.8 10(9)/L 09/08/2024 11:20 PM MACHINE SHOP WORKER [facility] Monocyte Absolute 0.0(L) 0.2 - 0.9 10(9)/L 09/08/2024 11:20 PM MACHINE SHOP WORKER [facility] Eosinophil Absolute 0.0 0.0 - 0.5 10(9)/L 09/08/2024 11:20 PM MACHINE SHOP WORKER [facility] Basophil Absolute 0.0 0.0 - 0.3 10(9)/L 09/08/2024 11:20 PM MACHINE SHOP WORKER [facility] Immature Granulocyte % 0.4 0.0 - 0.5 % 09/08/2024 11:20 PM MACHINE SHOP WORKER [facility] Blood Venipuncture / Unknown 09/08/2024 10:43 PM MACHINE SHOP WORKER 09/08/2024 10:48 PM MACHINE SHOP WORKER Katiuska Brothers MD LAB_1 [facility] [address] * B-Type Natriuretic Peptide (09/08/2024 10:43 PM MACHINE SHOP WORKER) Pathologist [facility] B Type Natr. Peptide 48 <=99 pg/mL 09/08/2024 11:51 PM MACHINE SHOP WORKER [facility] Blood Venipuncture / Unknown 09/08/2024 10:43 PM MACHINE SHOP WORKER 09/08/2024 10:48 PM MACHINE SHOP WORKER Katiuska Brothers MD LAB_1 Performing Organization Address [facility] de Phone Number [facility] [address] * (ABNORMAL) Procalcitonin (09/08/2024 10:43 PM MACHINE SHOP WORKER) Pathologist [facility] Procalcitonin 17.10(H) <=0.24 ng/mL 09/08/2024 11:47 PM MACHINE SHOP WORKER [facility] Blood Venipuncture / Unknown 09/08/2024 10:43 PM MACHINE SHOP WORKER 09/08/2024 10:48 PM MACHINE SHOP WORKER Narrative [facility] - 09/08/2024 11:47 PM MACHINE SHOP WORKER Suspected Lower Respiratory Tract Infection (Positive imaging and respiratory symptoms present): < 0.24: Suggests non-bacterial infection. 0.25-0.49: Bacterial infection possible. Consider causes of false elevations such as CKD. >= 0.50: Suggestive of bacterial infection. Consider causes of false elevations. Clinicians should use these results in conjunction with other laboratory findings and clinical signs. Katiuska Brothers MD LAB_[email or web address] Performing Organization Address [facility] de Phone Number [facility] [address] * (ABNORMAL) Lactate Reflex Panel (09/08/2024 10:43 PM MACHINE [employer] WORK[employer]) [facility] Lactate 2.1(H) 0.5 - 2.0 mmol/L 09/08/2024 11:32 PM MACHINE [employer] [facility] Blood Venipuncture / Unknown 09/08/2024 10:43 PM MACHINE [employer] WORK[employer] 09/08/2024 10:48 PM MACHINE [employer] WORKER Narrative [facility] - 09/08/2024 11:32 PM MACHINE [employer] Reference range for healthy individuals when sepsis is not suspected is 0.5-2.2 mmol/L Katiuska Brothers MD LAB_1 Performing Organization Address [facility] de Phone Number [facility] [address] * (ABNORMAL) Basic Metabolic Panel (09/08/2024 10:43 PM MACHINE SH[employer] WORK[employer]) Sodium 138 136 - 145 mmol/L 09/08/2024 11:32 PM MACHINE [employer] [facility] Potassium 4.5 3.5 - 5.1 mmol/L 09/08/2024 11:32 PM MACHINE [employer] [facility] Chloride 107 98 - 109 mmol/L 09/08/2024 11:32 PM MACHINE [employer] [facility] CO2 20 20 - 29 mmol/L 09/08/2024 11:32 PM MACHINE [employer] [facility] Anion Gap 11 6 - 16 mmol/L 09/08/2024 11:32 PM MACHINE [employer] [facility] Calcium 8.7 8.4 - 10.4 mg/dL 09/08/2024 11:32 PM MACHINE [employer] [facility] BUN 26 7 - 26 mg/dL 09/08/2024 11:32 PM MACHINE [employer] [facility] Creatinine 1.33(H) 0.73 - 1.18 mg/dL 09/08/2024 11:32 PM MACHINE [employer] [facility] Glucose 141(H) 70 - 100 mg/dL 09/08/2024 11:32 PM MACHINE [employer] [facility] Comment:The given reference range is for the fasting state. Non-fasting reference range for glucose is 70 - 180 mg/dL. GFR, Estimated 52(L) >60 mL/min/1.7 3m2 09/08/2024 11:32 PM MACHINE [employer] Comment:>60 Blood Venipuncture / Unknown 09/08/2024 10:43 PM MACHINE SHOP WORKER 09/08/2024 10:48 PM MACHINE SHOP WORKER Katiuska Brothers MD LAB_1 Performing Organization Address City/State/[facility] Co de Phone Number [facility] [address] * Extra Light Green On Ice Tube (09/08/2024 10:43 PM MACHINE SHOP WORKER) Extra Light Green On Ice Tube Drawn Specimen will be held for 5 days 09/09/2024 12:00 AM MACHINE [employer] [facility] Blood Venipuncture / Unknown 09/08/2024 10:43 PM MACHINE SHOP WORKER 09/08/2024 10:47 PM MACHINE SHOP WORKER Cy Perez MD LAB_1 Performing Organization Address [facility]/ZIP Co de Phone Number [facility] [address] * Extra Blue top tube (09/08/2024 10:43 PM MACHINE SHOP WORKER) Extra Blue Top Drawn Specimen will be held for 24 hours 09/09/2024 12:00 AM MACHINE SH[employer] [facility] Blood Venipuncture / Unknown 09/08/2024 10:43 PM MACHINE SHOP WORKER 09/08/2024 10:48 PM MACHINE SHOP WORKER Cy Perez MD LAB_1 Performing Organization Address [facility] Co de Phone Number [facility] [address] * Extra Light Green Tube (09/08/2024 10:43 PM MACHINE SHOP WORKER) Extra Light Green Tube Drawn Specimen will be held for 5 days 09/09/2024 12:00 AM MACHINE SH[employer]ER [facility] Blood Venipuncture / Unknown 09/08/2024 10:43 PM MACHINE SHOP WORKER 09/08/2024 10:48 PM MACHINE SHOP WORKER Cy Perez MD LAB_1 Performing Organization Address [facility] de Phone Number [facility] [address] * Extra Lavender top tube (09/08/2024 10:43 PM MACHINE SHOP WORKER) Extra Lavender Top Drawn Specimen will be held for 3 days 09/09/2024 12:00 AM MACHINE SHOP WORKER [facility] Blood Venipuncture / Unknown 09/08/2024 10:43 PM MACHINE SHOP WORKER 09/08/2024 10:48 PM MACHINE SHOP WORKER Cy Perez MD LAB_1 Performing Organization Address [facility] Co de Phone Number [facility] [address] * Extra Lavender top tube (09/08/2024 10:43 PM MACHINE SHOP WORKER) Extra Lavender Top Drawn Specimen will be held for 3 days 09/09/2024 12:00 AM MACHINE SH[employer] [facility] Blood Venipuncture / Unknown 09/08/2024 10:43 PM MACHINE SHOP WORKER 09/08/2024 10:48 PM MACHINE SHOP WORKER Cy Perez MD LAB_1 [facility] [address] documented in this encounter Visit Diagnoses Diagnosis Sepsis secondary to UTI (HRC)- Primary Urinary tract infection, site not specified Sepsis, due to unspecified organism, unspecified whether acute organ dysfunction present (HRC) Pyelonephritis Pyelonephritis, unspecified Pulmonary embolism, unspecified chronicity, unspecified pulmonary embolism type, unspecified whether acute cor pulmonale present (HRC) Acute pulmonary embolism, unspecified pulmonary embolism type, unspecified whether acute cor pulmonale present (HRC) Alzheimer's dementia with behavioral disturbance (HRC) Alzheimer's disease Sepsis secondary to UTI (HRC) Urinary tract infection, site not specified Alzheimer's dementia with behavioral disturbance (HRC) Alzheimer's disease Closed displaced fracture of fifth metatarsal bone of left foot Closed fracture of metatarsal bone(s) Acute respiratory distress Other pulmonary insufficiency, not elsewhere classified Acute pulmonary embolism (HRC) Other pulmonary embolism and infarction * Plan of Care - Bobby Foote RN - 09/11/2024 6:52 PM CST Clinical Goals and Progression: PT/OT, Infection management Summary of Events: Participated well in PT/OT. Assist of 1-2 with walker, gait belt and boot. Up torecliner. 1 large BM. No complaints of pain or discomfort. O2 sats remain >90% on RA. Daughter came to visit. Response: D/c back to TCU when medically stable? INE SHOP WORKER * Plan of Care - Bobby Foote RN - 09/10/2024 6:53 PM CST Clinical Goals and Progression: Cardiac, Respiratory, and Infection management Summary of Events: Breathing improving. 98% on RA. On lasix, losartan, and xarelto. Ok to resume therapies per MD. UC + for e. Coli. Continues on PO abx. Response: Trend labs. Monitor vitals. Follow BCs. D/c when medically stable. INE SHOP WORKER * Plan of Care - Aimee Sands RN - 09/09/2024 1:11 PM CST Problem: Adult Inpatient Plan of Care Goal: Optimal Comfort and Wellbeing Outcome: Progressing Summary of Events: Pt. Disoriented to time and situation. Crackles noted to rml and rll. Sats 90's on 1L NC. Pt. Eating 100% breakfast and 50% lunch. 2-3+ BLE edema. Pt. Turned and repositioned Q2 hours. Response: Pt. Denies pain and denies sob. Will have therapy at 2 pm. INE SHOP WORKER * Plan of Care - Riki Bunch [facility] - 09/09/2024 10:28 AM CST [facility] Medication History Note 1. Source(s) of Medication Information: [place]/Dr. Rao, Care Everywhere, Chart Review 2. Pertinent Information: Recent prior to admission medication changes: None Compliance considerations: This medication history was completed by using prescription dispense data. [id number] products not assessed and left on current medication list as taking. All last dose times added prior to pharmacy review by other reviewing healthcare provider. 3. Outpatient Medications Marked as Taking: Outpatient Medications Marked as Taking for the 09/08/24 encounter (Hospital Encounter) Medication Sig Last Dose acetaminophen (TYLENOL) 325 MG tablet Take 2 Tablets (650 mg) by mouth every 6 hours. 09/08/2024 atorvastatin (LIPITOR) 10 MG tablet Take 1 Tablet (10 mg) by mouth daily. 09/08/2024 citalopram (CELEXA) 20 MG tablet Take 1 Tablet (20 mg) by mouth daily. 09/08/2024 Multiple Vitamins-Minerals (PRESERVISION AREDS 2) CAPS Take 1 Capsule by mouth two times a day. 09/08/2024 risperiDONE (RISPERDAL) 0.5 MG tablet Take 1 Tablet (0.5 mg) by mouth two times a day. 09/08/2024 rivastigmine (EXELON) 4.6 MG/24HR patch Apply 1 Patch to skin daily. 09/08/2024 Thank you, Riki Bunch PharmD 10:28 AM 09/09/2024 This list represents the best possible medication history available at the time of note completion and should be used as a guide in reconciling home medications for hospital use. ? INE SHOP WORKER * Triage Assessment Note - Venessa Gardner RN - 09/08/2024 10:27 PM MACHINE SHOP WORKER Patient arrives to the ER from a care facility for SOB via EMS. Patient has had a cough for 2days and today was SOB. Staff placed patient on oxygen and called EMS.Patient had non productive cough, runny nose and Rhonchi for EMS. Patient has no complaints other than the cough. Patient given a neb en route. Per EMS patient has a history of dementia and CHF. INE SHOP WORKER documented in this encounter Administered Medications Inactive Administered Medications - up to 3 most recent administrations Medication Order MAR Action Action Date Dose Rate Site acetaminophen (TYLENOL) tablet 650 mg 650 mg, Oral, Q6H PRN, Pain/Fever, fever greater than 101 F, Starting on Thu09/09/24 at 0241, Until Thu09/14/24 at 1628, Give for mild pain (pain score 1-4) or if patient prefers acetaminophen over other options for pain (all pain scores). Given 09/13/2024 3:15 PM MACHINE SHOP WORKER 650 mg atorvastatin (LIPITOR) tablet 10 mg 10 mg, Oral, DAILY, First dose on Thu09/09/24 at 0800, Until Discontinued Given 09/14/2024 10:45 AM MACHINE SHOP WORKER 10 mg Given 09/13/2024 8:33 AM MACHINE SHOP WORKER 10 mg Given 09/12/2024 8:14 AM MACHINE SHOP WORKER 10 mg azithromycin (ZITHROMAX) tablet 500 mg 500 mg, Oral, ONCE, On Thu09/09/24 at 0030, For 1 dose, Indications: CAP - With MDRO Risk Factors Given 09/09/2024 12:40 AM MACHINE SHOP WORKER 500 mg azithromycin (ZITHROMAX) tablet 500 mg 500 mg, Oral, Q24H (NON-STND), First dose on Thu09/09/24 at 2200, For 2 doses, Indications: CAP No risk Factors for drug resistance Given 09/10/2024 10:48 PM MACHINE SHOP WORKER 500 mg Given 09/09/2024 9:06 PM MACHINE SHOP WORKER 500 mg bisacodyl (DULCOLAX) rectal suppository 10 mg 10 mg, Rectal, DAILY PRN, Constipation, No stool in the last 3 days, Starting on Thu09/09/24 at 0241, Until Thu09/14/24 at 1628, Cumulative bowel medication orders. Administer based on medications available on DEC. If no stool in last day start Senna BID PRN no stool, if no stool in last 2 days add Miralax DAILY PRN no stool, if no stool in last 3 days add bisacodyl suppository DAILY PRN until patient stools. When patient stools, stop giving PRN meds and continue monitoring for bowel activity. When no stools X 1 day, begin regimen again until patient stools. Do not give if Absolute Neutrophil Count (ANC) is 1 k/cmm or less OR platelet count is 50 k/cmm or less. cefTRIAXone (ROCEPHIN) 2 g in sodium chloride 0.9% 20 mL IV push 2 g, Intravenous, Administer over 3-5 Minutes, Q24H (NON-STND), First dose on Thu09/09/24 at 2200, For 4 doses, Do NOT infuse in same line with Lactated Ringers (LR), TPN, or other calcium-containing IV solutions due to incompatibility. Dilute 2 gram vial with 19.2 mL sodium chloride 0.9% for slow IV push over 3-5 minutes for adults. Given 09/12/2024 10:03 PM MACHINE SHOP WORKER 2 g Given 09/11/2024 10:57 PM MACHINE SHOP WORKER 2 g Given 09/10/2024 10:49 PM MACHINE SHOP WORKER 2 g cefTRIAXone (ROCEPHIN) 2 g in sterile water for injection 20 mL premade IV syringe 2 g, Intravenous, Administer over 5 Minutes, ONCE, On Thu09/09/24 at 0030, For 1 dose, Do NOT infuse in same line with Lactated Ringers (LR), TPN, or other calcium-containing IV solutions due to incompatibility. Administer IV push over 5 minutes. Given 09/09/2024 12:43 AM MACHINE SHOP WORKER 2 g 240 mL/hr citalopram (CeleXA) tablet 20 mg 20 mg, Oral, DAILY, First dose on Thu09/09/24 at 0800, Until Discontinued Given 09/14/2024 10:45 AM MACHINE SHOP WORKER 20 mg Given 09/13/2024 8:34 AM MACHINE SHOP WORKER 20 mg Given 09/12/2024 8:14 AM MACHINE SHOP WORKER 20 mg enoxaparin (LOVENOX) prefilled syringe 100 mg 100 mg, Subcutaneous, ONCE, On Thu09/09/24 at 0300, For 1 dose, Inject subcutaneously into abdominal tissue only. HIGH ALERT medication Given 09/09/2024 4:41 AM MACHINE SHOP WORKER 100 mg Abdominal Tissue furosemide (LASIX) injection 20 mg 20 mg, Intravenous, ONCE, On Thu09/09/24 at 1415, For 1 dose, IV Push maximum rate is 20mg/min. IVPB to be infused over 15 minutes. Given 09/09/2024 3:16 PM MACHINE SHOP WORKER 20 mg furosemide (LASIX) tablet 20 mg 20 mg, Oral, DAILY, First dose on 09/10/24 at 0800, Until Discontinued Given 09/14/2024 10:45 AM MACHINE SHOP WORKER 20 mg Given 09/13/2024 8:34 AM MACHINE SHOP WORKER 20 mg Given 09/12/2024 8:14 AM MACHINE SHOP WORKER 20 mg iohexol (OMNIPAQUE 350) 350 MG/ML injection 100 mL 100 mL, Intravenous, ONCE, On Thu09/09/24 at 0245, For 1 dose, Radiology Given 09/09/2024 2:19 AM MACHINE SHOP WORKER 70 mL ipratropium-albuterol (DUONEB) 0.5-2.5 (3) mg/3ml nebulizer solution 3 mL 3 mL, Inhalation, ONCE, On Lia 09/08/24 at 2300, For 1 dose, For wheezing and/or shortness of breath Given 09/08/2024 10:49 PM MACHINE SHOP WORKER 3 mL losartan (COZAAR) tablet 25 mg 25 mg, Oral, DAILY, First dose on 11/30/24 at 1300, Until Discontinued Given 09/14/2024 10:45 AM MACHINE SHOP WORKER 25 mg Given 09/13/2024 8:33 AM MACHINE SHOP WORKER 25 mg Given 09/12/2024 8:14 AM MACHINE SHOP WORKER 25 mg melatonin tablet 3 mg 3 mg, Oral, HS PRN, Other, Mild insomnia, Starting on Thu09/09/24 at 0241, Until Thu09/14/24 at 1628 Given 09/13/2024 7:48 PM MACHINE SHOP WORKER 3 mg metoclopramide (REGLAN) injection 5 mg 5 mg, Intravenous, Q6H PRN, Nausea, Vomiting, Starting on Thu09/09/24 at 0241, Until Thu09/14/24 at 1628, Give 1st line medications, then 2nd line, then 3rd line. Progress to next line if medication is ineffective after 15 minutes, or has been previously ineffective, or if a medication for a line is not ordered. May use medication from any line if patient preference indicates. If 3rd line agent is ineffective, call Practitioner. If unable to give IV medications contact Practitioner. Aromatherapy may be used at any time as adjunct therapy. 1st Line - ondansetron (give ondansetron ODT (oral) if able to take oral, otherwise give IV) 2nd Line -prochlorperazine 3rd Line - metoclopramide ondansetron (ZOFRAN) injection 4 mg 4 mg, Intravenous, Q6H PRN, Nausea, Vomiting, Other, If unable to take ODT ondansetron, Starting on Thu09/09/24 at 0241, Until Thu09/14/24 at 1628, Give 1st line medications, then 2nd line, then 3rd line. Progress to next line if medication is ineffective after 15 minutes, or has been previously ineffective, or if a medication for a line is not ordered. May use medication from any line if patient preference indicates. If 3rd line agent is ineffective, call Practitioner. If unable to give IV medications contact Practitioner. Aromatherapy may be used at any time as adjunct therapy. 1st line: ondansetron (give ondansetron ODT (oral) if able to take oral, otherwise give IV) 2nd line: prochlorperazine 3rd line: metoclopramide ondansetron (ZOFRAN-ODT) disintegrating tablet 4 mg 4 mg, Oral, Q6H PRN, Vomiting, Nausea, Starting on Thu09/09/24 at 0241, Until Thu09/14/24 at 1628, Give 1st line medications, then 2nd line, then 3rd line. Progress to next line if medication is ineffective after 15 minutes, or has been previously ineffective, or if a medication for a line is not ordered. May use medication from any line if patient preference indicates. If 3rd line agent is ineffective, call Practitioner. If unable to give IV medications contact Practitioner. Aromatherapy may be used at any time as adjunct therapy. 1st line: ondansetron (give ondansetron ODT (oral) if able to take oral, otherwise give IV) 2nd line: prochlorperazine 3rd line: metoclopramide polyethylene glycol (MIRALAX) oral powder 17 g 17 g, Oral, DAILY PRN, Constipation, No stool in the last 2 days, Starting on Thu09/09/24 at 0241, Until Thu09/14/24 at 1628, Cumulative bowel medication orders. Administer based on medications available on DEC. If no stool in last day start Senna BID PRN no stool, if no stool in last 2 days add Miralax DAILY PRN no stool, if no stool in last 3 days add bisacodyl suppository DAILY PRN until patient stools. When patient stools, stop giving PRN meds and continue monitoring for bowel activity. When no stools X 1 day, begin regimen again until patient stools. prochlorperazine (COMPAZINE) injection 5 mg 5 mg, Intravenous, Q6H PRN, Nausea, Vomiting, Starting on Thu09/09/24 at 0241, Until Thu09/14/24 at 1628, Give 1st line medications, then 2nd line, then 3rd line. Progress to next line if medication is ineffective after 15 minutes, or has been previously ineffective, or if a medication for a line is not ordered. May use medication from any line if patient preference indicates. If 3rd line agent is ineffective, call Practitioner. If unable to give IV medications contact Practitioner. Aromatherapy may be used at any time as adjunct therapy. 1st Line - ondansetron (give ondansetron ODT (oral) if able to take oral, otherwise give IV) 2nd Line -prochlorperazine 3rd Line - metoclopramide risperiDONE (RisperDAL) tablet 0.5 mg 0.5 mg, Oral, BID, First dose on Thu09/09/24 at 0800, Until Discontinued Given 09/14/2024 10:45 AM MACHINE SHOP WORKER 0.5 mg Given 09/13/2024 7:48 PM MACHINE SHOP WORKER 0.5 mg Given 09/13/2024 8:33 AM MACHINE SHOP WORKER 0.5 mg rivaroxaban (XARELTO) tablet 15 mg 15 mg, Oral, BID WITH MEALS, First dose (after last modification) on Thu09/09/24 at 1622, Last dose on Thu09/30/24 at 0800, For 42 doses, Give with food HIGH ALERT medication, Indications: Venous Thromboembolism Given 09/14/2024 11:08 AM MACHINE SHOP WORKER 15 mg Given 09/13/2024 5:12 PM MACHINE SHOP WORKER 15 mg Given 09/13/2024 8:33 AM MACHINE SHOP WORKER 15 mg rivaroxaban (XARELTO) tablet 20 mg 20 mg, Oral, DAILY WITH MEAL, First dose (after last modification) on Thu10/01/24 at 0800, Until Discontinued, Give with food HIGH ALERT medication, Indications: Venous Thromboembolism rivastigmine (EXELON) 4.6 MG/24HR patch 1 Patch 1 Patch, Transdermal, DAILY, First dose on Thu09/09/24 at 0800, Until Discontinued, Avoid re-application to same site within 14 days. Patch Applied 09/14/2024 10:53 AM MACHINE SHOP WORKER 1 Patch Right Arm Patch Applied 09/13/2024 8:33 AM MACHINE SHOP WORKER 1 Patch Left Shoulder Patch Applied 09/12/2024 8:16 AM MACHINE SHOP WORKER 1 Patch Right Arm senna (SENOKOT) tablet 2 Tablet 2 Tablet, Oral, BID PRN, Constipation, No stool in the last day, Starting on Thu09/09/24 at 0241, Until Thu09/14/24 at 1628, Cumulative bowel medication orders. Administer based on medications available on DEC. If no stool in last day start Senna BID PRN no stool, if no stool in last 2 days add Miralax DAILY PRN no stool, if no stool in last 3 days add bisacodyl suppository DAILY PRN until patient stools. When patient stools, stop giving PRN meds and continue monitoring for bowel activity. When no stools X 1 day, begin regimen again until patient stools. sodium chloride 0.9% bolus 1,000 mL 1,000 mL, Intravenous, Administer over 0.5-1 Hours, ONCE, On Lia 09/08/24 at 2330, For 1 dose, Fluid Resuscitation to MAP 65 or greater or Lactate less than 4 or SVo2 greater than 65% and CVP greater than 8. Notify practitioner if CVP and MAP remain low following bolus for a repeat bolus order. Notify charge nurse if unable to establish large bore IV within 30 minutes. Fluid bolus should be given over 30-60 minutes using pressure bags, etc as needed to ensure normal saline is given in the recommended time. Started 09/08/2024 11:35 PM MACHINE SHOP WORKER 1,000 mL sodium chloride 0.9% injection 10 mL 10 mL, Intravenous, ONCE, On Thu09/09/24 at 0245, For 1 dose, Radiology Given 09/09/2024 2:19 AM MACHINE SHOP WORKER 10 m L sodium chloride 0.9% injection 10-60 mL 10-60 mL, Intravenous, PRN, Line Patency, Line Care, Starting on Thu09/09/24 at 0934, Until Thu09/14/24 at 1628, Pre-Procedure Given 09/12/2024 10:21 PM MACHINE SHOP WORKER 10 mL Given 09/09/2024 9:20 AM MACHINE SHOP WORKER 10 mL sulfur hexafluoride microsphere (LUMASON) injection 2-4 mL 2-4 mL, Intravenous, ONCE, On Thu09/09/24 at 1000, For 1 dose, Reconstitute with 5mL additive-free 0.9% Sodium Chloride per roughing mill operator instruction. For echocardiography in adults: After reconstitution, administer 2mL as an IV injection. May repeat dose one time during a single examination. Follow each injection with an IV flush of 0.9% Sodium Chloride injection. Reconstitute with 5mL additive-free 0.9% Sodium Chloride per roughing mill operator instruction., HVC Card Given 09/09/2024 9:20 AM MACHINE SHOP WORKER 4 mL documented in this encounter Active and Recently Administered Medications Times are shown in MACHINE SHOP WORKER. Scheduled Medication Order 09/12/2024 09/13/2024 09/14/2024 atorvastatin (LIPITOR) tablet 10 mg 10 mg, Oral, DAILY, First dose on Thu09/09/24 at 0800, Until Discontinued 0814 (Given - Provider: Margi Paula RN) 0833 (Given - Provider: Ileana Newman RN) 1045 (Given - Provider: Tianna Awan RN) cefTRIAXone (ROCEPHIN) 2 g in sodium chloride 0.9% 20 mL IV push (COMPLETED) 2 g, Intravenous, Administer over 3-5 Minutes, Q24H (NON-STND), First dose on Thu09/09/24 at 2200, For 4 doses, Do NOT infuse in same line with Lactated Ringers (LR), TPN, or other calcium-containing IV solutions due to incompatibility. Dilute 2 gram vial with 19.2 mL sodium chloride 0.9% for slow IV push over 3-5 minutes for adults. 2202 (Given - Provider: Tootie Benitez RN) citalopram (CeleXA) tablet 20 mg 20 mg, Oral, DAILY, First dose on Thu09/09/24 at 0800, Until Discontinued 0814 (Given - Provider: Margi Paula RN) 0834 (Given - Provider: Ileana Newman RN) 1045 (Given - Provider: Tianna Awan RN) furosemide (LASIX) tablet 20 mg 20 mg, Oral, DAILY, First dose on Thu09/10/24 at 0800, Until Discontinued 0814 (Given - Provider: Margi Paula RN) 0834 (Given - Provider: Ileana Newman RN) 1045 (Given - Provider: Tianna Awan RN) losartan (COZAAR) tablet 25 mg 25 mg, Oral, DAILY, First dose on Thu09/10/24 at 1300, Until Discontinued 0814 (Given - Provider: Margi Paula RN) 0833 (Given - Provider: Ileana Newman RN) 1045 (Given - Provider: Tianna Awan RN) risperiDONE (RisperDAL) tablet 0.5 mg 0.5 mg, Oral, BID, First dose on Thu09/09/24 at 0800, Until Discontinued 0814 (Given - Provider: Margi Paula RN)2152 (Given - Provider: Tootie Benitez RN) 0833 (Given - Provider: Ileana Newman RN)1948 (Given - Provider: Easton Bright RN) 1045 (Given - Provider: Tianna Awan RN) rivaroxaban (XARELTO) tablet 15 mg(Linked Group 1) 15 mg, Oral, BID WITH MEALS, First dose (after last modification) on Thu09/09/24 at 1622, Last dose on Thu09/30/24 at 0800, For 42 doses, Give with food HIGH ALERT medication, Indications: Venous Thromboembolism 0814 (Given - Provider: Margi Paula RN)1752 (Given - Provider: Margi Paula RN) 0833 (Given - Provider: Ileana Newman RN)1712 (Given - Provider: Ileana Newman, KIA) 1108 (Given - Provider: Tianna Awan RN) rivaroxaban (XARELTO) tablet 20 mg(Linked Group 1) 20 mg, Oral, DAILY WITH MEAL, First dose (after last modification) on Thu10/01/24 at 0800, Until Discontinued, Give with food HIGH ALERT medication, Indications: Venous Thromboembolism rivastigmine (EXELON) 4.6 MG/24HR patch 1 Patch 1 Patch, Transdermal, DAILY, First dose on Thu09/09/24 at 0800, Until Discontinued, Avoid re-application to same site within 14 days. 0815 (Patch Removed - Provider: Margi Paula RN)0816 (Patch Applied - Provider: Margi Paula RN) 0832 (Patch Removed - Provider: Ileana Newman RN)0833 (Patch Applied - Provider: Ileana Newman, KIA) 1048 (Patch Removed - Provider: Tianna Awan RN)1053 (Patch Applied - Provider: Tianna Awan RN) PRN Medication Order 09/12/2024 09/13/2024 09/14/2024 acetaminophen (TYLENOL) tablet 650 mg 650 mg, Oral, Q6H PRN, Pain/Fever, fever greater than 101 F, Starting on Thu09/09/24 at 0241, Until Thu09/14/24 at 1628, Give for mild pain (pain score 1-4) or if patient prefers acetaminophen over other options for pain (all pain scores). 1515 (Given - Provider: Ileana Newman RN) benzocaine-menthol (Chloraseptic) lozenge 1 Lozenge 1 Lozenge, Oral, Q2H PRN, Throat Pain, Starting on Thu09/09/24 at 0241, Until Thu09/14/24 at 1628 bisacodyl (DULCOLAX) rectal suppository 10 mg(Linked Group 2) 10 mg, Rectal, DAILY PRN, Constipation, No stool in the last 3 days, Starting on Thu09/09/24 at 0241, Until Thu09/14/24 at 1628, Cumulative bowel medication orders. Administer based on medications available on DEC. If no stool in last day start Senna BID PRN no stool, if no stool in last 2 days add Miralax DAILY PRN no stool, if no stool in last 3 days add bisacodyl suppository DAILY PRN until patient stools. When patient stools, stop giving PRN meds and continue monitoring for bowel activity. When no stools X 1 day, begin regimen again until patient stools. Do not give if Absolute Neutrophil Count (ANC) is 1 k/cmm or less OR platelet count is 50 k/cmm or less. calcium carbonate (TUMS) chewable tablet 500 mg 500 mg, Oral, Q4H PRN, Heartburn, Upset Stomach, Starting on Thu09/09/24 at 0241, Until Thu09/14/24 at 1628, Each tablet provides 200 mg elemental calcium guaiFENesin (ROBITUSSIN) oral liquid 10 mL 10 mL, Oral, Q4H PRN, Cough, Starting on Thu09/09/24 at 0241, Until Thu09/14/24 at 1628 melatonin tablet 3 mg 3 mg, Oral, HS PRN, Other, Mild insomnia, Starting on Thu09/09/24 at 0241, Until Thu09/14/24 at 1628 1948 (Given - Provider: Easton Bright RN) metoclopramide (REGLAN) injection 5 mg(Linked Group 3) 5 mg, Intravenous, Q6H PRN, Nausea, Vomiting, Starting on Thu09/09/24 at 0241, Until Thu09/14/24 at 1628, Give 1st line medications, then 2nd line, then 3rd line. Progress to next line if medication is ineffective after 15 minutes, or has been previously ineffective, or if a medication for a line is not ordered. May use medication from any line if patient preference indicates. If 3rd line agent is ineffective, call Practitioner. If unable to give IV medications contact Practitioner. Aromatherapy may be used at any time as adjunct therapy. 1st Line - ondansetron (give ondansetron ODT (oral) if able to take oral, otherwise give IV) 2nd Line -prochlorperazine 3rd Line - metoclopramide nystatin (MYCOSTATIN) 672999 UNIT/GM topical powder Topical, BID PRN, Other, for rash due to yeast, Starting on Thu09/09/24 at 0241, Apply topically to affected area. Hazardous waste disposal required. ondansetron (ZOFRAN) injection 4 mg(Linked Group 3) 4 mg, Intravenous, Q6H PRN, Nausea, Vomiting, Other, If unable to take ODT ondansetron, Starting on Thu09/09/24 at 0241, Until Thu09/14/24 at 1628, Give 1st line medications, then 2nd line, then 3rd line. Progress to next line if medication is ineffective after 15 minutes, or has been previously ineffective, or if a medication for a line is not ordered. May use medication from any line if patient preference indicates. If 3rd line agent is ineffective, call Practitioner. If unable to give IV medications contact Practitioner. Aromatherapy may be used at any time as adjunct therapy. 1st line: ondansetron (give ondansetron ODT (oral) if able to take oral, otherwise give IV) 2nd line: prochlorperazine 3rd line: metoclopramide ondansetron (ZOFRAN-ODT) disintegrating tablet 4 mg(Linked Group 3) 4 mg, Oral, Q6H PRN, Vomiting, Nausea, Starting on Thu09/09/24 at 0241, Until Thu09/14/24 at 1628, Give 1st line medications, then 2nd line, then 3rd line. Progress to next line if medication is ineffective after 15 minutes, or has been previously ineffective, or if a medication for a line is not ordered. May use medication from any line if patient preference indicates. If 3rd line agent is ineffective, call Practitioner. If unable to give IV medications contact Practitioner. Aromatherapy may be used at any time as adjunct therapy. 1st line: ondansetron (give ondansetron ODT (oral) if able to take oral, otherwise give IV) 2nd line: prochlorperazine 3rd line: metoclopramide polyethyl-propylene glycol (SYSTANE) 0.4-0.3 % ophthalmic solution 1 Drop 1 Drop, Both Eyes, Q1H PRN, Dry Eyes, Itchy Eyes, Starting on Thu09/09/24 at 0241, Until Thu09/14/24 at 1628 polyethylene glycol (MIRALAX) oral powder 17 g(Linked Group 2) 17 g, Oral, DAILY PRN, Constipation, No stool in the last 2 days, Starting on Thu09/09/24 at 0241, Until Thu09/14/24 at 1628, Cumulative bowel medication orders. Administer based on medications available on DEC. If no stool in last day start Senna BID PRN no stool, if no stool in last 2 days add Miralax DAILY PRN no stool, if no stool in last 3 days add bisacodyl suppository DAILY PRN until patient stools. When patient stools, stop giving PRN meds and continue monitoring for bowel activity. When no stools X 1 day, begin regimen again until patient stools. prochlorperazine (COMPAZINE) injection 5 mg(Linked Group 3) 5 mg, Intravenous, Q6H PRN, Nausea, Vomiting, Starting on Thu09/09/24 at 0241, Until Thu09/14/24 at 1628, Give 1st line medications, then 2nd line, then 3rd line. Progress to next line if medication is ineffective after 15 minutes, or has been previously ineffective, or if a medication for a line is not ordered. May use medication from any line if patient preference indicates. If 3rd line agent is ineffective, call Practitioner. If unable to give IV medications contact Practitioner. Aromatherapy may be used at any time as adjunct therapy. 1st Line - ondansetron (give ondansetron ODT (oral) if able to take oral, otherwise give IV) 2nd Line -prochlorperazine 3rd Line - metoclopramide senna (SENOKOT) tablet 2 Tablet(Linked Group 2) 2 Tablet, Oral, BID PRN, Constipation, No stool in the last day, Starting on Thu09/09/24 at 0241, Until Thu09/14/24 at 1628, Cumulative bowel medication orders. Administer based on medications available on DEC. If no stool in last day start Senna BID PRN no stool, if no stool in last 2 days add Miralax DAILY PRN no stool, if no stool in last 3 days add bisacodyl suppository DAILY PRN until patient stools. When patient stools, stop giving PRN meds and continue monitoring for bowel activity. When no stools X 1 day, begin regimen again until patient stools. sodium chloride (OCEAN) 0.65 % nasal solution 1 [place] 1 [place], Both Nostrils, Q2H PRN, Dry Nose, Starting on Thu09/09/24 at 0241, Until Thu09/14/24 at 1628 sodium chloride 0.9% injection 10-60 mL 10-60 mL, Intravenous, PRN, Line Patency, Line Care, Starting on Thu09/09/24 at 0934, Until Thu09/14/24 at 1628, Pre-Procedure 2221 (Given - Provider: Tootie Benitez RN) Linked Groups Order Group 1: rivaroxaban (XARELTO) tablet 15 mgJump to med 15 mg, Oral, BID WITH MEALS, First dose (after last modification) on Thu09/09/24 at 1622, Last dose on Thu09/30/24 at 0800, For 42 doses, Give with food HIGH ALERT medication, Indications: Venous Thromboembolism Followed by rivaroxaban (XARELTO) tablet 20 mgJump to med 20 mg, Oral, DAILY WITH MEAL, First dose (after last modification) on Thu10/01/24 at 0800, Until Discontinued, Give with food HIGH ALERT medication, Indications: Venous Thromboembolism Group 2: senna (SENOKOT) tablet 2 TabletJump to med 2 Tablet, Oral, BID PRN, Constipation, No stool in the last day, Starting on Thu09/09/24 at 0241, Until Thu09/14/24 at 1628, Cumulative bowel medication orders. Administer based on medications available on DEC. If no stool in last day start Senna BID PRN no stool, if no stool in last 2 days add Miralax DAILY PRN no stool, if no stool in last 3 days add bisacodyl suppository DAILY PRN until patient stools. When patient stools, stop giving PRN meds and continue monitoring for bowel activity. When no stools X 1 day, begin regimen again until patient stools. And polyethylene glycol (MIRALAX) oral powder 17 gJump to med 17 g, Oral, DAILY PRN, Constipation, No stool in the last 2 days, Starting on Thu09/09/24 at 0241, Until Thu09/14/24 at 1628, Cumulative bowel medication orders. Administer based on medications available on DEC. If no stool in last day start Senna BID PRN no stool, if no stool in last 2 days add Miralax DAILY PRN no stool, if no stool in last 3 days add bisacodyl suppository DAILY PRN until patient stools. When patient stools, stop giving PRN meds and continue monitoring for bowel activity. When no stools X 1 day, begin regimen again until patient stools. And bisacodyl (DULCOLAX) rectal suppository 10 mgJump to med 10 mg, Rectal, DAILY PRN, Constipation, No stool in the last 3 days, Starting on Thu09/09/24 at 0241, Until Thu09/14/24 at 1628, Cumulative bowel medication orders. Administer based on medications available on DEC. If no stool in last day start Senna BID PRN no stool, if no stool in last 2 days add Miralax DAILY PRN no stool, if no stool in last 3 days add bisacodyl suppository DAILY PRN until patient stools. When patient stools, stop giving PRN meds and continue monitoring for bowel activity. When no stools X 1 day, begin regimen again until patient stools. Do not give if Absolute Neutrophil Count (ANC) is 1 k/cmm or less OR platelet count is 50 k/cmm or less. Group 3: ondansetron (ZOFRAN-ODT) disintegrating tablet 4 mgJump to med 4 mg, Oral, Q6H PRN, Vomiting, Nausea, Starting on Thu09/09/24 at 0241, Until Thu09/14/24 at 1628, Give 1st line medications, then 2nd line, then 3rd line. Progress to next line if medication is ineffective after 15 minutes, or has been previously ineffective, or if a medication for a line is not ordered. May use medication from any line if patient preference indicates. If 3rd line agent is ineffective, call Practitioner. If unable to give IV medications contact Practitioner. Aromatherapy may be used at any time as adjunct therapy. 1st line: ondansetron (give ondansetron ODT (oral) if able to take oral, otherwise give IV) 2nd line: prochlorperazine 3rd line: metoclopramide And ondansetron (ZOFRAN) injection 4 mgJump to med 4 mg, Intravenous, Q6H PRN, Nausea, Vomiting, Other, If unable to take ODT ondansetron, Starting on Thu09/09/24 at 0241, Until Thu09/14/24 at 1628, Give 1st line medications, then 2nd line, then 3rd line. Progress to next line if medication is ineffective after 15 minutes, or has been previously ineffective, or if a medication for a line is not ordered. May use medication from any line if patient preference indicates. If 3rd line agent is ineffective, call Practitioner. If unable to give IV medications contact Practitioner. Aromatherapy may be used at any time as adjunct therapy. 1st line: ondansetron (give ondansetron ODT (oral) if able to take oral, otherwise give IV) 2nd line: prochlorperazine 3rd line: metoclopramide And prochlorperazine (COMPAZINE) injection 5 mgJump to med 5 mg, Intravenous, Q6H PRN, Nausea, Vomiting, Starting on Thu09/09/24 at 0241, Until Thu09/14/24 at 1628, Give 1st line medications, then 2nd line, then 3rd line. Progress to next line if medication is ineffective after 15 minutes, or has been previously ineffective, or if a medication for a line is not ordered. May use medication from any line if patient preference indicates. If 3rd line agent is ineffective, call Practitioner. If unable to give IV medications contact Practitioner. Aromatherapy may be used at any time as adjunct therapy. 1st Line - ondansetron (give ondansetron ODT (oral) if able to take oral, otherwise give IV) 2nd Line -prochlorperazine 3rd Line - metoclopramide And metoclopramide (REGLAN) injection 5 mgJump to med 5 mg, Intravenous, Q6H PRN, Nausea, Vomiting, Starting on Thu09/09/24 at 0241, Until Thu09/14/24 at 1628, Give 1st line medications, then 2nd line, then 3rd line. Progress to next line if medication is ineffective after 15 minutes, or has been previously ineffective, or if a medication for a line is not ordered. May use medication from any line if patient preference indicates. If 3rd line agent is ineffective, call Practitioner. If unable to give IV medications contact Practitioner. Aromatherapy may be used at any time as adjunct therapy. 1st Line - ondansetron (give ondansetron ODT (oral) if able to take oral, otherwise give IV) 2nd Line -prochlorperazine 3rd Line - metoclopramide documented in this encounter Additional Health Concerns Infection Onset Date Last Indicated Resolved Time R/O COVID19 09/08/2024 09/08/2024 09/08/2024 11:2 8 PM MACHINE SHOP WORKER documented as of this encounter Care Teams Tool And Die Maker Level Five Relationship Specialty Start Date End Date Balaji Gallegos DO [address] [place] [address] PCP - General Family Practice 10/31/21 documented as of this encounter
--- OUTSIDE RECORDS SUMMARY | 2024-10-28 15:29 | XMS_ITS | Encounter Summary ---
Author Organization [facility] [employer] Address [address] [place] [address] Care Team Providers Care Trench Pipe Layer Helper Name Role Phone Balaji Gallegos DO Primary Care Provider Reason for Visit * Reason Comments Initial Assessment Encounter Details Date Type Department Care Team (Late st Contact Info) Description 09/15/2024 Geriatrics [facility] Transitional Care [address] [facility] [place] [address] Rubia Villanueva, POLICY LOAN CALCULATOR, FUR FINISHER [address] [place], [place] [id number] Initial Assessment Social History Tobacco Use Types Packs/Day Years Used Date Smoking Tobacco: Former Passive Smoke Exposure: Never Smokeless Tobacco: Never Alcohol Use Standard Drinks/Week Comments Not Currently 0 (1 standard drink = 0.6 oz pur e alcohol) [facility] Utilities Answer Date Recorded In the [...] any time in the past 12 m [facility], were you homeless or living in a fpc (including now)? No 09/09/2024 Sex and Gender Information Value Date Recorded Sex Assigned at Not on file Gender Identity Not on file Sexual Orientation Not on file documented as of this encounter Last Filed Vital Signs Vital Sign Reading Time Taken Comments Blood Pressure 116/59 09/15/2024 8:52 AM DIRECTOR INPATIENT HEADACHE PROGRAM Pulse 73 09/15/2024 8:52 AM DIRECTOR INPATIENT HEADACHE PROGRAM Temperature 36.1 C (97 F) 09/15/2024 8:52 AM DIRECTOR INPATIENT HEADACHE PROGRAM Respiratory Rate 16 09/15/2024 8:52 AM DIRECTOR INPATIENT HEADACHE PROGRAM Oxygen Saturation 93% 09/15/2024 8:52 AM DIRECTOR INPATIENT HEADACHE PROGRAM Inhaled Oxygen Concentration - - Weight 97.4 kg (214 lb 12.8 oz) 09/15/2024 8:52 AM DIRECTOR INPATIENT HEADACHE PROGRAM Height - - Body Mass Index 30.82 09/09/2024 4:15 AM DIRECTOR INPATIENT HEADACHE PROGRAM documented in this encounter Progress Notes * Rubia Villanueva, POLICY LOAN CALCULATOR, FUR FINISHER - 09/15/2024 8:51 AM CST [facility] Transitional Care Comprehensive Visit Community [facility]Way Jean-Paul Andre, date of 1940, is currently in transitional care at [facility]. This visit on 09/15/2024 is conducted to perform the initial assessment and establish the plan of care. Primary Care Provider: Balaji Gallegos DO History of Present Illness: 84 y.o. old male with past medical history of essential hypertension, anxiety, Alzheimer's dementia living with his at home, obesity with BMI 31, and lumbar osteomyelitis in 2017 admitted to [facility] on 08/30/2024 for a fall with subsequent 5th metatarsal f racture base of left foot. Per [facility] discharge summary on 09/02/2024: Fall Closed displaced [...] extremity edema, and confusion on 09/08/24 at [facility] TCU and was transferred to [facility] and subsequently found to have a pulmonary embolism and urinary tract infection. Per [facility] discharge summary on 09/14/2024: # Sepsis secondary to UTI (HRC)-resolved #UTI-completed treatment -Met criteria for sepsis with fever to 100.6?? F, tachycardia, elevated procalcitonin, elevated lactate, urinary source w/abnormal UA. Ucx + for E.coli susceptible to Rocephin. -was initiated on Rocephin on 09/08. Completed 4 days of IV therapy; plan to complete course with cefuroxime PO for additional 3 days at vt. - white blood cell count: 7.9 down [...] on 09/14/2024 for rehabilitation and clinical monitoring. Since arriving to the transitional care center: Jean-Paul was sitting in his room in his recliner chair and stated he was comfortable and not having shortness of breath. He is not having pain in his left foot and has his CAM boot on. He is not havinga cough. He states he is not having suprapubic pain and does not have pain with urination. Blood pressures have been soft 100-110/50s with heart rates 70-80s. He has been afebrile. Plan for follow-upwith thrombosis clinic follow-up. I called his and we discussed the plan for management of PE with heart failure. Review of Systems: A 10-point review of systems was obtained and was negative except as noted in the HPI Patient Active Problem List Diagnosis Overweight (BMI 25.0-29.9) (HRC) Melanoma of skin (HRC) Hyperlipidemia (HRC) Anxiety (HRC) Essential hypertension (HRC) Exudative age-related macular degeneration (HRC) Alzheimer's dementia with behavioral disturbance (HRC) Low serum vitamin B12 (HRC) Heart failure, unspecified (HRC) Closed displaced fracture of fifth metatarsal bone of left foot Acute pulmonary embolism (HRC) Current Outpatient Medications Medication Sig Dispense Refill acetaminophen (TYLENOL) 325 MG tablet Take 2 Tablets (650 mg) by mouth every 6 hours. 100 Tablet 11 atorvastatin (LIPITOR) 10 MG tablet Take 1 Tablet (10 mg) by mouth daily. 90 Tablet 3 cefuroxime (CEFTIN) 500 MG tablet Take 0.5 Tablets (250 mg) by mouth two times a day. 6 Tablet 0 citalopram (CELEXA) 20 MG tablet Take 1 Tablet (20 mg) by mouth daily. 90 Tablet 3 furosemide (LASIX) 20 MG tablet Take 1 Tablet (20 mg) by mouth daily for 30 doses. 30 Tablet 0 losartan (COZAAR) 25 MG tablet Take 1 Tablet (25 mg) by mouth daily for 90 doses. 90 Tablet 0 Multiple Vitamins-Minerals (PRESERVISION AREDS 2) CAPS Take [...] No current facility-administered medications for this visit. Allergies: has No Known Allergies. Family History: family history is not on file. Social History Social History Narrative Not on file Advance Directives: Full Code (full attempts at resuscitation including intubation); POLST completed on 09/15/24 Recent Diagnostic/Laboratory Tests: Lab Results Component Value Date WBC 7.9 09/13/2024 RBC 3.78 (L) 09/13/2024 Hemoglobin 11.8 (L) 09/13/2024 HCT 36.4 (L) 09/13/2024 MCV 96.3 09/13/2024 RDW 12.2 09/13/2024 Platelets 212 09/13/2024 Lab Results Component Value Date Creatinine 1.06 09/13/2024 Glucose 113 (H) 09/13/2024 Bedside Blood Glucose Test N/A 08/25/2002 Bedside Blood Glucose Test N/A 08/25/2002 CO2 22 09/13/2024 Chloride 108 09/13/2024 Potassium 4.4 09/13/2024 Sodium 139 09/13/2024 BUN 20 09/13/2024 Calcium 8.5 09/13/2024 GFR, Estimated >60 09/13/2024 Lab Results Component Value Date Hemoglobin 11.8 (L) 09/13/2024 Hemoglobin 11.8 (L) 09/09/2024 Hemoglobin 10.6 (L) 09/09/2024 Physical Examination: BP 116/59 Pulse 73 Temp 36.1 ??C (97 ??F) Resp 16 Wt 97.4 kg (214 lb 12.8 oz) SpO2 93% BMI 30.82 kg/m?? Constitutional: alert, in no acute distress, engages in conversation, and sitting in chair Respiratory: clear to auscultation bilaterally and respirations regular and non- labored with no cough Cardiovascular: normal rate, regular rhythm, 1+ bilateral pedal edema, and S1, S2 normal Musculoskeletal: extremities without gross deformity and CAM boot on to left foot; Motor intact to left foot Gastrointestinal: abdomen soft, non-tender, and active bowel sounds are present Integumentary: no rash Neurological: alert , articulate speech, and cranial nerves grossly intact Psychiatric: not depressed, agitated or anxious, cooperative, and memory impaired Assessment and Plan: 1. Acute pulmonary embolism, unspecified pulmonary embolism type, unspecified whether acute cor pulmonale present (HRC) 2. Acute on chronic diastolic HF (heart failure) (HRC) Continues on rivaroxaban 15 mg BID until 09/30 then decrease to 20 mg daily on 10/01. Plan for thrombosis clinic consult on 09/23. PE with RV strain and RV hypokinesis and EF 50% on echocardiogram. Did not and does not require supplemental oxygen. Plan to treat as provoked PE for at least 3 months with anticoagulation. Started on furosemide 20 mg daily and losartan 25 mg daily. Will repeat BMP on09/16. Will start low-sodium and heart healthy diet. Will order daily weights with notify parametersgiven. 3. E. coli UTI E. Coli UTI treated with Rocephin and discharged with cefuroxime 250 mg BID for 3 days to end on 09/17. Will repeat CBC with diff on 09/16. 4. Closed displaced fracture of fifth metatarsal bone of left foot with routine healing, subsequentencounter Pain well controlled with scheduled acetaminophen. Continues with WBAT with CAM boot on to left foot. Okay to remove CAM boot at rest. Plan for orthopedic outreach on 09/19. 5. Alzheimer's dementia with behavioral disturbance (HRC) Followed by [facility] neurology, Dr. Wen. Continues on risperidone 0.5 mg BID and rivastigmine 4.6 mg patch. Previously living with prior to admission. No significant behavioral concerns. 6. Impaired mobility and ADLs Continues with physical and occupational therapy. Total assessment time 50 minutes of which >50% time spent in counseling and care coordination. Counseling involved: discussion of the care plan with patient and by phone regarding management of PE, heart failure, foot fracture, and plan for transitional care stay. Care coordination efforts included: discussion with facility staff, review of old medical records, and review of data from recent hospitalization including orders written by discharging provider. Signed by: Rubia Villanueva APRN, CNP Pager: Voicemail: CTOR INPATIENT HEADACHE PROGRAM documented in this encounter Plan of Treatment Upcoming Encounters Date Type Department Care Team (Late st Contact Info) Description 12/07/2024 11:15 AM DIRECTOR INPATIENT HEADACHE PROGRAM Appointment Neurology at [address] [address] Evangelist Wen MD [address] [place] [address] 12/14/2024 11:00 AM DIRECTOR INPATIENT HEADACHE PROGRAM Appointment [facility] [address] [place] [address] Maria Ines Caldera APRN, FUR FINISHER [address] [place], [place] [id number] documented as of this encounter Visit Diagnoses Diagnosis Acute pulmonary embolism, unspecified pulmonary embolism type, unspecified whether acute cor pulmonale present (HRC)- Primary Acute on chronic diastolic HF (heart failure) (HRC) Acute on chronic diastolic heart failure E. coli UTI Urinary tract infection, site not specified Closed displaced fracture of fifth metatarsal bone of left foot with routine healing, subsequent encounter Alzheimer's dementia with behavioral disturbance (HRC) Alzheimer's disease Impaired mobility and ADLs Mechanical problems with limbs documented in this encounter Care Teams Trench Pipe Layer Helper Relationship Specialty Start Date End Date Balaji Gallegos DO [address] [place] [address] PCP - General Family Practice 10/31/21 documented as of this encounter
--- OUTSIDE RECORDS SUMMARY | 2024-10-28 15:29 | XMS_ITS | Encounter Summary ---
Author Organization [facility] Address [address] [place] [address] Care Team Providers Care Soil Checker Name Role Phone Balaji Gallegos DO Primary Care Provider Reason for Visit * Reason Comments Follow-up Encounter Details Date Type Department Care Team (Late st Contact Info) Description 09/16/[address] [facility] [address] [facility] [place]. [place], [place] [phone] Rubia Villanueva, BLUEPRINT TRIMMER, PRE K SPECIAL EDUCATION TEACHER [address] [place], [place] [phone] Follow-up Social History Tobacco Use Types Packs/Day Years Used Date Smoking Tobacco: Former Passive Smoke Exposure: Never Smokeless Tobacco: Never Alcohol Use Standard Drinks/Week Comments Not Currently 0 (1 standard drink = 0.6 oz pur e alcohol) [facility] Utilities Answer Date Recorded In the [...] any time in the past 12 m [facility], were you homeless or living in a fci (including now)? No 09/09/2024 Sex and Gender Information Value Date Recorded Sex Assigned at Not on file Gender Identity Not on file Sexual Orientation Not on file documented as of this encounter Last Filed Vital Signs Vital Sign Reading Time Taken Comments Blood Pressure 159/77 09/17/2024 9:27 PM COMPANY SECRETARY Pulse 65 09/17/2024 9:27 PM COMPANY SECRETARY Temperature 36.2 C (97.2 F) 09/17/2024 9:27 PM COMPANY SECRETARY Respiratory Rate 18 09/17/2024 9:27 PM COMPANY SECRETARY Oxygen Saturation 97% 09/17/2024 9:27 PM COMPANY SECRETARY Inhaled Oxygen Concentration - - Weight 97.2 kg (214 lb 3.2 oz) 09/17/2024 9:27 P M COMPANY SECRETARY Height - - Body Mass Index 30.73 09/09/2024 4:15 AM COMPANY SECRETARY documented in this encounter Progress Notes * Rubia Villanueva, BLUEPRINT TRIMMER, PRE K SPECIAL EDUCATION TEACHER - 09/16/2024 3:[address] [facility] Transitional [facility] Follow-up Visit [facility] Jean-Paul Andre is a 84 y.o. old male, date of 1940, currently in the transitional careunit at [facility]. This follow-up visit is conducted at the care facility on09/16/2024. I reviewed the plan of care including medications and treatments. History of Present Illness: 84 y.o. old male with past medical history of essential hypertension, anxiety, Alzheimer's dementialiving with his at home, obesity with BMI 31, and lumbar osteomyelitis in 2017 admitted to [facility] on 08/30/2024 for a fall with subsequent 5th metatarsal fracture base of left foot. Per [facility] discharge summary on 09/02/2024: Fall Closed displaced [...] extremity edema, and confusion on 09/08/[address] [facility] and was transferred to [facility] and subsequently found to have a pulmonary embolism and urinary tract infection. Per [facility] discharge summary on 09/14/2024: # Sepsis secondary to UTI (HRC)-resolved #UTI-completed treatment -Met criteria for sepsis with fever to 100.6?? F, tachycardia, elevated procalcitonin, elevated lactate, urinary source w/abnormal UA. Ucx + for E.coli susceptible to Rocephin. -was initiated on Rocephin on 09/08. Completed 4 days of IV therapy; plan to complete course with cefuroxime PO for additional 3 days at [place]. - white blood cell count: 7.9 down [...] mg daily and losartan 25 mg daily. Creatinine baseline 1-1.3 and peaked to 1.97 on 09/16 and previously 1.06 on 09/13. Voiding without difficulty and PVR 106 mL and appears unlikely post-renal acute kidney injury. Will stop losartan and furosemide and repeat BMP on 09/19. If needs diuretics, would consider using torsemide instead of furosemide. Continuesto appear relatively euvolemic with trace bilateral pedal edema, no dyspnea, and lung sounds clear without inspiratory crackles. 4. Impaired mobility and activities of daily living Continues with physical and occupational therapy. 1. Acute pulmonary embolism, unspecified pulmonary embolism type, unspecified whether acute cor pulmonale present (HRC) 2. Acute on chronic diastolic HF (heart failure) (HRC) 3. Acute kidney injury (HRC) 4. Impaired mobility and activities of daily living Since last visit: Jean-Paul was noted to have a significant creatinine bump from 1.06 on 09/13 to 1.97 on 09/16. He stateshe does not have shortness of breath or cough. He states he has not been having trouble voiding bella bladder scan was completed and 106 mL. He has not noticed increased lower extremity. His wascalled and not available with a phone message left. Current Outpatient Medications Medication Sig Dispense Refill [...] 09/09/2024 Lab Results Component Value Date Creatinine 1.97 (H) 09/16/2024 Glucose 85 09/16/2024 Bedside Blood Glucose Test N/A 08/25/2002 Bedside Blood Glucose Test N/A 08/25/2002 CO2 17 (L) 09/16/2024 Chloride 112 (H) 09/16/2024 Potassium 4.7 09/16/2024 Sodium 142 09/16/2024 BUN 32 (H) 09/16/2024 Calcium 8.9 09/16/2024 GFR, Estimated 33 (L) 09/16/2024 Lab Results Component Value Date Creatinine 1.97 (H) 09/16/2024 Creatinine 1.06 09/13/2024 Creatinine 1.14 09/11/2024 Physical Examination BP (!) 159/77 Pulse 65 Temp 36.2 ??C (97.2 ??F) Resp 18 Wt 97.2 kg (214 lb 3.2 oz) SpO2 97% BMI 30.73 kg/m?? Wt Readings from Last 3 Encounters: 09/17/24 97.2 kg (214 lb 3.2 oz) 09/15/24 97.4 kg (214 lb 12.8 oz) 09/06/24 98.2 kg (216 lb 6.4 oz) Constitutional: alert, in no acute distress, engages in conversation, and sitting in wheelchair Respiratory: clear to auscultation bilaterally and respirations regular and non-labored Cardiovascular: normal rate, trace bilateral pedal edema, and S1, S2 normal Musculoskeletal: extremities without gross deformity and CAM boot to left foot with motor intact toleft toes Gastrointestinal: abdomen soft, non-tender, and active bowel sounds are present Integumentary: no rash Neurological: alert , articulate speech, and cranial nerves grossly intact Psychiatric: not depressed, agitated or anxious, cooperative, and memory impaired Total time 50 minutes of which greater than 50% spent in counseling and care coordination. Counseling involved: discussion of the care plan with patient and by phone regarding management of CHF,PAMELLA, and PE. Care coordination efforts included: review of facility EMR, reconciling medications, and discussion with facility staff. Signed by: Rubia Villanueva APRN, CNP Pager: Voicemail: ANY SECRETARY documented in this encounter Plan of Treatment Upcoming Encounters Date Type Department Care Team (Late st Contact Info) Description 12/07/2024 11:15 AM COMPANY SECRETARY Appointment Neurology at [facility] [address] [facility]. [place], [place] [phone] Evangelist Wen MD [address] [place], [place] [phone] 12/14/2024 11:00 AM COMPANY SECRETARY Appointment [facility] [address] [place], [place] [phone] Maria Ines Caldera APRN, JASMYNE [address] [place] [address] documented as of this encounter Visit Diagnoses Diagnosis Acute pulmonary embolism, unspecified pulmonary embolism type, unspecified whether acute cor pulmonale present (HRC)- Primary Acute on chronic diastolic HF (heart failure) (HRC) Acute on chronic diastolic heart failure Acute kidney injury (HRC) Acute kidney failure, unspecified Impaired mobility and activities of daily living Mechanical problems with limbs documented in this encounter Care Teams Soil Checker Relationship Specialty Start Date End Date Balaji Gallegos DO [address] [place], [place] [phone] PCP - General Family Practice 10/31/21 documented as of this encounter
--- OUTSIDE RECORDS SUMMARY | 2024-10-28 15:29 | XMS_ITS | Encounter Summary ---
[facility] Organization [facility] Address [address] [place] [address] Care Team Providers Care Anthropometrist Name Role Phone Balaji Gallegos DO Primary Care Provider Encounter Details Date Type Department Care Team (Late st Contact Info) Description 09/03/2024 E-Visit [facility] [address] [place] [address]. [place], [place] [phone] [place] [address] Social History Tobacco Use Types Packs/Day Years Used Date Smoking Tobacco: Former Passive Smoke Exposure: Never Smokeless Tobacco: Never Alcohol Use Standard Drinks/Week Comments Not Currently 0 (1 standard drink = 0.6 oz pur e alcohol) [facility] Utilities Answer Date Recorded In the past 12 months has [employer], gas, oil, or water [employer] threatened to shut off services in your [...] any time in the past 12 m [facility], were you homeless or living in a care home (including now)? No 09/09/2024 Sex and Gender Information Value Date Recorded Sex Assigned at Not on file Gender Identity Not on file Sexual Orientation Not on file documented as of this encounter Plan of Treatment Upcoming Encounters Date Type Department Care Team (Late st Contact Info) Description 12/07/2024 11:15 AM COUNTERSINKER BALANCE SCREW HOLE Appointment Neurology at [address] [place], [place] [phone] Evangelist Wen MD [address] [place], [place] [phone] 12/14/2024 11:00 AM COUNTERSINKER BALANCE SCREW HOLE Appointment [facility] [address] [phone] Alana Alex [place], [place] [phone] Maria Ines Caldera, SENIOR TAX MANAGER, ENTERPRISE MOBILITY ARCHITECT [address] [place] [address] documented as of this encounter Visit Diagnoses Not on filedocumented in this encounter Additional Health Concerns Infection Onset Date Last Indicated Resolved Time R/O COVID19 09/08/2024 09/08/2024 09/08/2024 11:2 8 PM COUNTERSINKER BALANCE SCREW HOLE documented as of this encounter Care Teams Anthropometrist Relationship Specialty Start Date End Date Balaji Gallegos DO [address] [place] [address] PCP - General Family Practice 10/31/21 documented as of this encounter
== END 2024-10-28 16:12 | disposition home or self-care (01) ==
PROVIDERS: Emergency Provider Internal Medicine
DX: S09.90XA Unspecified injury of head, initial encounter (principal); W18.30XA Fall on same level, unspecified, initial encounter
CPT/HCPCS: 70450; 72125; 99283